=== PATIENT | female | born 1970 | race Two or more races ===

== ENCOUNTER 2018-09-13 13:41 | Inpatient (IN) | payer MEDICARE, OTHER ==
[2018-09-13] VITALS (12 sets, daily range): BP systolic 88–109; BP diastolic 44–58
[~2018-09-13] VITALS: Ht 152.4 cm; Wt 86.6 kg
[2018-09-13] MEDS ORDERED: ACETAMINOPHEN 650 MG/SUPP.RECT RC ONE ×2 (14:30→14:48)
[2018-09-13] MEDS ORDERED: IV NS 0.9% 1,000 ML BAG IV ONE (14:30)
[2018-09-13 14:45] LABS: BASOPHILS % (AUTO) 0.3 % (0.0-2.0); EOSINOPHILS % (AUTO) 0.1 % (0.0-6.0); HEMATOCRIT 29 % (33-45); HEMOGLOBIN 9.7 g/dL (11.5-14.8); LYMPHOCYTES # (AUTO) 0.8 /CMM (0.8-4.8); LYMPHOCYTES % (AUTO) 5.6 % (20.0-44.0); MEAN CORPUSCULAR HGB CONC 33 g/dl (31.0-36.0); MEAN CORPUSCULAR VOLUME 95 fL (82-100); MONOCYTES # (AUTO) 1.7 /CMM (0.1-1.30); MONOCYTES % (AUTO) 12.2 % (2.0-12.0); NEUTROPHILS # (AUTO) 11.2 /CMM (1.8-8.9); NEUTROPHILS % (AUTO) 81.8 % (43.0-81.0); PLATELET COUNT (AUTO) 138 /CMM (150-450); RED BLOOD CELL COUNT(AUTO) 3.07 MIL/uL (4.0-5.2); WHITE BLOOD COUNT (AUTO) 13.6 K/uL (4.3-11.0)
[2018-09-13 14:50] LABS: CALCIUM, SERUM 9.6 mg/dL (8.5-10.1); CARBON DIOXIDE 29 mmol/L (21-32); CHLORIDE 102 mmol/L (98-107); CREATININE 4.7 mg/dL (0.6-1.3); GLUCOSE 167 mg/dL (74-106); POTASSIUM 4.6 mmol/L (3.5-5.1); SODIUM SERUM 141 mmol/L (136-145); UREA NITROGEN, BLOOD 67 mg/dL (7-18)
[2018-09-13 14:57] LABS: ALANINE AMINOTRANSFERASE 107 U/L (12-78); ALKALINE PHOSPHATASE 265 U/L (46-116); ASPARTATE AMINOTRANSFERASE 92 U/L (15-37); BILIRUBIN,DIRECT 0.2 mg/dL (0.0-0.2); BILIRUBIN,TOTAL 0.7 mg/dL (0.2-1.0); TOTAL PROTEIN, SERUM 8.2 g/dL (6.4-8.2)
[2018-09-13] MEDS ORDERED: CEFTRIAXONE 1GM BAG (ER ONLY) 1 GM/50 ML PIGGYBACK IV ONE (16:00)
[2018-09-13 16:09] LABS: BAND % (MANUAL) 2 % (0.0-5.0); LYMPHOCYTES % (MANUAL) 6 % (16-48); MONOCYTES % (MANUAL) 7 % (0-11.0); NEUTROPHILS % (MANUAL) 85 (42-76)
[2018-09-13] MEDS ORDERED: CEFTRIAXONE 1GM BAG (ER ONLY) 50 ML IV ONE (16:11)
[2018-09-13] MEDS ORDERED: DEXT15DR6 EACHEYE (16:30)
[2018-09-13] MEDS ORDERED: CARV3.122 GT (16:30)
[2018-09-13] MEDS ORDERED: CALC667C6 GT (16:30)
[2018-09-13] MEDS ORDERED: BRIM5DRO3 EACHEYE (16:30)
[2018-09-13] MEDS ORDERED: LACT10SO GT (16:30)
[2018-09-13] MEDS ORDERED: MAGN400O6 GT (16:30)
[2018-09-13] MEDS ORDERED: LINA5TAB GT (16:30)
[2018-09-13] MEDS ORDERED: CHLO473M5 MM (16:30)
[2018-09-13] MEDS ORDERED: SUCR1ORA GT (16:30)
[2018-09-13] MEDS ORDERED: MONT10TA22 GT (16:30)
[2018-09-13] MEDS ORDERED: PROT946L GT (16:30)
[2018-09-13] MEDS ORDERED: ASCO250T5 GT (16:30)
[2018-09-13] MEDS ORDERED: LANS30TA4 GT (16:30)
[2018-09-13] MEDS ORDERED: FAMO20TA8 GT (16:30)
[2018-09-13] MEDS ORDERED: VIT1TABL46 GT (16:30)
[2018-09-13] MEDS ORDERED: NYST15PO4 TP (16:30)
[2018-09-13] MEDS ORDERED: ALBU2.5V38 IH ×2 (16:30)
[2018-09-13] MEDS ORDERED: EPOE1VIA6 SQ (16:30)
[2018-09-13] MEDS ORDERED: METO5SOL20 GT (16:30)
[2018-09-13] MEDS ORDERED: POLY17PO4 GT (16:30)
[2018-09-13] MEDS ORDERED: [UNRECOGNIZED DRUG - CODE] GT (16:30)
[2018-09-13] MEDS ORDERED: DOCU50LI GT (16:30)
[2018-09-13] MEDS ORDERED: INSU100V28 IJ (16:30)
[2018-09-13] MEDS ORDERED: LEVE100S2 GT (16:30)
[2018-09-13] MEDS ORDERED: ACET160S GT (16:30)
[2018-09-13] MEDS ORDERED: APIX5TAB GT (16:30)
[2018-09-13] MEDS ORDERED: INSU100V28 SQ (16:39)
[2018-09-13] MEDS ORDERED: NPH,100V SQ (16:39)
[2018-09-13] MEDS ORDERED: NUT.237L67 GT (16:42)
[2018-09-13] MEDS ORDERED: ACETAMINOPHEN 325 MG TABLET PO PRN (19:00)
[2018-09-13] MEDS ORDERED: ONDANSETRON HCL/PF 4 MG/2 ML VIAL IVP PRN (19:00)
[2018-09-13] MEDS ORDERED: VANCOMYCIN POST DIALYSIS 500MG IV PRN ×2 (19:30)
[2018-09-13] MEDS ORDERED: VANCOMYCIN 1.25 GM in IV D5W 500 ML IV ONE (19:30)
[2018-09-13] MEDS ORDERED: VANCOMYCIN 1 GM in IV D5W 250ml IV ONE (19:30)
[2018-09-13] MEDS ORDERED: FEE PK DOSING 1 MIN EA MC ONE (19:33)
[2018-09-13] MEDS: FAMOTIDINE/PF INJ 20 MG/2 ML VIAL IV SCH (21:17)
[2018-09-13] MEDS: PIPERACILLIN /TAZOBACTAM 2.25 G in IV D5W 50 ML IV SCH (21:17)
[2018-09-14] VITALS (34 sets, daily range): BP systolic 90–148; BP diastolic 41–99
[2018-09-14] MEDS ORDERED: PIPERACILLIN /TAZOBACTAM 3.375 G in IV D5W 50 ML IV SCH ×2
[2018-09-14 04:42] LABS: BASOPHILS % (AUTO) 0.2 % (0.0-2.0); EOSINOPHILS % (AUTO) 0.1 % (0.0-6.0); HEMATOCRIT 28 % (33-45); HEMOGLOBIN 9.1 g/dL (11.5-14.8); LYMPHOCYTES # (AUTO) 0.3 /CMM (0.8-4.8); LYMPHOCYTES % (AUTO) 3.5 % (20.0-44.0); MEAN CORPUSCULAR HGB CONC 33 g/dl (31.0-36.0); MEAN CORPUSCULAR VOLUME 95 fL (82-100); MONOCYTES # (AUTO) 0.7 /CMM (0.1-1.30); MONOCYTES % (AUTO) 7.4 % (2.0-12.0); NEUTROPHILS # (AUTO) 8.7 /CMM (1.8-8.9); NEUTROPHILS % (AUTO) 88.8 % (43.0-81.0); PLATELET COUNT (AUTO) 104 /CMM (150-450); RED BLOOD CELL COUNT(AUTO) 2.89 MIL/uL (4.0-5.2); WHITE BLOOD COUNT (AUTO) 9.9 K/uL (4.3-11.0)
[2018-09-14 05:02] LABS: ALBUMIN 2.7 g/dL (3.4-5.0); BILIRUBIN,TOTAL 0.6 mg/dL (0.2-1.0); CALCIUM, SERUM 8.9 mg/dL (8.5-10.1); CREATININE 5.2 mg/dL (0.6-1.3); MAGNESIUM 2.6 mg/dL (1.8-2.4); PHOSPHORUS 2.6 mg/dL (2.5-4.9); POTASSIUM 4.5 mmol/L (3.5-5.1); TOTAL PROTEIN, SERUM 7.8 g/dL (6.4-8.2)
[2018-09-14 05:14] LABS: THYROID STIMULATING HORMONE 3.525 uIU/mL (0.358-3.74)
[2018-09-14] MEDS: PIPERACILLIN /TAZOBACTAM 2.25 G in IV D5W 50 ML IV SCH ×3 (06:02→22:33)
[2018-09-14] MEDS: FAMOTIDINE/PF INJ 20 MG/2 ML VIAL IV SCH ×2 (08:28→16:49)
[2018-09-14] MEDS ORDERED: PANTOPRAZOLE 40 MG VIAL IV SCH (09:00)
[2018-09-14] MEDS: ALBUMIN 25% 25 GM in PREMIX 1 EA IV PRN (10:07)
[2018-09-14] MEDS ORDERED: ACETAMINOPHEN 160 MG/5 ML GT PRN (11:00)
[2018-09-14] MEDS ORDERED: EPOETIN ALFA (10,000 UNIT) 10,000 UNIT/ML VIAL SQ PRN (11:00)
[2018-09-14] MEDS ORDERED: MAGNESIUM HYDROXIDE 30 ML UDC GT PRN (11:00)
[2018-09-14] MEDS ORDERED: NYSTATIN TOP POWDER 15 GM BOTTLE TP PRN (11:00)
[2018-09-14] MEDS ORDERED: DOCUSATE SODIUM LIQ 100 MG/10 ML UDC GT PRN (11:00)
[2018-09-14] MEDS ORDERED: NEPRO 1,000 ML BOTTLE GT SCH (11:00)
[2018-09-14] MEDS ORDERED: GUAIFENESIN/D-METHORPHAN HB 5 ML UDC GT PRN (11:00)
[2018-09-14] MEDS: CHLORHEXIDINE GLUCONATE 15 ML UDC MM SCH ×2 (12:34→22:38)
[2018-09-14] MEDS: SUCRALFATE 1 G/10 ML UDC GT SCH ×2 (12:34→22:29)
[2018-09-14] MEDS ORDERED: ACETAMINOPHEN 650 MG/20.3 ML UDC GT PRN (13:00)
[2018-09-14] MEDS: CALCIUM ACETATE 667 MG TABLET GT SCH (13:11)
[2018-09-14] MEDS ORDERED: ALBUTEROL FS 2.5 MG/0.5 ML VIAL.NEB NEB PRN (13:30)
[2018-09-14] MEDS ORDERED: DEXTROSE 50%-WATER 50 ML DISP.SYRIN IV PRN (14:00)
[2018-09-14] MEDS: ALBUTEROL FS 2.5 MG/0.5 ML VIAL.NEB IH SCH ×2 (14:14→19:27)
[2018-09-14] MEDS: NEPRO 1,000 ML BOTTLE GT PRN (14:48)
[2018-09-14] MEDS: HYDROGEL DRESSING 90 GM TUBE TP SCH ×2 (14:48→22:38)
[2018-09-14 15:56] LABS: CALCIUM, SERUM 8.9 mg/dL (8.5-10.1); CREATININE 3.5 mg/dL (0.6-1.3); POTASSIUM 4.3 mmol/L (3.5-5.1)
[2018-09-14] MEDS: POLYETHYLENE GLYCOL 3350 17 GM POWD.PACK GT SCH (16:49)
[2018-09-14] MEDS: LACTOBACILLUS RHAMNOSUS GG 1 EACH CAP.SPRINK PO SCH (16:49)
[2018-09-14] MEDS: LACTULOSE 10 G/15 ML UDC (PYXIS) GT SCH (16:49)
[2018-09-14] MEDS: PROSOURCE / PROSTAT (PYXIS) 30 ML UDC GT SCH (16:56)
[2018-09-14] MEDS: METOCLOPRAMIDE HCL 10 MG TABLET GT SCH (17:21)
[2018-09-14] MEDS: POLYVINYL ALCOHOL 15 ML BOTTLE EACHEYE SCH ×2 (17:22→22:38)
[2018-09-14] MEDS: INSULIN REGULAR, HUMAN 100 UNIT/ML 3 ML VIAL SQ PRN ×2 (17:23→23:25)
[2018-09-14] MEDS: BLOOD SUGAR DIAGNOSTIC 1 EACH STRIP IN SCH ×2 (17:23→23:26)
[2018-09-14] MEDS: APIXABAN 5 MG TABLET GT SCH (21:00)
[2018-09-14] MEDS: LEVETIRACETAM SOL (5 ML) 100 MG/ML UDC GT SCH (22:29)
[2018-09-14] MEDS: CARVEDILOL 3.125 MG TABLET GT SCH (22:31)
[2018-09-14] MEDS: MONTELUKAST SODIUM (10MG) 10 MG TABLET GT SCH (22:33)
[2018-09-14] MEDS: INSULIN NPH, HUMAN ISOPHANE 100 UNIT/ML VIAL SQ SCH (23:12)
[2018-09-14] MEDS ORDERED: APIXABAN 5 MG TABLET ONE (23:37)
[2018-09-15] VITALS: BP 122/59
[2018-09-15] MEDS: METOCLOPRAMIDE HCL 10 MG TABLET GT SCH ×5 (00:09→23:29)
[2018-09-15] MEDS: ALBUTEROL FS 2.5 MG/0.5 ML VIAL.NEB IH SCH ×4 (01:31→19:42)
[2018-09-15 04:00] VITALS: BP 139/60
[2018-09-15] MEDS: PIPERACILLIN /TAZOBACTAM 2.25 G in IV D5W 50 ML IV SCH ×2 (04:55→12:29)
[2018-09-15] MEDS: CHLORHEXIDINE GLUCONATE 15 ML UDC MM SCH ×3 (05:01→21:11)
[2018-09-15] MEDS: SUCRALFATE 1 G/10 ML UDC GT SCH ×3 (05:01→21:10)
[2018-09-15] MEDS: POLYVINYL ALCOHOL 15 ML BOTTLE EACHEYE SCH ×4 (05:05→23:30)
[2018-09-15] MEDS: INSULIN NPH, HUMAN ISOPHANE 100 UNIT/ML VIAL SQ SCH ×3 (05:07→21:58)
[2018-09-15] MEDS: INSULIN REGULAR, HUMAN 100 UNIT/ML 3 ML VIAL SQ PRN ×3 (05:11→23:41)
[2018-09-15] MEDS: BLOOD SUGAR DIAGNOSTIC 1 EACH STRIP IN SCH ×4 (05:41→23:42)
[2018-09-15] MEDS ORDERED: PANTOPRAZOLE 40 MG TABLET.DR PO SCH (07:30)
[2018-09-15 08:00] VITALS: BP 131/65
[2018-09-15] MEDS ORDERED: FAMOTIDINE (20 MG) 20 MG TABLET GT SCH (09:00)
[2018-09-15] MEDS: CARVEDILOL 3.125 MG TABLET GT SCH ×2 (09:35→21:10)
[2018-09-15] MEDS: LACTOBACILLUS RHAMNOSUS GG 1 EACH CAP.SPRINK PO SCH ×2 (09:35→17:08)
[2018-09-15] MEDS: LACTULOSE 10 G/15 ML UDC (PYXIS) GT SCH ×2 (09:35→17:07)
[2018-09-15] MEDS: POLYETHYLENE GLYCOL 3350 17 GM POWD.PACK GT SCH ×2 (09:35→17:00)
[2018-09-15] MEDS: ASCORBIC ACID 500 MG TABLET GT SCH (09:35)
[2018-09-15] MEDS: FAMOTIDINE/PF INJ 20 MG/2 ML VIAL IV SCH ×2 (09:35→17:08)
[2018-09-15] MEDS: CALCIUM ACETATE 667 MG TABLET GT SCH (09:35)
[2018-09-15] MEDS: VIT B CMPLX 3/FA/VIT C/BIOTIN 1 TAB TABLET GT SCH (09:35)
[2018-09-15] MEDS: LEVETIRACETAM SOL (5 ML) 100 MG/ML UDC GT SCH ×2 (09:35→21:11)
[2018-09-15] MEDS: BRIMONIDINE TARTRATE OPHT SOLN 5 ML BOTTLE EACHEYE SCH (09:36)
[2018-09-15] MEDS: HYDROGEL DRESSING 90 GM TUBE TP SCH ×2 (09:36→21:12)
[2018-09-15] MEDS: PROSOURCE / PROSTAT (PYXIS) 30 ML UDC GT SCH ×2 (09:50→17:08)
[2018-09-15] MEDS: APIXABAN 5 MG TABLET GT SCH ×2 (10:30→21:10)
[2018-09-15 12:00] VITALS: BP 130/52
[2018-09-15 14:48] LABS: BASOPHILS % (AUTO) 0.2 % (0.0-2.0); EOSINOPHILS % (AUTO) 0.7 % (0.0-6.0); HEMATOCRIT 23 % (33-45); HEMOGLOBIN 7.6 g/dL (11.5-14.8); LYMPHOCYTES # (AUTO) 0.5 /CMM (0.8-4.8); LYMPHOCYTES % (AUTO) 7.6 % (20.0-44.0); MEAN CORPUSCULAR HGB CONC 34 g/dl (31.0-36.0); MEAN CORPUSCULAR VOLUME 93 fL (82-100); MONOCYTES # (AUTO) 0.9 /CMM (0.1-1.30); MONOCYTES % (AUTO) 12.8 % (2.0-12.0); NEUTROPHILS # (AUTO) 5.4 /CMM (1.8-8.9); NEUTROPHILS % (AUTO) 78.7 % (43.0-81.0); PLATELET COUNT (AUTO) 101 /CMM (150-450); RED BLOOD CELL COUNT(AUTO) 2.41 MIL/uL (4.0-5.2); WHITE BLOOD COUNT (AUTO) 6.8 K/uL (4.3-11.0)
[2018-09-15 15:12] LABS: ALBUMIN 2.6 g/dL (3.4-5.0); BILIRUBIN,TOTAL 0.5 mg/dL (0.2-1.0); CREATININE 4.8 mg/dL (0.6-1.3); MAGNESIUM 2.6 mg/dL (1.8-2.4); POTASSIUM 3.6 mmol/L (3.5-5.1)
[2018-09-15 16:00] VITALS: BP 136/52
[2018-09-15 18:01] LABS: BAND % (MANUAL) 1 % (0.0-5.0); LYMPHOCYTES % (MANUAL) 9 % (16-48); MONOCYTES % (MANUAL) 6 % (0-11.0); NEUTROPHILS % (MANUAL) 84 (42-76)
[2018-09-15] MEDS ORDERED: DOSING PER PHARMACY-AMIKACI IV XX PRN (19:00)
[2018-09-15] MEDS ORDERED: FEE PK DOSING 1 MIN EA MC ONE (19:12)
[2018-09-15 20:00] VITALS: BP 151/57
[2018-09-15] MEDS ORDERED: D5W IV ONE (20:00)
[2018-09-15] MEDS ORDERED: AMIKACIN IV ONE (20:00)
[2018-09-15] MEDS: MONTELUKAST SODIUM (10MG) 10 MG TABLET GT SCH (21:11)
[2018-09-16] VITALS: BP 169/56
[2018-09-16] MEDS: ALBUTEROL FS 2.5 MG/0.5 ML VIAL.NEB IH SCH ×4 (01:18→20:08)
[2018-09-16 04:00] VITALS: BP 163/56
[2018-09-16] MEDS: SUCRALFATE 1 G/10 ML UDC GT SCH ×3 (05:44→22:06)
[2018-09-16] MEDS: METOCLOPRAMIDE HCL 10 MG TABLET GT SCH ×3 (05:44→17:12)
[2018-09-16] MEDS: POLYVINYL ALCOHOL 15 ML BOTTLE EACHEYE SCH ×3 (05:45→18:03)
[2018-09-16] MEDS: CHLORHEXIDINE GLUCONATE 15 ML UDC MM SCH ×3 (05:46→22:06)
[2018-09-16] MEDS: INSULIN REGULAR, HUMAN 100 UNIT/ML 3 ML VIAL SQ PRN ×3 (05:50→22:13)
[2018-09-16] MEDS: INSULIN NPH, HUMAN ISOPHANE 100 UNIT/ML VIAL SQ SCH ×3 (05:50→22:11)
[2018-09-16] MEDS: BLOOD SUGAR DIAGNOSTIC 1 EACH STRIP IN SCH ×4 (05:51→22:12)
[2018-09-16 07:13] LABS: BASOPHILS % (AUTO) 0.3 % (0.0-2.0); EOSINOPHILS % (AUTO) 0.9 % (0.0-6.0); HEMATOCRIT 25 % (33-45); HEMOGLOBIN 8.4 g/dL (11.5-14.8); LYMPHOCYTES # (AUTO) 0.7 /CMM (0.8-4.8); LYMPHOCYTES % (AUTO) 10.3 % (20.0-44.0); MEAN CORPUSCULAR HGB CONC 34 g/dl (31.0-36.0); MEAN CORPUSCULAR VOLUME 94 fL (82-100); MONOCYTES # (AUTO) 0.7 /CMM (0.1-1.30); MONOCYTES % (AUTO) 11.2 % (2.0-12.0); NEUTROPHILS # (AUTO) 5.2 /CMM (1.8-8.9); NEUTROPHILS % (AUTO) 77.3 % (43.0-81.0); PLATELET COUNT (AUTO) 112 /CMM (150-450); RED BLOOD CELL COUNT(AUTO) 2.65 MIL/uL (4.0-5.2); WHITE BLOOD COUNT (AUTO) 6.7 K/uL (4.3-11.0)
[2018-09-16 07:25] LABS: ALBUMIN 2.5 g/dL (3.4-5.0); BILIRUBIN,TOTAL 0.6 mg/dL (0.2-1.0); CALCIUM, SERUM 9.3 mg/dL (8.5-10.1); CREATININE 5.4 mg/dL (0.6-1.3); MAGNESIUM 2.7 mg/dL (1.8-2.4); PHOSPHORUS 2.4 mg/dL (2.5-4.9); TOTAL PROTEIN, SERUM 7.2 g/dL (6.4-8.2)
[2018-09-16] MEDS: NEPRO 1,000 ML BOTTLE GT PRN (07:41)
[2018-09-16 08:00] VITALS: BP 132/52
[2018-09-16] MEDS: BRIMONIDINE TARTRATE OPHT SOLN 5 ML BOTTLE EACHEYE SCH (08:34)
[2018-09-16] MEDS: LACTULOSE 10 G/15 ML UDC (PYXIS) GT SCH ×2 (08:34→17:12)
[2018-09-16] MEDS: LEVETIRACETAM SOL (5 ML) 100 MG/ML UDC GT SCH ×2 (08:35→22:05)
[2018-09-16] MEDS: VIT B CMPLX 3/FA/VIT C/BIOTIN 1 TAB TABLET GT SCH (08:35)
[2018-09-16] MEDS: POLYETHYLENE GLYCOL 3350 17 GM POWD.PACK GT SCH ×2 (08:35→17:12)
[2018-09-16] MEDS: CALCIUM ACETATE 667 MG TABLET GT SCH (08:35)
[2018-09-16] MEDS: FAMOTIDINE/PF INJ 20 MG/2 ML VIAL IV SCH ×2 (08:36→17:12)
[2018-09-16] MEDS: ASCORBIC ACID 500 MG TABLET GT SCH (08:36)
[2018-09-16] MEDS: LACTOBACILLUS RHAMNOSUS GG 1 EACH CAP.SPRINK PO SCH ×2 (08:36→17:12)
[2018-09-16] MEDS: CARVEDILOL 3.125 MG TABLET GT SCH ×2 (09:00→22:05)
[2018-09-16] MEDS: PROSOURCE / PROSTAT (PYXIS) 30 ML UDC GT SCH ×2 (09:22→17:12)
[2018-09-16] MEDS: HYDROGEL DRESSING 90 GM TUBE TP SCH ×2 (09:23→21:00)
[2018-09-16] MEDS: APIXABAN 5 MG TABLET GT SCH ×2 (09:38→21:33)
[2018-09-16] MEDS ORDERED: NEUTRA PHOS 1 POWD.PACKET NG ONE (11:30)
[2018-09-16] MEDS ORDERED: AMIKACIN IV ONE (12:00)
[2018-09-16] MEDS ORDERED: D5W IV ONE (12:00)
[2018-09-16] MEDS: ALBUMIN 25% 25 GM in PREMIX 1 EA IV PRN (12:27)
[2018-09-16] MEDS ORDERED: EPOETIN ALFA (10,000 UNIT) 10,000 UNIT/ML VIAL IV ONE (15:00)
[2018-09-16 16:00] VITALS: BP 146/61
[2018-09-16] MEDS ORDERED: AMIKACIN 500 MG in IV NS 0.9% 100 ML IV PRN (18:00)
[2018-09-16] MEDS ORDERED: NEPRO 1,000 ML BOTTLE GT PRN (18:30)
[2018-09-16 20:00] VITALS: BP 124/76
[2018-09-16] MEDS: MONTELUKAST SODIUM (10MG) 10 MG TABLET GT SCH (21:33)
[2018-09-17] MEDS: METOCLOPRAMIDE HCL 10 MG TABLET GT SCH ×4 (00:19→17:21)
[2018-09-17] MEDS: POLYVINYL ALCOHOL 15 ML BOTTLE EACHEYE SCH ×4 (00:20→17:22)
[2018-09-17] MEDS: ALBUTEROL FS 2.5 MG/0.5 ML VIAL.NEB IH SCH ×4 (01:24→20:04)
[2018-09-17 04:00] VITALS: BP 136/72
[2018-09-17] MEDS: CHLORHEXIDINE GLUCONATE 15 ML UDC MM SCH ×3 (05:50→21:26)
[2018-09-17] MEDS: INSULIN NPH, HUMAN ISOPHANE 100 UNIT/ML VIAL SQ SCH ×3 (06:02→21:40)
[2018-09-17] MEDS: INSULIN REGULAR, HUMAN 100 UNIT/ML 3 ML VIAL SQ PRN ×3 (06:03→17:25)
[2018-09-17] MEDS: BLOOD SUGAR DIAGNOSTIC 1 EACH STRIP IN SCH ×3 (06:04→17:21)
[2018-09-17] MEDS: SUCRALFATE 1 G/10 ML UDC GT SCH ×3 (06:05→21:25)
[2018-09-17 07:43] LABS: BASOPHILS % (AUTO) 0.4 % (0.0-2.0); HEMATOCRIT 25 % (33-45); HEMOGLOBIN 8.5 g/dL (11.5-14.8); LYMPHOCYTES # (AUTO) 0.6 /CMM (0.8-4.8); LYMPHOCYTES % (AUTO) 11.4 % (20.0-44.0); MEAN CORPUSCULAR HGB CONC 34 g/dl (31.0-36.0); MEAN CORPUSCULAR VOLUME 93 fL (82-100); MONOCYTES # (AUTO) 0.6 /CMM (0.1-1.30); NEUTROPHILS # (AUTO) 4.3 /CMM (1.8-8.9); NEUTROPHILS % (AUTO) 76.2 % (43.0-81.0); PLATELET COUNT (AUTO) 138 /CMM (150-450); WHITE BLOOD COUNT (AUTO) 5.6 K/uL (4.3-11.0)
[2018-09-17 07:50] LABS: CALCIUM, SERUM 9.3 mg/dL (8.5-10.1); MAGNESIUM 2.5 mg/dL (1.8-2.4); PHOSPHORUS 2.1 mg/dL (2.5-4.9); POTASSIUM 3.6 mmol/L (3.5-5.1)
[2018-09-17 08:00] VITALS: BP 165/64
[2018-09-17] MEDS: POLYETHYLENE GLYCOL 3350 17 GM POWD.PACK GT SCH ×2 (09:28→17:20)
[2018-09-17] MEDS: LACTULOSE 10 G/15 ML UDC (PYXIS) GT SCH ×2 (09:28→17:21)
[2018-09-17] MEDS: VIT B CMPLX 3/FA/VIT C/BIOTIN 1 TAB TABLET GT SCH (09:28)
[2018-09-17] MEDS: LEVETIRACETAM SOL (5 ML) 100 MG/ML UDC GT SCH ×2 (09:28→21:26)
[2018-09-17] MEDS: LACTOBACILLUS RHAMNOSUS GG 1 EACH CAP.SPRINK PO SCH ×2 (09:28→17:21)
[2018-09-17] MEDS: FAMOTIDINE/PF INJ 20 MG/2 ML VIAL IV SCH ×2 (09:29→17:21)
[2018-09-17] MEDS: CALCIUM ACETATE 667 MG TABLET GT SCH (09:29)
[2018-09-17] MEDS: ASCORBIC ACID 500 MG TABLET GT SCH (09:29)
[2018-09-17] MEDS: APIXABAN 5 MG TABLET GT SCH ×2 (09:30→21:27)
[2018-09-17] MEDS: HYDROGEL DRESSING 90 GM TUBE TP SCH ×2 (09:30→21:40)
[2018-09-17] MEDS: CARVEDILOL 3.125 MG TABLET GT SCH ×2 (09:30→21:26)
[2018-09-17] MEDS: BRIMONIDINE TARTRATE OPHT SOLN 5 ML BOTTLE EACHEYE SCH (09:30)
[2018-09-17] MEDS: PROSOURCE / PROSTAT (PYXIS) 30 ML UDC GT SCH ×2 (09:32→17:00)
[2018-09-17 16:00] VITALS: BP 146/50
[2018-09-17 20:00] VITALS: BP_SYST 126; BP_DIAS 54; BP_DIAS 64
[2018-09-17] MEDS: MONTELUKAST SODIUM (10MG) 10 MG TABLET GT SCH (21:29)
[2018-09-18] MEDS: BLOOD SUGAR DIAGNOSTIC 1 EACH STRIP IN SCH ×5 (00:13→23:57)
[2018-09-18] MEDS: INSULIN REGULAR, HUMAN 100 UNIT/ML 3 ML VIAL SQ PRN ×4 (00:16→23:59)
[2018-09-18] MEDS: METOCLOPRAMIDE HCL 10 MG TABLET GT SCH ×5 (00:16→23:56)
[2018-09-18] MEDS: POLYVINYL ALCOHOL 15 ML BOTTLE EACHEYE SCH ×5 (00:20→23:56)
[2018-09-18] MEDS: ALBUTEROL FS 2.5 MG/0.5 ML VIAL.NEB IH SCH ×4 (01:39→19:40)
[2018-09-18 04:00] VITALS: BP 156/53
[2018-09-18] MEDS: CHLORHEXIDINE GLUCONATE 15 ML UDC MM SCH ×3 (05:40→21:19)
[2018-09-18] MEDS: SUCRALFATE 1 G/10 ML UDC GT SCH ×3 (05:40→21:18)
[2018-09-18] MEDS: INSULIN NPH, HUMAN ISOPHANE 100 UNIT/ML VIAL SQ SCH ×3 (05:47→21:20)
[2018-09-18 06:24] LABS: BASOPHILS % (AUTO) 0.3 % (0.0-2.0); EOSINOPHILS % (AUTO) 1.5 % (0.0-6.0); HEMATOCRIT 23 % (33-45); HEMOGLOBIN 7.7 g/dL (11.5-14.8); LYMPHOCYTES # (AUTO) 0.7 /CMM (0.8-4.8); LYMPHOCYTES % (AUTO) 12.1 % (20.0-44.0); MEAN CORPUSCULAR HGB CONC 33 g/dl (31.0-36.0); MEAN CORPUSCULAR VOLUME 94 fL (82-100); MONOCYTES # (AUTO) 0.6 /CMM (0.1-1.30); MONOCYTES % (AUTO) 10.1 % (2.0-12.0); NEUTROPHILS # (AUTO) 4.3 /CMM (1.8-8.9); PLATELET COUNT (AUTO) 149 /CMM (150-450); RED BLOOD CELL COUNT(AUTO) 2.49 MIL/uL (4.0-5.2); WHITE BLOOD COUNT (AUTO) 5.7 K/uL (4.3-11.0)
[2018-09-18 06:41] LABS: CALCIUM, SERUM 9.3 mg/dL (8.5-10.1); CREATININE 5.1 mg/dL (0.6-1.3); PHOSPHORUS 2.1 mg/dL (2.5-4.9); POTASSIUM 3.5 mmol/L (3.5-5.1)
[2018-09-18 07:00] LABS: MAGNESIUM 2.7 mg/dL (1.8-2.4)
[2018-09-18 08:00] VITALS: BP 151/80
[2018-09-18] MEDS: LACTULOSE 10 G/15 ML UDC (PYXIS) GT SCH ×2 (09:00→17:00)
[2018-09-18] MEDS: POLYETHYLENE GLYCOL 3350 17 GM POWD.PACK GT SCH ×2 (09:00→17:00)
[2018-09-18] MEDS: LEVETIRACETAM SOL (5 ML) 100 MG/ML UDC GT SCH ×2 (09:18→21:18)
[2018-09-18] MEDS: VIT B CMPLX 3/FA/VIT C/BIOTIN 1 TAB TABLET GT SCH (09:19)
[2018-09-18] MEDS: ASCORBIC ACID 500 MG TABLET GT SCH (09:19)
[2018-09-18] MEDS: LACTOBACILLUS RHAMNOSUS GG 1 EACH CAP.SPRINK PO SCH ×2 (09:20→17:00)
[2018-09-18] MEDS: CARVEDILOL 3.125 MG TABLET GT SCH ×2 (09:20→21:19)
[2018-09-18] MEDS: FAMOTIDINE/PF INJ 20 MG/2 ML VIAL IV SCH ×2 (09:21→17:00)
[2018-09-18] MEDS: PROSOURCE / PROSTAT (PYXIS) 30 ML UDC GT SCH ×2 (09:23→17:00)
[2018-09-18] MEDS: APIXABAN 5 MG TABLET GT SCH ×2 (09:24→21:18)
[2018-09-18] MEDS: BRIMONIDINE TARTRATE OPHT SOLN 5 ML BOTTLE EACHEYE SCH (09:46)
[2018-09-18] MEDS: HYDROGEL DRESSING 90 GM TUBE TP SCH ×2 (09:47→21:19)
[2018-09-18 12:00] VITALS: BP 128/75
[2018-09-18] MEDS ORDERED: NEUTRA PHOS 1 POWD.PACKET GT ONE (12:30)
[2018-09-18] MEDS ORDERED: LACT1CAP72 PO (14:40)
[2018-09-18 16:00] VITALS: BP 152/74
[2018-09-18 20:00] VITALS: BP 125/54
[2018-09-18 21:04] VITALS: BP 125/54
[2018-09-18] MEDS: MONTELUKAST SODIUM (10MG) 10 MG TABLET GT SCH (21:18)
[2018-09-19] MEDS: ALBUTEROL FS 2.5 MG/0.5 ML VIAL.NEB IH SCH ×3 (01:07→13:21)
[2018-09-19 04:00] VITALS: BP 126/57
[2018-09-19] MEDS: CHLORHEXIDINE GLUCONATE 15 ML UDC MM SCH ×2 (04:58→12:49)
[2018-09-19] MEDS: SUCRALFATE 1 G/10 ML UDC GT SCH ×2 (04:58→12:49)
[2018-09-19] MEDS: POLYVINYL ALCOHOL 15 ML BOTTLE EACHEYE SCH ×3 (05:00→18:09)
[2018-09-19] MEDS: INSULIN NPH, HUMAN ISOPHANE 100 UNIT/ML VIAL SQ SCH ×2 (05:09→13:02)
[2018-09-19] MEDS: INSULIN REGULAR, HUMAN 100 UNIT/ML 3 ML VIAL SQ PRN (05:11)
[2018-09-19] MEDS: METOCLOPRAMIDE HCL 10 MG TABLET GT SCH ×3 (05:13→18:07)
[2018-09-19] MEDS: BLOOD SUGAR DIAGNOSTIC 1 EACH STRIP IN SCH ×3 (05:13→18:07)
[2018-09-19 06:25] LABS: BASOPHILS % (AUTO) 0.5 % (0.0-2.0); EOSINOPHILS % (AUTO) 1.5 % (0.0-6.0); HEMATOCRIT 25 % (33-45); HEMOGLOBIN 8.5 g/dL (11.5-14.8); LYMPHOCYTES % (AUTO) 13.2 % (20.0-44.0); MEAN CORPUSCULAR HGB CONC 34 g/dl (31.0-36.0); MEAN CORPUSCULAR VOLUME 94 fL (82-100); MONOCYTES # (AUTO) 0.8 /CMM (0.1-1.30); NEUTROPHILS # (AUTO) 5.8 /CMM (1.8-8.9); NEUTROPHILS % (AUTO) 74.8 % (43.0-81.0); PLATELET COUNT (AUTO) 206 /CMM (150-450); RED BLOOD CELL COUNT(AUTO) 2.69 MIL/uL (4.0-5.2); WHITE BLOOD COUNT (AUTO) 7.8 K/uL (4.3-11.0)
[2018-09-19 06:39] LABS: CALCIUM, SERUM 9.4 mg/dL (8.5-10.1); CREATININE 4.1 mg/dL (0.6-1.3); MAGNESIUM 2.5 mg/dL (1.8-2.4); POTASSIUM 3.8 mmol/L (3.5-5.1)
[2018-09-19 08:00] VITALS: BP 160/81
[2018-09-19] MEDS: LEVETIRACETAM SOL (5 ML) 100 MG/ML UDC GT SCH (09:11)
[2018-09-19] MEDS: VIT B CMPLX 3/FA/VIT C/BIOTIN 1 TAB TABLET GT SCH (09:11)
[2018-09-19] MEDS: CARVEDILOL 3.125 MG TABLET GT SCH (09:11)
[2018-09-19] MEDS: PROSOURCE / PROSTAT (PYXIS) 30 ML UDC GT SCH ×2 (09:11→18:08)
[2018-09-19] MEDS: LACTULOSE 10 G/15 ML UDC (PYXIS) GT SCH ×2 (09:11→17:00)
[2018-09-19] MEDS: ASCORBIC ACID 500 MG TABLET GT SCH (09:11)
[2018-09-19] MEDS: LACTOBACILLUS RHAMNOSUS GG 1 EACH CAP.SPRINK PO SCH ×2 (09:11→18:07)
[2018-09-19] MEDS: POLYETHYLENE GLYCOL 3350 17 GM POWD.PACK GT SCH ×2 (09:11→17:00)
[2018-09-19] MEDS: APIXABAN 5 MG TABLET GT SCH (09:12)
[2018-09-19] MEDS: FAMOTIDINE/PF INJ 20 MG/2 ML VIAL IV SCH ×2 (09:15→18:08)
[2018-09-19] MEDS: BRIMONIDINE TARTRATE OPHT SOLN 5 ML BOTTLE EACHEYE SCH (09:21)
[2018-09-19] MEDS: HYDROGEL DRESSING 90 GM TUBE TP SCH (09:21)
[2018-09-19 16:00] VITALS: BP 137/84
== END 2018-09-19 18:20 | DRG 853 ==
LOC: ER 13:41 → ICU 15:46 → TELE1 09-14 16:27 → ICU 09-14 16:45 → TELE1 09-14 17:31 → MEDSG1 09-16 11:16
PROVIDERS: ADMIT Registered Nurse; ATTEND Hospitalist
PROC: 05H633Z Insertion of Infusion Device into Left Subclavian Vein, Percutaneous Approach (ICD-10-PCS; 2018-09-13)
PROC: 5A1D70Z Performance of Urinary Filtration, Intermittent, Less than 6 Hours Per Day (ICD-10-PCS; 2018-09-14)
PROC: 0JBM0ZZ Excision of Left Upper Leg Subcutaneous Tissue and Fascia, Open Approach (ICD-10-PCS; principal; 2018-09-15)
DX: A41.9 Sepsis, unspecified organism (principal); L89.153 Pressure ulcer of sacral region, stage 3; I21.A1 Myocardial infarction type 2; R65.21 Severe sepsis with septic shock; N18.6 End stage renal disease; R53.2 Functional quadriplegia; J15.1 Pneumonia due to Pseudomonas; L89.323 Pressure ulcer of left buttock, stage 3; L89.313 Pressure ulcer of right buttock, stage 3; E44.1 Mild protein-calorie malnutrition; G93.1 Anoxic brain damage, not elsewhere classified; I12.0 Hypertensive chronic kidney disease with stage 5 chronic kidney disease or end stage renal disease; Z99.11 Dependence on respirator [ventilator] status; J96.10 Chronic respiratory failure, unspecified whether with hypoxia or hypercapnia; E11.22 Type 2 diabetes mellitus with diabetic chronic kidney disease; Z99.2 Dependence on renal dialysis; E83.39 Other disorders of phosphorus metabolism; E83.41 Hypermagnesemia; D63.1 Anemia in chronic kidney disease; Z79.4 Long term (current) use of insulin; E11.51 Type 2 diabetes mellitus with diabetic peripheral angiopathy without gangrene; E11.621 Type 2 diabetes mellitus with foot ulcer; G40.909 Epilepsy, unspecified, not intractable, without status epilepticus; I48.91 Unspecified atrial fibrillation; K21.9 Gastro-esophageal reflux disease without esophagitis; K76.0 Fatty (change of) liver, not elsewhere classified; Z86.74 Personal history of sudden cardiac arrest; Z86.718 Personal history of other venous thrombosis and embolism; Z93.0 Tracheostomy status; Z74.01 Bed confinement status; Z79.01 Long term (current) use of anticoagulants; Z68.37 Body mass index [BMI] 37.0-37.9, adult; E87.70 Fluid overload, unspecified; E66.01 Morbid (severe) obesity due to excess calories; R74.0 Nonspecific elevation of levels of transaminase and lactic acid dehydrogenase [LDH]; S71.112A Laceration without foreign body, left thigh, initial encounter; X58.XXXA Exposure to other specified factors, initial encounter; Y93.9 Activity, unspecified; S31.119A Laceration without foreign body of abdominal wall, unspecified quadrant without penetration into peritoneal cavity, initial encounter; L97.529 Non-pressure chronic ulcer of other part of left foot with unspecified severity; D63.8 Anemia in other chronic diseases classified elsewhere; F09 Unspecified mental disorder due to known physiological condition; R13.10 Dysphagia, unspecified; Y92.129 Unspecified place in nursing home as the place of occurrence of the external cause; B96.20 Unspecified Escherichia coli [E. coli] as the cause of diseases classified elsewhere; Z16.12 Extended spectrum beta lactamase (ESBL) resistance
CPT/HCPCS: 31720; 36415; 71045-TC; 76705-TC; 80048-TC; 80053-TC; 80061-TC; 80076-TC; 80150; 80202-TC; 82140-TC; 82962-TC; 83605-TC; 83735-TC; 84100-TC; 84443-TC; 84484-TC; 84702-TC; 85025-TC; 85730-TC; 86706; 87040-TC; 87070-TC; 87081-TC; 87186-TC; 87340; 90935-TC; 93307-TC; 93970-TC; 94640-TC; 94760-TC; 94762-TC; 94799-TC; 99082-TC; A4216; A4623; A6248; A6253; A6402; A6403; A7526; G0378; J0278; J0696; J0885; J1815; J1953; J2543; J3370; J3490; J7030; J7050; J7060; J8597; P9047

== ENCOUNTER 2018-10-05 14:24 | Inpatient (IN) | payer MEDICARE, OTHER ==
[~2018-10-05] VITALS: Ht 162.6 cm; Wt 93.5 kg
[~2018-10-05 14:24] MED LIST: ACET160S GT; ALBU2.5V38 IH; APIX5TAB GT; ASCO250T5 GT; BRIM5DRO3 EACHEYE; CALC667C6 GT; CARV3.122 GT; CHLO473M5 MM; DEXT15DR6 EACHEYE; DOCU50LI GT; EPOE1VIA6 SQ; FAMO20TA8 GT; INSU100V28 SQ; LACT10SO GT; LACT1CAP72 PO; LANS30TA4 GT; LEVE100S2 GT; LINA5TAB GT; MAGN400O6 GT; METO5SOL20 GT; MONT10TA22 GT; NPH,100V SQ; NUT.237L67 GT; NYST15PO4 TP; POLY17PO4 GT; PROT946L GT; SUCR1ORA GT; VIT1TABL46 GT; [UNRECOGNIZED DRUG - CODE] GT
--- NOTE | 2018-10-05 14:45 | NUR ---
[facility] FOR SEND BY [facility] FOR LOW H/H 6.9/21.3, TO ER BED 8, HOOKED TO MONITOR, RT AT BEDSIDE, PROVIDED W WARM BLANKET. AWAITING MD BOSS.
[2018-10-05] MEDS ORDERED: BISA10SU61 RC (15:17)
[2018-10-05] MEDS ORDERED: ACET325T53 PO (15:17)
[2018-10-05] MEDS ORDERED: NA P133E RC (15:17)
--- NOTE | 2018-10-05 15:57 | NUR ---
KARON THEODORE MD AT BEDSIDE
[2018-10-05 16:30] LABS: BASOPHILS # (AUTO) 0.1 /CMM (0.0-0.2); BASOPHILS % (AUTO) 0.5 % (0.0-2.0); EOSINOPHILS % (AUTO) 1.5 % (0.0-6.0); HEMATOCRIT 21 % (33-45); LYMPHOCYTES # (AUTO) 0.6 /CMM (0.8-4.8); LYMPHOCYTES % (AUTO) 5.3 % (20.0-44.0); MEAN CORPUSCULAR HGB CONC 33 g/dl (31.0-36.0); MEAN CORPUSCULAR VOLUME 95 fL (82-100); MONOCYTES # (AUTO) 1.2 /CMM (0.1-1.30); MONOCYTES % (AUTO) 10.1 % (2.0-12.0); NEUTROPHILS # (AUTO) 9.5 /CMM (1.8-8.9); NEUTROPHILS % (AUTO) 82.6 % (43.0-81.0); PLATELET COUNT (AUTO) 291 /CMM (150-450); RED BLOOD CELL COUNT(AUTO) 2.25 MIL/uL (4.0-5.2); WHITE BLOOD COUNT (AUTO) 11.5 K/uL (4.3-11.0)
[2018-10-05 16:33] LABS: HEMOGLOBIN 6.9 g/dL (11.5-14.8)
[2018-10-05 16:40] LABS: CALCIUM, SERUM 9.3 mg/dL (8.5-10.1); CARBON DIOXIDE 29 mmol/L (21-32); CHLORIDE 96 mmol/L (98-107); CREATININE 4.8 mg/dL (0.6-1.3); GLUCOSE 170 mg/dL (74-106); SODIUM SERUM 132 mmol/L (136-145); UREA NITROGEN, BLOOD 61 mg/dL (7-18)
[2018-10-05 16:52] LABS: ALANINE AMINOTRANSFERASE 22 U/L (12-78); ALBUMIN 2.4 g/dL (3.4-5.0); ALKALINE PHOSPHATASE 186 U/L (46-116); ASPARTATE AMINOTRANSFERASE 25 U/L (15-37); B-TYPE NATRIURETIC PEPTIDE 17069 PG/ML (0-125); BILIRUBIN,DIRECT 0.2 mg/dL (0.0-0.2); BILIRUBIN,TOTAL 0.5 mg/dL (0.2-1.0); TOTAL PROTEIN, SERUM 8.4 g/dL (6.4-8.2)
[2018-10-05 17:23] LABS: BAND % (MANUAL) 21 % (0.0-5.0); EOSINOPHILS % (MANUAL) 2 % (0-4); LYMPHOCYTES % (MANUAL) 7 % (16-48); MONOCYTES % (MANUAL) 13 % (0-11.0); NEUTROPHILS % (MANUAL) 57 (42-76)
--- NOTE | 2018-10-05 17:31 | NUR ---
PANEL ON-CALL PAGED
--- NOTE | 2018-10-05 17:40 | NUR ---
[id number] BORJAS
--- NOTE | 2018-10-05 17:45 | NUR ---
REPORT GIVEN TO PAT ALAMO OF TELE UNIT
[2018-10-05] MEDS ORDERED: ONDANSETRON HCL/PF 4 MG/2 ML VIAL IVP PRN (19:00)
[2018-10-05] MEDS ORDERED: GUAIFENESIN/D-METHORPHAN HB 5 ML UDC GT PRN (19:00)
[2018-10-05] MEDS ORDERED: MAGNESIUM HYDROXIDE 30 ML UDC GT PRN (19:00)
[2018-10-05] MEDS ORDERED: ACETAMINOPHEN 160 MG/5 ML GT PRN ×2 (19:00)
[2018-10-05] MEDS ORDERED: NA PHOS,M-B/NA PHOS,DI-BA 1 EA ENEMA RC PRN (19:00)
[2018-10-05] MEDS ORDERED: BISACODYL SUPP (10 MG) 10 MG/SUPP.RECT SUPP.RECT RC PRN (19:00)
[2018-10-05] MEDS ORDERED: ACETAMINOPHEN 325 MG TABLET PO PRN (19:00)
[2018-10-05] MEDS ORDERED: EPOETIN ALFA (10,000 UNIT) 10,000 UNIT/ML VIAL SQ SCH (19:00)
[2018-10-05] MEDS ORDERED: Z GUARD REMEDY 2 OZ OINT TP PRN (19:00)
--- NOTE | 2018-10-05 19:05 | NUR ---
RN NOTES RECEIVED PATIENT FROM ER. PATIENT IN STABLE CONDITION. VS WNL. PATIENT OBTUNDED, NOTED WITH T-PIECE TRACH ON 5LPM. NOTED WITH WOUND ON LEFT FOREHEAD. KEPT PATIENT SAFE AND COMFORTABLE. BED IN LOW/LOCKED POSITION, SIDERAILS UPX2, CALL LIGHT IN REACH. ENDORSED TO JASMEET TOURE FOR ADMISSION.
[2018-10-05] MEDS ORDERED: METOCLOPRAMIDE HCL 10 MG/10 ML UDC GT PRN (19:30)
[2018-10-05] MEDS ORDERED: POLYVINYL ALCOHOL 15 ML BOTTLE EACHEYE PRN (19:30)
[2018-10-05] MEDS ORDERED: POLYVINYL ALCOHOL/POVIDONE 0.4 ML DROPERETTE EACHEYE PRN (19:30)
[2018-10-05] MEDS ORDERED: ALBUTEROL FS 2.5 MG/0.5 ML VIAL.NEB NEB PRN (19:30)
[2018-10-05 20:00] VITALS: BP 137/66
[2018-10-05] MEDS: ALBUTEROL FS 2.5 MG/0.5 ML VIAL.NEB NEB SCH (20:26)
[2018-10-05] MEDS: CARVEDILOL 3.125 MG TABLET GT SCH (21:00)
[2018-10-05] MEDS: NEPRO 1,000 ML BOTTLE GT SCH (21:31)
[2018-10-05] MEDS: MONTELUKAST SODIUM (10MG) 10 MG TABLET GT SCH (22:00)
[2018-10-06] VITALS (7 sets, daily range): BP systolic 105–131; BP diastolic 49–83
[2018-10-06] MEDS: CHLORHEXIDINE GLUCONATE 15 ML UDC MM SCH ×4 (00:23→22:09)
[2018-10-06] MEDS: SUCRALFATE 1 G/10 ML UDC GT SCH ×4 (00:23→22:10)
[2018-10-06] MEDS: LEVETIRACETAM SOL (5 ML) 100 MG/ML UDC GT SCH ×3 (00:23→22:10)
[2018-10-06] MEDS: DOCUSATE SODIUM LIQ 100 MG/10 ML UDC GT SCH ×3 (00:24→22:10)
--- NOTE | 2018-10-06 00:25 | NUR ---
MS/RN BLOOD TRANSFUSION NOT STARTED YET, TEMP 100.6. TYLENOL 650 MG GT WAS GIVEN ORDERED, WILL RECHECK IN ONE HOUR, IF TEMP WNL, WILL START THE BLOOD TRANSFUSION.
[2018-10-06] MEDS: ALBUTEROL FS 2.5 MG/0.5 ML VIAL.NEB NEB SCH ×4 (00:30→19:13)
--- NOTE | 2018-10-06 02:37 | NUR ---
/JASMEET TEMP 101.7, YOSELIN MEZA, NOTIFIED, PER DERRICK, PROCEED WITHE THE BLOOD TRANSFUSION. BLOOD TRANSFUSION STARTED, WILL MONITOR PER PROTOCOL. Addendum: 10/06/18 at 0313 by TEJAL TORREZ RN COOLING MEASURES WAS STARTED.
--- NOTE | 2018-10-06 03:13 | NUR ---
MS/RN TEMP 101.1, WILL CONTINUE COOLING MEASURES, AND MONITOR.
[2018-10-06] MEDS ORDERED: D5W IV ONE (04:30)
[2018-10-06] MEDS ORDERED: CEFEPIME 1 GM in IV D5W 50 ML IV ONE (04:30)
[2018-10-06] MEDS ORDERED: CEFEPIME HCL IV ONE (04:30)
[2018-10-06] MEDS ORDERED: VANCOMYCIN 1 GM VIAL ONE (04:36)
[2018-10-06] MEDS ORDERED: CEFEPIME 1 GM VIAL ONE (04:58)
[2018-10-06] MEDS ORDERED: VANCOMYCIN 1 GM in IV D5W 250ml IV ONE (05:00)
[2018-10-06 05:24] LABS: ALBUMIN 2.3 g/dL (3.4-5.0); BILIRUBIN,TOTAL 0.5 mg/dL (0.2-1.0); CALCIUM, SERUM 9.1 mg/dL (8.5-10.1); CREATININE 5.6 mg/dL (0.6-1.3); MAGNESIUM 3.2 mg/dL (1.8-2.4); POTASSIUM 3.9 mmol/L (3.5-5.1); TOTAL PROTEIN, SERUM 7.8 g/dL (6.4-8.2)
--- NOTE | 2018-10-06 06:21 | NUR ---
MS/RN BLOOD TRANSFUSION WAS FINISHED AT 0540, VITAL SIGNS STABLE, TEMP 98.9, NO BLOOD TRANSFUSION REACTIONS NOTED, ALL NEEDS ATTENDED AT THIS TIME, WILL CONTINUE TO MONITOR.
--- NOTE | 2018-10-06 08:00 | NUR ---
LICENSING REPRESENTATIVE OPENING NOTES Received Patient resting in bed. A/O x 0, obtunded. VS stable with no acute distress. Breathing even and unlabored and undergoing respiratory treatment at this time. No signs and symptoms of pain at this time. Telemonitor in place and operational reading sinus rhythm with HR-90. GTube in place and operational with Nephro running at 55ml/hr. 22g PIV on LEFT SHOULDER clean, dry, intact and flushing well. 20g PIV on LFA clean, dry, intact and flushing well. Safety precautions in place. Bed locked and set to lowest position with side rails x 2 up. Sister at bedside. All needs rendered at this time. Will continue to monitor.
[2018-10-06] MEDS: INSULIN NPH, HUMAN ISOPHANE 100 UNIT/ML CARTRIDGE SQ SCH ×3 (08:51→18:19)
[2018-10-06] MEDS: CARVEDILOL 3.125 MG TABLET GT SCH ×2 (09:00→22:11)
[2018-10-06] MEDS: PROSOURCE / PROSTAT (PYXIS) 30 ML UDC GT SCH ×2 (09:00→16:36)
[2018-10-06] MEDS: LACTULOSE 10 G/15 ML UDC (PYXIS) GT SCH ×2 (09:00→16:36)
[2018-10-06] MEDS: POLYETHYLENE GLYCOL 3350 17 GM POWD.PACK GT SCH ×2 (09:00→16:36)
[2018-10-06] MEDS: LACTOBACILLUS RHAMNOSUS GG 1 EACH CAP.SPRINK PO SCH ×2 (09:00→16:36)
--- NOTE | 2018-10-06 09:01 | NUR ---
CHARGING MACHINE OPERATOR NOTES Patient undergoing dialysis at this time. AM medications held. Patient in stable condition. Will continue to monitor.
[2018-10-06 09:21] LABS: BASOPHILS # (AUTO) 0.1 /CMM (0.0-0.2); BASOPHILS % (AUTO) 0.9 % (0.0-2.0); EOSINOPHILS % (AUTO) 1.2 % (0.0-6.0); HEMATOCRIT 22 % (33-45); HEMOGLOBIN 7.4 g/dL (11.5-14.8); LYMPHOCYTES # (AUTO) 0.7 /CMM (0.8-4.8); LYMPHOCYTES % (AUTO) 5.8 % (20.0-44.0); MEAN CORPUSCULAR HGB CONC 33 g/dl (31.0-36.0); MEAN CORPUSCULAR VOLUME 91 fL (82-100); MONOCYTES # (AUTO) 1.3 /CMM (0.1-1.30); MONOCYTES % (AUTO) 10.9 % (2.0-12.0); NEUTROPHILS # (AUTO) 9.9 /CMM (1.8-8.9); NEUTROPHILS % (AUTO) 81.2 % (43.0-81.0); PLATELET COUNT (AUTO) 248 /CMM (150-450); RED BLOOD CELL COUNT(AUTO) 2.44 MIL/uL (4.0-5.2); WHITE BLOOD COUNT (AUTO) 12.1 K/uL (4.3-11.0)
[2018-10-06] MEDS ORDERED: EPOETIN ALFA (10,000 UNIT) 10,000 UNIT/ML VIAL IV ONE (12:30)
[2018-10-06] MEDS ORDERED: LIDOCAINE 1%-EPI 1:100,000 20 ML VIAL TP ONE (13:00)
[2018-10-06] MEDS ORDERED: SILVER NITRATE APPLICATOR 1 EA BOX TP ONE (13:00)
[2018-10-06] MEDS: BRIMONIDINE TARTRATE OPHT SOLN 5 ML BOTTLE EACHEYE SCH (13:17)
[2018-10-06] MEDS: FAMOTIDINE (20 MG) 20 MG TABLET GT SCH (13:18)
[2018-10-06] MEDS: VIT B CMPLX 3/FA/VIT C/BIOTIN 1 TAB TABLET GT SCH (13:18)
[2018-10-06] MEDS: CALCIUM ACETATE 667 MG TABLET GT SCH (13:18)
[2018-10-06] MEDS: PANTOPRAZOLE 40 MG/PACK PACK GT SCH (13:18)
[2018-10-06] MEDS: ASCORBIC ACID 500 MG TABLET GT SCH (13:19)
[2018-10-06] MEDS ORDERED: FEE PK DOSING 1 MIN EA MC ONE ×2 (13:57→19:50)
[2018-10-06] MEDS: DAKINS QUARTER STRENGTH (0.125%) 480 ML BOTTLE TOP SCH (14:22)
[2018-10-06] MEDS: VANCOMYCIN 500 MG in IV D5W 100 ML IV PRN (14:23)
[2018-10-06] MEDS: ACETAMINOPHEN 650 MG/20.3 ML UDC GT PRN (16:36)
--- NOTE | 2018-10-06 16:36 | NUR ---
MS RN NOTES Temp 101.4F. Administered Tylenol 650mg via GT. Cooling measures performed. Will continue to monitor.
--- NOTE | 2018-10-06 18:35 | NUR ---
MS RN NOTES Temp 100.9F. Notified Nicola [employer] TURBINE ASSEMBLER. Will continue to monitor.
--- NOTE | 2018-10-06 19:15 | NUR ---
MS RN PM OPENING NOTES bedside report recieved from siri parry. Sister yesika is at the bedside. poc reviewed questions concerns addressed. Patient resting in bed. patient is awake with grimace to painful stimuli. baseline is obtunded. per report patient had minor temperature and cooling measurees in place ice packs are under both arms. . Breathing even and unlabored with T-Piece connected to humidified O2 at 5LPM. No signs and symptoms of pain at this time. GTube in place and operational with Nephro running at 55ml/hr. 22g PIV to LEFT SHOULDER clean, dry, intact and flushing well heplocked. 20g PIV on LFA clean, dry, intact and flushing wel heplockedl. Safety precautions in place. Bed locked and set to lowest position with side rails x 2 up. will cont to monitor.
--- NOTE | 2018-10-06 19:24 | NUR ---
MS RN CLOSING NOTES Patient resting in bed. A/O x 0, obtunded. VS stable with no acute distress. Breathing even and unlabored with T-Piece connected to humidified O2 at 5LPM. No signs and symptoms of pain at this time. GTube in place and operational with Nephro running at 55ml/hr. Noted 0 residual. 22g PIV on LEFT SHOULDER clean, dry, intact and flushing well. 20g PIV on LFA clean, dry, intact and flushing well. Safety precautions in place. Bed locked and set to lowest position with side rails x 2 up. Sister at bedside. All needs rendered at this time. Will endorse plan of care to oncoming shift.
[2018-10-06] MEDS ORDERED: DOSING PER PHARMACY-AMIKACI IV XX PRN (20:00)
[2018-10-06] MEDS ORDERED: AMIKACIN 400 MG in IV D5W 100 ML IV PRN (20:00)
[2018-10-06] MEDS ORDERED: AMIKACIN 400 MG in IV D5W 100 ML IV ONE (21:00)
[2018-10-06] MEDS: MONTELUKAST SODIUM (10MG) 10 MG TABLET GT SCH (22:12)
[2018-10-07] MEDS: ALBUTEROL FS 2.5 MG/0.5 ML VIAL.NEB NEB SCH ×4 (02:06→20:43)
[2018-10-07] MEDS: CHLORHEXIDINE GLUCONATE 15 ML UDC MM SCH ×3 (05:57→20:48)
[2018-10-07] MEDS: NEPRO 1,000 ML BOTTLE GT SCH (05:59)
[2018-10-07] MEDS: SUCRALFATE 1 G/10 ML UDC GT SCH ×3 (06:08→20:48)
--- NOTE | 2018-10-07 06:15 | NUR ---
MS RN CLOSING NOTES Patient in bed. A/O x 0, obtunded. diaper changed and repositioned. tube feeding restarted at 55ml /hr. trach care recently performed by rt, trach cannula replaced. VS stable with no acute distress. Breathing even and unlabored with T-Piece connected to humidified O2 at 5LPM. No signs and symptoms of pain at this time. no s/s of respiratory distress. 22g PIV on LEFT SHOULDER clean, dry, intact and flushing well. 20g PIV on LFA clean, dry, intact and flushing well. Safety precautions in place. Bed locked and set to lowest position with side rails x 2 up. Sister at bedside. All needs rendered at this time. Will endorse plan of care to oncoming shift.
[2018-10-07 06:53] LABS: ALBUMIN 2.4 g/dL (3.4-5.0); BILIRUBIN,TOTAL 0.6 mg/dL (0.2-1.0); CALCIUM, SERUM 9.3 mg/dL (8.5-10.1); CREATININE 3.8 mg/dL (0.6-1.3); MAGNESIUM 2.7 mg/dL (1.8-2.4); PHOSPHORUS 1.3 mg/dL (2.5-4.9); TOTAL PROTEIN, SERUM 8.2 g/dL (6.4-8.2)
[2018-10-07 07:32] LABS: OCCULT BLOOD STOOL NEGATIVE (NEGATIVE)
--- NOTE | 2018-10-07 07:33 | NUR ---
RN OPENING NOTE PT WAS RECIEVED IN BED AT LOWEST AND LOCKED POSITION WITH SIDE RAILS UP X2, A/X 0 OBTUNDED, BREATHING EVEN AND UNLABORED ON T-PIECE WITH HUMIDIFIER ON O2 AT 5LPM, NO S/S OF ANY DISTRESS OR PAIN NOTED AT THIS TIME, NOTED TO HAVE GTUBE IN PLACE WITH FEEDING RUNNING AT 55ML/HR WITH 20 ML RESIDUAL NOTED AT THIS TIME, IV IS PATENT AND INTACT, NOTED TO HAVE RIGHT ARM AV SHUNT, SAFETY PRECAUTIONS IN PLACE, CALL LIGHT WITHIN REACH, WILL MONITOR PT ACCORDINGLY
[2018-10-07 08:00] VITALS: BP 128/51
[2018-10-07] MEDS: DOCUSATE SODIUM LIQ 100 MG/10 ML UDC GT SCH ×2 (08:19→20:48)
[2018-10-07] MEDS: PANTOPRAZOLE 40 MG/PACK PACK GT SCH (08:19)
[2018-10-07] MEDS: CALCIUM ACETATE 667 MG TABLET GT SCH (08:19)
[2018-10-07] MEDS: ASCORBIC ACID 500 MG TABLET GT SCH (08:19)
[2018-10-07] MEDS: FAMOTIDINE (20 MG) 20 MG TABLET GT SCH (08:19)
[2018-10-07] MEDS: LACTULOSE 10 G/15 ML UDC (PYXIS) GT SCH ×2 (08:19→17:20)
[2018-10-07] MEDS: LACTOBACILLUS RHAMNOSUS GG 1 EACH CAP.SPRINK PO SCH ×2 (08:19→17:20)
[2018-10-07] MEDS: LEVETIRACETAM SOL (5 ML) 100 MG/ML UDC GT SCH ×2 (08:19→20:49)
[2018-10-07] MEDS: VIT B CMPLX 3/FA/VIT C/BIOTIN 1 TAB TABLET GT SCH (08:19)
[2018-10-07] MEDS: POLYETHYLENE GLYCOL 3350 17 GM POWD.PACK GT SCH ×2 (08:20→17:20)
[2018-10-07] MEDS: ACETAMINOPHEN 650 MG/20.3 ML UDC GT PRN (08:20)
[2018-10-07] MEDS: CARVEDILOL 3.125 MG TABLET GT SCH ×2 (08:20→20:49)
[2018-10-07] MEDS: BRIMONIDINE TARTRATE OPHT SOLN 5 ML BOTTLE EACHEYE SCH (08:21)
[2018-10-07] MEDS: PROSOURCE / PROSTAT (PYXIS) 30 ML UDC GT SCH ×2 (08:23→17:20)
[2018-10-07] MEDS: INSULIN NPH, HUMAN ISOPHANE 100 UNIT/ML CARTRIDGE SQ SCH ×3 (08:23→17:21)
[2018-10-07] MEDS: DAKINS QUARTER STRENGTH (0.125%) 480 ML BOTTLE TOP SCH (08:29)
--- NOTE | 2018-10-07 10:00 | NUR ---
RN NOTE PT WAS REPOSITIONED AT THIS TIME
[2018-10-07 10:29] LABS: BASOPHILS % (AUTO) 0.3 % (0.0-2.0); EOSINOPHILS % (AUTO) 1.3 % (0.0-6.0); HEMATOCRIT 23 % (33-45); HEMOGLOBIN 7.5 g/dL (11.5-14.8); LYMPHOCYTES # (AUTO) 0.8 /CMM (0.8-4.8); LYMPHOCYTES % (AUTO) 7.1 % (20.0-44.0); MEAN CORPUSCULAR HGB CONC 32 g/dl (31.0-36.0); MEAN CORPUSCULAR VOLUME 93 fL (82-100); MONOCYTES # (AUTO) 1.1 /CMM (0.1-1.30); MONOCYTES % (AUTO) 9.5 % (2.0-12.0); NEUTROPHILS # (AUTO) 9.4 /CMM (1.8-8.9); NEUTROPHILS % (AUTO) 81.8 % (43.0-81.0); PLATELET COUNT (AUTO) 242 /CMM (150-450); RED BLOOD CELL COUNT(AUTO) 2.48 MIL/uL (4.0-5.2); WHITE BLOOD COUNT (AUTO) 11.5 K/uL (4.3-11.0)
--- NOTE | 2018-10-07 12:00 | NUR ---
RN NOTE PT REPOSITIONED AT THIS TIME
[2018-10-07] MEDS: BLOOD SUGAR DIAGNOSTIC 1 EACH STRIP IN SCH ×3 (12:15→23:11)
--- NOTE | 2018-10-07 14:00 | NUR ---
RN NOTE PT WAS REPOSITIONED AT THIS TIME
[2018-10-07] MEDS ORDERED: CEFEPIME 1 GM in IV D5W 50 ML IV SCH (15:00)
[2018-10-07] MEDS ORDERED: POTASSIUM PHOSPHATE MM 7.5 MMOL in IV D5W 100 ML IV SCH (15:30)
[2018-10-07 16:00] VITALS: BP 129/51
--- NOTE | 2018-10-07 16:00 | NUR ---
RN NOTE PT REPOSITIONED AT THIS TIME
--- NOTE | 2018-10-07 16:33 | NUR ---
RN NOTE DIALYSIS NURSE JARAD CALLED AND INFORMED CHARGED NURSE DEDE THAT HEMODIALYSIS WILL BE DONE TOMORROW
--- NOTE | 2018-10-07 18:03 | NUR ---
RN NOTE PT REPOSITIONED AT THIS TIME AND WOUND CARE DONE WELL
--- NOTE | 2018-10-07 18:45 | NUR ---
RN CLOSING NOTE PT IN BED AT LOWEST AND LOCKED POSITION WITH SIDE RAILS UP X2, A/X 0 OBTUNDED, BREATHING EVEN AND UNLABORED ON T-PIECE WITH HUMIDIFIER ON O2 AT 5LP WITH NO S/S OF ANY DISTRESS OR PAIN NOTED AT THIS TIME, GTUBE IN PLACE WITH FEEDING RUNNING AT 55ML/HR WITH 25 ML RESIDUAL NOTED AT THIS TIME, IV IS PATENT AND INTACT, , SAFETY PRECAUTIONS IN PLACE, CALL LIGHT WITHIN REACH, WILL MONITOR PT ACCORDINGLY Addendum: 10/07/18 at 1849 by CHIKI LEVIN RN WILL ENDORSE TO NIGHT RN FOR BILL
[2018-10-07 20:00] VITALS: BP 118/51
[2018-10-07] MEDS: MONTELUKAST SODIUM (10MG) 10 MG TABLET GT SCH (21:26)
--- NOTE | 2018-10-07 23:16 | NUR ---
blood sugar 206mg/dl
[2018-10-08] MEDS: ALBUTEROL FS 2.5 MG/0.5 ML VIAL.NEB NEB SCH ×4 (01:39→19:13)
--- NOTE | 2018-10-08 01:51 | NUR ---
patient noted to have yellow thick secretions,suctionoing of secretions done as needed. robitussin dose given for cough ah=nad thick yellowish sputum
[2018-10-08] MEDS: CHLORHEXIDINE GLUCONATE 15 ML UDC MM SCH ×3 (05:25→20:42)
[2018-10-08] MEDS: SUCRALFATE 1 G/10 ML UDC GT SCH ×3 (05:25→20:42)
[2018-10-08] MEDS: BLOOD SUGAR DIAGNOSTIC 1 EACH STRIP IN SCH ×3 (05:50→17:37)
--- NOTE | 2018-10-08 05:52 | NUR ---
blood sugar 116mg/dl. gtube feediing restarted at the same rate. dressing to the coccyx wound done as ssoiled,
[2018-10-08 07:18] LABS: BASOPHILS % (AUTO) 0.3 % (0.0-2.0); EOSINOPHILS % (AUTO) 2.2 % (0.0-6.0); HEMATOCRIT 23 % (33-45); HEMOGLOBIN 7.5 g/dL (11.5-14.8); LYMPHOCYTES # (AUTO) 0.8 /CMM (0.8-4.8); LYMPHOCYTES % (AUTO) 7.4 % (20.0-44.0); MEAN CORPUSCULAR HGB CONC 33 g/dl (31.0-36.0); MEAN CORPUSCULAR VOLUME 92 fL (82-100); MONOCYTES # (AUTO) 1.2 /CMM (0.1-1.30); MONOCYTES % (AUTO) 10.1 % (2.0-12.0); NEUTROPHILS # (AUTO) 9.2 /CMM (1.8-8.9); PLATELET COUNT (AUTO) 216 /CMM (150-450); RED BLOOD CELL COUNT(AUTO) 2.45 MIL/uL (4.0-5.2); WHITE BLOOD COUNT (AUTO) 11.5 K/uL (4.3-11.0)
[2018-10-08 07:44] LABS: CALCIUM, SERUM 8.9 mg/dL (8.5-10.1); CREATININE 5.2 mg/dL (0.6-1.3); MAGNESIUM 2.8 mg/dL (1.8-2.4); PHOSPHORUS 2.2 mg/dL (2.5-4.9); POTASSIUM 3.9 mmol/L (3.5-5.1)
[2018-10-08 08:00] VITALS: BP 130/60
[2018-10-08 08:04] VITALS: BP 130/60
[2018-10-08] MEDS: LACTOBACILLUS RHAMNOSUS GG 1 EACH CAP.SPRINK PO SCH ×2 (08:17→17:37)
[2018-10-08] MEDS: CARVEDILOL 3.125 MG TABLET GT SCH ×3 (08:18→22:26)
[2018-10-08] MEDS: CALCIUM ACETATE 667 MG TABLET GT SCH (08:18)
[2018-10-08] MEDS: LACTULOSE 10 G/15 ML UDC (PYXIS) GT SCH ×2 (08:18→17:37)
[2018-10-08] MEDS: ASCORBIC ACID 500 MG TABLET GT SCH (08:18)
[2018-10-08] MEDS: FAMOTIDINE (20 MG) 20 MG TABLET GT SCH (08:18)
[2018-10-08] MEDS: POLYETHYLENE GLYCOL 3350 17 GM POWD.PACK GT SCH ×2 (08:19→17:37)
[2018-10-08] MEDS: VIT B CMPLX 3/FA/VIT C/BIOTIN 1 TAB TABLET GT SCH (08:19)
[2018-10-08] MEDS: BRIMONIDINE TARTRATE OPHT SOLN 5 ML BOTTLE EACHEYE SCH (08:19)
[2018-10-08] MEDS: LEVETIRACETAM SOL (5 ML) 100 MG/ML UDC GT SCH ×2 (08:19→20:42)
[2018-10-08] MEDS: DOCUSATE SODIUM LIQ 100 MG/10 ML UDC GT SCH ×2 (08:19→20:47)
[2018-10-08] MEDS: PANTOPRAZOLE 40 MG/PACK PACK GT SCH (08:19)
[2018-10-08] MEDS: INSULIN NPH, HUMAN ISOPHANE 100 UNIT/ML CARTRIDGE SQ SCH ×3 (08:22→17:39)
[2018-10-08] MEDS: PROSOURCE / PROSTAT (PYXIS) 30 ML UDC GT SCH ×2 (08:46→17:37)
[2018-10-08] MEDS: NEPRO 1,000 ML BOTTLE GT SCH (08:46)
[2018-10-08] MEDS: DAKINS QUARTER STRENGTH (0.125%) 480 ML BOTTLE TOP SCH (08:46)
[2018-10-08] MEDS ORDERED: NEUTRA PHOS 1 POWD.PACKET NG ONE (09:30)
--- NOTE | 2018-10-08 11:00 | NUR ---
Wound dressings changed.
--- NOTE | 2018-10-08 11:30 | NUR ---
HD at bedside started . patient in stable condition at baseline
[2018-10-08 15:47] VITALS: BP 133/66
[2018-10-08] MEDS: ACETAMINOPHEN 650 MG/20.3 ML UDC GT PRN (18:38)
--- NOTE | 2018-10-08 18:42 | NUR ---
Patient noted with fever 100.4 . PRN Tylenol given
--- NOTE | 2018-10-08 18:43 | NUR ---
Patient obtunded, non-verbal. G-tube feeding ongoing at rate 55 ml/hr, tolerated well with residual 10ml. Patient turned and repositioned Q2H, kept clean and dry, dressing changed x2. HD today done with output 2500ml. All needs attended. Family at bedside at this moment. Will endorse to next shift for BILL.
[2018-10-08 20:00] VITALS: BP 126/49
[2018-10-08] MEDS ORDERED: DOSING PER PHARMACY-TOBRA INHALATION 1 EA XX SCH (21:30)
[2018-10-08] MEDS ORDERED: TOBRAMYCIN 80 MG/2 ML VIAL INH SCH (22:00)
[2018-10-08] MEDS: MONTELUKAST SODIUM (10MG) 10 MG TABLET GT SCH (22:06)
[2018-10-09] MEDS: BLOOD SUGAR DIAGNOSTIC 1 EACH STRIP IN SCH ×4 (00:24→18:26)
[2018-10-09] MEDS: ALBUTEROL FS 2.5 MG/0.5 ML VIAL.NEB NEB SCH ×4 (00:38→19:39)
[2018-10-09] MEDS ORDERED: TOBRAMYCIN 80 MG/2 ML VIAL ONE (01:10)
--- NOTE | 2018-10-09 06:45 | NUR ---
PATIENT DULY CARED FOR AND MADE COMFORTABLE IN BED. TUBE FEEDING RESTARTED AND BLOOD SUGAR THIS AM WAS 121. WILL MONITOR.
[2018-10-09] MEDS: CHLORHEXIDINE GLUCONATE 15 ML UDC MM SCH ×3 (07:03→21:04)
[2018-10-09] MEDS: SUCRALFATE 1 G/10 ML UDC GT SCH ×3 (07:03→21:04)
--- NOTE | 2018-10-09 07:30 | NUR ---
MS ALAMO OPENING NOTES RECEIVED PATIENT IN BED. PATIENT IS OBTUNDED. PATIENT HAS A TRACH. NO APPARENT DISTRESS AT THIS TIME. IV ACCESS RUNNING NEPRO @ 55ML/HR. G-TUBE PRESENT. FAMILY AT BED SIDE. BED IS LOW AND LOCKED. CALL LIGHT WITHIN REACH. WILL CONTINUE TO MONITOR. Addendum: 10/09/18 at 0850 by PASTORA HESS RN G-TUBE PRESENT AND RUNNING NEPRO @55ML/HR.
[2018-10-09 08:00] VITALS: BP 101/69
[2018-10-09] MEDS: PANTOPRAZOLE 40 MG/PACK PACK GT SCH (08:56)
[2018-10-09] MEDS: LACTOBACILLUS RHAMNOSUS GG 1 EACH CAP.SPRINK PO SCH ×2 (08:56→17:11)
[2018-10-09] MEDS: LEVETIRACETAM SOL (5 ML) 100 MG/ML UDC GT SCH ×2 (08:56→21:05)
[2018-10-09] MEDS: VIT B CMPLX 3/FA/VIT C/BIOTIN 1 TAB TABLET GT SCH (08:57)
[2018-10-09] MEDS: ASCORBIC ACID 500 MG TABLET GT SCH (08:57)
[2018-10-09] MEDS: CALCIUM ACETATE 667 MG TABLET GT SCH (08:57)
[2018-10-09] MEDS: FAMOTIDINE (20 MG) 20 MG TABLET GT SCH (08:57)
[2018-10-09] MEDS: POLYETHYLENE GLYCOL 3350 17 GM POWD.PACK GT SCH ×2 (09:00→17:00)
[2018-10-09] MEDS: DOCUSATE SODIUM LIQ 100 MG/10 ML UDC GT SCH ×2 (09:00→21:05)
[2018-10-09] MEDS ORDERED: TOBRAMYCIN 80 MG/2 ML VIAL INH SCH ×2 (09:00→09:20)
[2018-10-09] MEDS: CARVEDILOL 3.125 MG TABLET GT SCH ×2 (09:00→21:06)
[2018-10-09] MEDS: ACETAMINOPHEN 650 MG/20.3 ML UDC GT PRN ×2 (09:01→21:05)
--- NOTE | 2018-10-09 09:05 | NUR ---
MS RN NOTE 0900 TEMPERATURE 100.9. TYLENOL GIVEN 650 MG.
[2018-10-09] MEDS: BRIMONIDINE TARTRATE OPHT SOLN 5 ML BOTTLE EACHEYE SCH (09:11)
[2018-10-09] MEDS: LACTULOSE 10 G/15 ML UDC (PYXIS) GT SCH ×2 (09:11→17:11)
[2018-10-09] MEDS: PROSOURCE / PROSTAT (PYXIS) 30 ML UDC GT SCH ×2 (09:11→17:11)
[2018-10-09] MEDS: DAKINS QUARTER STRENGTH (0.125%) 480 ML BOTTLE TOP SCH (09:13)
[2018-10-09] MEDS: INSULIN NPH, HUMAN ISOPHANE 100 UNIT/ML CARTRIDGE SQ SCH ×3 (09:19→18:09)
[2018-10-09] MEDS ORDERED: LIDOCAINE 1%-EPI 1:100,000 50 ML VIAL IJ ONE (10:00)
[2018-10-09] MEDS ORDERED: SILVER NITRATE APPLICATOR 1 EA BOX TP SCH (10:00)
[2018-10-09 11:06] LABS: ABG OXYGEN SATURATION 94.3 % (92.0-98.5); ABG PCO2 35.1 mmHg (35.0-45.0); ABG PH 7.522 (7.350-7.450); AaDO2 90.2 mmHg; COHb 1.9 % (0.5-1.5); MetHb 0.5 % (0.0-1.5); SITE, ABG Left Brachial; VENT MODE, BG 5L 28%
--- NOTE | 2018-10-09 11:39 | NUR ---
MS RN NOTE LIDOCAINE 1%-EPI 1:100,000 SCANNED. ADMINISTERED IN SACRAL WOUND BY SRINIVAS HENSON.
[2018-10-09 11:50] LABS: BASOPHILS # (AUTO) 0.5 /CMM (0.0-0.2); BASOPHILS % (AUTO) 2.5 % (0.0-2.0); EOSINOPHILS % (AUTO) 1.1 % (0.0-6.0); HEMATOCRIT 23 % (33-45); HEMOGLOBIN 7.6 g/dL (11.5-14.8); LYMPHOCYTES # (AUTO) 1.1 /CMM (0.8-4.8); LYMPHOCYTES % (AUTO) 5.6 % (20.0-44.0); MEAN CORPUSCULAR HGB CONC 32 g/dl (31.0-36.0); MEAN CORPUSCULAR VOLUME 92 fL (82-100); MONOCYTES # (AUTO) 2.4 /CMM (0.1-1.30); MONOCYTES % (AUTO) 12.2 % (2.0-12.0); NEUTROPHILS # (AUTO) 15.5 /CMM (1.8-8.9); NEUTROPHILS % (AUTO) 78.6 % (43.0-81.0); PLATELET COUNT (AUTO) 247 /CMM (150-450); RED BLOOD CELL COUNT(AUTO) 2.53 MIL/uL (4.0-5.2); WHITE BLOOD COUNT (AUTO) 19.8 K/uL (4.3-11.0)
[2018-10-09] MEDS: HYDROGEL DRESSING 90 GM TUBE TP SCH (12:22)
[2018-10-09 12:24] LABS: CALCIUM, SERUM 9.2 mg/dL (8.5-10.1); CREATININE 4.5 mg/dL (0.6-1.3); MAGNESIUM 2.4 mg/dL (1.8-2.4); PHOSPHORUS 1.5 mg/dL (2.5-4.9); POTASSIUM 3.7 mmol/L (3.5-5.1)
[2018-10-09] MEDS ORDERED: NEUTRA PHOS 1 POWD.PACKET PO ONE (13:00)
[2018-10-09 16:00] VITALS: BP 121/52
[2018-10-09] MEDS: NEPRO 1,000 ML BOTTLE GT SCH (17:31)
--- NOTE | 2018-10-09 18:26 | NUR ---
MS RN CLOSING NOTE PATIENT IS RESTING IN BED. A/O X 1. RESPIRATIONS ARE EVEN AND UNLABORED. TRACH PRESENT WITH O2 OF 3L/MIN. NO SIGNS OF MANIFESTATIONS OF PAIN AT THIS TIME. NO APPARENT DISTRESS AT THIS TIME. IV ACCESS ON LEFT SHOULDER, PATENT AND SALINE LOCKED. G-TUBE PRESENT AND RUNNING NEPRO @55ML/HR. ALL NURSING NEEDS MET. BED IS LOW AND LOCKED. CALL LIGHT WITHIN REACH. WILL ENDORSE TO MEDICAL RECRUITER FOR BILL.
[2018-10-09 20:00] VITALS: BP 101/57
--- NOTE | 2018-10-09 20:05 | NUR ---
MS/RN ON INITIAL ROUND AT 1900 PATIENT WAS IN BED AWAKE, FLAT AFFECT. NON VERBAL, APPEAR COMFORTABLE, NO SIGNS OF DISTRESS NOTE, T PIECE CONNECTED TO WALL O2, GT FEEDING INFUSING, HOB ELEVATED ABOUT 35 DEGREES, WILL MONITOR.
[2018-10-09] MEDS: MONTELUKAST SODIUM (10MG) 10 MG TABLET GT SCH (21:20)
--- NOTE | 2018-10-09 21:37 | NUR ---
MS/RN HD DONE, PATIENT STABLE, WILL CONTINUE TO MONITOR.
[2018-10-09] MEDS: METRONIDAZOLE 500 MG TABLET PO SCH (22:52)
[2018-10-10] MEDS: BLOOD SUGAR DIAGNOSTIC 1 EACH STRIP IN SCH ×4 (00:59→18:37)
[2018-10-10] MEDS: ALBUTEROL FS 2.5 MG/0.5 ML VIAL.NEB NEB SCH ×4 (01:20→20:02)
--- NOTE | 2018-10-10 03:52 | NUR ---
MS/RN LATE ENTRY. TYLENOL 650 MG GT WAS GIVEN FOR TEMP 100.6, COOLING MEASURES WAS STARTED. RECHECKED TEMP AT 2300, 98.8, INTERVENTION EFFECTIVE.
[2018-10-10] MEDS: CHLORHEXIDINE GLUCONATE 15 ML UDC MM SCH ×3 (05:31→21:20)
[2018-10-10] MEDS: SUCRALFATE 1 G/10 ML UDC GT SCH ×3 (05:32→21:20)
[2018-10-10] MEDS: METRONIDAZOLE 500 MG TABLET PO SCH ×3 (05:32→21:20)
--- NOTE | 2018-10-10 06:08 | NUR ---
MS/RN MORNING CARE WAS DONE, TOTAL LINEN CHANGED RENDERED, WOUND CARE DONE PER ORDER, REPOSITIONED TO COMFORT, ALL NEEDS ATTENDED AT THIS TIME, WILL CONTINUE TO MONITOR.
[2018-10-10 07:31] LABS: CALCIUM, SERUM 9.3 mg/dL (8.5-10.1); CREATININE 5.3 mg/dL (0.6-1.3); MAGNESIUM 2.8 mg/dL (1.8-2.4); PHOSPHORUS 2.4 mg/dL (2.5-4.9)
--- NOTE | 2018-10-10 07:35 | NUR ---
MS RN RECEIVED ON BED, NONVERBAL PATIENT, TRACH ON AEROSOL, PATIENT IS OBTUNDED,DIALYSIS PATIENT,NOT IN ANY FORM OF DISTRESS,RESPIRATIONS EVEN UNLABORED,NO SOB NOTED.
[2018-10-10 08:00] VITALS: BP 129/64
[2018-10-10 08:19] LABS: BASOPHILS % (AUTO) 0.3 % (0.0-2.0); EOSINOPHILS % (AUTO) 1.8 % (0.0-6.0); HEMATOCRIT 24 % (33-45); HEMOGLOBIN 7.6 g/dL (11.5-14.8); LYMPHOCYTES # (AUTO) 0.9 /CMM (0.8-4.8); LYMPHOCYTES % (AUTO) 6.4 % (20.0-44.0); MEAN CORPUSCULAR HGB CONC 32 g/dl (31.0-36.0); MEAN CORPUSCULAR VOLUME 92 fL (82-100); MONOCYTES # (AUTO) 1.5 /CMM (0.1-1.30); MONOCYTES % (AUTO) 10.4 % (2.0-12.0); NEUTROPHILS # (AUTO) 11.5 /CMM (1.8-8.9); NEUTROPHILS % (AUTO) 81.1 % (43.0-81.0); PLATELET COUNT (AUTO) 198 /CMM (150-450); RED BLOOD CELL COUNT(AUTO) 2.54 MIL/uL (4.0-5.2); WHITE BLOOD COUNT (AUTO) 14.2 K/uL (4.3-11.0)
[2018-10-10] MEDS: POLYETHYLENE GLYCOL 3350 17 GM POWD.PACK GT SCH ×2 (09:00→18:37)
[2018-10-10] MEDS: DOCUSATE SODIUM LIQ 100 MG/10 ML UDC GT SCH ×2 (09:00→21:21)
[2018-10-10] MEDS: CARVEDILOL 3.125 MG TABLET GT SCH ×2 (09:00→21:20)
--- NOTE | 2018-10-10 09:00 | NUR ---
MS RN HELD SOME MEDS DUE PATIENT WILL HAVE HD TODAY.
--- NOTE | 2018-10-10 09:00 | NUR ---
MS JASMEET LYONS
[2018-10-10] MEDS: LACTOBACILLUS RHAMNOSUS GG 1 EACH CAP.SPRINK PO SCH ×2 (09:57→18:37)
[2018-10-10] MEDS: FAMOTIDINE (20 MG) 20 MG TABLET GT SCH (09:57)
[2018-10-10] MEDS: VIT B CMPLX 3/FA/VIT C/BIOTIN 1 TAB TABLET GT SCH (09:57)
[2018-10-10] MEDS: CALCIUM ACETATE 667 MG TABLET GT SCH (09:57)
[2018-10-10] MEDS: PANTOPRAZOLE 40 MG/PACK PACK GT SCH (09:57)
[2018-10-10] MEDS: PROSOURCE / PROSTAT (PYXIS) 30 ML UDC GT SCH ×2 (09:57→18:36)
[2018-10-10] MEDS: ASCORBIC ACID 500 MG TABLET GT SCH (09:57)
[2018-10-10] MEDS: LEVETIRACETAM SOL (5 ML) 100 MG/ML UDC GT SCH ×2 (09:58→21:20)
[2018-10-10] MEDS: LACTULOSE 10 G/15 ML UDC (PYXIS) GT SCH ×2 (09:58→18:37)
[2018-10-10] MEDS: HYDROGEL DRESSING 90 GM TUBE TP SCH (10:00)
[2018-10-10] MEDS: DAKINS QUARTER STRENGTH (0.125%) 480 ML BOTTLE TOP SCH (10:02)
[2018-10-10] MEDS: INSULIN NPH, HUMAN ISOPHANE 100 UNIT/ML CARTRIDGE SQ SCH ×3 (10:19→18:44)
--- NOTE | 2018-10-10 11:30 | NUR ---
ms rn was seen by brina medrano , was are of on and off temp.
--- NOTE | 2018-10-10 12:30 | NUR ---
ms sohan hd done w/ 2000ml output.
[2018-10-10] MEDS: BRIMONIDINE TARTRATE OPHT SOLN 5 ML BOTTLE EACHEYE SCH (13:55)
[2018-10-10] MEDS: VANCOMYCIN 500 MG in IV D5W 100 ML IV PRN (13:58)
[2018-10-10 16:00] VITALS: BP 121/63
--- NOTE | 2018-10-10 18:00 | NUR ---
ms rn on bed, no distress noted.
[2018-10-10] MEDS: NEPRO 1,000 ML BOTTLE GT SCH (18:37)
[2018-10-10] MEDS: ACETAMINOPHEN 650 MG/20.3 ML UDC GT PRN (20:01)
--- NOTE | 2018-10-10 20:02 | NUR ---
MS/RN RECEIVE PATIENT AWAKE, NON VERBAL, APPEAR COMFORTABLE, NO SIGNS OF DISTRSS NOTED, TPIECE TO WAL O2, HOB ELEVATED, TEMP 101, TYLENOL 650 MG GT WAS GIVEN ORDERED, COOLING MEASURES STARTED, WILL MONITOR.
[2018-10-10 20:29] VITALS: BP 136/84
[2018-10-10] MEDS: MONTELUKAST SODIUM (10MG) 10 MG TABLET GT SCH (21:20)
[2018-10-10] MEDS ORDERED: LIDOCAINE 1%-EPI 1:100,000 50 ML VIAL IJ ONE (21:30)
[2018-10-11] MEDS: BLOOD SUGAR DIAGNOSTIC 1 EACH STRIP IN SCH ×5 (00:09→23:50)
--- NOTE | 2018-10-11 00:10 | NUR ---
MS/RN PATIENT APPEAR SLEEPING, APPEAR COMFORTABLE, NO DISTRESS NOTED, NO CHANGE IN CONDITION. WILL CONTINUE TO MONITOR.
[2018-10-11] MEDS: ALBUTEROL FS 2.5 MG/0.5 ML VIAL.NEB NEB SCH ×4 (01:33→19:43)
--- NOTE | 2018-10-11 02:07 | NUR ---
MS/RN NURSING CARE DONE, TOTAL LINEN CHANGE RENDERED, GOOD SKIN CARE DONE, BOWEL MOVEMENT NOTED, SOFT YELLOW STOOL, SACRAL WOUND DRESSING CHANGED, REPOSITIONED TO COMFORT. WILL CONTINUE TO MONITOR.
[2018-10-11] MEDS: SUCRALFATE 1 G/10 ML UDC GT SCH ×3 (05:36→20:44)
[2018-10-11] MEDS: METRONIDAZOLE 500 MG TABLET PO SCH ×3 (05:36→20:44)
[2018-10-11] MEDS: CHLORHEXIDINE GLUCONATE 15 ML UDC MM SCH ×3 (05:36→20:44)
--- NOTE | 2018-10-11 06:16 | NUR ---
MS/RN CALLED KAREN HORTA MADE AWARE ABOUT THE NM WBC LOCALIZATION SPECT.
--- NOTE | 2018-10-11 06:20 | NUR ---
MS/RN PATIENT IS AWAKE, APPEAR COMFORTABLE, NO DISTRESS NOTED, HOB ELEVATED, ALL NEEDS ATTENDED AT THIS TIME, WILL CONTINUE TO MONITOR.
[2018-10-11 06:23] LABS: BASOPHILS # (AUTO) 0.1 /CMM (0.0-0.2); BASOPHILS % (AUTO) 0.4 % (0.0-2.0); EOSINOPHILS % (AUTO) 1.7 % (0.0-6.0); HEMATOCRIT 22 % (33-45); HEMOGLOBIN 7.2 g/dL (11.5-14.8); MEAN CORPUSCULAR HGB CONC 33 g/dl (31.0-36.0); MEAN CORPUSCULAR VOLUME 92 fL (82-100); MONOCYTES # (AUTO) 1.3 /CMM (0.1-1.30); MONOCYTES % (AUTO) 10.3 % (2.0-12.0); NEUTROPHILS # (AUTO) 9.9 /CMM (1.8-8.9); NEUTROPHILS % (AUTO) 79.6 % (43.0-81.0); PLATELET COUNT (AUTO) 197 /CMM (150-450); RED BLOOD CELL COUNT(AUTO) 2.37 MIL/uL (4.0-5.2); WHITE BLOOD COUNT (AUTO) 12.5 K/uL (4.3-11.0)
[2018-10-11 06:49] LABS: CALCIUM, SERUM 9.2 mg/dL (8.5-10.1); CREATININE 4.2 mg/dL (0.6-1.3); MAGNESIUM 2.5 mg/dL (1.8-2.4); PHOSPHORUS 2.1 mg/dL (2.5-4.9)
--- NOTE | 2018-10-11 06:59 | NUR ---
MS/RN CALLED LILIANA, PATIENT'S SISTER, TO OBTAIN CONSENT FOR NM WBC LOCALIZATION SPECT, LEFT MESSAGE. WILL ENDORSE.
--- NOTE | 2018-10-11 07:26 | NUR ---
MS/RN SISTER LILIANA CALLED BACK, PER LILIANA SHE IS COMING AND WILL SIGN THE CONSENT PERSONALLY. ENDORSED TO NEXT JASMEET GOODE.
[2018-10-11 08:00] VITALS: BP 133/69
[2018-10-11] MEDS: VIT B CMPLX 3/FA/VIT C/BIOTIN 1 TAB TABLET GT SCH (08:47)
[2018-10-11] MEDS: PANTOPRAZOLE 40 MG/PACK PACK GT SCH (08:47)
[2018-10-11] MEDS: CALCIUM ACETATE 667 MG TABLET GT SCH (08:47)
[2018-10-11] MEDS: LACTOBACILLUS RHAMNOSUS GG 1 EACH CAP.SPRINK PO SCH ×2 (08:47→16:39)
[2018-10-11] MEDS: FAMOTIDINE (20 MG) 20 MG TABLET GT SCH (08:47)
[2018-10-11] MEDS: CARVEDILOL 3.125 MG TABLET GT SCH ×2 (08:47→21:00)
[2018-10-11] MEDS: ASCORBIC ACID 500 MG TABLET GT SCH (08:47)
[2018-10-11] MEDS: LACTULOSE 10 G/15 ML UDC (PYXIS) GT SCH ×2 (08:48→16:39)
[2018-10-11] MEDS: LEVETIRACETAM SOL (5 ML) 100 MG/ML UDC GT SCH ×2 (08:48→20:44)
[2018-10-11] MEDS: POLYETHYLENE GLYCOL 3350 17 GM POWD.PACK GT SCH ×2 (08:48→16:39)
[2018-10-11] MEDS: DOCUSATE SODIUM LIQ 100 MG/10 ML UDC GT SCH ×2 (08:48→20:44)
[2018-10-11] MEDS: DAKINS QUARTER STRENGTH (0.125%) 480 ML BOTTLE TOP SCH (08:49)
[2018-10-11] MEDS: PROSOURCE / PROSTAT (PYXIS) 30 ML UDC GT SCH ×2 (08:49→16:47)
[2018-10-11] MEDS: HYDROGEL DRESSING 90 GM TUBE TP SCH (08:50)
[2018-10-11] MEDS: INSULIN NPH, HUMAN ISOPHANE 100 UNIT/ML CARTRIDGE SQ SCH ×3 (08:52→17:48)
[2018-10-11] MEDS: BRIMONIDINE TARTRATE OPHT SOLN 5 ML BOTTLE EACHEYE SCH (09:30)
--- NOTE | 2018-10-11 15:40 | NUR ---
obtained a consent for PICC line from patient's sister Rabia
[2018-10-11 16:00] VITALS: BP 110/52
[2018-10-11] MEDS: ACETAMINOPHEN 650 MG/20.3 ML UDC GT PRN (16:30)
--- NOTE | 2018-10-11 16:30 | NUR ---
patient noted with fever 102.2. PRN Tylenol administrated. Nicola N.P. notified
--- NOTE | 2018-10-11 17:36 | NUR ---
PICC line attempted unsuccessfully, vessels are to small. Nicola N.P. informed
--- NOTE | 2018-10-11 18:00 | NUR ---
RECENT TEMPERATURE 99.3
--- NOTE | 2018-10-11 18:19 | NUR ---
PATIENT IS RESTING IN BED, NON-VERBAL, OBTUNDED. RESPIRATIONS. NO SIGNS OF PAIN AT THIS TIME. NO APPARENT DISTRESS AT THIS TIME. G-TUBE FEEDING STOPPED AT 1300. tO BE CONTINUED AT 2100. ALL NEEDS ATTENDED AND MET. SAFETY MEASURES OBSERVED. WILL ENDORSE TO AUDIO VIDEO TECH FOR BILL. Addendum: 10/11/18 at 1826 by RUSSEL MUNOZ RN RESPIRATIONS UNLABORED AND EVEN
--- NOTE | 2018-10-11 19:25 | NUR ---
MS/RN OPENING NOTES PT JUST FINISHED BED BATH. OBTUNDED AND NONVERBAL. PT IS ON 5L COOL AEROSOL VIA T-PIECE. BREATHING EVEN AND UNLABORED. NO SIGNS OF SOB OR RESPIRATORY DISTRESS NOTED. NO FACIAL GRIMACING OR SIGNS OF PAIN NOTED. VARUN AV SHUNT NOTED. GT PATENT AND IN PLACE, FEEDING TO RESUME AT 2100. IV TO LEONARDA PATENT AND INTACT. BED IN LOW/LOCKED POSITION WITH CALL LIGHT IN REACH. HEELS OFFLOADED. HOB ELEVATED. BILAT. UPPER SIDE RAILS IN PLACE. WILL CONTINUE TO MONITOR
--- NOTE | 2018-10-11 19:30 | NUR ---
MS/RN NOTES MD WILKINSON AT BEDSIDE. WITH VERBAL ORDERS FOR URINE CULTURE VIA STRAIGHT CATH AND SEND WOUND CULTURE OF SACRUM. ORDERS READ BACK FOR CONFIRMATION, WILL CARRY OUT.
[2018-10-11] MEDS: FLUCONAZOLE (100 MG) 100 MG TABLET PO SCH (20:44)
[2018-10-11 20:45] VITALS: BP 101/70
[2018-10-11] MEDS: NEPRO 1,000 ML BOTTLE GT SCH (21:17)
[2018-10-11] MEDS: MONTELUKAST SODIUM (10MG) 10 MG TABLET GT SCH (21:17)
[2018-10-12] MEDS: ALBUTEROL FS 2.5 MG/0.5 ML VIAL.NEB NEB SCH ×4 (01:13→20:43)
--- NOTE | 2018-10-12 03:00 | NUR ---
MS/RN NOTES SACRAL WOUND CX COLLECTED AND PLACED IN THE FRIDGE FOR LAB PICKUP. STRAIGHT CATH INSERTED WITH NO OUTPUT. BLADDER SCANNER SHOWING 42ML AT MOST. UNABLE TO COLLECT URINE FOR CULTURE.
[2018-10-12] MEDS: BLOOD SUGAR DIAGNOSTIC 1 EACH STRIP IN SCH ×3 (05:23→18:01)
[2018-10-12] MEDS: CHLORHEXIDINE GLUCONATE 15 ML UDC MM SCH ×3 (05:23→20:56)
[2018-10-12] MEDS: SUCRALFATE 1 G/10 ML UDC GT SCH ×3 (05:23→20:56)
[2018-10-12] MEDS: METRONIDAZOLE 500 MG TABLET PO SCH ×3 (05:23→20:55)
--- NOTE | 2018-10-12 05:30 | NUR ---
MS/RN NOTES PT NOTED WITH TEMP 100.6F. ADMINISTERED PRN TYLENOL ORDERED
[2018-10-12] MEDS: ACETAMINOPHEN 650 MG/20.3 ML UDC GT PRN (05:43)
--- NOTE | 2018-10-12 06:30 | NUR ---
MS/RN CLOSING NOTES PT RESTING COMFORTABLY IN BED. REMAINS ON 5LPM COOL AEROSOL AT 28% FIO2 VIA TPIECE. BREATHING EVEN AND UNLABORED. CONNECTED TO CONTINUOUS PULSE OX, SPO2 98%. GT FEEDING RUNNING AT 55ML/HR. NO RESIDUALS NOTED. VARUN AV SHUNT WITH +BRUITT/THRILL. IV TO LEONARDA PATENT AND INTACT. WOUND CX SENT TO LAB. UNABLE TO COLLECT URINE. NO SIGNIFICANT CHANGES OVERNIGHT. TURNED/REPOSITIONED Q2H. HEELS OFFLOADED. WOUND CARE DONE. HOB ELEVATED. BILAT. UPPER SIDE RAILS IN PLACE. WILL ENDORSE TO DAY SHIFT RN BILL.
[2018-10-12 08:00] VITALS: BP 135/95
[2018-10-12] MEDS: FAMOTIDINE (20 MG) 20 MG TABLET GT SCH (08:29)
[2018-10-12] MEDS: LACTULOSE 10 G/15 ML UDC (PYXIS) GT SCH ×2 (08:29→17:00)
[2018-10-12] MEDS: ASCORBIC ACID 500 MG TABLET GT SCH (08:29)
[2018-10-12] MEDS: LEVETIRACETAM SOL (5 ML) 100 MG/ML UDC GT SCH ×2 (08:29→20:55)
[2018-10-12] MEDS: LACTOBACILLUS RHAMNOSUS GG 1 EACH CAP.SPRINK PO SCH ×2 (08:29→17:00)
[2018-10-12] MEDS: CALCIUM ACETATE 667 MG TABLET GT SCH (08:29)
[2018-10-12] MEDS: FLUCONAZOLE (100 MG) 100 MG TABLET PO SCH (08:29)
[2018-10-12] MEDS: POLYETHYLENE GLYCOL 3350 17 GM POWD.PACK GT SCH ×2 (08:29→17:00)
[2018-10-12] MEDS: DOCUSATE SODIUM LIQ 100 MG/10 ML UDC GT SCH ×2 (08:29→20:56)
[2018-10-12] MEDS: VIT B CMPLX 3/FA/VIT C/BIOTIN 1 TAB TABLET GT SCH (08:29)
[2018-10-12] MEDS: PANTOPRAZOLE 40 MG/PACK PACK GT SCH (08:29)
[2018-10-12] MEDS: CARVEDILOL 3.125 MG TABLET GT SCH ×2 (08:30→20:55)
[2018-10-12] MEDS: BRIMONIDINE TARTRATE OPHT SOLN 5 ML BOTTLE EACHEYE SCH (08:30)
[2018-10-12] MEDS: INSULIN NPH, HUMAN ISOPHANE 100 UNIT/ML CARTRIDGE SQ SCH ×3 (08:36→18:01)
[2018-10-12] MEDS: PROSOURCE / PROSTAT (PYXIS) 30 ML UDC GT SCH ×2 (09:41→17:00)
[2018-10-12] MEDS: HYDROGEL DRESSING 90 GM TUBE TP SCH (09:41)
[2018-10-12] MEDS: DAKINS QUARTER STRENGTH (0.125%) 480 ML BOTTLE TOP SCH (09:41)
--- NOTE | 2018-10-12 10:00 | NUR ---
wound care and dressing changed as directed
[2018-10-12 10:59] LABS: CALCIUM, SERUM 9.3 mg/dL (8.5-10.1); CREATININE 5.5 mg/dL (0.6-1.3); MAGNESIUM 2.8 mg/dL (1.8-2.4); PHOSPHORUS 2.4 mg/dL (2.5-4.9); POTASSIUM 4.3 mmol/L (3.5-5.1)
[2018-10-12 11:04] LABS: BASOPHILS # (AUTO) 0.1 /CMM (0.0-0.2); BASOPHILS % (AUTO) 0.6 % (0.0-2.0); EOSINOPHILS % (AUTO) 1.1 % (0.0-6.0); HEMATOCRIT 22 % (33-45); HEMOGLOBIN 7.1 g/dL (11.5-14.8); LYMPHOCYTES # (AUTO) 1.1 /CMM (0.8-4.8); LYMPHOCYTES % (AUTO) 7.2 % (20.0-44.0); MEAN CORPUSCULAR HGB CONC 32 g/dl (31.0-36.0); MEAN CORPUSCULAR VOLUME 94 fL (82-100); MONOCYTES # (AUTO) 1.1 /CMM (0.1-1.30); MONOCYTES % (AUTO) 7.4 % (2.0-12.0); NEUTROPHILS # (AUTO) 12.7 /CMM (1.8-8.9); NEUTROPHILS % (AUTO) 83.7 % (43.0-81.0); PLATELET COUNT (AUTO) 245 /CMM (150-450); RED BLOOD CELL COUNT(AUTO) 2.36 MIL/uL (4.0-5.2); WHITE BLOOD COUNT (AUTO) 15.2 K/uL (4.3-11.0)
--- NOTE | 2018-10-12 15:10 | NUR ---
patient cleaned, wound dressing changed
[2018-10-12 16:00] VITALS: BP 126/60
--- NOTE | 2018-10-12 16:55 | NUR ---
bedside dialysis started. Patient stable
--- NOTE | 2018-10-12 17:00 | NUR ---
1700 meds held due to ongoing dialysis
--- NOTE | 2018-10-12 18:29 | NUR ---
ONGOING HD CONTINUED. PATIENT STABLE, AFEBRILE AT THIS TIME. NO S/S DISTRESS NOTED. ALL NEEDS ATTENDED. PATIENT KEPT CLEAN AND DRY, REPOSITIONED Q2HR. DRESSING CHANGED X2. F/U ON WOUND CULTURE TOMORROW. IV ASSESS REMAINS INTACT, FLUSHING WELL. WILL ENDORSE TO NEXT SHIFT FOR BILL.
--- NOTE | 2018-10-12 19:05 | NUR ---
RN PM OPENING NOTES BEDSIDE REPORT RECIEVED FROM RUSSEL ALAMO. NO FAMILY AT THE BEDSIDE PATIENT OBTUNDED. HD BEING PERFORMED AT BEDSIDE. PATIENT STABLE IN NO APPARENT DISTRESS. PATIENT TO BE REPOSITIONED Q2HR ON AIR MATTRESS WITH DRESSING CHANGES TO SACRAL AREA PRN INCONTINENCE. IV ASSESSED AND IS FLUSING WELL 22 GAUGE TO LEFT ARM FLUSHING WELL. PER REPORT VANCO AND AMIKACIN ANTIBIOTICS ON HOLD FOR HIGH TROUGH VALUES PER PHARMACY DOSING.
[2018-10-12 20:00] VITALS: BP 120/51
--- NOTE | 2018-10-12 20:05 | NUR ---
HD CONCLUDED. REPORT RECIEVED FROM DIALYSIS NURSE PROMISE. STATES 1500 ML TAKEN OUT, REPORTS PATIENT VSS.
[2018-10-12] MEDS: MONTELUKAST SODIUM (10MG) 10 MG TABLET GT SCH (20:55)
[2018-10-12] MEDS: NEPRO 1,000 ML BOTTLE GT SCH (21:20)
--- NOTE | 2018-10-12 22:30 | NUR ---
[facility] GIVE VANCO MYCIN HOLD AMIKACIN. NO NOTES SEEN TO WHEN DAY NURSE CLARIFIED ANTIBIOTICS. CURRENT ORDERS TO ADMINISTER AFTER HD. CALLED [facility] AND REVIEWED ORDERS AND REVIEWED TROUGH OF VANCO 22 AND AMIKACIN 15.7. TROUGHS WERE PERFORMED IN AM BUT NOT PERFORMED PRIOR TO HD. STATES TO ADMINISTER VANCOMYCIN ORDERED AND TO HOLD AMIKACIN. RANDOM AMIKACIN ORDERED FOR AM.
[2018-10-12] MEDS ORDERED: VANCOMYCIN 1 GM VIAL ONE (22:53)
[2018-10-12] MEDS ORDERED: VANCOMYCIN 500 MG in IV D5W 100 ML IV ONE (23:00)
[2018-10-13] MEDS: ALBUTEROL FS 2.5 MG/0.5 ML VIAL.NEB NEB SCH ×3 (00:54→14:25)
[2018-10-13] MEDS: BLOOD SUGAR DIAGNOSTIC 1 EACH STRIP IN SCH ×4 (01:05→17:35)
[2018-10-13] MEDS: METRONIDAZOLE 500 MG TABLET PO SCH ×2 (05:52→12:11)
[2018-10-13] MEDS: SUCRALFATE 1 G/10 ML UDC GT SCH ×2 (05:52→12:11)
[2018-10-13] MEDS: CHLORHEXIDINE GLUCONATE 15 ML UDC MM SCH ×2 (05:52→12:29)
--- NOTE | 2018-10-13 06:00 | NUR ---
RN PM closing NOTES PATIENT OBTUNDED. PATIENT STABLE IN NO APPARENT DISTRESS. patient changed had loose stooll large. PATIENT REPOSITIONED Q2HR ON DRESSING CHANGE TO SACRAL AREA d/t INCONTINENCE. IV ASSESSED AND IS FLUSING WELL 22 GAUGE TO LEFT ARM patient left in up right position in bed and tube feeding is being continued nepro at 55 ml / hr.
[2018-10-13 06:21] LABS: BASOPHILS # (AUTO) 0.1 /CMM (0.0-0.2); BASOPHILS % (AUTO) 0.5 % (0.0-2.0); EOSINOPHILS % (AUTO) 1.1 % (0.0-6.0); HEMATOCRIT 22 % (33-45); HEMOGLOBIN 7.2 g/dL (11.5-14.8); LYMPHOCYTES # (AUTO) 0.7 /CMM (0.8-4.8); LYMPHOCYTES % (AUTO) 6.1 % (20.0-44.0); MEAN CORPUSCULAR HGB CONC 32 g/dl (31.0-36.0); MEAN CORPUSCULAR VOLUME 93 fL (82-100); MONOCYTES # (AUTO) 0.8 /CMM (0.1-1.30); MONOCYTES % (AUTO) 6.8 % (2.0-12.0); NEUTROPHILS # (AUTO) 9.9 /CMM (1.8-8.9); NEUTROPHILS % (AUTO) 85.5 % (43.0-81.0); PLATELET COUNT (AUTO) 234 /CMM (150-450); RED BLOOD CELL COUNT(AUTO) 2.39 MIL/uL (4.0-5.2); WHITE BLOOD COUNT (AUTO) 11.6 K/uL (4.3-11.0)
[2018-10-13 06:45] LABS: CALCIUM, SERUM 9.1 mg/dL (8.5-10.1); CREATININE 3.6 mg/dL (0.6-1.3); MAGNESIUM 2.5 mg/dL (1.8-2.4); PHOSPHORUS 1.8 mg/dL (2.5-4.9); POTASSIUM 3.8 mmol/L (3.5-5.1)
[2018-10-13] MEDS ORDERED: DEXTROSE 50%-WATER 50 ML DISP.SYRIN IV PRN (07:30)
[2018-10-13 08:00] VITALS: BP 124/64
--- NOTE | 2018-10-13 08:00 | NUR ---
m/s shank paperer: initial assessment received pt in bed with eyes open, non-verbal; legally blind. sister at bedside. tracheostomy intact and secured at midline with fio2 in use at 28%. on g-tube feeding, aleisha. well. placement check and patent with no residual obtained. hob elevated. call light within reach. no apparent distress noted. will continue to monitor.
[2018-10-13] MEDS: BRIMONIDINE TARTRATE OPHT SOLN 5 ML BOTTLE EACHEYE SCH (08:02)
[2018-10-13] MEDS: INSULIN NPH, HUMAN ISOPHANE 100 UNIT/ML CARTRIDGE SQ SCH ×3 (08:03→17:38)
[2018-10-13] MEDS: PANTOPRAZOLE 40 MG/PACK PACK GT SCH (08:21)
[2018-10-13] MEDS: FLUCONAZOLE (100 MG) 100 MG TABLET PO SCH (08:21)
[2018-10-13] MEDS: LEVETIRACETAM SOL (5 ML) 100 MG/ML UDC GT SCH (08:22)
[2018-10-13] MEDS: DOCUSATE SODIUM LIQ 100 MG/10 ML UDC GT SCH (08:22)
[2018-10-13] MEDS: POLYETHYLENE GLYCOL 3350 17 GM POWD.PACK GT SCH ×2 (08:22→17:00)
[2018-10-13] MEDS: ASCORBIC ACID 500 MG TABLET GT SCH (08:22)
[2018-10-13] MEDS: LACTOBACILLUS RHAMNOSUS GG 1 EACH CAP.SPRINK PO SCH ×2 (08:22→17:39)
[2018-10-13] MEDS: FAMOTIDINE (20 MG) 20 MG TABLET GT SCH (08:22)
[2018-10-13] MEDS: VIT B CMPLX 3/FA/VIT C/BIOTIN 1 TAB TABLET GT SCH (08:22)
[2018-10-13] MEDS: CALCIUM ACETATE 667 MG TABLET GT SCH (08:22)
[2018-10-13] MEDS: LACTULOSE 10 G/15 ML UDC (PYXIS) GT SCH ×2 (08:22→17:00)
[2018-10-13] MEDS: CARVEDILOL 3.125 MG TABLET GT SCH (08:23)
[2018-10-13] MEDS: PROSOURCE / PROSTAT (PYXIS) 30 ML UDC GT SCH ×3 (08:27→17:35)
[2018-10-13] MEDS: DAKINS QUARTER STRENGTH (0.125%) 480 ML BOTTLE TOP SCH (08:33)
[2018-10-13] MEDS: HYDROGEL DRESSING 90 GM TUBE TP SCH (08:34)
--- NOTE | 2018-10-13 09:25 | NUR ---
m/s freight checker: nephro f/u seen by dr. buchanan with order for hd tomorrow. order acknowledged.
[2018-10-13] MEDS ORDERED: NEUTRA PHOS 1 POWD.PACKET GT ONE (10:30)
[2018-10-13] MEDS ORDERED: LIDOCAINE 1%-EPI 1:100,000 50 ML VIAL IJ ONE (11:00)
--- NOTE | 2018-10-13 11:15 | NUR ---
M/S FINAL INSPECTOR SHUTTLE: PLASTIC SURGEON F/U SACRAL WOUND DEBRIDEMENT DONE BY TANNER Espinoza) AT BEDSIDE, AMY. WELL. PHOTO TAKEN AFTER DEBRIDEMENT AND PLACE IN CHART.
[2018-10-13] MEDS ORDERED: BLOOD SUGAR DIAGNOSTIC 1 EACH STRIP IN SCH (12:00)
--- NOTE | 2018-10-13 12:00 | NUR ---
m/s retail warehouse supervisor: notes camila (picc line nurse) called and informed me that pt for central venous catheter insertion this afternoon and need a consent. pt not candidate for picc due to small vein per camila. octavia (sister) notified and made aware re: the need for central venous catheter insertion and given consent over the phone with another nurse.
[2018-10-13] MEDS: INSULIN REGULAR, HUMAN 100 UNIT/ML 3 ML VIAL SQ PRN ×2 (12:09→17:37)
--- NOTE | 2018-10-13 14:30 | NUR ---
m/s application engineer: notes camila (picc line nurse) attempted to insert central line to left neck, but unsuccessful. will attempt to insert femoral line.
--- NOTE | 2018-10-13 15:30 | NUR ---
m/s water main inspector: notes camila (picc line) nurse at bedside for femoral line placement. will continue to monitor.
[2018-10-13 16:00] VITALS: BP 152/70
--- NOTE | 2018-10-13 16:19 | NUR ---
CENTRAL VENOUS CATHETER INSERTION Vineyard Worker[facility] Patient assessed for CVC insertion, order in the chart and consent signed. Right groin ultrasound performed to identify adequate femoral vein, vein is patent and compressible. Right groin prepped in normal sterile fashion with CHG and allowed to dry. Ultrasound used to visualize the previously identified right femoral vein. Lidocaine 1% used to anesthetize the insertion site. Using ultrasound, introducer needle inserted into vein using Seldinger's technique. Good dark non pulsatile venous blood flow noted. Guidewire placed without difficulty. Small 2mm laceration made at insertion site. Dilator was inserted over the wire without difficulty then removed. 7F triple lumen cvc inserted fully without difficulty over the guidewire. Guidewire removed. Each port aspirated easily and flushed with 10ml sterile saline without difficulty using a push pause technique. CVC line secured with two sutures, biopatch placed and Tegaderm secured to patient. Blood loss approximately 3ml. Patient tolerated procedure well with complications. Reported to RN.
--- NOTE | 2018-10-13 16:30 | NUR ---
m/s director card: notes brina medrano ([facility]) here and informed us that he will d'c pt to [facility]acute [facility] today. case management making arrangement.
--- NOTE | 2018-10-13 16:39 | NUR ---
ROSALIE called [facility] [[address] [facility] [facility] [address]; TEL:[phone]] to communicate that the pt. will be residing at [facility] Sub-acute indefinitely stating tonight and will continue receiving dialysis at [facility]. Maylin at [facility] was agreeable to plan. ROSALIE contacted [facility] [[address] [place] [address]; [phone]]to communicate above and confirm they can continue providing transportation services to pt. from [facility] to [facility]. Ronnie at [facility] was agreeable to plan. However, per Ronnie, ROSALIE to call pt.'s insurance [facility] TEL:[phone] to confirm het they will verify payment for [facility] transportation for dialysis. ROSALIE called [facility] TEL:[phone] and spoke to Yvonne to communicate above information and verify they will continue to provide payment for [facility] transportation to dialysis. Yvonne was agreeable to plan and stated she would call [facility] to verify transportation time and details.
--- NOTE | 2018-10-13 17:00 | NUR ---
m/s medical device sales representative: notes received order from brina ([facility]) to discharge pt to sub-acute [facility]. order acknowledged. octavia (sister) on the phone and informed me that there is a miss call from the hospital. informed sister that it is probably case management letting her known that pt is to go to our subacute [facility], stated, "i will come and visit later today."
[2018-10-13] MEDS ORDERED: RXVAN XX (17:04)
[2018-10-13] MEDS ORDERED: RXAMI XX (17:04)
[2018-10-13] MEDS ORDERED: METR500T PO (17:04)
[2018-10-13] MEDS ORDERED: FLUC100T8 PO (17:04)
--- NOTE | 2018-10-13 18:00 | NUR ---
m/s wrapping machine helper: notes pt unable to sign all d'c papers due to cognitive impairment. 2 licensed staff signed all d'c papers. h/l removed to left arm with tip intact. all d'c photos taken and placed in chart.
--- NOTE | 2018-10-13 18:30 | NUR ---
m/s telephone recorder: reji alaniz (rn) from subacute notified and report given via phone for continuity of care.
--- NOTE | 2018-10-13 19:10 | NUR ---
m/s pile driver operator: discharged discharged to [facility] subacute via bed accompanied by jannie and 2 licensed staff with all belongings with monitor and oxygen in stable condition. transferred pt safely to another bed with 4 staff assisting. sister outside waiting.
[2018-10-14] MEDS ORDERED: DEXT50DI8 IV (17:07)
[2018-10-14] MEDS ORDERED: BLOO-668 IN (17:07)
[2018-10-14] MEDS ORDERED: ACET-868 GT (17:07)
[2018-10-14] MEDS ORDERED: AMIN30LI2 GT (17:07)
[2018-10-14] MEDS ORDERED: GEL100GE TP (17:07)
[2018-10-14] MEDS ORDERED: POLY15DR40 EACHEYE (17:07)
[2018-10-14] MEDS ORDERED: ONDA4VIA52 IV (17:07)
[2018-10-14] MEDS ORDERED: SODI473S8 TOP (17:07)
== END 2018-10-13 19:05 | DRG 853 ==
LOC: ER 14:27 → TELE 17:47 → MED 10-06 08:37
PROVIDERS: ADMIT Hospitalist; ATTEND Hospitalist
PROC: 0KBP0ZZ Excision of Left Hip Muscle, Open Approach (ICD-10-PCS; principal; 2018-10-09)
PROC: 0KBN0ZZ Excision of Right Hip Muscle, Open Approach (ICD-10-PCS; 2018-10-09)
PROC: 0JBM0ZZ Excision of Left Upper Leg Subcutaneous Tissue and Fascia, Open Approach (ICD-10-PCS; 2018-10-09)
PROC: 0JBL0ZZ Excision of Right Upper Leg Subcutaneous Tissue and Fascia, Open Approach (ICD-10-PCS; 2018-10-09)
PROC: 5A1D70Z Performance of Urinary Filtration, Intermittent, Less than 6 Hours Per Day (ICD-10-PCS; 2018-10-12)
DX: A41.9 Sepsis, unspecified organism (principal); L89.154 Pressure ulcer of sacral region, stage 4; R53.2 Functional quadriplegia; N18.6 End stage renal disease; E44.0 Moderate protein-calorie malnutrition; I12.0 Hypertensive chronic kidney disease with stage 5 chronic kidney disease or end stage renal disease; J96.10 Chronic respiratory failure, unspecified whether with hypoxia or hypercapnia; E87.1 Hypo-osmolality and hyponatremia; G93.1 Anoxic brain damage, not elsewhere classified; G96.0 Cerebrospinal fluid leak; E11.22 Type 2 diabetes mellitus with diabetic chronic kidney disease; F09 Unspecified mental disorder due to known physiological condition; G40.909 Epilepsy, unspecified, not intractable, without status epilepticus; E11.51 Type 2 diabetes mellitus with diabetic peripheral angiopathy without gangrene; D63.8 Anemia in other chronic diseases classified elsewhere; E11.621 Type 2 diabetes mellitus with foot ulcer; E66.01 Morbid (severe) obesity due to excess calories; E83.39 Other disorders of phosphorus metabolism; L89.329 Pressure ulcer of left buttock, unspecified stage; I48.91 Unspecified atrial fibrillation; K21.9 Gastro-esophageal reflux disease without esophagitis; L97.529 Non-pressure chronic ulcer of other part of left foot with unspecified severity; N28.1 Cyst of kidney, acquired; R13.10 Dysphagia, unspecified; Z68.33 Body mass index [BMI] 33.0-33.9, adult; Z86.718 Personal history of other venous thrombosis and embolism; Z74.01 Bed confinement status; Z99.2 Dependence on renal dialysis; Z93.0 Tracheostomy status; Z93.1 Gastrostomy status; Z90.49 Acquired absence of other specified parts of digestive tract; Z86.74 Personal history of sudden cardiac arrest
CPT/HCPCS: 31720; 36415; 36569; 36600; 70450-TC; 71045-TC; 80048-TC; 80053-TC; 80061-TC; 80076-TC; 80150; 80202-TC; 82272-TC; 82803-TC; 82962-TC; 83735-TC; 83880; 84100-TC; 84484-TC; 84702-TC; 85025-TC; 85652-TC; 85730-TC; 86140-TC; 86706; 86850-TC; 86921-TC; 87040-TC; 87070-TC; 87081-TC; 87186-TC; 87340; 90935-TC; 94640-TC; 94760-TC; 94799-TC; A4216; A4623; A6248; A6253; A6403; A7526; C1751; G0378; J0278; J0692; J0885; J1815; J1953; J3260; J3370; J3490; J7030; J7060; P9016-BL

== ENCOUNTER 2018-10-13 15:37 | Inpatient (IN) | payer MEDICARE, OTHER ==
[~2018-10-13] VITALS: Ht 162.6 cm; Wt 77.6 kg
[~2018-10-13 15:37] MED LIST changes: +ACET325T53 PO; +BISA10SU61 RC; +NA P133E RC; -NYST15PO4 TP
[2018-10-13] MEDS ORDERED: RXAMI XX (17:04)
[2018-10-13] MEDS ORDERED: RXVAN XX (17:04)
[2018-10-13] MEDS ORDERED: FLUC100T8 PO (17:04)
[2018-10-13] MEDS ORDERED: METR500T PO (17:04)
--- NOTE | 2018-10-13 19:00 | NUR ---
Received patient from [facility] via hospital bed. with tracheostomy tube sanitation manager aerosol. patient calm and stable. no s/s of distress. Gtube intact no leakage noted. AV fistula noted on R upper arm no s/s of infection noted, no drainage on site. R femural PICC noted intact and clean dressing and flushing well. all previous order continued. dr. keller made aware. will continue to monitor
[2018-10-13 20:00] VITALS: BP 141/65
[2018-10-13] MEDS ORDERED: METOCLOPRAMIDE HCL 10 MG/10 ML UDC GT PRN (20:41)
[2018-10-13] MEDS ORDERED: METRONIDAZOLE 500 MG TABLET PO SCH (20:41)
[2018-10-13] MEDS ORDERED: ALBUTEROL FS 2.5 MG/0.5 ML VIAL.NEB NEB PRN (20:41)
[2018-10-13] MEDS ORDERED: MAGNESIUM HYDROXIDE 30 ML UDC GT PRN (20:41)
[2018-10-13] MEDS ORDERED: PANTOPRAZOLE 40 MG/PACK PACK GT SCH (20:41)
[2018-10-13] MEDS ORDERED: DEXTROSE 50%-WATER 50 ML DISP.SYRIN IV PRN (20:41)
[2018-10-13] MEDS ORDERED: ASCORBIC ACID 500 MG TABLET GT SCH (20:41)
[2018-10-13] MEDS ORDERED: POLYETHYLENE GLYCOL 3350 17 GM POWD.PACK GT SCH (20:41)
[2018-10-13] MEDS ORDERED: INSULIN NPH, HUMAN ISOPHANE 100 UNIT/ML CARTRIDGE SQ SCH (20:41)
[2018-10-13] MEDS ORDERED: NEPRO 1,000 ML BOTTLE GT SCH (20:41)
[2018-10-13] MEDS ORDERED: ACETAMINOPHEN 650 MG/20.3 ML UDC GT PRN (20:41)
[2018-10-13] MEDS ORDERED: CALCIUM ACETATE 667 MG TABLET GT SCH (20:41)
[2018-10-13] MEDS ORDERED: BRIMONIDINE TARTRATE OPHT SOLN 5 ML BOTTLE EACHEYE SCH (20:41)
[2018-10-13] MEDS ORDERED: VIT B CMPLX 3/FA/VIT C/BIOTIN 1 TAB TABLET GT SCH (20:41)
[2018-10-13] MEDS ORDERED: GUAIFENESIN/D-METHORPHAN HB 5 ML UDC GT PRN (20:41)
[2018-10-13] MEDS ORDERED: VANCOMYCIN 500 MG in IV D5W 100 ML IV PRN (20:41)
[2018-10-13] MEDS ORDERED: POLYVINYL ALCOHOL/POVIDONE 0.4 ML DROPERETTE EACHEYE PRN (20:41)
[2018-10-13] MEDS ORDERED: ONDANSETRON HCL/PF 4 MG/2 ML VIAL IVP PRN (20:41)
[2018-10-13] MEDS ORDERED: FLUCONAZOLE (100 MG) 100 MG TABLET PO SCH (20:41)
[2018-10-13] MEDS ORDERED: BISACODYL SUPP (10 MG) 10 MG/SUPP.RECT SUPP.RECT RC PRN (20:41)
[2018-10-13] MEDS ORDERED: NA PHOS,M-B/NA PHOS,DI-BA 1 EA ENEMA RC PRN (20:41)
[2018-10-13] MEDS ORDERED: DOSING PER PHARMACY-AMIKACI IV XX PRN (20:41)
[2018-10-13] MEDS ORDERED: FAMOTIDINE (20 MG) 20 MG TABLET GT SCH (20:41)
[2018-10-13] MEDS ORDERED: MONTELUKAST SODIUM (10MG) 10 MG TABLET GT SCH (20:41)
[2018-10-13] MEDS ORDERED: AMIKACIN 400 MG in IV D5W 100 ML IV PRN (20:41)
[2018-10-13] MEDS ORDERED: ACETAMINOPHEN SUP SA PATIENTS 650 MG SUPP RC PRN (21:00)
[2018-10-13] MEDS ORDERED: FLUCONAZOLE (100 MG) 100 MG TABLET GT SCH (21:02)
[2018-10-13] MEDS ORDERED: NEPRO 1,000 ML BOTTLE GT PRN (21:30)
[2018-10-13] MEDS: CHLORHEXIDINE GLUCONATE 15 ML UDC MM SCH (21:31)
[2018-10-13] MEDS: CARVEDILOL 3.125 MG TABLET GT SCH (21:31)
[2018-10-13] MEDS: SUCRALFATE 1 G/10 ML UDC GT SCH (21:31)
[2018-10-13] MEDS: LEVETIRACETAM SOL (5 ML) 100 MG/ML UDC GT SCH (21:31)
[2018-10-13] MEDS: DOCUSATE SODIUM LIQ 100 MG/10 ML UDC GT SCH (21:31)
[2018-10-13] MEDS ORDERED: POLYVINYL ALCOHOL 15 ML BOTTLE EACHEYE PRN (22:00)
[2018-10-14] VITALS: BP 120/81
[2018-10-14] MEDS: BLOOD SUGAR DIAGNOSTIC 1 EACH STRIP IN SCH ×4 (00:16→17:18)
[2018-10-14] MEDS: INSULIN REGULAR, HUMAN 100 UNIT/ML 3 ML VIAL SQ PRN ×3 (00:19→11:39)
[2018-10-14] MEDS: ALBUTEROL FS 2.5 MG/0.5 ML VIAL.NEB NEB SCH ×4 (01:30→19:30)
[2018-10-14 04:00] VITALS: BP 144/80
[2018-10-14] MEDS: METRONIDAZOLE 500 MG TABLET GT SCH ×2 (04:59→12:37)
[2018-10-14] MEDS: SUCRALFATE 1 G/10 ML UDC GT SCH ×2 (04:59→12:39)
[2018-10-14] MEDS: CHLORHEXIDINE GLUCONATE 15 ML UDC MM SCH ×2 (04:59→12:39)
[2018-10-14 07:29] VITALS: BP 160/68
[2018-10-14] MEDS ORDERED: TUBERCULIN,PURIF.PROT.DERIV. 5 TU/0.1 ML DISP.SYRIN ID SCH (09:00)
[2018-10-14] MEDS ORDERED: HYDROGEL DRESSING 90 GM TUBE TP SCH ×2 (09:00)
[2018-10-14] MEDS ORDERED: DAKINS QUARTER STRENGTH (0.125%) 480 ML BOTTLE TOP SCH (09:00)
--- NOTE | 2018-10-14 09:10 | NUR ---
Notified Dr. Kern of new admission, will see patient and review her medications.
[2018-10-14] MEDS: CARVEDILOL 3.125 MG TABLET GT SCH (09:27)
[2018-10-14] MEDS: DOCUSATE SODIUM LIQ 100 MG/10 ML UDC GT SCH (09:27)
[2018-10-14] MEDS: LEVETIRACETAM SOL (5 ML) 100 MG/ML UDC GT SCH (09:27)
[2018-10-14] MEDS: LACTULOSE 10 G/15 ML UDC (PYXIS) GT SCH ×2 (09:27→17:00)
[2018-10-14] MEDS: PROSOURCE / PROSTAT (PYXIS) 30 ML UDC GT SCH ×3 (09:27→17:00)
[2018-10-14] MEDS: LACTOBACILLUS RHAMNOSUS GG 1 EACH CAP.SPRINK PO SCH ×2 (09:28→17:00)
--- NOTE | 2018-10-14 10:43 | NUR ---
Seen and examined by Dr. Kern. resident eyes closed, occasionally bending her head forward in which family said it is normal for her to make these movements. Dr. Kern reviewed medications and discontinue some orders that have similar in action especially the use of laxative and stool softener. Resident is schedule for dialysis today. Per Dr. Kern, patient's ATB is for osteomyelitis however he will discuss ATB use with YOSELIN Aguirre. Orders noted and faxed it to [facility] and [facility].
[2018-10-14] MEDS ORDERED: INSULIN NPH, HUMAN ISOPHANE 100 UNIT/ML CARTRIDGE SQ SCH (11:52)
[2018-10-14 12:00] VITALS: BP 150/56
[2018-10-14] MEDS ORDERED: POLYETHYLENE GLYCOL 3350 17 GM POWD.PACK GT PRN (12:00)
[2018-10-14] MEDS ORDERED: ACETAMINOPHEN 650 MG/20 ML UDC- SA PATIENTS-PAIN ONLY GT PRN (12:00)
[2018-10-14] MEDS ORDERED: ACETAMINOPHEN 650 MG/20.3 ML UDC GT PRN (12:00)
[2018-10-14] MEDS ORDERED: FEE PK DOSING 1 MIN EA MC ONE (12:38)
--- NOTE | 2018-10-14 14:15 | NUR ---
Resident's daughter sister at bedside and brought personal supplies for patient's use such as soap and cushion for repositioning. Informed patient's sister that Dr. Kern came to assess patient and discontinue most of her PRN medication especially pertaining to bowel management. She is very thankful as this is her request to change routine Colace and Miralax to PRN due to loose stool. Awaiting for ambulance transportation to pick her up for dialysis.
--- NOTE | 2018-10-14 15:10 | NUR ---
RESIDENT LEFT FOR DIALYSIS IN STABLE CONDITION, BP 160/68, HR 81, T 98.8, R 16. BRUIT PULSE POSITIVE. PATIENT IN NO RESPIRATORY DISTRESS, NO S/S OF PAIN AT THIS TIME.
--- NOTE | 2018-10-14 15:40 | NUR ---
Received a call from dialysis center informing us that patient's B/P is low, 73/24- 83/24 and will send patient to ER. Nursing supervisor broadloom informed, Left a message to Dr. Kern of the transfer and family at bedside with patient and aware of patient's condition.
[2018-10-14] MEDS ORDERED: AMIN30LI2 GT (17:07)
[2018-10-14] MEDS ORDERED: ONDA4VIA52 IV (17:07)
[2018-10-14] MEDS ORDERED: BLOO-668 IN (17:07)
[2018-10-14] MEDS ORDERED: POLY15DR40 EACHEYE (17:07)
[2018-10-14] MEDS ORDERED: SODI473S8 TOP (17:07)
[2018-10-14] MEDS ORDERED: DEXT50DI8 IV (17:07)
[2018-10-14] MEDS ORDERED: GEL100GE TP (17:07)
[2018-10-14] MEDS ORDERED: ACET-868 GT (17:07)
[2018-10-14] MEDS ORDERED: LACTOBACILLUS RHAMNOSUS GG 1 EACH CAP.SPRINK GT SCH (19:04)
[2018-10-14] MEDS ORDERED: CARVEDILOL 3.125 MG TABLET GT SCH (21:00)
--- NOTE | 2018-10-16 14:37 | NUR ---
Intake Paperwork: Patient Admitted to [facility] on Tuesday10/13/18 at 6 pm. SW not available until Tuesday10/16/18. Engineering Program Analyst met with the resident's sister, Rabia Brantley [phone] today to complete initial admission paperwork (Patient Right's Acknowledgement, Documentation of Preferred Intensity of Care, Conditions of Admission, [facility] Agreement, Important Message from Medicare about your Rights, and Voluntary Prior Express Consent form). SW provided patient with a copy of the Bill of Rights and patient information guide. Esther wishes the resident be Full Code (CPR with maximum treatment). SW also completed the initial psychosocial assessment with Esther as patient is not alert to complete. Admission paperwork was placed into the resident's chart. Engineering Program Analyst educated Rabia on advanced health care directive and conservatorship. Resident's sister, Esther GrossmanGiorgio noted that she had been the primary decision maker for medical but has no legal paperwork. Per Esther, the patient�s boyfriend, Yogi Mccann [phone] currently handles the [employer] customer [employer] finances. Per Rabia the patient and Yogi have a son. Esther expressed is interested in filing for conservatorship. ROSALIE provided Rabia with information for [facility] [employer] [facility] [[facility]. [address] [facility], [address] TEL: [phone]; OR [phone]] to assist her with filing for conservatorship. Resident is not alert to complete advanced directive.
--- NOTE | 2018-10-17 11:31 | NUR ---
Conservatorship Application: Patient�s responsible green party, Esther Brantley [phone] expressed interest in becoming resident�s conservator during Intake. ROSALIE educated Esther about Conservatorship and the �Self-help Conservatorship Clinics� being held by [facility] [employer] [facility] [[phone]] on October 31, 2017, 9:15 am - 12:15 pm at [employer] [[address] [place] [id number]]. Esther stated, �I�m going to attend�. ROSALIE provided Esther with application for her to fill out and take to event. Esther expressed understanding and was agreeable to plan. SW will be available as needed.
--- NOTE | 2018-10-17 14:45 | NUR ---
ROSALIE contacted [facility] [[address] [place] [address]; [phone]] and spoke to Estella to cancel transportation indefinitely until further notice as patient is currently not in SA unit. Estella expressed understanding and was agreeable to plan. ROSALIE to call [facility] and enable transportation services when pt. return to SA unit.
--- NOTE | 2018-10-20 11:32 | NUR ---
Per Subacute Director, Nkechi, patient may possibly be transferred back to [facility]. ROSALIE called [facility] [[address] [facility] [address]; TEL:[phone]] to communicate the above and that pt. is to continue receiving regularly dialysis (,,Sat. 3pm-6:30pm) at [facility] starting 10/21/18. Keesha at [facility] was agreeable to plan. ROSALIE contacted [facility] [[address] [place] [address]; [phone]]to communicate above and confirm [facility] can continue providing regularly scheduled transportation services on (,Th,Sat. 3pm-6:30pm)for pt. from [facility] to [facility]. Estella at [facility] was agreeable to plan and put in transportation request for 10/21/18.
--- NOTE | 2018-10-20 14:31 | NUR ---
Per [facility]ella from [facility] [[address]. [facility] [address];[phone]] SW to contact "[facility]" [facility] # [phone] to have insurance reactivate authorization for transportation. ROSALIE contacted "[facility]" [facility] # [phone] and spoke to Seda who was agreeable to plan. Per Seda, she will e-mail authorization to [facility]. No further action required.
== END 2018-10-14 18:38 | disposition still patient (30) | DRG 189 ==
LOC: SA 19:17
PROVIDERS: ADMIT Internal Medicine; ATTEND Internal Medicine
DX: J96.10 Chronic respiratory failure, unspecified whether with hypoxia or hypercapnia (principal); N17.9 Acute kidney failure, unspecified; J44.9 Chronic obstructive pulmonary disease, unspecified; E11.22 Type 2 diabetes mellitus with diabetic chronic kidney disease; I12.9 Hypertensive chronic kidney disease with stage 1 through stage 4 chronic kidney disease, or unspecified chronic kidney disease; N18.9 Chronic kidney disease, unspecified; R56.9 Unspecified convulsions; Z99.2 Dependence on renal dialysis; D64.9 Anemia, unspecified; Z86.73 Personal history of transient ischemic attack (TIA), and cerebral infarction without residual deficits; Z93.0 Tracheostomy status; R13.10 Dysphagia, unspecified; Z93.1 Gastrostomy status
CPT/HCPCS: 31720; 36415; 80150; 80202-TC; 82962-TC; 87081-TC; 94640-TC; 94760-TC; A4623; A6248; A6253; A7526; J0278; J1815; J1953; J3370; J7060

== ENCOUNTER 2018-10-14 15:42 | Inpatient (IN) | payer MEDICARE, OTHER ==
[~2018-10-14] VITALS: Ht 162.6 cm; Wt 83.9 kg
[~2018-10-14 15:42] MED LIST changes: +FLUC100T8 PO; +METR500T PO; +RXAMI XX; +RXVAN XX
--- NOTE | 2018-10-14 15:52 | NUR ---
PT BIBPA, FROM [facility], CAME IN DUE TO HYPOTENSION , PT IS AAOX0, ON TREACH TUBE VIA AEROSOL, HOOKED TO MONITOR, V/S STABLE, KEPT RESTED AND COMFORTABLE, WILL CONTINUE TO MONITOR.
--- NOTE | 2018-10-14 16:09 | NUR ---
AT BEDSIDE FOR EVAL.
--- NOTE | 2018-10-14 16:29 | NUR ---
CALLED FOR TELE BED... MOVESHEET GIVEN TO FRONT
--- NOTE | 2018-10-14 16:34 | NUR ---
PATIENT WILL GO TO 114-1, PRIMARY RN IS LATRICIA.
--- NOTE | 2018-10-14 16:40 | NUR ---
BLOOD DRAWNED AND SENT TO LAB.
[2018-10-14 16:41] LABS: BASOPHILS # (AUTO) 0.1 /CMM (0.0-0.2); BASOPHILS % (AUTO) 0.7 % (0.0-2.0); HEMATOCRIT 23 % (33-45); HEMOGLOBIN 7.3 g/dL (11.5-14.8); LYMPHOCYTES # (AUTO) 0.9 /CMM (0.8-4.8); MEAN CORPUSCULAR HGB CONC 32 g/dl (31.0-36.0); MEAN CORPUSCULAR VOLUME 93 fL (82-100); MONOCYTES # (AUTO) 1.1 /CMM (0.1-1.30); MONOCYTES % (AUTO) 6.3 % (2.0-12.0); NEUTROPHILS # (AUTO) 14.7 /CMM (1.8-8.9); PLATELET COUNT (AUTO) 300 /CMM (150-450); RED BLOOD CELL COUNT(AUTO) 2.49 MIL/uL (4.0-5.2); WHITE BLOOD COUNT (AUTO) 17.1 K/uL (4.3-11.0)
--- NOTE | 2018-10-14 16:45 | NUR ---
SITE TECHNICIAN AT BEDSIDE FOR XRAY.
[2018-10-14 16:56] LABS: ALBUMIN 2.2 g/dL (3.4-5.0); BILIRUBIN,DIRECT 0.2 mg/dL (0.0-0.2); BILIRUBIN,TOTAL 0.4 mg/dL (0.2-1.0); CALCIUM, SERUM 9.5 mg/dL (8.5-10.1); CREATININE 5.2 mg/dL (0.6-1.3); TOTAL PROTEIN, SERUM 8.2 g/dL (6.4-8.2)
[2018-10-14] MEDS ORDERED: POLY15DR40 EACHEYE (17:07)
[2018-10-14] MEDS ORDERED: GEL100GE TP (17:07)
[2018-10-14] MEDS ORDERED: DEXT50DI8 IV (17:07)
[2018-10-14] MEDS ORDERED: ACET-868 GT (17:07)
[2018-10-14] MEDS ORDERED: AMIN30LI2 GT (17:07)
[2018-10-14] MEDS ORDERED: ONDA4VIA52 IV (17:07)
[2018-10-14] MEDS ORDERED: SODI473S8 TOP (17:07)
[2018-10-14] MEDS ORDERED: BLOO-668 IN (17:07)
--- NOTE | 2018-10-14 17:30 | NUR ---
MBA INTERN NOTE RECEIVED REPORT FROM JAYLIN RN FROM ER.
[2018-10-14] MEDS ORDERED: MAGNESIUM HYDROXIDE 30 ML UDC GT PRN (18:00)
[2018-10-14] MEDS ORDERED: ACETAMINOPHEN 325 MG TABLET PO PRN (18:00)
[2018-10-14] MEDS ORDERED: DOSING PER PHARMACY-AMIKACI IV XX PRN (18:00)
[2018-10-14] MEDS ORDERED: ACETAMINOPHEN 160 MG/5 ML GT PRN (18:00)
[2018-10-14] MEDS ORDERED: ONDANSETRON HCL/PF 4 MG/2 ML VIAL IV PRN (18:00)
[2018-10-14] MEDS ORDERED: POLYETHYLENE GLYCOL 3350 17 GM POWD.PACK GT PRN (18:00)
[2018-10-14] MEDS ORDERED: BLOOD SUGAR DIAGNOSTIC 1 EACH STRIP IN SCH (18:00)
[2018-10-14] MEDS ORDERED: HYDROCODONE/APAP 5/325MG 1 EACH TABLET GT PRN (18:00)
[2018-10-14] MEDS ORDERED: Medication Not On Formulary EA (Albuterol Sulfate 2.5 MG) IH PRN (18:00)
[2018-10-14] MEDS ORDERED: ONDANSETRON HCL/PF 4 MG/2 ML VIAL IVP PRN (18:00)
[2018-10-14] MEDS ORDERED: MAG HYDROX/AL HYDROX/SIMETH 30 ML UDC GT PRN (18:00)
[2018-10-14] MEDS ORDERED: NEPRO VAN 237 ML CAN GT SCH (18:00)
[2018-10-14] MEDS ORDERED: DEXTROSE 50%-WATER 50 ML DISP.SYRIN IV PRN ×2 (18:00→18:30)
[2018-10-14] MEDS ORDERED: Z GUARD REMEDY 2 OZ OINT TP PRN (18:00)
[2018-10-14] MEDS ORDERED: INSULIN REGULAR, HUMAN 100 UNIT/ML 3 ML VIAL SQ PRN (18:30)
[2018-10-14] MEDS ORDERED: ALBUTEROL FS 2.5 MG/0.5 ML VIAL.NEB NEB PRN (18:47)
[2018-10-14] MEDS ORDERED: POLYVINYL ALCOHOL 15 ML BOTTLE EACHEYE PRN (18:47)
[2018-10-14 18:50] VITALS: BP 93/58
--- NOTE | 2018-10-14 18:53 | NUR ---
REPORT GIVEN TO JASMEET ROME FOR BILL.
[2018-10-14] MEDS ORDERED: ACETAMINOPHEN 650 MG/20.3 ML UDC GT PRN ×3 (19:00→19:30)
--- NOTE | 2018-10-14 19:10 | NUR ---
EQUIPMENT ASSOCIATE NOTE RECEIVED PATIENT FROM ER 1850.ENDORSED TO PM NURSE FOR ADMISSION AND BILL.VITAL SIGNS STABLE.
[2018-10-14] MEDS ORDERED: Medication Not On Formulary EA (Albuterol Sulfate 2.5 MG) IH SCH (19:30)
[2018-10-14] MEDS ORDERED: POLYVINYL ALCOHOL/POVIDONE 0.4 ML DROPERETTE EACHEYE PRN (19:30)
--- NOTE | 2018-10-14 19:30 | NUR ---
PARLIAMENTARY COUNSEL ADMITTING NOTE RECEIVED PATIENT IN BED, WITH TRACH, FIO2 28%, WELL AMY', AWAKE NON-VERBAL, NO FACIAL GRIMACING NOTED, R FEM', TRIPLE LUMEN CENTRAL LINE NOTED, CLEAN DRESSING IN PLACE, GT PATENT AND WELL SECURED, SKIN ISSUES NOTED PHOTOS TAKEN ON FILE, WOUND CONSULT ENTERED, SPACIAL MATRES ORDERED, ALL ADMITTING ORDERS ENTERED DR REED PER PROTOCOL, DIALYSIS NURSE AT BED SIDE TO DIALYS PATIENT, 1 UNIT OF PRBC TO BR TRANSFUSED BY DIALYSIS NURSE. ALL SAFETY MEASURES IN PLACE. WILL CONTINUE MONITORING PATIENT FOR EARLY ADVERSE REACTION.
[2018-10-14] MEDS: ALBUTEROL FS 2.5 MG/0.5 ML VIAL.NEB NEB SCH (19:56)
[2018-10-14 20:00] VITALS: BP 112/78
[2018-10-14] MEDS ORDERED: ALBUMIN 25% 25 GM in PREMIX 1 EA IV PRN (21:00)
[2018-10-14] MEDS ORDERED: DAKINS QUARTER STRENGTH (0.125%) 480 ML BOTTLE TOP SCH (21:00)
[2018-10-14] MEDS ORDERED: METRONIDAZOLE 500 MG TABLET PO SCH (21:00)
[2018-10-14] MEDS ORDERED: ACETAMINOPHEN 325 MG TABLET MC SCH (21:00)
[2018-10-14] MEDS ORDERED: NPH HUMAN INSULIN ISOPHANE SQ SCH (21:00)
[2018-10-14] MEDS: CARVEDILOL 3.125 MG TABLET GT SCH (21:00)
[2018-10-14] MEDS ORDERED: ALBUMIN 25% 100 ML IV ONE (21:12)
[2018-10-14] MEDS ORDERED: ALBUMIN 25% 25 GM in PREMIX 1 EA IV ONE (21:30)
[2018-10-14] MEDS: SUCRALFATE 1 G/10 ML UDC GT SCH (21:34)
[2018-10-14] MEDS: LEVETIRACETAM SOL (5 ML) 100 MG/ML UDC GT SCH (21:34)
[2018-10-14] MEDS: METRONIDAZOLE 500 MG TABLET GT SCH (21:34)
[2018-10-14] MEDS: MONTELUKAST SODIUM (10MG) 10 MG TABLET GT SCH (21:34)
[2018-10-14] MEDS: CHLORHEXIDINE GLUCONATE 15 ML UDC MM SCH (21:34)
[2018-10-14] MEDS: DAKINS QUARTER STRENGTH (0.125%) 480 ML BOTTLE TOP SCH (21:35)
[2018-10-14] MEDS ORDERED: BLOOD SUGAR DIAGNOSTIC 1 EACH STRIP VI SCH (22:00)
[2018-10-14 23:20] VITALS: BP 85/40
[2018-10-14 23:37] VITALS: BP 115/49
[2018-10-15] VITALS (7 sets, daily range): BP systolic 92–125; BP diastolic 47–79
[2018-10-15] MEDS: ALBUTEROL FS 2.5 MG/0.5 ML VIAL.NEB NEB SCH ×4 (00:57→19:24)
[2018-10-15] MEDS: BLOOD SUGAR DIAGNOSTIC 1 EACH STRIP IN SCH ×4 (01:18→18:31)
[2018-10-15] MEDS: INSULIN NPH, HUMAN ISOPHANE 100 UNIT/ML CARTRIDGE SQ SCH ×4 (01:25→21:31)
[2018-10-15] MEDS: NEPRO 1,000 ML BOTTLE GT PRN (01:50)
[2018-10-15] MEDS: METRONIDAZOLE 500 MG TABLET GT SCH ×3 (05:32→21:13)
[2018-10-15] MEDS: CHLORHEXIDINE GLUCONATE 15 ML UDC MM SCH ×3 (05:32→21:13)
[2018-10-15] MEDS: SUCRALFATE 1 G/10 ML UDC GT SCH ×3 (05:32→21:13)
[2018-10-15] MEDS: INSULIN REGULAR, HUMAN 100 UNIT/ML 3 ML VIAL SQ PRN ×2 (05:42→18:37)
[2018-10-15 06:21] LABS: CREATININE 2.4 mg/dL (0.6-1.3); MAGNESIUM 2.2 mg/dL (1.8-2.4); PHOSPHORUS 2.1 mg/dL (2.5-4.9); POTASSIUM 3.3 mmol/L (3.5-5.1)
[2018-10-15 06:30] LABS: BASOPHILS % (AUTO) 0.3 % (0.0-2.0); EOSINOPHILS % (AUTO) 1.7 % (0.0-6.0); HEMATOCRIT 22 % (33-45); HEMOGLOBIN 7.2 g/dL (11.5-14.8); LYMPHOCYTES # (AUTO) 0.9 /CMM (0.8-4.8); LYMPHOCYTES % (AUTO) 7.1 % (20.0-44.0); MEAN CORPUSCULAR HGB CONC 33 g/dl (31.0-36.0); MEAN CORPUSCULAR VOLUME 91 fL (82-100); MONOCYTES % (AUTO) 8.3 % (2.0-12.0); NEUTROPHILS # (AUTO) 10.3 /CMM (1.8-8.9); NEUTROPHILS % (AUTO) 82.6 % (43.0-81.0); PLATELET COUNT (AUTO) 219 /CMM (150-450); WHITE BLOOD COUNT (AUTO) 12.5 K/uL (4.3-11.0)
--- NOTE | 2018-10-15 07:40 | NUR ---
SPECIAL DELIVERY MAIL CARRIER CLOSING NOTE, PATIENT IN BED, WITH TRACH, FIO2 28%, WELL AMY', AWAKE NON-VERBAL, NO FACIAL GRIMACING NOTED, R FEM', TRIPLE LUMEN CENTRAL LINE NOTED, CLEAN DRESSING IN PLACE, GT PATENT AND WELL SECURED, SKIN ISSUES NOTED PHOTOS TAKEN ON FILE, WOUND CONSULT ENTERED, SPACIAL MATRES ORDERED, ALL ADMITTING ORDERS ENTERED DR REED PER PROTOCOL. 1 UNIT OF PRBC TRANSFUSED UT DIALYSIS NURSE. ALL SAFETY MEASURES IN PLACE. WILL ENDORSE TO AM NURSE FOR CONTINUES CARE.
--- NOTE | 2018-10-15 07:55 | NUR ---
RN OPENING NOTES RECEIVED REPORT FROM PRASHANT ALAMO. RECEIVED PATIENT SLEEPING IN BED, SHE IS NON-VERBAL. SHE HAS A T-PIECE WITH 28% FIO2, TOLERATING WELL. SHE IS RECEIVING TUBE FEEDING AT 55ML/HR, NO RESIDUAL TOLERATING WELL. SHE HAS A RFA CENTRAL LINE, SHE HAS SACRAL WOUNDS, LOW EXTREMITY WOUNDS, AND FACIAL WOUNDS. TELE MONITOR SHOWING SR. SAFETY MEASURES HAVE BEEN IMPLEMENTED, CALL LIGHT WITHIN REACH, SIDE RAILS UP X2, BED IN LOWEST AND LOCKED POSITION, WILL CONTINUE TO MONITOR FOR ANY CHANGES.
--- NOTE | 2018-10-15 08:17 | NUR ---
TELE1/ETHICS INSTRUCTOR OF CARE PT ENDORSED TO NURSE PHELAN TO CONTINUE CARE.
[2018-10-15] MEDS: CARVEDILOL 3.125 MG TABLET GT SCH ×2 (09:00→21:15)
[2018-10-15] MEDS ORDERED: LACTOBACILLUS RHAMNOSUS GG 1 EACH CAP.SPRINK PO SCH (09:00)
[2018-10-15] MEDS ORDERED: Medication Not On Formulary EA (Amino Acids/Protein Hydrolys (Pro-Stat Liquid) 30 ML) GT SCH (09:00)
[2018-10-15] MEDS: DAKINS QUARTER STRENGTH (0.125%) 480 ML BOTTLE TOP SCH ×2 (09:00→21:16)
[2018-10-15] MEDS ORDERED: FLUCONAZOLE (100 MG) 100 MG TABLET PO SCH (09:00)
[2018-10-15] MEDS: PROSOURCE / PROSTAT (PYXIS) 30 ML UDC GT SCH ×3 (09:17→17:18)
[2018-10-15] MEDS: BRIMONIDINE TARTRATE OPHT SOLN 5 ML BOTTLE EACHEYE SCH (09:23)
[2018-10-15] MEDS: LEVETIRACETAM SOL (5 ML) 100 MG/ML UDC GT SCH ×2 (09:24→21:13)
[2018-10-15] MEDS: LACTOBACILLUS RHAMNOSUS GG 1 EACH CAP.SPRINK GT SCH ×2 (09:25→17:18)
[2018-10-15] MEDS: CALCIUM ACETATE 667 MG TABLET GT SCH (09:25)
[2018-10-15] MEDS: FLUCONAZOLE (100 MG) 100 MG TABLET GT SCH (09:25)
[2018-10-15] MEDS: FAMOTIDINE (20 MG) 20 MG TABLET GT SCH (09:25)
[2018-10-15] MEDS: VIT B CMPLX 3/FA/VIT C/BIOTIN 1 TAB TABLET GT SCH (09:25)
[2018-10-15] MEDS: LACTULOSE 10 G/15 ML UDC (PYXIS) GT SCH ×2 (09:29→17:18)
[2018-10-15] MEDS: *INSULIN REGULAR(HUMULIN R)HUM 100 UNIT/ML VIAL SQ PRN (12:14)
[2018-10-15] MEDS: ALBUMIN 25% 25 GM in PREMIX 1 EA IV PRN (13:47)
--- NOTE | 2018-10-15 14:00 | NUR ---
PATIENT JUST FINISHED HD, REMOVED 2L. VITALS: BP 114/39 HR: 73. PATIENT DOES NOT SHOW SIGNS OF DISTRESS. 1300 MEDICATIONS DELAYED DUE TO HD. AMIKACIN IS INFUSING, VANCOMYCIN TO FOLLOW
[2018-10-15] MEDS: AMIKACIN 400 MG in IV D5W 100 ML IV PRN (14:07)
[2018-10-15] MEDS: VANCOMYCIN 500 MG in IV D5W 100 ML IV PRN (15:09)
--- NOTE | 2018-10-15 19:48 | NUR ---
RN CLOSING NOTES PATIENT IS RESTING IN BED COMFORTABLY. SAFETY MEASURES HAVE BEEN IMPLEMENTED, CALL LIGHT WITHIN REACH, BED IN LOWEST AND LOCKED POSITION, BED RAILS UP X2. DOES NOT SHOW ANY SIGNS OF DISCOMFORT OR PAIN. PATIENT IS NONVERBAL BUT OPENS HER EYES. SHE HAS A TRACH AND IS RECEIVING 5L OF O2, AND FIO2 OF 28% VIA T-PIECE. NEPRO VIA GTUBE AT 55 ML/HR, TOLERATING WELL, NO RESIDUAL. PATIENT HAS BEEN ENDORSED TO NIGHTSHIFT NURSE
[2018-10-15] MEDS: MONTELUKAST SODIUM (10MG) 10 MG TABLET GT SCH (21:14)
[2018-10-16] MEDS: INSULIN REGULAR, HUMAN 100 UNIT/ML 3 ML VIAL SQ PRN ×4 (00:33→18:20)
[2018-10-16] MEDS: ALBUTEROL FS 2.5 MG/0.5 ML VIAL.NEB NEB SCH ×4 (01:34→20:07)
[2018-10-16 04:00] VITALS: BP 139/67
[2018-10-16] MEDS: SUCRALFATE 1 G/10 ML UDC GT SCH ×3 (05:21→21:07)
[2018-10-16] MEDS: METRONIDAZOLE 500 MG TABLET GT SCH ×3 (05:22→21:07)
[2018-10-16] MEDS: CHLORHEXIDINE GLUCONATE 15 ML UDC MM SCH ×3 (05:22→21:07)
[2018-10-16] MEDS: INSULIN NPH, HUMAN ISOPHANE 100 UNIT/ML CARTRIDGE SQ SCH ×3 (05:36→21:16)
[2018-10-16] MEDS: BLOOD SUGAR DIAGNOSTIC 1 EACH STRIP IN SCH ×4 (05:36→18:12)
[2018-10-16 06:40] LABS: CALCIUM, SERUM 9.1 mg/dL (8.5-10.1); POTASSIUM 3.5 mmol/L (3.5-5.1)
[2018-10-16 07:56] LABS: BASOPHILS # (AUTO) 0.1 /CMM (0.0-0.2); BASOPHILS % (AUTO) 0.4 % (0.0-2.0); HEMATOCRIT 26 % (33-45); HEMOGLOBIN 8.4 g/dL (11.5-14.8); MEAN CORPUSCULAR HGB CONC 32 g/dl (31.0-36.0); MEAN CORPUSCULAR VOLUME 92 fL (82-100); MONOCYTES # (AUTO) 1.3 /CMM (0.1-1.30); MONOCYTES % (AUTO) 9.4 % (2.0-12.0); NEUTROPHILS # (AUTO) 11.7 /CMM (1.8-8.9); NEUTROPHILS % (AUTO) 82.2 % (43.0-81.0); PLATELET COUNT (AUTO) 301 /CMM (150-450); RED BLOOD CELL COUNT(AUTO) 2.82 MIL/uL (4.0-5.2); WHITE BLOOD COUNT (AUTO) 14.2 K/uL (4.3-11.0)
[2018-10-16 08:00] VITALS: BP 129/47
[2018-10-16] MEDS: LACTULOSE 10 G/15 ML UDC (PYXIS) GT SCH ×2 (09:56→17:00)
[2018-10-16] MEDS: LEVETIRACETAM SOL (5 ML) 100 MG/ML UDC GT SCH ×2 (09:56→21:07)
[2018-10-16] MEDS: FLUCONAZOLE (100 MG) 100 MG TABLET GT SCH (09:57)
[2018-10-16] MEDS: VIT B CMPLX 3/FA/VIT C/BIOTIN 1 TAB TABLET GT SCH (09:57)
[2018-10-16] MEDS: LACTOBACILLUS RHAMNOSUS GG 1 EACH CAP.SPRINK GT SCH ×2 (09:58→18:12)
[2018-10-16] MEDS: CARVEDILOL 3.125 MG TABLET GT SCH ×2 (09:59→21:08)
[2018-10-16] MEDS: FAMOTIDINE (20 MG) 20 MG TABLET GT SCH (10:00)
[2018-10-16] MEDS: CALCIUM ACETATE 667 MG TABLET GT SCH (10:00)
[2018-10-16] MEDS: PROSOURCE / PROSTAT (PYXIS) 30 ML UDC GT SCH ×3 (10:02→18:14)
[2018-10-16] MEDS: BRIMONIDINE TARTRATE OPHT SOLN 5 ML BOTTLE EACHEYE SCH (10:02)
[2018-10-16] MEDS: DAKINS QUARTER STRENGTH (0.125%) 480 ML BOTTLE TOP SCH ×3 (10:07→21:17)
[2018-10-16] MEDS ORDERED: LIDOCAINE 1%-EPI 1:100,000 20 ML VIAL TP ONE (10:30)
[2018-10-16] MEDS ORDERED: SILVER NITRATE APPLICATOR 1 EA BOX TP PRN (10:30)
[2018-10-16] MEDS ORDERED: FEE PK DOSING 1 MIN EA MC ONE (11:07)
--- NOTE | 2018-10-16 12:33 | NUR ---
Pt admitted to [facility] on 10/13/18, Pt had dialysis at dialysis center. Then, pt was admitted to [facility] on 10/14/18 due to low blood pressure post dialysis. Visited pt today. Pt's sister (Rabia) at bedside. Sister confirmed pt's height is 5'2" (62 inches) and pt's weight has been fluctuating due to dialysis. Per sister, pt has been on dialysis over 10 years and got PEG/Trach in June 2018. Sister is not sure pt's dry weight. Per sister, pt has no known food allergies. TF Nepro at 55ml/hr running during the visit. Sister reports pt had some intolerance with TF at the beginning of TF initiation but pt had been tolerating it after that. Per nursing at Sub-acute, plans to transfer pt back to Sub-acute today.
[2018-10-16 16:00] VITALS: BP 138/57
[2018-10-16 20:00] VITALS: BP 161/72
--- NOTE | 2018-10-16 20:00 | NUR ---
MS RN NOTE PT IN BED OBTUNDED.T PIECE O2 5L 28%. NO DISTRESS OR DISCOMFORT NOTED. NO S/S OF PAIN NOTED. KEPT HOB ELEVATED TO 35 DEGREES. GT INTACT AND PATENT. RF TRIPLE LUMEN CATH INTACT AND PATENT. KEPT HER DRY AND CLEAN. REPOSITIONED HER Q2H, ALL NEEDS ATTENDED. CONTINUE TO MONITOR HER.
[2018-10-16] MEDS: MONTELUKAST SODIUM (10MG) 10 MG TABLET GT SCH (21:07)
[2018-10-16] MEDS: NEPRO 1,000 ML BOTTLE GT PRN (23:57)
[2018-10-17] MEDS: INSULIN REGULAR, HUMAN 100 UNIT/ML 3 ML VIAL SQ PRN ×3 (00:19→17:37)
[2018-10-17] MEDS: ALBUTEROL FS 2.5 MG/0.5 ML VIAL.NEB NEB SCH ×4 (02:13→20:28)
[2018-10-17 04:00] VITALS: BP 144/73
[2018-10-17] MEDS: CHLORHEXIDINE GLUCONATE 15 ML UDC MM SCH ×3 (05:20→21:24)
[2018-10-17] MEDS: SUCRALFATE 1 G/10 ML UDC GT SCH ×3 (05:21→21:24)
[2018-10-17] MEDS: METRONIDAZOLE 500 MG TABLET GT SCH ×3 (05:21→21:24)
[2018-10-17] MEDS: INSULIN NPH, HUMAN ISOPHANE 100 UNIT/ML CARTRIDGE SQ SCH ×3 (05:24→21:29)
[2018-10-17] MEDS: BLOOD SUGAR DIAGNOSTIC 1 EACH STRIP IN SCH ×4 (05:25→17:34)
--- NOTE | 2018-10-17 06:47 | NUR ---
MS RN NOTE PT IN BED OBTUNDED. NO DISTRESS OR DISCOMFORT NOTED. NO S/S OF PAIN. GT FEEDING INFUSING WELL AT 55 ML/HR, 0 ML RESIDUAL NOTED. REPOSITION HER Q2H, KEPT HER DRY AND CLEAN.WOUND DRESSINGS I/C/D. SIDE RAILS UP X 2 AND CALL LIGHT WITHIN REACH. . WILL ENDORSE TO DAY SHIFT NURSE FOR CONTINUE TO CARE.
[2018-10-17 07:20] LABS: BASOPHILS # (AUTO) 0.1 /CMM (0.0-0.2); BASOPHILS % (AUTO) 0.7 % (0.0-2.0); EOSINOPHILS % (AUTO) 2.1 % (0.0-6.0); HEMATOCRIT 25 % (33-45); HEMOGLOBIN 8.2 g/dL (11.5-14.8); LYMPHOCYTES # (AUTO) 1.6 /CMM (0.8-4.8); LYMPHOCYTES % (AUTO) 8.9 % (20.0-44.0); MEAN CORPUSCULAR HGB CONC 33 g/dl (31.0-36.0); MEAN CORPUSCULAR VOLUME 94 fL (82-100); MONOCYTES # (AUTO) 1.5 /CMM (0.1-1.30); MONOCYTES % (AUTO) 8.1 % (2.0-12.0); NEUTROPHILS # (AUTO) 14.8 /CMM (1.8-8.9); NEUTROPHILS % (AUTO) 80.2 % (43.0-81.0); PLATELET COUNT (AUTO) 345 /CMM (150-450); RED BLOOD CELL COUNT(AUTO) 2.63 MIL/uL (4.0-5.2); WHITE BLOOD COUNT (AUTO) 18.4 K/uL (4.3-11.0)
[2018-10-17 07:49] LABS: CALCIUM, SERUM 9.4 mg/dL (8.5-10.1); CREATININE 4.2 mg/dL (0.6-1.3); MAGNESIUM 2.6 mg/dL (1.8-2.4); PHOSPHORUS 3.4 mg/dL (2.5-4.9); POTASSIUM 4.2 mmol/L (3.5-5.1)
[2018-10-17 08:00] VITALS: BP 128/58
--- NOTE | 2018-10-17 08:34 | NUR ---
WOUND CARE CONSULT WOUND CARE RECEIVED CONSULT FOR WOUND EVAL. WOUND CARE WILL DEFER CONSULT AND TREATMENT PLANS TO PLASTIC SURGICAL TEAM INCLUDING DPM DR RAMIREZ WHO ARE ALL FOLLOWING THIS PATIENT. PATIENT WITH OZZIE AT 9, ALL PRESSURE ULCER PREVENTION MEASURES ARE NOTED TO BE IN PLACE AT THIS TIME. WILL SEE PRN.
[2018-10-17] MEDS: LACTULOSE 10 G/15 ML UDC (PYXIS) GT SCH ×2 (08:39→17:00)
[2018-10-17] MEDS: LACTOBACILLUS RHAMNOSUS GG 1 EACH CAP.SPRINK GT SCH ×2 (08:46→17:34)
[2018-10-17] MEDS: LEVETIRACETAM SOL (5 ML) 100 MG/ML UDC GT SCH ×2 (08:46→21:24)
[2018-10-17] MEDS: VIT B CMPLX 3/FA/VIT C/BIOTIN 1 TAB TABLET GT SCH (08:46)
[2018-10-17] MEDS: PROSOURCE / PROSTAT (PYXIS) 30 ML UDC GT SCH ×3 (08:46→17:34)
[2018-10-17] MEDS: CALCIUM ACETATE 667 MG TABLET GT SCH (08:46)
[2018-10-17] MEDS: FLUCONAZOLE (100 MG) 100 MG TABLET GT SCH (08:46)
[2018-10-17] MEDS: FAMOTIDINE (20 MG) 20 MG TABLET GT SCH (08:46)
[2018-10-17] MEDS: DAKINS QUARTER STRENGTH (0.125%) 480 ML BOTTLE TOP SCH ×3 (08:47→21:25)
[2018-10-17] MEDS: BRIMONIDINE TARTRATE OPHT SOLN 5 ML BOTTLE EACHEYE SCH (08:47)
[2018-10-17] MEDS: HYDROGEL DRESSING 90 GM TUBE TP SCH (08:48)
[2018-10-17] MEDS: CARVEDILOL 3.125 MG TABLET GT SCH ×2 (09:00→21:25)
[2018-10-17 09:38] LABS: BAND % (MANUAL) 1 % (0.0-5.0); EOSINOPHILS % (MANUAL) 2 % (0-4); LYMPHOCYTES % (MANUAL) 8 % (16-48); MONOCYTES % (MANUAL) 4 % (0-11.0); MYELOCYTES % 1 % (0-0); NEUTROPHILS % (MANUAL) 84 (42-76)
[2018-10-17] MEDS: ALBUMIN 25% 25 GM in PREMIX 1 EA IV PRN (10:39)
[2018-10-17 16:00] VITALS: BP 117/64
--- NOTE | 2018-10-17 16:00 | NUR ---
rn note vancomycin level 18 reported to pharm, will administer vanco. amikacin level 14.4, per pharmacy will hold dose for today.
[2018-10-17] MEDS: VANCOMYCIN 500 MG in IV D5W 100 ML IV PRN (17:38)
[2018-10-17 20:00] VITALS: BP 152/70
--- NOTE | 2018-10-17 20:45 | NUR ---
RN NOTES, ENDORSED BY DAY SHIFT JASMEET LAURENT TO CONTACT INFECTION DR TO INFORMED ABOUT RESULTS FOR SACRAL CULTURE, CALLED OFFICE AT THIS TIME, AND SPOKE WITH NINFA SMART NP AND INFORMED HER ABOUT RESULTS, SHE REPLIED WITH NO NEW ORDERS SINCE PATIENT IS ALREADY IN VANCOMYCIN AND AMIKACIN, WILL CONTINUE TO MONITOR PATIENT CLOSELY.
[2018-10-17] MEDS: MONTELUKAST SODIUM (10MG) 10 MG TABLET GT SCH (21:24)
[2018-10-17] MEDS: NEPRO 1,000 ML BOTTLE GT PRN (23:57)
[2018-10-18] MEDS: BLOOD SUGAR DIAGNOSTIC 1 EACH STRIP IN SCH ×4 (00:27→18:26)
[2018-10-18] MEDS: *INSULIN REGULAR(HUMULIN R)HUM 100 UNIT/ML VIAL SQ PRN ×2 (00:31→05:06)
[2018-10-18] MEDS: ALBUTEROL FS 2.5 MG/0.5 ML VIAL.NEB NEB SCH ×4 (01:38→19:52)
[2018-10-18 04:00] VITALS: BP 126/85
[2018-10-18] MEDS: CHLORHEXIDINE GLUCONATE 15 ML UDC MM SCH ×3 (04:55→21:01)
[2018-10-18] MEDS: METRONIDAZOLE 500 MG TABLET GT SCH ×2 (04:55→13:15)
[2018-10-18] MEDS: SUCRALFATE 1 G/10 ML UDC GT SCH ×3 (04:55→21:02)
[2018-10-18] MEDS: INSULIN NPH, HUMAN ISOPHANE 100 UNIT/ML CARTRIDGE SQ SCH ×3 (05:02→23:59)
--- NOTE | 2018-10-18 06:54 | NUR ---
RN NOTES, PATIENT ASLEEP AT THIS TIME , BUT EASILY AROUSES TO VERBAL STIMULI, ON T-PIECE , SATURATED WELL, NO SOB/ACUTE DISTRESS NOTED, NO SIGNIFICANT CHANGE IN CONDITION DURING THE NIGHT, BED LOCKED AND IN LOW POSITION, WILL ENDORSE CONTINUITY OF CARE TO ONCOMING NURSE.
[2018-10-18 07:07] LABS: CALCIUM, SERUM 9.1 mg/dL (8.5-10.1); CREATININE 3.3 mg/dL (0.6-1.3); POTASSIUM 4.2 mmol/L (3.5-5.1)
--- NOTE | 2018-10-18 07:30 | NUR ---
RN AM SHIFT NOTE PATIENT IN BED OBTUNDED, IV PATENT AND INTACT, BED IN LOW POSITION CALL LIGHT WITHIN REACH ALL NEEDS MET AT THIS TIME. WOUND PA CAME BY TO ASSESS SACRAL WOUND DRESSING CHANGED. GTUBE FLUSING NO RESIDUAL NOTED. SISTER AT BEDISE. MEDICATION GIVEN PER MD ORDER. ISOLATION PRECAUTIONS ENFORCED.
[2018-10-18 08:00] VITALS: BP 142/86
[2018-10-18] MEDS: FAMOTIDINE (20 MG) 20 MG TABLET GT SCH (08:38)
[2018-10-18] MEDS: FLUCONAZOLE (100 MG) 100 MG TABLET GT SCH (08:38)
[2018-10-18] MEDS: LEVETIRACETAM SOL (5 ML) 100 MG/ML UDC GT SCH ×2 (08:39→21:02)
[2018-10-18] MEDS: VIT B CMPLX 3/FA/VIT C/BIOTIN 1 TAB TABLET GT SCH (08:39)
[2018-10-18] MEDS: LACTOBACILLUS RHAMNOSUS GG 1 EACH CAP.SPRINK GT SCH ×2 (08:39→17:37)
[2018-10-18] MEDS: CALCIUM ACETATE 667 MG TABLET GT SCH (08:39)
[2018-10-18] MEDS: CARVEDILOL 3.125 MG TABLET GT SCH ×2 (08:39→21:01)
[2018-10-18] MEDS: LACTULOSE 10 G/15 ML UDC (PYXIS) GT SCH ×2 (08:40→17:37)
[2018-10-18] MEDS: DAKINS QUARTER STRENGTH (0.125%) 480 ML BOTTLE TOP SCH ×5 (08:41→21:11)
[2018-10-18] MEDS: BRIMONIDINE TARTRATE OPHT SOLN 5 ML BOTTLE EACHEYE SCH (08:41)
[2018-10-18] MEDS: PROSOURCE / PROSTAT (PYXIS) 30 ML UDC GT SCH ×3 (08:52→17:37)
[2018-10-18] MEDS: HYDROGEL DRESSING 90 GM TUBE TP SCH (08:52)
[2018-10-18 10:48] LABS: BASOPHILS # (AUTO) 0.1 /CMM (0.0-0.2); BASOPHILS % (AUTO) 0.4 % (0.0-2.0); EOSINOPHILS % (AUTO) 1.4 % (0.0-6.0); HEMATOCRIT 25 % (33-45); HEMOGLOBIN 8.2 g/dL (11.5-14.8); LYMPHOCYTES # (AUTO) 1.3 /CMM (0.8-4.8); LYMPHOCYTES % (AUTO) 7.1 % (20.0-44.0); MEAN CORPUSCULAR HGB CONC 32 g/dl (31.0-36.0); MEAN CORPUSCULAR VOLUME 93 fL (82-100); MONOCYTES # (AUTO) 1.1 /CMM (0.1-1.30); MONOCYTES % (AUTO) 6.4 % (2.0-12.0); NEUTROPHILS # (AUTO) 15.1 /CMM (1.8-8.9); NEUTROPHILS % (AUTO) 84.7 % (43.0-81.0); PLATELET COUNT (AUTO) 389 /CMM (150-450); RED BLOOD CELL COUNT(AUTO) 2.74 MIL/uL (4.0-5.2); WHITE BLOOD COUNT (AUTO) 17.8 K/uL (4.3-11.0)
[2018-10-18] MEDS ORDERED: LIDOCAINE 1%-EPI 1:100,000 20 ML VIAL TP ONE (11:30)
[2018-10-18 12:00] VITALS: BP 142/86
[2018-10-18 16:00] VITALS: BP 133/54
[2018-10-18] MEDS: INSULIN REGULAR, HUMAN 100 UNIT/ML 3 ML VIAL SQ PRN (18:29)
--- NOTE | 2018-10-18 18:30 | NUR ---
RN CLOSING NOTE PATIENT IN BED NON VERBAL, NO RESIDUAL IN TUBE FEEDING. FEEDING OFF SINCE 1400, TURN BACK ON AT 0000. SISTER AT BEDSIDE TODAY. WOUND PA CAME AND DID TX ON SACRUM ASSESSED LFT FOOT NO NEW ORDERS AT THIS TIME. BLOOD SUGAR MANAGED WITH CURRENT MEDICATION . CONTINUE TO MONITOR.
--- NOTE | 2018-10-18 19:30 | NUR ---
RECIEVED EYES CLOSED RESP EVEN AND UNLABORED NOTEDLEFT SIDE OF HER FOREHEAD A BLACK AREA NO DRAINAGE TRACH DRESSING CLEAN AND DRY iSOLATION CONTACT MAINTAINED
[2018-10-18 20:00] VITALS: BP 100/70
[2018-10-18 20:21] VITALS: BP 100/70
[2018-10-18] MEDS: MONTELUKAST SODIUM (10MG) 10 MG TABLET GT SCH (21:07)
[2018-10-19] MEDS: INSULIN REGULAR, HUMAN 100 UNIT/ML 3 ML VIAL SQ PRN ×3 (00:03→23:58)
[2018-10-19] MEDS: ALBUTEROL FS 2.5 MG/0.5 ML VIAL.NEB NEB SCH ×4 (01:47→20:10)
[2018-10-19 04:00] VITALS: BP 123/64
--- NOTE | 2018-10-19 04:33 | NUR ---
ENDING NOTES: EYES ARE ALWAYS CLOSED. RESP EVEN AND UNLABORED O2 SATS ARE 100%. ASPIRATION PRECAUTIONS MAINTAINED. PEG RESIDUALS 0 CHECKED TIMES 2, TOLERATING HER PEG TUBE FEEDING. NOTED SHE WILL CROO HER ANKLES AND MOVE HER LEFT FOOT IN A RHYTHMATIC WAY. SKIN WARM AND DRY. FEEDING STARTED AT 24OO ORDERED. iSOLATION CONTACT MAINTAINED D/T ESBL IN THE WOUNDS. LUNGS VIA AUSCULTATION CLEAR BUT DIMINISHED SHE APPEARS COMFORTABLE
[2018-10-19] MEDS: CHLORHEXIDINE GLUCONATE 15 ML UDC MM SCH ×3 (04:44→21:47)
[2018-10-19] MEDS: SUCRALFATE 1 G/10 ML UDC GT SCH ×3 (04:44→21:41)
[2018-10-19] MEDS: BLOOD SUGAR DIAGNOSTIC 1 EACH STRIP IN SCH ×4 (05:48→17:08)
[2018-10-19] MEDS: INSULIN NPH, HUMAN ISOPHANE 100 UNIT/ML CARTRIDGE SQ SCH ×3 (05:52→21:48)
[2018-10-19 06:41] LABS: BASOPHILS # (AUTO) 0.1 /CMM (0.0-0.2); BASOPHILS % (AUTO) 0.4 % (0.0-2.0); EOSINOPHILS % (AUTO) 0.9 % (0.0-6.0); HEMATOCRIT 22 % (33-45); HEMOGLOBIN 7.2 g/dL (11.5-14.8); LYMPHOCYTES # (AUTO) 1.1 /CMM (0.8-4.8); LYMPHOCYTES % (AUTO) 7.4 % (20.0-44.0); MEAN CORPUSCULAR HGB CONC 33 g/dl (31.0-36.0); MEAN CORPUSCULAR VOLUME 92 fL (82-100); MONOCYTES # (AUTO) 1.3 /CMM (0.1-1.30); MONOCYTES % (AUTO) 8.1 % (2.0-12.0); NEUTROPHILS # (AUTO) 12.9 /CMM (1.8-8.9); NEUTROPHILS % (AUTO) 83.2 % (43.0-81.0); PLATELET COUNT (AUTO) 330 /CMM (150-450); RED BLOOD CELL COUNT(AUTO) 2.36 MIL/uL (4.0-5.2); WHITE BLOOD COUNT (AUTO) 15.5 K/uL (4.3-11.0)
--- NOTE | 2018-10-19 07:10 | NUR ---
RN OPENING NOTES RECEIVED REPORT FROM CONSTRUCTION CODE ADMINISTRATOR RN. PT IS IN BED OBTUNDED WITH EYES CLOSED. EQUAL CHEST RISE AND FALL AND O2 SATURATION AT 100%. SHOWS NO SIGN OF PAIN. PT HAS A TRIPLE LUMEN FEMORAL CATHETER. PT HAS A G-TUBE FEEDING RUNNING AT 55 ML/HR. BED IS LOCKED AND IN LOWEST POSITION. WILL CONTINUE TO MONITOR.
[2018-10-19 07:17] LABS: CALCIUM, SERUM 9.2 mg/dL (8.5-10.1); CREATININE 4.5 mg/dL (0.6-1.3); POTASSIUM 3.8 mmol/L (3.5-5.1)
[2018-10-19 08:00] VITALS: BP 113/48
[2018-10-19] MEDS: CARVEDILOL 3.125 MG TABLET GT SCH ×2 (09:00→21:47)
[2018-10-19] MEDS: PROSOURCE / PROSTAT (PYXIS) 30 ML UDC GT SCH ×3 (09:33→17:08)
[2018-10-19] MEDS: LACTOBACILLUS RHAMNOSUS GG 1 EACH CAP.SPRINK GT SCH ×2 (09:34→17:08)
[2018-10-19] MEDS: BRIMONIDINE TARTRATE OPHT SOLN 5 ML BOTTLE EACHEYE SCH (09:34)
[2018-10-19] MEDS: VIT B CMPLX 3/FA/VIT C/BIOTIN 1 TAB TABLET GT SCH (09:34)
[2018-10-19] MEDS: LACTULOSE 10 G/15 ML UDC (PYXIS) GT SCH ×2 (09:34→17:08)
[2018-10-19] MEDS: LEVETIRACETAM SOL (5 ML) 100 MG/ML UDC GT SCH ×2 (09:34→21:47)
[2018-10-19] MEDS: CALCIUM ACETATE 667 MG TABLET GT SCH (09:34)
[2018-10-19] MEDS: FAMOTIDINE (20 MG) 20 MG TABLET GT SCH (09:34)
[2018-10-19] MEDS: DAKINS QUARTER STRENGTH (0.125%) 480 ML BOTTLE TOP SCH ×2 (09:35→21:49)
[2018-10-19] MEDS: HYDROGEL DRESSING 90 GM TUBE TP SCH (09:35)
[2018-10-19] MEDS: *INSULIN REGULAR(HUMULIN R)HUM 100 UNIT/ML VIAL SQ PRN ×2 (12:11→17:29)
[2018-10-19 16:00] VITALS: BP 141/38
[2018-10-19] MEDS: AMIKACIN 400 MG in IV D5W 100 ML IV PRN (16:32)
--- NOTE | 2018-10-19 18:43 | NUR ---
RN CLOSING NOTES REPORT GIVEN TO INSIDE SALES RECRUITER RN. PT IS IN BED a&O Addendum: 10/19/18 at 1848 by KILLIAN MATAMOROS RN PT IS A&OX1. SHE IS OBTUNDED IN BED. O2 SATURATION AT 100% COOL AEROSOL. PT HAS A RIGHT FEMORAL TRIPLE LUMEN CENTRAL LINE SL. PT HAD DIALYSIS TODAY AND 1.6 LITERS OUTPUT. BED IS LOCKED AND IN LOWEST POSITION WILL ENDORSE CONTINUITY OF CARE TO INSIDE SALES RECRUITER RN.
--- NOTE | 2018-10-19 19:20 | NUR ---
MS RN NOTE PATIENT REPORT GIVEN BEDSIDE, SISTER AT BEDSIDE. PATIENT IS A/O X 1 OBTUNDED ON COOL AEROSOL. PATIENT HAS NO S/S OF RESP DISTRESS. BREATHING IS EVEN AND UNLABORED. PATIENT APPEARS TO BE FREE FROM DISCOMFORT. PATIENT REPOSITIONED AND ORAL CARE GIVEN. PATIENT TUBE FEEDING OFF AT THIS TIME TO BE TURNED ON AT 0000. PATIENT TRIPLE LUMEN CATHETER ON R FEM PATENT AND INTACT NO S/S OF INFECTION. BED IN LOWEST LOCKED POSITION, SIDE RAILS UP X2. CALL LIGHT WITHIN REACH OF VISITOR. RN WILL CONTINUE TO MONITOR FOR CHANGES IN CONDITION.
--- NOTE | 2018-10-19 20:49 | NUR ---
MS RN NOTE PATIENT HAD LARGE BOWEL MOVEMENT, BED BATH AND WOUND CARE GIVEN.
[2018-10-19] MEDS: MONTELUKAST SODIUM (10MG) 10 MG TABLET GT SCH (21:49)
[2018-10-20] VITALS: BP 127/59
[2018-10-20] MEDS: BLOOD SUGAR DIAGNOSTIC 1 EACH STRIP IN SCH ×5 (00:04→23:03)
[2018-10-20] MEDS: ALBUTEROL FS 2.5 MG/0.5 ML VIAL.NEB NEB SCH ×4 (01:23→19:12)
[2018-10-20] MEDS: SUCRALFATE 1 G/10 ML UDC GT SCH ×3 (05:25→22:07)
[2018-10-20] MEDS: CHLORHEXIDINE GLUCONATE 15 ML UDC MM SCH ×3 (05:25→22:07)
[2018-10-20] MEDS: INSULIN NPH, HUMAN ISOPHANE 100 UNIT/ML CARTRIDGE SQ SCH ×3 (05:27→23:12)
[2018-10-20] MEDS: INSULIN REGULAR, HUMAN 100 UNIT/ML 3 ML VIAL SQ PRN ×2 (05:28→18:15)
[2018-10-20] MEDS: NEPRO 1,000 ML BOTTLE GT PRN (05:35)
--- NOTE | 2018-10-20 06:49 | NUR ---
MS RN NOTE PATIENT IN BED A/O X 1. PATIENT BATHED AND CHANGED AGAIN. PATIENT TOLERATED THE NIGHT WELL NO S/S OF RESP DISTRESS. PATIENT BREATHING REMAINS EVEN AND UNLABORED. PATIENT TOLERATED FEEDING WHEN STARTED. MINIMAL RESIDUAL NOTED. SAFETY PRECAUTIONS IN PLACE, CARE RENDERED ORDERED. RN WILL ENDORSE TO AM PLAN OF CARE FOR CONTINUITY OF CARE.
--- NOTE | 2018-10-20 07:00 | NUR ---
MS RN OPENING NOTES RECEIVED PT LYING ON BED,OBTUNDED.ON TRACH WITH COOL AEROSOL,TOLERATING WELL.NO SOB AND ACUTE DISTRESS NOTED.IV LINE IS ON RIGHT FEMORAL TRIPLE LUMEN PICC LINE,SITE IS CLEAN,DRY AND INTACT.NO INFILTRATION NOTED.AV SHUNT IS ON RIGHT FA.BRUIT AND THRILL PRESENT.G TUBE WITH NEPRO @55CC/HR IS RUNNING.NO GASTRIC RESIDUAL NOTED.BED IS IN LOW POSITION AND LOCKED,CALL LIGHT IS WITHIN REACH.WILL CONTINUE TO MONITOR THE PT CLOSELY.
[2018-10-20 07:21] LABS: CALCIUM, SERUM 9.1 mg/dL (8.5-10.1); CREATININE 3.5 mg/dL (0.6-1.3); POTASSIUM 3.8 mmol/L (3.5-5.1)
[2018-10-20 07:35] LABS: BASOPHILS # (AUTO) 0.1 /CMM (0.0-0.2); BASOPHILS % (AUTO) 0.4 % (0.0-2.0); EOSINOPHILS % (AUTO) 1.3 % (0.0-6.0); LYMPHOCYTES # (AUTO) 0.8 /CMM (0.8-4.8); MEAN CORPUSCULAR HGB CONC 33 g/dl (31.0-36.0); MEAN CORPUSCULAR VOLUME 93 fL (82-100); MONOCYTES # (AUTO) 1.1 /CMM (0.1-1.30); NEUTROPHILS # (AUTO) 9.6 /CMM (1.8-8.9); NEUTROPHILS % (AUTO) 82.3 % (43.0-81.0); PLATELET COUNT (AUTO) 296 /CMM (150-450); WHITE BLOOD COUNT (AUTO) 11.7 K/uL (4.3-11.0)
[2018-10-20 07:45] LABS: HEMOGLOBIN 6.4 g/dL (11.5-14.8)
[2018-10-20 07:46] LABS: HEMATOCRIT 20 % (33-45)
[2018-10-20 08:00] VITALS: BP 142/52
[2018-10-20 08:31] LABS: EOSINOPHILS % (MANUAL) 1 % (0-4); LYMPHOCYTES % (MANUAL) 6 % (16-48); MONOCYTES % (MANUAL) 8 % (0-11.0); NEUTROPHILS % (MANUAL) 85 (42-76)
[2018-10-20] MEDS: CARVEDILOL 3.125 MG TABLET GT SCH ×2 (08:32→22:08)
[2018-10-20] MEDS: VIT B CMPLX 3/FA/VIT C/BIOTIN 1 TAB TABLET GT SCH (08:32)
[2018-10-20] MEDS: CALCIUM ACETATE 667 MG TABLET GT SCH (08:32)
[2018-10-20] MEDS: LACTOBACILLUS RHAMNOSUS GG 1 EACH CAP.SPRINK GT SCH ×2 (08:32→16:41)
[2018-10-20] MEDS: LEVETIRACETAM SOL (5 ML) 100 MG/ML UDC GT SCH ×2 (08:32→22:06)
[2018-10-20] MEDS: FAMOTIDINE (20 MG) 20 MG TABLET GT SCH (08:32)
[2018-10-20] MEDS: LACTULOSE 10 G/15 ML UDC (PYXIS) GT SCH ×2 (08:32→16:41)
[2018-10-20] MEDS: PROSOURCE / PROSTAT (PYXIS) 30 ML UDC GT SCH ×3 (08:37→16:41)
[2018-10-20] MEDS: BRIMONIDINE TARTRATE OPHT SOLN 5 ML BOTTLE EACHEYE SCH (08:39)
[2018-10-20] MEDS ORDERED: LIDOCAINE 1%-EPI 1:100,000 20 ML VIAL TP ONE (10:00)
[2018-10-20] MEDS: HYDROGEL DRESSING 90 GM TUBE TP SCH (10:46)
[2018-10-20] MEDS: DAKINS QUARTER STRENGTH (0.125%) 480 ML BOTTLE TOP SCH ×4 (10:47→22:10)
--- NOTE | 2018-10-20 11:58 | NUR ---
MS RN NOTES PT DISCHARGE INSTRUCTIONS AND BILL,TREATMENTS ENDORSED TO JASMEET VASQUEZ IN SUBACUTE UNIT,[facility].
[2018-10-20 12:00] VITALS: BP 117/54
--- NOTE | 2018-10-20 15:21 | NUR ---
MS RN NOTES BLOOD BANK REPORTED THEY FOUND POSITIVE ANTIBODIES IN THE BLOOD,SEND BLOOD TO [facility].CHARGE NURSE AND MD MADE AWARE.
[2018-10-20 16:00] VITALS: BP 129/81
[2018-10-20 16:01] VITALS: BP 129/81
--- NOTE | 2018-10-20 19:00 | NUR ---
MS RN CLOSING NOTES PT IS LYING ON BED.RESPIRATION IS EVEN AND NONLABORED.ENDORSED TO NEONATAL INTENSIVE CARE NURSE RN FOR BILL.
--- NOTE | 2018-10-20 20:00 | NUR ---
MS RN INITIAL NOTES RECEIVED PT LYING ON BED,OBTUNDED.ON TRACH WITH COOL AEROSOL,TOLERATING WELL.NO SOB AND ACUTE DISTRESS NOTED, H&H 6.4 MD AWARE 1 UNIT OF PRBC READY BUT NOT COMPATIBLE, SENT BACK TO [facility], AWAITING FOR DISCREPANCY TO BE RESOLVED.IV LINE IS ON RIGHT FEMORAL TRIPLE LUMEN PICC LINE,SITE IS CLEAN,DRY AND INTACT.NO INFILTRATION NOTED.AV SHUNT IS ON RIGHT FA.BRUIT AND THRILL PRESENT.G TUBE WITH NEPRO @55CC/HR IS RUNNING.NO GASTRIC RESIDUAL NOTED.BED IS IN LOW POSITION AND LOCKED,CALL LIGHT IS WITHIN REACH.WILL CONTINUE TO MONITOR THE PT CLOSELY
[2018-10-20] MEDS: MONTELUKAST SODIUM (10MG) 10 MG TABLET GT SCH (22:07)
[2018-10-20] MEDS: *INSULIN REGULAR(HUMULIN R)HUM 100 UNIT/ML VIAL SQ PRN (23:17)
[2018-10-21 00:24] VITALS: BP 129/45
[2018-10-21] MEDS: ALBUTEROL FS 2.5 MG/0.5 ML VIAL.NEB NEB SCH ×3 (00:57→13:12)
[2018-10-21] MEDS: SUCRALFATE 1 G/10 ML UDC GT SCH ×2 (05:17→14:58)
[2018-10-21] MEDS: CHLORHEXIDINE GLUCONATE 15 ML UDC MM SCH ×2 (05:18→14:59)
[2018-10-21] MEDS: BLOOD SUGAR DIAGNOSTIC 1 EACH STRIP IN SCH ×2 (05:37→12:15)
[2018-10-21] MEDS: INSULIN NPH, HUMAN ISOPHANE 100 UNIT/ML CARTRIDGE SQ SCH ×2 (05:37→15:01)
[2018-10-21] MEDS: INSULIN REGULAR, HUMAN 100 UNIT/ML 3 ML VIAL SQ PRN (05:40)
[2018-10-21] MEDS: ALBUMIN 25% 25 GM in PREMIX 1 EA IV PRN (06:24)
--- NOTE | 2018-10-21 06:27 | NUR ---
MS RN CLOSING NOTES ENDORSED PT LYING ON BED,OBTUNDED.ON TRACH WITH COOL AEROSOL,TOLERATING WELL.NO SOB AND ACUTE DISTRESS NOTED, H&H 6.4 MD AWARE LAB CALLED BLOOD READY FOR CERTIFIED PERSONAL FINANCE COUNSELOR, HD NURSE AT BEDSIDE.IV LINE IS ON RIGHT FEMORAL TRIPLE LUMEN PICC LINE,SITE IS CLEAN,DRY AND INTACT.NO INFILTRATION NOTED.AV SHUNT IS ON RIGHT FA.BRUIT AND THRILL PRESENT.G TUBE WITH NEPRO @55CC/HR IS RUNNING.NO GASTRIC RESIDUAL NOTED.BED IS IN LOW POSITION AND LOCKED,CALL LIGHT IS WITHIN REACH.WILL CONTINUE TO MONITOR THE PT CLOSELY
[2018-10-21 06:59] VITALS: BP 107/45
[2018-10-21 07:06] LABS: CALCIUM, SERUM 8.9 mg/dL (8.5-10.1); CREATININE 4.7 mg/dL (0.6-1.3); POTASSIUM 3.9 mmol/L (3.5-5.1)
--- NOTE | 2018-10-21 07:10 | NUR ---
MS RN OPENING NOTES RECEIVED REPORT AT BEDSIDE. PT LYING ON BED,OBTUNDED.ON TRACH WITH COOL AEROSOL,TOLERATING WELL. NO SOB AND ACUTE DISTRESS NOTED. IV RIGHT FEMORAL TRIPLE LUMEN PICC LINE INTACT, PATENT AND FLUSHED WELL. AV SHUNT IS ON RIGHT FA. G TUBE WITH NEPRO @55CC/HR IS RUNNING. NO GASTRIC RESIDUAL NOTED. HD NURSE AT BEDSIDE. HEMODIALYSIS IN PROCEDURE. HD NURSE IS RUNNING 1 UNIT RBC. BED IS IN LOW POSITION AND LOCKED,CALL LIGHT IS WITHIN REACH. WILL CONTINUE TO MONITOR THE PT CLOSELY
[2018-10-21 07:31] VITALS: BP 120/79
[2018-10-21 08:00] VITALS: BP 120/79
[2018-10-21] MEDS: FAMOTIDINE (20 MG) 20 MG TABLET GT SCH (10:30)
[2018-10-21] MEDS: CALCIUM ACETATE 667 MG TABLET GT SCH (10:30)
[2018-10-21] MEDS: LACTOBACILLUS RHAMNOSUS GG 1 EACH CAP.SPRINK GT SCH (10:30)
[2018-10-21] MEDS: VIT B CMPLX 3/FA/VIT C/BIOTIN 1 TAB TABLET GT SCH (10:30)
--- NOTE | 2018-10-21 10:30 | NUR ---
MS RN NOTE VITAL SIGNS TAKEN AFTER HEMODIALYSES. BP 130/66, HR 81. NO SIGN OF RESPIRATORY DISTRESS NOTED. 1600 ML FLUID REMOVED.
[2018-10-21 10:31] VITALS: BP 130/66
[2018-10-21] MEDS: CARVEDILOL 3.125 MG TABLET GT SCH (10:31)
[2018-10-21] MEDS: LEVETIRACETAM SOL (5 ML) 100 MG/ML UDC GT SCH (10:31)
[2018-10-21] MEDS: LACTULOSE 10 G/15 ML UDC (PYXIS) GT SCH (10:31)
[2018-10-21] MEDS: PROSOURCE / PROSTAT (PYXIS) 30 ML UDC GT SCH ×2 (10:32→14:59)
[2018-10-21 10:35] LABS: HEMOGLOBIN 7.9 g/dL (11.5-14.8)
[2018-10-21] MEDS: HYDROGEL DRESSING 90 GM TUBE TP SCH (10:59)
[2018-10-21] MEDS: DAKINS QUARTER STRENGTH (0.125%) 480 ML BOTTLE TOP SCH ×2 (11:00→11:02)
--- NOTE | 2018-10-21 11:00 | NUR ---
STAT H&H IS PLACED DUE TO LOW HGB. LAST AMIKACIN TROUGH LEVEL IS ON 10/19/18 AND IT IS HIGH. TALKED TO PHARMACY AND THEY WILL PLACE THE ORDER FOR AMIKACIN THROUGH. WILL FOLLOW UP.
[2018-10-21] MEDS: *INSULIN REGULAR(HUMULIN R)HUM 100 UNIT/ML VIAL SQ PRN (12:23)
[2018-10-21] MEDS: BRIMONIDINE TARTRATE OPHT SOLN 5 ML BOTTLE EACHEYE SCH (12:24)
--- NOTE | 2018-10-21 13:00 | NUR ---
MS RN NOTE FULL THICKNESS SACRAL WOUND NOTED. THE AREA IS BLEEDING LIGHTLY. WOUND TREATMENT DONE ORDERED. LEFT FEMORAL SKIN LACERATION NOTED. PHOTO TAKEN. NAOMI IS AWARE.
== END 2018-10-21 15:17 | DRG 853 ==
LOC: ER 15:42 → TELE1 18:32 → MEDSG1 10-15 10:12
PROVIDERS: ADMIT Internal Medicine; ATTEND Nurse Practitioner Acute Care
PROC: 30233N1 Transfusion of Nonautologous Red Blood Cells into Peripheral Vein, Percutaneous Approach (ICD-10-PCS; principal; 2018-10-14)
PROC: 5A1D70Z Performance of Urinary Filtration, Intermittent, Less than 6 Hours Per Day (ICD-10-PCS; 2018-10-14)
PROC: 5A1D70Z Performance of Urinary Filtration, Intermittent, Less than 6 Hours Per Day (ICD-10-PCS; 2018-10-15)
PROC: 0JBM0ZZ Excision of Left Upper Leg Subcutaneous Tissue and Fascia, Open Approach (ICD-10-PCS; 2018-10-16)
PROC: 0QB10ZZ Excision of Sacrum, Open Approach (ICD-10-PCS; 2018-10-16)
PROC: 5A1D70Z Performance of Urinary Filtration, Intermittent, Less than 6 Hours Per Day (ICD-10-PCS; 2018-10-17)
PROC: 5A1D70Z Performance of Urinary Filtration, Intermittent, Less than 6 Hours Per Day (ICD-10-PCS; 2018-10-19)
PROC: 5A1D70Z Performance of Urinary Filtration, Intermittent, Less than 6 Hours Per Day (ICD-10-PCS; 2018-10-21)
DX: A41.9 Sepsis, unspecified organism (principal); L89.154 Pressure ulcer of sacral region, stage 4; L89.324 Pressure ulcer of left buttock, stage 4; L89.314 Pressure ulcer of right buttock, stage 4; N18.6 End stage renal disease; G92 Toxic encephalopathy; E43 Unspecified severe protein-calorie malnutrition; J96.20 Acute and chronic respiratory failure, unspecified whether with hypoxia or hypercapnia; R53.2 Functional quadriplegia; J18.9 Pneumonia, unspecified organism; I12.0 Hypertensive chronic kidney disease with stage 5 chronic kidney disease or end stage renal disease; D68.59 Other primary thrombophilia; G93.1 Anoxic brain damage, not elsewhere classified; M46.28 Osteomyelitis of vertebra, sacral and sacrococcygeal region; Q61.3 Polycystic kidney, unspecified; L97.429 Non-pressure chronic ulcer of left heel and midfoot with unspecified severity; E11.22 Type 2 diabetes mellitus with diabetic chronic kidney disease; D63.1 Anemia in chronic kidney disease; Z99.2 Dependence on renal dialysis; D72.829 Elevated white blood cell count, unspecified; I95.3 Hypotension of hemodialysis; R13.10 Dysphagia, unspecified; Z93.1 Gastrostomy status; Z93.0 Tracheostomy status; G40.909 Epilepsy, unspecified, not intractable, without status epilepticus; E66.9 Obesity, unspecified; F09 Unspecified mental disorder due to known physiological condition; Z86.74 Personal history of sudden cardiac arrest; Z86.718 Personal history of other venous thrombosis and embolism; E11.69 Type 2 diabetes mellitus with other specified complication; K21.9 Gastro-esophageal reflux disease without esophagitis; E11.51 Type 2 diabetes mellitus with diabetic peripheral angiopathy without gangrene; Z74.01 Bed confinement status; L97.529 Non-pressure chronic ulcer of other part of left foot with unspecified severity; I70.245 Atherosclerosis of native arteries of left leg with ulceration of other part of foot; L89.810 Pressure ulcer of head, unstageable; S71.112A Laceration without foreign body, left thigh, initial encounter; X58.XXXA Exposure to other specified factors, initial encounter; Y92.89 Other specified places as the place of occurrence of the external cause; Z79.01 Long term (current) use of anticoagulants; Z68.30 Body mass index [BMI] 30.0-30.9, adult; E11.621 Type 2 diabetes mellitus with foot ulcer; I48.91 Unspecified atrial fibrillation; D63.8 Anemia in other chronic diseases classified elsewhere
CPT/HCPCS: 31720; 36415; 71045-TC; 80048-TC; 80076-TC; 80150; 80202-TC; 82962-TC; 83690-TC; 83735-TC; 84100-TC; 85025-TC; 85027-TC; 86850-TC; 86921-TC; 87081-TC; 90935-TC; 93970-TC; 94640-TC; 94760-TC; 94799-TC; 99082-TC; A4216; A4623; A6248; A6253; A6403; G0378; J0278; J1815; J1953; J3370; J3490; J7060; P9016-BL; P9047

== ENCOUNTER 2018-10-21 15:28 | Inpatient (IN) | payer MEDICARE, OTHER ==
[~2018-10-21] VITALS: Ht 154.9 cm; Wt 88.3 kg
[~2018-10-21 15:28] MED LIST changes: +ACET-868 GT; -ACET325T53 PO; +AMIN30LI2 GT; -APIX5TAB GT; -BISA10SU61 RC; +BLOO-668 IN; -DEXT15DR6 EACHEYE; +DEXT50DI8 IV; -DOCU50LI GT; -EPOE1VIA6 SQ; +GEL100GE TP; -LANS30TA4 GT; -LINA5TAB GT; -MAGN400O6 GT; -METO5SOL20 GT; -NA P133E RC; +ONDA4VIA52 IV; +POLY15DR40 EACHEYE; -PROT946L GT; +SODI473S8 TOP; -[UNRECOGNIZED DRUG - CODE] GT
--- NOTE | 2018-10-21 16:06 | NUR ---
Resident readmitted to subacute with the following diagnosis: chronic respiratory failure, tracheostomy, GT, ESRD on HD, DM, Chronic anoxic encephalopathy (hx. cardiac arrest), seizure disorder, HTN, Atrial fibrillation, Anemia of chronic disease, GERD, PVD, Osteomyelitis under the services of Will Sutherland. Body checked done with sacral decubitus 13.5 x 15 x 2.8 x UTD and undermining, forehead with necrosis with surrounding are with erythema measuring 2.5x2.5x UTD admission photos taken. Resident's eyes open but not tracking, non verbal and does not follow direction. Patient on cool aerosol at 28% Fi02, saturating, 100%, trach size Shiley XLT #7 well tolerated. GT feeding started with Nepro at 55cc/hr., no gastric residual. Spoke with Dylan at [facility] and Rohan at [employer], confirming dialysis schedule for next week starting Tuesday. Patient's dialysis access site in the R upper arm, + for bruit and trill, with R central line triple lumen in the R femoral area for IV medication administration. V/S 99.3, 24, 127/73,92 100%. Paged loss control representative for Dr. Solis to verify admission orders awaiting for call back. Resident's sister aware of readmission orders.
[2018-10-21 16:30] VITALS: BP 127/73
--- NOTE | 2018-10-21 17:00 | NUR ---
Dr. Corrigan (membership correspondent for Dr. Solis) returned the call and verified admission orders. He discontinue Albumin, PRN Maalox, MOM and Miralax for constipation instead gave an order for Lactulose 15 ml via GT Q6 hours PRN constipation. Dr. Corrigan also made aware that patient was dialyzed today at the acute hospital and given 1 unit PRBC due to low Hgb. He ordered to repeat CBC on Tuesday. Orders carried out.
[2018-10-21] MEDS ORDERED: ACETAMINOPHEN 160 MG/5 ML GT PRN (18:30)
[2018-10-21] MEDS ORDERED: DEXTROSE 50%-WATER 50 ML DISP.SYRIN IV PRN (18:30)
[2018-10-21] MEDS ORDERED: HYDROCODONE/APAP 5/325MG 1 EACH TABLET GT PRN (18:30)
[2018-10-21] MEDS ORDERED: ACETAMINOPHEN 650 MG/20.3 ML UDC GT PRN (18:30)
[2018-10-21] MEDS ORDERED: POLYETHYLENE GLYCOL 3350 17 GM POWD.PACK GT PRN (18:30)
[2018-10-21] MEDS ORDERED: MAGNESIUM HYDROXIDE 30 ML UDC GT PRN (18:30)
[2018-10-21] MEDS ORDERED: ONDANSETRON HCL/PF 4 MG/2 ML VIAL IVP PRN (18:30)
[2018-10-21] MEDS ORDERED: POLYVINYL ALCOHOL/POVIDONE 0.4 ML DROPERETTE EACHEYE PRN (19:00)
[2018-10-21] MEDS ORDERED: ACETAMINOPHEN 650 MG/20 ML UDC- SA PATIENTS-FEVER ONLY GT PRN (19:00)
[2018-10-21] MEDS ORDERED: MAG HYDROX/AL HYDROX/SIMETH 30 ML UDC GT PRN (19:00)
[2018-10-21] MEDS ORDERED: ACETAMINOPHEN 650 MG/20 ML UDC- SA PATIENTS-PAIN ONLY GT PRN (19:00)
[2018-10-21] MEDS ORDERED: ALBUTEROL FS 2.5 MG/0.5 ML VIAL.NEB NEB PRN (19:00)
[2018-10-21] MEDS: ALBUTEROL FS 2.5 MG/0.5 ML VIAL.NEB NEB SCH (19:52)
[2018-10-21 20:00] VITALS: BP 114/55
[2018-10-21] MEDS: SUCRALFATE 1 G/10 ML UDC GT SCH (20:37)
[2018-10-21] MEDS: LACTULOSE 10 G/15 ML UDC (PYXIS) GT SCH (20:37)
[2018-10-21] MEDS: LEVETIRACETAM SOL (5 ML) 100 MG/ML UDC GT SCH (20:37)
[2018-10-21] MEDS: CHLORHEXIDINE GLUCONATE 15 ML UDC MM SCH (20:37)
[2018-10-21] MEDS: LACTOBACILLUS RHAMNOSUS GG 1 EACH CAP.SPRINK PO SCH (20:37)
[2018-10-21] MEDS: INSULIN NPH, HUMAN ISOPHANE 100 UNIT/ML CARTRIDGE SQ SCH (20:54)
[2018-10-21 21:04] VITALS: BP 114/55
[2018-10-21] MEDS: CARVEDILOL 3.125 MG TABLET GT SCH (21:35)
[2018-10-21] MEDS: MONTELUKAST SODIUM (10MG) 10 MG TABLET GT SCH (21:36)
[2018-10-21] MEDS: BLOOD SUGAR DIAGNOSTIC 1 EACH STRIP IN SCH (23:31)
[2018-10-21] MEDS: *INSULIN REGULAR(HUMULIN R)HUM 100 UNIT/ML VIAL SQ PRN (23:55)
[2018-10-22] VITALS: BP 140/64
[2018-10-22] MEDS: ALBUTEROL FS 2.5 MG/0.5 ML VIAL.NEB NEB SCH ×4 (02:05→19:56)
[2018-10-22 04:00] VITALS: BP 122/52
[2018-10-22] MEDS: BLOOD SUGAR DIAGNOSTIC 1 EACH STRIP IN SCH ×4 (05:10→23:27)
[2018-10-22] MEDS: CHLORHEXIDINE GLUCONATE 15 ML UDC MM SCH ×3 (05:10→21:55)
[2018-10-22] MEDS: FAMOTIDINE (20 MG) 20 MG TABLET GT SCH (05:10)
[2018-10-22] MEDS: SUCRALFATE 1 G/10 ML UDC GT SCH ×3 (05:10→21:55)
[2018-10-22] MEDS: INSULIN NPH, HUMAN ISOPHANE 100 UNIT/ML CARTRIDGE SQ SCH ×3 (05:39→22:07)
[2018-10-22] MEDS: *INSULIN REGULAR(HUMULIN R)HUM 100 UNIT/ML VIAL SQ PRN ×4 (06:16→23:28)
[2018-10-22] MEDS: LACTOBACILLUS RHAMNOSUS GG 1 EACH CAP.SPRINK PO SCH ×2 (09:00→21:55)
[2018-10-22] MEDS: BRIMONIDINE TARTRATE OPHT SOLN 5 ML BOTTLE EACHEYE SCH (09:01)
[2018-10-22] MEDS: LEVETIRACETAM SOL (5 ML) 100 MG/ML UDC GT SCH ×2 (09:07→21:55)
[2018-10-22] MEDS: CALCIUM ACETATE 667 MG TABLET GT SCH (09:07)
[2018-10-22] MEDS: LACTULOSE 10 G/15 ML UDC (PYXIS) GT SCH ×2 (09:07→21:55)
[2018-10-22] MEDS: VIT B CMPLX 3/FA/VIT C/BIOTIN 1 TAB TABLET GT SCH (09:08)
[2018-10-22] MEDS: PROSOURCE / PROSTAT (PYXIS) 30 ML UDC GT SCH ×3 (09:08→16:05)
[2018-10-22] MEDS: CARVEDILOL 3.125 MG TABLET GT SCH ×2 (10:29→21:55)
[2018-10-22 16:26] VITALS: BP 148/62
[2018-10-22] MEDS ORDERED: AMIKACIN 400 MG in IV D5W 100 ML IV PRN (17:00)
[2018-10-22 18:52] VITALS: BP 134/60
[2018-10-22 20:51] VITALS: BP 120/60
[2018-10-22] MEDS: MONTELUKAST SODIUM (10MG) 10 MG TABLET GT SCH (22:04)
[2018-10-23] MEDS: ALBUTEROL FS 2.5 MG/0.5 ML VIAL.NEB NEB SCH ×4 (02:01→19:49)
[2018-10-23] MEDS: FAMOTIDINE (20 MG) 20 MG TABLET GT SCH (05:07)
[2018-10-23] MEDS: CHLORHEXIDINE GLUCONATE 15 ML UDC MM SCH ×3 (05:07→21:16)
[2018-10-23] MEDS: SUCRALFATE 1 G/10 ML UDC GT SCH ×3 (05:07→21:15)
[2018-10-23] MEDS: BLOOD SUGAR DIAGNOSTIC 1 EACH STRIP IN SCH ×4 (05:41→23:56)
[2018-10-23] MEDS: INSULIN NPH, HUMAN ISOPHANE 100 UNIT/ML CARTRIDGE SQ SCH ×3 (05:41→21:17)
[2018-10-23] MEDS: *INSULIN REGULAR(HUMULIN R)HUM 100 UNIT/ML VIAL SQ PRN ×4 (05:42→23:57)
[2018-10-23 07:28] LABS: BASOPHILS % (AUTO) 0.4 % (0.0-2.0); EOSINOPHILS % (AUTO) 1.2 % (0.0-6.0); HEMATOCRIT 23 % (33-45); HEMOGLOBIN 7.7 g/dL (11.5-14.8); LYMPHOCYTES # (AUTO) 0.9 /CMM (0.8-4.8); LYMPHOCYTES % (AUTO) 7.1 % (20.0-44.0); MEAN CORPUSCULAR HGB CONC 33 g/dl (31.0-36.0); MEAN CORPUSCULAR VOLUME 92 fL (82-100); NEUTROPHILS # (AUTO) 10.7 /CMM (1.8-8.9); NEUTROPHILS % (AUTO) 83.3 % (43.0-81.0); PLATELET COUNT (AUTO) 309 /CMM (150-450); RED BLOOD CELL COUNT(AUTO) 2.54 MIL/uL (4.0-5.2); WHITE BLOOD COUNT (AUTO) 12.9 K/uL (4.3-11.0)
[2018-10-23] MEDS ORDERED: LACTULOSE 10 G/15 ML UDC (PYXIS) GT PRN (08:30)
[2018-10-23] MEDS ORDERED: HYDROGEN PEROXIDE 480 ML BOTTLE TP PRN (09:00)
[2018-10-23] MEDS: LACTULOSE 10 G/15 ML UDC (PYXIS) GT SCH ×2 (09:06→21:15)
[2018-10-23] MEDS: CARVEDILOL 3.125 MG TABLET GT SCH ×2 (09:10→21:15)
[2018-10-23] MEDS: HYDROGEL DRESSING 90 GM TUBE TP SCH ×2 (09:11→21:17)
[2018-10-23] MEDS: PROSOURCE / PROSTAT (PYXIS) 30 ML UDC GT SCH ×3 (09:11→21:15)
[2018-10-23] MEDS: DAKINS HALF STRENGTH (0.25%) 480 ML BOTTLE TOP SCH ×2 (09:11→21:17)
[2018-10-23] MEDS: ACETAMINOPHEN 650 MG/20 ML UDC- SA PATIENTS-PAIN ONLY GT SCH ×2 (09:11→21:16)
[2018-10-23] MEDS: CALCIUM ACETATE 667 MG TABLET GT SCH (09:11)
[2018-10-23] MEDS: HYDROGEN PEROXIDE 480 ML BOTTLE TP SCH ×2 (09:12→21:17)
[2018-10-23] MEDS: LEVETIRACETAM SOL (5 ML) 100 MG/ML UDC GT SCH ×2 (09:12→21:15)
[2018-10-23] MEDS: LACTOBACILLUS RHAMNOSUS GG 1 EACH CAP.SPRINK PO SCH ×2 (09:14→21:16)
[2018-10-23] MEDS: VIT B CMPLX 3/FA/VIT C/BIOTIN 1 TAB TABLET GT SCH (09:14)
[2018-10-23] MEDS: BRIMONIDINE TARTRATE OPHT SOLN 5 ML BOTTLE EACHEYE SCH (09:22)
[2018-10-23 10:35] VITALS: BP 128/66
[2018-10-23] MEDS ORDERED: FEE PK DOSING 1 MIN EA MC ONE (11:20)
--- NOTE | 2018-10-23 15:54 | NUR ---
CENTRAL LINE DRESSING CHANGE DONE TO RIGHT GROIN USING STERILE TECHNIQUE. WILL CONTINUE TO MONITOR. WILL CHANGE ORDERED/PRN.
[2018-10-23 16:40] LABS: OCCULT BLOOD STOOL NEGATIVE (NEGATIVE)
[2018-10-23 21:14] VITALS: BP 124/69
[2018-10-23] MEDS: MONTELUKAST SODIUM (10MG) 10 MG TABLET GT SCH (21:17)
[2018-10-24] MEDS: ALBUTEROL FS 2.5 MG/0.5 ML VIAL.NEB NEB SCH ×4 (01:50→19:52)
[2018-10-24] MEDS: INSULIN NPH, HUMAN ISOPHANE 100 UNIT/ML CARTRIDGE SQ SCH ×3 (05:39→21:13)
[2018-10-24] MEDS: SUCRALFATE 1 G/10 ML UDC GT SCH ×3 (05:39→21:11)
[2018-10-24] MEDS: CHLORHEXIDINE GLUCONATE 15 ML UDC MM SCH ×3 (05:39→21:12)
[2018-10-24] MEDS: PROSOURCE / PROSTAT (PYXIS) 30 ML UDC GT SCH ×3 (05:39→21:12)
[2018-10-24] MEDS: *INSULIN REGULAR(HUMULIN R)HUM 100 UNIT/ML VIAL SQ PRN ×4 (05:40→23:45)
[2018-10-24] MEDS: FAMOTIDINE (20 MG) 20 MG TABLET GT SCH (05:40)
[2018-10-24] MEDS: BLOOD SUGAR DIAGNOSTIC 1 EACH STRIP IN SCH ×4 (05:40→23:43)
[2018-10-24 07:40] VITALS: BP 142/60
[2018-10-24 07:53] LABS: BASOPHILS % (AUTO) 0.2 % (0.0-2.0); EOSINOPHILS % (AUTO) 1.6 % (0.0-6.0); HEMATOCRIT 23 % (33-45); HEMOGLOBIN 7.7 g/dL (11.5-14.8); LYMPHOCYTES # (AUTO) 0.9 /CMM (0.8-4.8); LYMPHOCYTES % (AUTO) 6.4 % (20.0-44.0); MEAN CORPUSCULAR HGB CONC 34 g/dl (31.0-36.0); MEAN CORPUSCULAR VOLUME 91 fL (82-100); MONOCYTES # (AUTO) 0.9 /CMM (0.1-1.30); MONOCYTES % (AUTO) 6.6 % (2.0-12.0); NEUTROPHILS # (AUTO) 11.9 /CMM (1.8-8.9); NEUTROPHILS % (AUTO) 85.2 % (43.0-81.0); PLATELET COUNT (AUTO) 323 /CMM (150-450); RED BLOOD CELL COUNT(AUTO) 2.52 MIL/uL (4.0-5.2)
[2018-10-24 08:02] LABS: IRON, SERUM 42 ug/dl (50-175); TOTAL IRON BINDING CAPACITY 81 ug/dl (250-450)
[2018-10-24 08:19] LABS: FERRITIN 2397 ng/mL (8-388)
[2018-10-24] MEDS: HYDROGEN PEROXIDE 480 ML BOTTLE TP SCH ×2 (09:00→21:13)
--- NOTE | 2018-10-24 09:00 | NUR ---
Pt was seen by OT today. Received order for RNA to do PROMEX BUE daily 5x/week for contracture management.
[2018-10-24] MEDS: CALCIUM ACETATE 667 MG TABLET GT SCH (09:05)
[2018-10-24] MEDS: CARVEDILOL 3.125 MG TABLET GT SCH ×2 (09:05→21:12)
[2018-10-24] MEDS: VIT B CMPLX 3/FA/VIT C/BIOTIN 1 TAB TABLET GT SCH (09:05)
[2018-10-24] MEDS: LEVETIRACETAM SOL (5 ML) 100 MG/ML UDC GT SCH ×2 (09:05→21:12)
[2018-10-24] MEDS: BRIMONIDINE TARTRATE OPHT SOLN 5 ML BOTTLE EACHEYE SCH (09:05)
[2018-10-24] MEDS: LACTULOSE 10 G/15 ML UDC (PYXIS) GT SCH ×2 (09:05→21:11)
[2018-10-24] MEDS: ACETAMINOPHEN 650 MG/20 ML UDC- SA PATIENTS-PAIN ONLY GT SCH ×2 (09:06→21:12)
[2018-10-24] MEDS: LACTOBACILLUS RHAMNOSUS GG 1 EACH CAP.SPRINK PO SCH ×2 (09:06→21:12)
[2018-10-24] MEDS: DAKINS HALF STRENGTH (0.25%) 480 ML BOTTLE TOP SCH ×2 (09:45→21:13)
--- NOTE | 2018-10-24 10:00 | NUR ---
Seen by Dr Dennis. Relayed lab results to him. No new order.
--- NOTE | 2018-10-24 12:20 | NUR ---
Pt's left posterior thigh wound already healed. Received order to DC Hydrogel treatment. Pt on contact isolation not for ESBL urine but for ESBL sacral wound.
--- NOTE | 2018-10-24 14:10 | NUR ---
Resident picked up by Ambulance via gurney for hemodialysis treatment, accompanied by 2 EMT's and 1 RT. RFA AV shunt intact, no bleeding noted. Positive for thrill and bruit. Resident left the building in stable condition.
--- NOTE | 2018-10-24 16:57 | NUR ---
Amikacin level 18. Received order to hold Amikacin dose today.
[2018-10-24 20:57] VITALS: BP 135/63
[2018-10-24] MEDS: MONTELUKAST SODIUM (10MG) 10 MG TABLET GT SCH (21:13)
[2018-10-25] MEDS: ALBUTEROL FS 2.5 MG/0.5 ML VIAL.NEB NEB SCH ×4 (02:01→19:54)
[2018-10-25] MEDS: SUCRALFATE 1 G/10 ML UDC GT SCH ×3 (05:48→21:19)
[2018-10-25] MEDS: PROSOURCE / PROSTAT (PYXIS) 30 ML UDC GT SCH ×3 (05:48→21:20)
[2018-10-25] MEDS: CHLORHEXIDINE GLUCONATE 15 ML UDC MM SCH ×3 (05:48→21:20)
[2018-10-25] MEDS: BLOOD SUGAR DIAGNOSTIC 1 EACH STRIP IN SCH ×3 (05:49→18:08)
[2018-10-25] MEDS: INSULIN NPH, HUMAN ISOPHANE 100 UNIT/ML CARTRIDGE SQ SCH ×3 (05:49→22:15)
[2018-10-25] MEDS: FAMOTIDINE (20 MG) 20 MG TABLET GT SCH (05:49)
[2018-10-25] MEDS: *INSULIN REGULAR(HUMULIN R)HUM 100 UNIT/ML VIAL SQ PRN ×3 (05:50→18:14)
[2018-10-25] MEDS: HYDROGEN PEROXIDE 480 ML BOTTLE TP SCH ×2 (08:37→21:01)
[2018-10-25] MEDS: LACTOBACILLUS RHAMNOSUS GG 1 EACH CAP.SPRINK PO SCH ×2 (09:00→21:21)
[2018-10-25] MEDS: BRIMONIDINE TARTRATE OPHT SOLN 5 ML BOTTLE EACHEYE SCH (09:00)
[2018-10-25] MEDS ORDERED: POVIDONE-IODINE OINT 28.4 GM TUBE TP ONE (09:11)
[2018-10-25] MEDS: LACTULOSE 10 G/15 ML UDC (PYXIS) GT SCH ×2 (09:57→21:19)
[2018-10-25] MEDS: VIT B CMPLX 3/FA/VIT C/BIOTIN 1 TAB TABLET GT SCH (09:58)
[2018-10-25] MEDS: CARVEDILOL 3.125 MG TABLET GT SCH ×2 (09:58→21:20)
[2018-10-25] MEDS: LEVETIRACETAM SOL (5 ML) 100 MG/ML UDC GT SCH ×2 (09:58→21:20)
[2018-10-25] MEDS: CALCIUM ACETATE 667 MG TABLET GT SCH (09:59)
[2018-10-25] MEDS: ACETAMINOPHEN 650 MG/20 ML UDC- SA PATIENTS-PAIN ONLY GT SCH ×2 (10:00→21:00)
--- NOTE | 2018-10-25 10:22 | NUR ---
Intake Paperwork: Patient Admitted to [facility] on Tuesday10/21/18 at 4 pm. SW not available until Monday 10/23 however, patient�s responsible constitution party was not available until 10/25/18 to fill out admission paperwork. Pulp Roller met with the resident's sister, Rabia Brantley [phone] today to complete initial admission paperwork (Patient Right's Acknowledgement, Documentation of Preferred Intensity of Care, Conditions of Admission, [facility] Agreement, Important Message from Medicare about your Rights, and Voluntary Prior Express Consent form). SW provided patient with a copy of the Bill of Rights and patient information guide. Esther wishes the resident be Full Code (CPR with maximum treatment). SW also completed the initial psychosocial assessment with Esther as patient is not alert to complete. Admission paperwork was placed into the resident's chart. Pulp Roller educated Rabia on advanced health care directive and conservatorship. Resident's sister, Esther GrossmanGiorgio noted that she had been the primary decision maker for medical but has no legal paperwork. Per Esther, the patient�s boyfriend, Yogi Mccann [phone] currently handles the [employer] finances. Per Rabia the patient and Yogi have a son, Eliseo Mccann. Esther expressed she has begun applying for conservatorship and getting assistance from [facility] [employer] [[facility] [facility]. [address] [facility], [address] TEL: [phone]; [place] [phone]] as previously referred by ROSALIE. Resident is not alert to complete advanced directive.
[2018-10-25] MEDS: BETADINE 5% TP SCH ×2 (11:00→22:00)
[2018-10-25] MEDS: DAKINS HALF STRENGTH (0.25%) 480 ML BOTTLE TOP SCH ×2 (11:00→22:00)
[2018-10-25] MEDS: BETADINE 5% CREAM TP SCH ×4 (11:00→22:00)
[2018-10-25 12:42] VITALS: BP 141/62
[2018-10-25] MEDS: MONTELUKAST SODIUM (10MG) 10 MG TABLET GT SCH (21:22)
[2018-10-25 22:46] VITALS: BP 134/65
[2018-10-26] MEDS: *INSULIN REGULAR(HUMULIN R)HUM 100 UNIT/ML VIAL SQ PRN ×3 (00:02→13:40)
[2018-10-26] MEDS: ALBUTEROL FS 2.5 MG/0.5 ML VIAL.NEB NEB SCH ×4 (01:30→19:51)
[2018-10-26] MEDS: CHLORHEXIDINE GLUCONATE 15 ML UDC MM SCH ×3 (05:04→21:19)
[2018-10-26] MEDS: PROSOURCE / PROSTAT (PYXIS) 30 ML UDC GT SCH ×3 (05:04→21:19)
[2018-10-26] MEDS: FAMOTIDINE (20 MG) 20 MG TABLET GT SCH (05:04)
[2018-10-26] MEDS: SUCRALFATE 1 G/10 ML UDC GT SCH ×3 (05:04→21:18)
[2018-10-26] MEDS: BLOOD SUGAR DIAGNOSTIC 1 EACH STRIP IN SCH ×4 (06:02→19:20)
[2018-10-26] MEDS: INSULIN NPH, HUMAN ISOPHANE 100 UNIT/ML CARTRIDGE SQ SCH ×3 (06:02→21:20)
[2018-10-26] MEDS: NEPRO 1,000 ML BOTTLE GT PRN (06:03)
[2018-10-26 07:45] VITALS: BP 115/51
[2018-10-26] MEDS: BRIMONIDINE TARTRATE OPHT SOLN 5 ML BOTTLE EACHEYE SCH (09:00)
[2018-10-26] MEDS: LEVETIRACETAM SOL (5 ML) 100 MG/ML UDC GT SCH ×2 (09:00→21:19)
[2018-10-26] MEDS: CALCIUM ACETATE 667 MG TABLET GT SCH (09:00)
[2018-10-26] MEDS: LACTOBACILLUS RHAMNOSUS GG 1 EACH CAP.SPRINK PO SCH ×2 (09:00→21:19)
[2018-10-26] MEDS: VIT B CMPLX 3/FA/VIT C/BIOTIN 1 TAB TABLET GT SCH (09:00)
[2018-10-26] MEDS: CARVEDILOL 3.125 MG TABLET GT SCH ×2 (09:00→21:19)
[2018-10-26] MEDS: LACTULOSE 10 G/15 ML UDC (PYXIS) GT SCH ×2 (09:00→21:18)
[2018-10-26] MEDS ORDERED: TUBERCULIN,PURIF.PROT.DERIV. 5 TU/0.1 ML VIAL ID SCH (09:30)
[2018-10-26] MEDS: HYDROGEN PEROXIDE 480 ML BOTTLE TP SCH ×2 (09:55→20:15)
[2018-10-26] MEDS: ACETAMINOPHEN 650 MG/20 ML UDC- SA PATIENTS-PAIN ONLY GT SCH ×2 (10:00→21:19)
[2018-10-26] MEDS: DAKINS HALF STRENGTH (0.25%) 480 ML BOTTLE TOP SCH ×2 (10:30→21:20)
[2018-10-26] MEDS: BETADINE 5% CREAM TP SCH ×4 (10:30→21:20)
[2018-10-26] MEDS: BETADINE 5% TP SCH ×2 (10:30→21:20)
--- NOTE | 2018-10-26 11:50 | NUR ---
YOSELIN Aguirre ordered to give Amikacin for a total of 6 weeks for osteomyelitis.
--- NOTE | 2018-10-26 11:55 | NUR ---
Dr Corrigan ordered to change Refresh eye drops from PRN to q 6 routinely for dry eyes. He also ordered SCD to bilateral lower extremities for DVT prophylaxis.
[2018-10-26] MEDS ORDERED: AMIKACIN 400 MG in IV D5W 100 ML IV SCH (12:43)
--- NOTE | 2018-10-26 14:05 | NUR ---
ROSALIE was informed by resident�s sister, Rabia that the pt. is allergic to Dilantin. Per Rabia, she would like this to be updated in the patient�s care plan under allergies. ROSALIE noted and communicated to Director, Nkechi. Per Nkechi, care plan will be updated.
--- NOTE | 2018-10-26 15:36 | NUR ---
ROSALIE completed hospital social worker portion of 5-day MDS. 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 The patient is on trach and Non-vent as well as Full Code. The resident�s sister, Rabia Brantley is the responsible libertarian and is currently in the process of applying for Conservatorship. Rabia is involved and supportive as she visits the patient almost daily. The patient is scheduled to have a dentist appointment November 01 [address] Giron.
--- NOTE | 2018-10-26 16:15 | NUR ---
Patient's responsible green party/sister, Rabia Brantley brought a letter to charge nurse explaining that she would like the pt. to be under the care of Dr. Adalid Kern instead of Dr. Bello Solis. [facility] Director, Nkechi e-mailed letter to CNO, Johnny Hope to inform him of families desire to change the doctor. ROSALIE called Rabia Fercho [phone] to inform [address] that [address] José Corrigan MD [[address], [address] [place] [address]; Office ] would be calling Rabia to discuss reasons and details for change in primary doctor. Per Rabia, she had already received a call from Dr. Corrigan, and Rabia informed him an stated to ROSALIE that, "It was nothing personal against Dr. Bello Solis, I just want my sister to be seen by the doctors who have been providing care from the time she was first admitted at [facility], and that is Dr. Kern, Dr. Dennis." ROSALIE validated Rabia's reasoning and acknowledged her for making a letter specifying her wishes for the patient's care.
--- NOTE | 2018-10-26 16:30 | NUR ---
Informed pharmacist Mayo that lab called and relayed Amikacin level 8.5. He said to give Amikacin dose today.
[2018-10-26] MEDS ORDERED: SILVER NITRATE APPLICATOR 1 EA BOX TP ONE (17:00)
[2018-10-26] MEDS ORDERED: LIDOCAINE 1%-EPI 1:100,000 20 ML VIAL TP ONE (17:00)
--- NOTE | 2018-10-26 17:00 | NUR ---
Dr Corrigan ordered to transfer medical care of pt to Dr Kern. Dr Kern said Dr Corrigan already called and handed off pt to him.
--- NOTE | 2018-10-26 17:05 | NUR ---
Informed Dr Kern that pt's sister said pt had a "bad reaction" to Dilantin. Dr Kern aware that pt is currently on Keppra. Received order to add Dilantin to allergy list.
--- NOTE | 2018-10-26 17:51 | NUR ---
NATIVIDAD Mora ordered to apply Hydrogel to pt's sacral periwound q shift for 30 days. She said she will debride pt's sacral wound tomorrow.
[2018-10-26] MEDS: POLYVINYL ALCOHOL/POVIDONE 0.4 ML DROPERETTE EACHEYE SCH (19:20)
[2018-10-26 19:52] VITALS: BP 123/74
[2018-10-26] MEDS: AMIKACIN 400 MG in IV D5W 100 ML IV PRN (20:30)
[2018-10-26] MEDS ORDERED: METOPROLOL TARTRATE 25 MG TABLET PO SCH (21:00)
[2018-10-26] MEDS: MONTELUKAST SODIUM (10MG) 10 MG TABLET GT SCH (21:21)
[2018-10-27] MEDS: POLYVINYL ALCOHOL/POVIDONE 0.4 ML DROPERETTE EACHEYE SCH ×5 (00:09→23:47)
[2018-10-27] MEDS: BLOOD SUGAR DIAGNOSTIC 1 EACH STRIP IN SCH ×5 (00:09→23:47)
[2018-10-27] MEDS: *INSULIN REGULAR(HUMULIN R)HUM 100 UNIT/ML VIAL SQ PRN ×4 (00:11→23:49)
[2018-10-27] MEDS: ALBUTEROL FS 2.5 MG/0.5 ML VIAL.NEB NEB SCH ×4 (01:12→20:12)
[2018-10-27] MEDS: SUCRALFATE 1 G/10 ML UDC GT SCH ×3 (05:00→20:50)
[2018-10-27] MEDS: INSULIN NPH, HUMAN ISOPHANE 100 UNIT/ML CARTRIDGE SQ SCH ×3 (05:00→21:11)
[2018-10-27] MEDS: PROSOURCE / PROSTAT (PYXIS) 30 ML UDC GT SCH ×3 (05:00→20:51)
[2018-10-27] MEDS: CHLORHEXIDINE GLUCONATE 15 ML UDC MM SCH ×3 (05:00→20:53)
[2018-10-27] MEDS: FAMOTIDINE (20 MG) 20 MG TABLET GT SCH (06:18)
[2018-10-27] MEDS: NEPRO 1,000 ML BOTTLE GT PRN (06:34)
[2018-10-27 07:53] VITALS: BP 129/57
[2018-10-27] MEDS: LACTOBACILLUS RHAMNOSUS GG 1 EACH CAP.SPRINK PO SCH ×2 (09:00→20:53)
[2018-10-27] MEDS: VIT B CMPLX 3/FA/VIT C/BIOTIN 1 TAB TABLET GT SCH (09:00)
[2018-10-27] MEDS: CALCIUM ACETATE 667 MG TABLET GT SCH (09:00)
[2018-10-27] MEDS: BRIMONIDINE TARTRATE OPHT SOLN 5 ML BOTTLE EACHEYE SCH (09:00)
[2018-10-27] MEDS: CARVEDILOL 3.125 MG TABLET GT SCH ×2 (09:00→20:51)
[2018-10-27] MEDS: LACTULOSE 10 G/15 ML UDC (PYXIS) GT SCH ×2 (09:00→20:50)
[2018-10-27] MEDS: LEVETIRACETAM SOL (5 ML) 100 MG/ML UDC GT SCH ×2 (09:00→20:51)
[2018-10-27] MEDS: HYDROGEN PEROXIDE 480 ML BOTTLE TP SCH ×2 (09:55→20:12)
[2018-10-27] MEDS: ACETAMINOPHEN 650 MG/20 ML UDC- SA PATIENTS-PAIN ONLY GT SCH ×2 (10:15→20:53)
[2018-10-27] MEDS: BETADINE 5% CREAM TP SCH ×4 (10:45→21:36)
[2018-10-27] MEDS: DAKINS HALF STRENGTH (0.25%) 480 ML BOTTLE TOP SCH ×2 (10:45→21:36)
[2018-10-27] MEDS: BETADINE 5% TP SCH ×2 (10:45→21:37)
--- NOTE | 2018-10-27 16:07 | NUR ---
Patient was seen by Dr. Swanson today for annual optometry appointment. Adhesive Sprayer noted and aware that the patient is legally blind. Patient�s sister [phone] was notified and expressed understanding and contentment. Per Esther, the patient was previously being treated by Road Driver, Dr. Vinay Martino [[id number]; [phone]]. Per Rabia, when the resident was more alert, oriented and ambulatory, pt. was to receive �a treatment to take fluid out of her eyes�. Per Rabia, if [facility] would like more information to contact Dr. Wolf office.
[2018-10-27 20:03] VITALS: BP 129/79
[2018-10-27] MEDS: MONTELUKAST SODIUM (10MG) 10 MG TABLET GT SCH (21:11)
--- NOTE | 2018-10-28 00:04 | NUR ---
Seen and examined by BEAM CARRIER HAULER PUSHER Judy Obregon ,notified regarding temp 101.6 Tylenol given and cooling measures provided.Re check temp 99.8.she continue to monitor.Patient still on IV Amikacin Q dialysis day.Pt no distress noted and will continue to monitor.
[2018-10-28] MEDS: ALBUTEROL FS 2.5 MG/0.5 ML VIAL.NEB NEB SCH ×4 (01:12→20:28)
[2018-10-28] MEDS: SUCRALFATE 1 G/10 ML UDC GT SCH ×3 (05:29→21:27)
[2018-10-28] MEDS: CHLORHEXIDINE GLUCONATE 15 ML UDC MM SCH ×3 (05:29→21:29)
[2018-10-28] MEDS: PROSOURCE / PROSTAT (PYXIS) 30 ML UDC GT SCH ×3 (05:29→21:29)
[2018-10-28] MEDS: INSULIN NPH, HUMAN ISOPHANE 100 UNIT/ML CARTRIDGE SQ SCH ×3 (05:30→21:30)
[2018-10-28] MEDS: POLYVINYL ALCOHOL/POVIDONE 0.4 ML DROPERETTE EACHEYE SCH ×3 (05:30→18:00)
[2018-10-28] MEDS: FAMOTIDINE (20 MG) 20 MG TABLET GT SCH (05:30)
[2018-10-28] MEDS: BLOOD SUGAR DIAGNOSTIC 1 EACH STRIP IN SCH ×3 (05:31→19:15)
[2018-10-28] MEDS: *INSULIN REGULAR(HUMULIN R)HUM 100 UNIT/ML VIAL SQ PRN ×2 (05:33→13:00)
[2018-10-28] MEDS: NEPRO 1,000 ML BOTTLE GT PRN (06:30)
[2018-10-28 07:58] VITALS: BP 131/67
[2018-10-28] MEDS: LACTOBACILLUS RHAMNOSUS GG 1 EACH CAP.SPRINK PO SCH ×2 (09:00→21:29)
[2018-10-28] MEDS: VIT B CMPLX 3/FA/VIT C/BIOTIN 1 TAB TABLET GT SCH (09:00)
[2018-10-28] MEDS: LACTULOSE 10 G/15 ML UDC (PYXIS) GT SCH ×2 (09:00→21:27)
[2018-10-28] MEDS: LEVETIRACETAM SOL (5 ML) 100 MG/ML UDC GT SCH ×2 (09:00→21:28)
[2018-10-28] MEDS: CARVEDILOL 3.125 MG TABLET GT SCH ×2 (09:00→21:00)
[2018-10-28] MEDS: HYDROGEN PEROXIDE 480 ML BOTTLE TP SCH ×2 (09:00→21:00)
[2018-10-28] MEDS: CALCIUM ACETATE 667 MG TABLET GT SCH (09:00)
[2018-10-28] MEDS: BRIMONIDINE TARTRATE OPHT SOLN 5 ML BOTTLE EACHEYE SCH (09:00)
[2018-10-28] MEDS: BETADINE 5% TP SCH ×2 (10:00→21:47)
[2018-10-28] MEDS: BETADINE 5% CREAM TP SCH ×4 (10:00→21:47)
[2018-10-28] MEDS: ACETAMINOPHEN 650 MG/20 ML UDC- SA PATIENTS-PAIN ONLY GT SCH ×2 (10:00→21:29)
[2018-10-28] MEDS: DAKINS HALF STRENGTH (0.25%) 480 ML BOTTLE TOP SCH ×2 (10:00→21:47)
--- NOTE | 2018-10-28 15:10 | NUR ---
Notified Dr. Kern resident's BP tend to be on the low side 98/48-100/52. New order given to start patient on Midodrine 5mg. daily and to hold SBP > 120. Resident left for dialysis in stable condition, dialysis access site in the R upper arm + for bruit, no bleeding. Resident's sister Esther notified of new order. Appreciated the call.
[2018-10-28 19:44] VITALS: BP 106/52
[2018-10-28] MEDS ORDERED: AMIKACIN 250 MG/ML VIAL ONE (20:19)
[2018-10-28] MEDS: MONTELUKAST SODIUM (10MG) 10 MG TABLET GT SCH (21:31)
[2018-10-29] MEDS: BLOOD SUGAR DIAGNOSTIC 1 EACH STRIP IN SCH ×4 (00:06→17:29)
[2018-10-29] MEDS: POLYVINYL ALCOHOL/POVIDONE 0.4 ML DROPERETTE EACHEYE SCH ×4 (00:06→17:29)
[2018-10-29] MEDS: *INSULIN REGULAR(HUMULIN R)HUM 100 UNIT/ML VIAL SQ PRN ×4 (00:07→17:34)
[2018-10-29] MEDS: ALBUTEROL FS 2.5 MG/0.5 ML VIAL.NEB NEB SCH ×4 (01:41→19:49)
[2018-10-29] MEDS: SUCRALFATE 1 G/10 ML UDC GT SCH ×3 (05:16→21:12)
[2018-10-29] MEDS: PROSOURCE / PROSTAT (PYXIS) 30 ML UDC GT SCH ×3 (05:16→21:13)
[2018-10-29] MEDS: CHLORHEXIDINE GLUCONATE 15 ML UDC MM SCH ×3 (05:16→21:13)
[2018-10-29] MEDS: FAMOTIDINE (20 MG) 20 MG TABLET GT SCH (05:16)
[2018-10-29] MEDS: INSULIN NPH, HUMAN ISOPHANE 100 UNIT/ML CARTRIDGE SQ SCH ×3 (05:38→21:13)
[2018-10-29] MEDS: NEPRO 1,000 ML BOTTLE GT PRN (05:56)
[2018-10-29 07:36] VITALS: BP 115/48
[2018-10-29] MEDS: CARVEDILOL 3.125 MG TABLET GT SCH ×2 (09:00→21:12)
[2018-10-29] MEDS: LEVETIRACETAM SOL (5 ML) 100 MG/ML UDC GT SCH ×2 (09:00→21:12)
[2018-10-29] MEDS: DAKINS HALF STRENGTH (0.25%) 480 ML BOTTLE TOP SCH ×2 (09:00→21:13)
[2018-10-29] MEDS: CALCIUM ACETATE 667 MG TABLET GT SCH (09:00)
[2018-10-29] MEDS: LACTOBACILLUS RHAMNOSUS GG 1 EACH CAP.SPRINK PO SCH ×2 (09:00→21:13)
[2018-10-29] MEDS: MIDODRINE HCL (5MG) 5 MG TABLET GT SCH (09:00)
[2018-10-29] MEDS: BRIMONIDINE TARTRATE OPHT SOLN 5 ML BOTTLE EACHEYE SCH (09:00)
[2018-10-29] MEDS: HYDROGEN PEROXIDE 480 ML BOTTLE TP SCH ×2 (09:00→21:14)
[2018-10-29] MEDS: BETADINE 5% TP SCH ×2 (09:00→21:13)
[2018-10-29] MEDS: VIT B CMPLX 3/FA/VIT C/BIOTIN 1 TAB TABLET GT SCH (09:00)
[2018-10-29] MEDS: ACETAMINOPHEN 650 MG/20 ML UDC- SA PATIENTS-PAIN ONLY GT SCH ×2 (09:00→21:13)
[2018-10-29] MEDS: LACTULOSE 10 G/15 ML UDC (PYXIS) GT SCH ×2 (09:00→21:12)
[2018-10-29] MEDS: BETADINE 5% CREAM TP SCH ×4 (09:00→21:13)
[2018-10-29 19:48] VITALS: BP 129/60
[2018-10-29] MEDS: MONTELUKAST SODIUM (10MG) 10 MG TABLET GT SCH (21:14)
[2018-10-30] MEDS: POLYVINYL ALCOHOL/POVIDONE 0.4 ML DROPERETTE EACHEYE SCH ×4 (00:10→17:01)
[2018-10-30] MEDS: BLOOD SUGAR DIAGNOSTIC 1 EACH STRIP IN SCH ×4 (00:10→18:56)
[2018-10-30] MEDS: *INSULIN REGULAR(HUMULIN R)HUM 100 UNIT/ML VIAL SQ PRN ×3 (00:17→17:50)
[2018-10-30] MEDS: ALBUTEROL FS 2.5 MG/0.5 ML VIAL.NEB NEB SCH ×4 (01:14→20:07)
[2018-10-30] MEDS: INSULIN NPH, HUMAN ISOPHANE 100 UNIT/ML CARTRIDGE SQ SCH ×3 (05:00→21:00)
[2018-10-30] MEDS: SUCRALFATE 1 G/10 ML UDC GT SCH ×3 (05:00→22:22)
[2018-10-30] MEDS: CHLORHEXIDINE GLUCONATE 15 ML UDC MM SCH ×3 (05:00→21:00)
[2018-10-30] MEDS: PROSOURCE / PROSTAT (PYXIS) 30 ML UDC GT SCH ×3 (05:00→21:00)
[2018-10-30] MEDS: FAMOTIDINE (20 MG) 20 MG TABLET GT SCH (06:04)
[2018-10-30] MEDS: HYDROGEN PEROXIDE 480 ML BOTTLE TP SCH ×2 (07:58→21:00)
[2018-10-30 08:06] VITALS: BP 126/54
[2018-10-30] MEDS: LACTOBACILLUS RHAMNOSUS GG 1 EACH CAP.SPRINK PO SCH ×2 (09:00→21:00)
[2018-10-30] MEDS: BETADINE 5% TP SCH ×2 (09:00→21:00)
[2018-10-30] MEDS: ACETAMINOPHEN 650 MG/20 ML UDC- SA PATIENTS-PAIN ONLY GT SCH ×3 (09:00→22:19)
[2018-10-30] MEDS: DAKINS HALF STRENGTH (0.25%) 480 ML BOTTLE TOP SCH ×2 (09:00→21:00)
[2018-10-30] MEDS: CARVEDILOL 3.125 MG TABLET GT SCH ×2 (09:00→21:00)
[2018-10-30] MEDS: LEVETIRACETAM SOL (5 ML) 100 MG/ML UDC GT SCH ×2 (09:00→21:00)
[2018-10-30] MEDS: CALCIUM ACETATE 667 MG TABLET GT SCH (09:00)
[2018-10-30] MEDS: LACTULOSE 10 G/15 ML UDC (PYXIS) GT SCH ×2 (09:00→21:00)
[2018-10-30] MEDS: BETADINE 5% CREAM TP SCH ×4 (09:00→21:00)
[2018-10-30] MEDS: BRIMONIDINE TARTRATE OPHT SOLN 5 ML BOTTLE EACHEYE SCH (09:00)
[2018-10-30] MEDS: MIDODRINE HCL (5MG) 5 MG TABLET GT SCH (11:06)
[2018-10-30] MEDS: VIT B CMPLX 3/FA/VIT C/BIOTIN 1 TAB TABLET GT SCH (11:06)
--- NOTE | 2018-10-30 14:05 | NUR ---
RT NOTE: RECEIVED PT ON 28% C/A. NO RESPIRATORY DISTRESS NOTED. TRACH CHECKED SECURE AND PATENT. SXD AND LAVAGED PT Q ROUND AND NEEDED. TXS GIVEN ORDERED WITH NO ADVERSE REACTIONS NOTED. TRACH CARE DONE. SPARE TRACH AND AMBU BAG @ BEDSIDE. WILL CONTINUE TO MONITOR.
[2018-10-30 19:45] VITALS: BP 149/58
[2018-10-30] MEDS: MONTELUKAST SODIUM (10MG) 10 MG TABLET GT SCH (22:10)
[2018-10-31] MEDS: POLYVINYL ALCOHOL/POVIDONE 0.4 ML DROPERETTE EACHEYE SCH ×4 (00:43→18:00)
[2018-10-31] MEDS: BLOOD SUGAR DIAGNOSTIC 1 EACH STRIP IN SCH ×4 (00:43→18:00)
[2018-10-31] MEDS: *INSULIN REGULAR(HUMULIN R)HUM 100 UNIT/ML VIAL SQ PRN ×3 (00:53→12:30)
[2018-10-31] MEDS: ALBUTEROL FS 2.5 MG/0.5 ML VIAL.NEB NEB SCH ×4 (01:30→20:04)
[2018-10-31] MEDS: PROSOURCE / PROSTAT (PYXIS) 30 ML UDC GT SCH ×3 (05:02→21:11)
[2018-10-31] MEDS: SUCRALFATE 1 G/10 ML UDC GT SCH ×3 (05:02→21:10)
[2018-10-31] MEDS: CHLORHEXIDINE GLUCONATE 15 ML UDC MM SCH ×3 (05:02→21:11)
[2018-10-31] MEDS: INSULIN NPH, HUMAN ISOPHANE 100 UNIT/ML CARTRIDGE SQ SCH ×3 (05:06→21:12)
[2018-10-31] MEDS: NEPRO 1,000 ML BOTTLE GT PRN (05:51)
[2018-10-31] MEDS: FAMOTIDINE (20 MG) 20 MG TABLET GT SCH (06:19)
[2018-10-31 08:03] VITALS: BP 146/64
[2018-10-31] MEDS: LEVETIRACETAM SOL (5 ML) 100 MG/ML UDC GT SCH ×2 (09:00→21:11)
[2018-10-31] MEDS: DAKINS HALF STRENGTH (0.25%) 480 ML BOTTLE TOP SCH ×2 (09:00→21:12)
[2018-10-31] MEDS: CALCIUM ACETATE 667 MG TABLET GT SCH (09:00)
[2018-10-31] MEDS: LACTOBACILLUS RHAMNOSUS GG 1 EACH CAP.SPRINK PO SCH ×2 (09:00→21:11)
[2018-10-31] MEDS: MIDODRINE HCL (5MG) 5 MG TABLET GT SCH ×2 (09:00→11:00)
[2018-10-31] MEDS: BETADINE 5% TP SCH ×2 (09:00→21:12)
[2018-10-31] MEDS: VIT B CMPLX 3/FA/VIT C/BIOTIN 1 TAB TABLET GT SCH (09:00)
[2018-10-31] MEDS: LACTULOSE 10 G/15 ML UDC (PYXIS) GT SCH ×2 (09:00→21:10)
[2018-10-31] MEDS: HYDROGEN PEROXIDE 480 ML BOTTLE TP SCH ×2 (09:00→21:12)
[2018-10-31] MEDS: BETADINE 5% CREAM TP SCH ×4 (09:00→21:12)
[2018-10-31] MEDS: ACETAMINOPHEN 650 MG/20 ML UDC- SA PATIENTS-PAIN ONLY GT SCH (09:00)
[2018-10-31] MEDS: CARVEDILOL 3.125 MG TABLET GT SCH ×2 (09:00→21:00)
[2018-10-31] MEDS: BRIMONIDINE TARTRATE OPHT SOLN 5 ML BOTTLE EACHEYE SCH (09:00)
--- NOTE | 2018-10-31 14:35 | NUR ---
Amikacin level 14.6 relayed to pharmacist Muna. She said to hold Amikacin dose today.
[2018-10-31 20:28] VITALS: BP 108/65
[2018-10-31] MEDS: MONTELUKAST SODIUM (10MG) 10 MG TABLET GT SCH (21:12)
[2018-11-01] MEDS: BLOOD SUGAR DIAGNOSTIC 1 EACH STRIP IN SCH ×4 (00:19→18:34)
[2018-11-01] MEDS: POLYVINYL ALCOHOL/POVIDONE 0.4 ML DROPERETTE EACHEYE SCH ×4 (00:19→18:34)
[2018-11-01] MEDS: *INSULIN REGULAR(HUMULIN R)HUM 100 UNIT/ML VIAL SQ PRN ×4 (00:20→18:37)
[2018-11-01] MEDS: ALBUTEROL FS 2.5 MG/0.5 ML VIAL.NEB NEB SCH ×4 (01:03→20:15)
[2018-11-01] MEDS: SUCRALFATE 1 G/10 ML UDC GT SCH ×3 (05:00→21:02)
[2018-11-01] MEDS: CHLORHEXIDINE GLUCONATE 15 ML UDC MM SCH ×3 (05:00→21:37)
[2018-11-01] MEDS: PROSOURCE / PROSTAT (PYXIS) 30 ML UDC GT SCH ×3 (05:00→21:02)
[2018-11-01] MEDS: INSULIN NPH, HUMAN ISOPHANE 100 UNIT/ML CARTRIDGE SQ SCH ×3 (05:00→21:38)
[2018-11-01] MEDS: FAMOTIDINE (20 MG) 20 MG TABLET GT SCH (06:16)
[2018-11-01 07:52] VITALS: BP 142/58
--- NOTE | 2018-11-01 08:22 | NUR ---
ROSALIE received call from Prince at Dr. Muñoz dental office stating that Dr. Giron needed to reschedule his original apt. from 11/01/18 to 11/03/18 at 12:15pm. ROSALIE notified patient�s responsible democrat/Sister Rabia Brantley [phone] of the dental cleaning date and time change to Tuesday11/03/18 12:15 pm. Family was agreeable to plan. ROSALIE also notified charge nurse.
[2018-11-01] MEDS: BRIMONIDINE TARTRATE OPHT SOLN 5 ML BOTTLE EACHEYE SCH (09:00)
[2018-11-01] MEDS: CALCIUM ACETATE 667 MG TABLET GT SCH (09:00)
[2018-11-01] MEDS: VIT B CMPLX 3/FA/VIT C/BIOTIN 1 TAB TABLET GT SCH (09:00)
[2018-11-01] MEDS: LACTULOSE 10 G/15 ML UDC (PYXIS) GT SCH ×2 (09:00→21:02)
[2018-11-01] MEDS: HYDROGEN PEROXIDE 480 ML BOTTLE TP SCH ×2 (09:00→20:15)
[2018-11-01] MEDS: ACETAMINOPHEN 650 MG/20 ML UDC- SA PATIENTS-PAIN ONLY GT SCH ×2 (09:00→21:03)
[2018-11-01] MEDS: LEVETIRACETAM SOL (5 ML) 100 MG/ML UDC GT SCH ×2 (09:00→21:02)
[2018-11-01] MEDS: LACTOBACILLUS RHAMNOSUS GG 1 EACH CAP.SPRINK PO SCH ×2 (09:00→21:03)
[2018-11-01] MEDS: CARVEDILOL 3.125 MG TABLET GT SCH ×2 (09:00→21:02)
--- NOTE | 2018-11-01 09:20 | NUR ---
Seen and examined by Dr. Kern, reviewed used of Coreg and Midodrine. New order to DC Midordrine at this time since B/P has been running on the high side. Resident's sister informed.
[2018-11-01] MEDS: BETADINE 5% CREAM TP SCH ×4 (10:00→21:39)
[2018-11-01] MEDS: BETADINE 5% TP SCH ×2 (10:00→21:39)
[2018-11-01] MEDS: DAKINS HALF STRENGTH (0.25%) 480 ML BOTTLE TOP SCH ×2 (10:00→21:38)
[2018-11-01] MEDS: NEPRO 1,000 ML BOTTLE GT PRN (15:30)
--- NOTE | 2018-11-01 16:22 | NUR ---
ROSALIE was informed by charge nurse, Graciela that the patient�s sister, Rabia would like to change the pt.�s code status from Full code to DNR. ROSALIE informed Rabia that because she does not have DPOA or Conservatorship to make health care decisions on the resident�s behalf, the patient�s father would have to give verbal consent to [facility] that he would like Full Code changed to DNR. However, per Rabia their biological father has not been involved in her and her sibling�s lives. Per Rabia, she communicated that it is in the patient�s best interest that her and her siblings make medical decisions on the resident�s behalf as they have always been involved and supportive of the patient. ROSALIE expressed understanding and informed Rabia that we can have a phone conference with all the patient�s siblings so they can come to an accord regarding to change code status to DNR or not. Esther was agreeable to plan.Per Esther, she will inform ROSALIE when her siblings are all available for phone conference.
[2018-11-01 19:52] VITALS: BP 148/69
[2018-11-01] MEDS: MONTELUKAST SODIUM (10MG) 10 MG TABLET GT SCH (21:03)
[2018-11-02] MEDS: BLOOD SUGAR DIAGNOSTIC 1 EACH STRIP IN SCH ×5 (00:51→23:28)
[2018-11-02] MEDS: POLYVINYL ALCOHOL/POVIDONE 0.4 ML DROPERETTE EACHEYE SCH ×5 (00:51→23:28)
[2018-11-02] MEDS: *INSULIN REGULAR(HUMULIN R)HUM 100 UNIT/ML VIAL SQ PRN ×4 (00:53→23:29)
[2018-11-02] MEDS: ALBUTEROL FS 2.5 MG/0.5 ML VIAL.NEB NEB SCH ×4 (01:16→19:51)
[2018-11-02] MEDS: INSULIN NPH, HUMAN ISOPHANE 100 UNIT/ML CARTRIDGE SQ SCH ×3 (05:45→20:43)
[2018-11-02] MEDS: PROSOURCE / PROSTAT (PYXIS) 30 ML UDC GT SCH ×3 (05:45→20:42)
[2018-11-02] MEDS: SUCRALFATE 1 G/10 ML UDC GT SCH ×3 (05:45→20:42)
[2018-11-02] MEDS: CHLORHEXIDINE GLUCONATE 15 ML UDC MM SCH ×3 (05:45→20:43)
[2018-11-02] MEDS: FAMOTIDINE (20 MG) 20 MG TABLET GT SCH (06:12)
[2018-11-02 08:00] VITALS: BP 119/54
[2018-11-02] MEDS: HYDROGEN PEROXIDE 480 ML BOTTLE TP SCH ×2 (09:00→20:44)
[2018-11-02] MEDS: ACETAMINOPHEN 650 MG/20 ML UDC- SA PATIENTS-PAIN ONLY GT SCH ×2 (09:08→20:43)
[2018-11-02] MEDS: LACTULOSE 10 G/15 ML UDC (PYXIS) GT SCH ×2 (09:08→20:42)
[2018-11-02] MEDS: LACTOBACILLUS RHAMNOSUS GG 1 EACH CAP.SPRINK PO SCH ×2 (09:08→20:43)
[2018-11-02] MEDS: BRIMONIDINE TARTRATE OPHT SOLN 5 ML BOTTLE EACHEYE SCH (09:08)
[2018-11-02] MEDS: CALCIUM ACETATE 667 MG TABLET GT SCH (09:08)
[2018-11-02] MEDS: LEVETIRACETAM SOL (5 ML) 100 MG/ML UDC GT SCH ×2 (09:08→20:42)
[2018-11-02] MEDS: VIT B CMPLX 3/FA/VIT C/BIOTIN 1 TAB TABLET GT SCH (09:08)
[2018-11-02] MEDS: CARVEDILOL 3.125 MG TABLET GT SCH ×2 (09:10→20:42)
[2018-11-02] MEDS: BETADINE 5% CREAM TP SCH ×4 (09:45→20:44)
[2018-11-02] MEDS: BETADINE 5% TP SCH ×2 (09:45→20:44)
[2018-11-02] MEDS: DAKINS HALF STRENGTH (0.25%) 480 ML BOTTLE TOP SCH ×2 (09:45→20:43)
--- NOTE | 2018-11-02 14:30 | NUR ---
Resident picked up by transport for hemodialysis treatment, via gurney, accompanied by 2 EMT's and 1 RT. RT upper arm AV fistula intact, no bleeding noted. Positive for thirll and bruit. No respiratory distress noted. Resident left the building in stable condition.
--- NOTE | 2018-11-02 18:18 | NUR ---
PATIENT STILL IN DIALYSIS. PHARMACY MADE AWARE PATIENT'S RANDOM AMIKACIN LEVEL OF 7.3. WAITING FOR PHARMACY TO DELIVER AMIKACIN 400MG IV PRN ORDER TO BE GIVEN WHEN PATIENT ARRIVES TO THE UNIT.
[2018-11-02] MEDS: AMIKACIN 400 MG in IV D5W 100 ML IV PRN (19:53)
[2018-11-02] MEDS ORDERED: MAG HYDROX/AL HYDROX/SIMETH 30 ML UDC GT PRN (20:00)
[2018-11-02 20:22] VITALS: BP 117/61
[2018-11-02] MEDS: HYDROGEL DRESSING 90 GM TUBE TP SCH (20:44)
[2018-11-02] MEDS: MONTELUKAST SODIUM (10MG) 10 MG TABLET GT SCH (21:21)
[2018-11-03] MEDS: ALBUTEROL FS 2.5 MG/0.5 ML VIAL.NEB NEB SCH ×4 (02:05→20:04)
[2018-11-03] MEDS: INSULIN NPH, HUMAN ISOPHANE 100 UNIT/ML CARTRIDGE SQ SCH ×3 (05:28→20:37)
[2018-11-03] MEDS: SUCRALFATE 1 G/10 ML UDC GT SCH ×3 (05:28→20:35)
[2018-11-03] MEDS: PROSOURCE / PROSTAT (PYXIS) 30 ML UDC GT SCH ×3 (05:28→20:36)
[2018-11-03] MEDS: CHLORHEXIDINE GLUCONATE 15 ML UDC MM SCH ×3 (05:28→20:36)
[2018-11-03] MEDS: FAMOTIDINE (20 MG) 20 MG TABLET GT SCH (05:29)
[2018-11-03] MEDS: BLOOD SUGAR DIAGNOSTIC 1 EACH STRIP IN SCH ×3 (05:29→17:53)
[2018-11-03] MEDS: POLYVINYL ALCOHOL/POVIDONE 0.4 ML DROPERETTE EACHEYE SCH ×3 (05:29→17:53)
[2018-11-03] MEDS: *INSULIN REGULAR(HUMULIN R)HUM 100 UNIT/ML VIAL SQ PRN ×3 (05:30→17:54)
[2018-11-03] MEDS: HYDROGEN PEROXIDE 480 ML BOTTLE TP SCH ×2 (07:53→20:04)
[2018-11-03 08:29] VITALS: BP 115/55
--- NOTE | 2018-11-03 08:40 | NUR ---
ROSALIE completed social services designee portion of 14-day MDS. 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 The patient is on a trach and Non-vent. The resident�s sister, Rabia Brantley [phone] is the responsible alliance party and is currently in the process of applying for Conservatorship. Rabia is involved and supportive as she visits the patient almost daily. The patient had her annual optometry appointment on 10/27/18 and is having her annual dental visit today 11/03/[address] Giron.
[2018-11-03] MEDS: BRIMONIDINE TARTRATE OPHT SOLN 5 ML BOTTLE EACHEYE SCH (09:00)
[2018-11-03] MEDS: CARVEDILOL 3.125 MG TABLET GT SCH ×2 (09:00→20:36)
--- NOTE | 2018-11-03 09:50 | NUR ---
ROSALIE received call from patient�s sister, Rabia [phone] who wanted to confirm the Plan of Care Conference appointment on Monday, October 08, 2018 at 1:30pm. ROSALIE communicated to Rabia that it was in fact, the correct information for the plan of care conference appointment. Per Rabia, she has spoken to her siblings about a phone conference to have the resident�s current Full Code status changed to DNR. Per Rabia, we can have the phone conference on the same date 11/08/18. ROSALIE informed Rabia, that it was a good plan and communicated to Director, Nkechi. ROSALIE to follow up on Saturday, December 08, 2018.
[2018-11-03] MEDS: VIT B CMPLX 3/FA/VIT C/BIOTIN 1 TAB TABLET GT SCH (10:00)
[2018-11-03] MEDS: LACTOBACILLUS RHAMNOSUS GG 1 EACH CAP.SPRINK PO SCH ×2 (10:00→20:36)
[2018-11-03] MEDS: ACETAMINOPHEN 650 MG/20 ML UDC- SA PATIENTS-PAIN ONLY GT SCH ×3 (10:00→20:36)
[2018-11-03] MEDS: LEVETIRACETAM SOL (5 ML) 100 MG/ML UDC GT SCH ×2 (10:00→20:36)
[2018-11-03] MEDS: LACTULOSE 10 G/15 ML UDC (PYXIS) GT SCH ×2 (10:00→20:35)
[2018-11-03] MEDS: CALCIUM ACETATE 667 MG TABLET GT SCH (10:00)
[2018-11-03] MEDS: DAKINS HALF STRENGTH (0.25%) 480 ML BOTTLE TOP SCH ×2 (10:30→20:37)
[2018-11-03] MEDS: HYDROGEL DRESSING 90 GM TUBE TP SCH ×2 (10:30→20:37)
[2018-11-03] MEDS: BETADINE 5% TP SCH ×2 (10:30→20:38)
[2018-11-03] MEDS: BETADINE 5% CREAM TP SCH ×4 (10:30→20:37)
[2018-11-03] MEDS: NEPRO 1,000 ML BOTTLE GT PRN (14:36)
--- NOTE | 2018-11-03 16:09 | NUR ---
The patient was seen today by Dr. Giron [phone] for her annual exam and dental cleaning. No new order per Dr. Giron. Per Dr. Muñoz Progress Note states : Calculous, generalized gingivitis, film over teeth, missing teeth (3,24,25), mobile teeth (23,26) p.apprehensive, no decay noted. Cleaning and scaling. ROSALIE communicated to family, Rabia Brantley [phone]. Rabia expressed understanding.
[2018-11-03 20:14] VITALS: BP 123/54
[2018-11-03] MEDS: MONTELUKAST SODIUM (10MG) 10 MG TABLET GT SCH (21:12)
[2018-11-04] MEDS: POLYVINYL ALCOHOL/POVIDONE 0.4 ML DROPERETTE EACHEYE SCH ×4 (00:43→18:00)
[2018-11-04] MEDS: BLOOD SUGAR DIAGNOSTIC 1 EACH STRIP IN SCH ×4 (00:43→18:00)
[2018-11-04] MEDS: *INSULIN REGULAR(HUMULIN R)HUM 100 UNIT/ML VIAL SQ PRN ×3 (00:44→12:44)
[2018-11-04] MEDS: ALBUTEROL FS 2.5 MG/0.5 ML VIAL.NEB NEB SCH ×3 (01:41→13:22)
--- NOTE | 2018-11-04 03:49 | NUR ---
RT NOTE: RECEIVED PT ON 28% C/A. NO RESPIRATORY DISTRESS NOTED. TRACH CHECKED SECURE AND PATENT. SXD AND LAVAGED PT Q ROUND AND NEEDED. TXS GIVEN ORDERED WITH NO ADVERSE REACTIONS NOTED. TRACH CARE DONE. SPARE TRACH AND AMBU BAG @ BEDSIDE.
[2018-11-04] MEDS: PROSOURCE / PROSTAT (PYXIS) 30 ML UDC GT SCH ×2 (05:08→12:40)
[2018-11-04] MEDS: SUCRALFATE 1 G/10 ML UDC GT SCH ×2 (05:08→12:40)
[2018-11-04] MEDS: CHLORHEXIDINE GLUCONATE 15 ML UDC MM SCH ×2 (05:08→12:40)
[2018-11-04] MEDS: FAMOTIDINE (20 MG) 20 MG TABLET GT SCH (05:08)
[2018-11-04] MEDS: INSULIN NPH, HUMAN ISOPHANE 100 UNIT/ML CARTRIDGE SQ SCH ×2 (05:22→12:42)
[2018-11-04 07:35] VITALS: BP 103/66
[2018-11-04] MEDS: BRIMONIDINE TARTRATE OPHT SOLN 5 ML BOTTLE EACHEYE SCH (08:33)
[2018-11-04] MEDS: LACTULOSE 10 G/15 ML UDC (PYXIS) GT SCH (08:34)
[2018-11-04] MEDS: CALCIUM ACETATE 667 MG TABLET GT SCH (08:34)
[2018-11-04] MEDS: CARVEDILOL 3.125 MG TABLET GT SCH (08:34)
[2018-11-04] MEDS: VIT B CMPLX 3/FA/VIT C/BIOTIN 1 TAB TABLET GT SCH (08:34)
[2018-11-04] MEDS: LEVETIRACETAM SOL (5 ML) 100 MG/ML UDC GT SCH (08:34)
[2018-11-04] MEDS: LACTOBACILLUS RHAMNOSUS GG 1 EACH CAP.SPRINK PO SCH (08:35)
[2018-11-04] MEDS: ACETAMINOPHEN 650 MG/20 ML UDC- SA PATIENTS-PAIN ONLY GT SCH (08:35)
[2018-11-04] MEDS: HYDROGEN PEROXIDE 480 ML BOTTLE TP SCH (09:00)
[2018-11-04] MEDS: DAKINS HALF STRENGTH (0.25%) 480 ML BOTTLE TOP SCH (09:05)
[2018-11-04] MEDS: BETADINE 5% TP SCH (09:05)
[2018-11-04] MEDS: HYDROGEL DRESSING 90 GM TUBE TP SCH (09:05)
[2018-11-04] MEDS: BETADINE 5% CREAM TP SCH ×2 (09:05)
--- NOTE | 2018-11-04 12:36 | NUR ---
Received a verbal report from Lab mallorie of Amikacin level 14.2. [facility] pharmacist Yvonne informed, she said no dose today.
[2018-11-04 14:00] VITALS: BP 108/57
--- NOTE | 2018-11-04 14:35 | NUR ---
CALL RECEIVED FROM SUB ACUTE TO ASSIST TRANSPORTERS FOR DIALYSIS. TRANSPORTERS WERE TOLD TO PLACED THE PATIENT ON 10 LPM WITH TRACH COLLAR MASK ON OXYGEN TANK INSTEAD WITH SUCTION REED ATTACHED TO DECREASE MORE SPACE. TRANSPORTERS WERE NOTIFIED THAT WHILE TRANSPORTING,KEEP THE PATIENT ON 10 LPM. AND FOLLOW OXYGEN SETTING AT DIALYSIS CENTER AFTERWARD. PATIENT'S O2 SATURATION WAS 99% BEFORE TRANSPORTING. NO RESPIRATORY DISTRESS NOTED. PATIENT'S SISTER WERE SPOKE AT 16:10PM IN ER THAT SOMETIMES LOW PERFUSION CAUSES FALSE READING AND PANICKING BUT CAN BE ADDRESSED BY SWITCHING DIFFERENT READING SITES.
--- NOTE | 2018-11-04 15:11 | NUR ---
Received a call from Chase from [facility] notifying this nurse that patient was transferred to ER due to increase RR and desaturation. According to dispatch patient was still by the lobby, not sure whether they were at the [facility] lobby or the dialysis when patient developed increased RR and crew decided to transfer the patient to ER. [facility] informed c/o Harshal.
--- NOTE | 2018-11-04 15:34 | NUR ---
Received a call from Judith at ER and said that per Dr. Kern the patient needs to be dialyzed today. However, after a back and forth communication between [facility] and transportation, the soonest time ambulance will be able to come metal pickling equipment operator patient is after 1830, dialysis center is closing by 1900. Relayed this information to ER nurse Judith.
--- NOTE | 2018-11-04 16:20 | NUR ---
Made a follow-up call to ER, they said that they are doing work up to see if patient will need to stay or not.
--- NOTE | 2018-11-04 16:30 | NUR ---
Spoke with [facility] CN and requested a time slot for Tuesday incase patient will be sent back to subacute, according to CN she will put patient on 1645 time slot on Tuesday10/06/18. Spoke with Chase from [facility] to request for transportation for Tuesday, sarai was told to call [employer] to obtain authorization. Tanner from [employer] , obtain the information regarding this trip and will arrange transportation with [facility]. Endorsed.
[2018-11-04] MEDS ORDERED: MAG30ORA GT (16:48)
[2018-11-04] MEDS ORDERED: LACT1CAP72 GT (16:48)
[2018-11-04] MEDS ORDERED: LACT10SO GT (16:48)
[2018-11-04] MEDS ORDERED: AMIK250V8 IV (16:48)
[2018-11-04] MEDS ORDERED: HYDR-4384 GT (16:48)
[2018-11-04] MEDS ORDERED: HYDR1SOL TOP (16:48)
[2018-11-04] MEDS ORDERED: SODI480S2 TOP (16:48)
[2018-11-04] MEDS ORDERED: POVI3780 TP (16:57)
--- NOTE | 2018-11-06 09:02 | NUR ---
Canceled pt's corn picker with [facility] today, spoke with Favio. Also canceled today's dialysis, spoke with Eliot of [facility].
--- NOTE | 2018-11-07 16:21 | NUR ---
November Family Support Group: ROSALIE reminded patient's responsible libertarian,Rabia [phone] of the November Family Support group taking place 11/08/18 from 11am-12pm in the old admin. conference room. Per Rabia, she won't be able to attend as she works during that time. ROSALIE validated her efforts.
[2018-11-09] MEDS ORDERED: SUCR1ORA4 PO (13:29)
[2018-11-09] MEDS ORDERED: FAMO20TA8 PO (13:29)
--- NOTE | 2018-11-09 14:04 | NUR ---
Lat Entry for 11/08/18 :ROSALIE met up with patient�s responsible constitution party, Rabia Brantley [phone] and Charge Nurse, Patricia to discuss the resident�s current Plan of Care. Charge Nurse and SW addressed all of Daron questions. ROSALIE invited Rabia to attend the next IDT meeting on November 24 and December 01 from 12:30pm to 1:30 pm in the activities room to further discuss patient�s plan of care. Rabia stated, �that a great plan, I will ask to get out of work early one of those days to attend the IDT meeting�. ROSALIE recognized Daron efforts and encouraged her to keep supporting the patient.
--- NOTE | 2018-11-09 18:40 | NUR ---
Readmitted resident from [facility] accompanied by RT and RN. Awake, appears comfortable. Resp. even and unlabored. Trach secured and midline fastened with trach cloth tie. On cool aerosol at 28% FIO2 via T-piece. GT intact and patent. AV shunt on right upper arm intact with compression dressing, dry and intact. Femoral line 3 lumen intact and patent. Transferred to bed and made comfortable. Dr. Kern informed of readmission. Vital signs stable. BP- 140/65, DE- 85, Temp- 98.5, O2 sat- 100%. Will continue to monitor. Endorsed.
[2018-11-09 20:00] VITALS: BP 159/75
[2018-11-09] MEDS ORDERED: MAGNESIUM HYDROXIDE 30 ML UDC GT PRN (20:00)
[2018-11-09] MEDS ORDERED: ONDANSETRON HCL/PF 4 MG/2 ML VIAL IVP PRN (20:00)
[2018-11-09] MEDS ORDERED: HYDROCODONE/APAP 5/325MG 1 EACH TABLET GT PRN (20:00)
[2018-11-09] MEDS ORDERED: ALBUTEROL FS 2.5 MG/0.5 ML VIAL.NEB NEB PRN (20:00)
[2018-11-09] MEDS ORDERED: LACTULOSE 10 G/15 ML UDC (PYXIS) GT PRN (20:00)
[2018-11-09] MEDS ORDERED: ACETAMINOPHEN 650 MG/20 ML UDC- SA PATIENTS-PAIN ONLY GT PRN (20:00)
[2018-11-09] MEDS ORDERED: MAG HYDROX/AL HYDROX/SIMETH 30 ML UDC GT PRN (20:00)
[2018-11-09] MEDS ORDERED: DEXTROSE 50%-WATER 50 ML DISP.SYRIN IV PRN (20:30)
[2018-11-09] MEDS: CARVEDILOL 3.125 MG TABLET GT SCH (20:33)
[2018-11-09] MEDS: LEVETIRACETAM SOL (5 ML) 100 MG/ML UDC GT SCH (20:33)
[2018-11-09] MEDS: LACTULOSE 10 G/15 ML UDC (PYXIS) GT SCH (20:33)
[2018-11-09] MEDS: SUCRALFATE 1 G/10 ML UDC GT SCH (20:33)
[2018-11-09] MEDS: LACTOBACILLUS RHAMNOSUS GG 1 EACH CAP.SPRINK PO SCH (20:34)
[2018-11-09] MEDS: BETADINE 5% CREAM TP SCH ×3 (20:34)
[2018-11-09] MEDS: PROSOURCE / PROSTAT (PYXIS) 30 ML UDC GT SCH (20:34)
[2018-11-09] MEDS: CHLORHEXIDINE GLUCONATE 15 ML UDC MM SCH (20:34)
[2018-11-09] MEDS: DAKINS HALF STRENGTH (0.25%) 480 ML BOTTLE TOP SCH (20:34)
[2018-11-09] MEDS: BETADINE 5% TP SCH (20:35)
[2018-11-09] MEDS: ACETAMINOPHEN 650 MG/20 ML UDC- SA PATIENTS-PAIN ONLY GT SCH (20:53)
[2018-11-09] MEDS: HYDROGEL DRESSING 90 GM TUBE TP SCH (20:54)
[2018-11-09] MEDS: INSULIN NPH, HUMAN ISOPHANE 100 UNIT/ML CARTRIDGE SQ SCH (20:54)
--- NOTE | 2018-11-09 21:00 | NUR ---
PATIENT STABLE,RE- ADMISSION ASSESSMENT COMPLETED.WOUND TREATMENT INITIATED ORDERED.MEDICATIONS SUPPLIED BY [facility].KEPT PATIENT CLEAN AND DRY. WILL FOLLOW IN AM REGARDING HEMODIALYSIS SCHEDULE AND TRANSPORTATION.
[2018-11-09] MEDS: NEPRO 1,000 ML BOTTLE GT PRN (21:14)
[2018-11-09] MEDS: MONTELUKAST SODIUM (10MG) 10 MG TABLET GT SCH (21:14)
[2018-11-09] MEDS: BLOOD SUGAR DIAGNOSTIC 1 EACH STRIP IN SCH (23:30)
[2018-11-09] MEDS: *INSULIN REGULAR(HUMULIN R)HUM 100 UNIT/ML VIAL SQ PRN (23:31)
[2018-11-10] MEDS: ALBUTEROL FS 2.5 MG/0.5 ML VIAL.NEB NEB SCH ×4 (00:45→19:44)
[2018-11-10] MEDS: SUCRALFATE 1 G/10 ML UDC GT SCH ×3 (05:22→21:20)
[2018-11-10] MEDS: CHLORHEXIDINE GLUCONATE 15 ML UDC MM SCH ×3 (05:22→21:21)
[2018-11-10] MEDS: PROSOURCE / PROSTAT (PYXIS) 30 ML UDC GT SCH ×3 (05:22→21:21)
[2018-11-10] MEDS: FAMOTIDINE (20 MG) 20 MG TABLET GT SCH (05:23)
[2018-11-10] MEDS: *INSULIN REGULAR(HUMULIN R)HUM 100 UNIT/ML VIAL SQ PRN ×4 (05:23→23:32)
[2018-11-10] MEDS: BLOOD SUGAR DIAGNOSTIC 1 EACH STRIP IN SCH ×4 (05:23→23:31)
[2018-11-10] MEDS: INSULIN NPH, HUMAN ISOPHANE 100 UNIT/ML CARTRIDGE SQ SCH ×3 (05:23→21:21)
[2018-11-10 07:40] VITALS: BP 141/74
[2018-11-10] MEDS: ACETAMINOPHEN 650 MG/20 ML UDC- SA PATIENTS-PAIN ONLY GT SCH ×2 (08:00→20:00)
[2018-11-10] MEDS: CARVEDILOL 3.125 MG TABLET GT SCH ×2 (09:00→21:21)
[2018-11-10] MEDS: LEVETIRACETAM SOL (5 ML) 100 MG/ML UDC GT SCH ×2 (09:00→21:21)
[2018-11-10] MEDS: ZINC OXIDE 30 GM TUBE TP SCH ×4 (09:00→21:24)
[2018-11-10] MEDS: NEOMY SULF/BACITRAC ZN/POLY 15 GM TUBE TP SCH ×2 (09:00→21:24)
[2018-11-10] MEDS: HYDROGEL DRESSING 90 GM TUBE TP SCH ×2 (09:00→21:24)
[2018-11-10] MEDS: DAKINS HALF STRENGTH (0.25%) 480 ML BOTTLE TOP SCH ×2 (09:00→21:21)
[2018-11-10] MEDS: LACTULOSE 10 G/15 ML UDC (PYXIS) GT SCH ×2 (09:00→21:20)
[2018-11-10] MEDS: LACTOBACILLUS RHAMNOSUS GG 1 EACH CAP.SPRINK PO SCH ×2 (09:00→21:21)
[2018-11-10] MEDS: BETADINE 5% TP SCH ×2 (09:00→21:24)
[2018-11-10] MEDS: BRIMONIDINE TARTRATE OPHT SOLN 5 ML BOTTLE EACHEYE SCH (09:00)
[2018-11-10] MEDS: BETADINE 5% CREAM TP SCH ×6 (09:00→21:24)
[2018-11-10] MEDS: VIT B CMPLX 3/FA/VIT C/BIOTIN 1 TAB TABLET GT SCH (09:00)
--- NOTE | 2018-11-10 11:04 | NUR ---
ROSALIE was informed don 11/08/18 by darwin's responsible constitution party/sister, Rabia [phone] that she would like to hold off on having conference call with siblings to determine change from Full Code status to DNR as one of her sister's is currently hospitalized and is not alert and oriented enough to make a sound decision. ROSALIE validated Rabia's reasoning and informed Rabia that we can wait until she's ready. Rabia expressed understanding and was agreeable to plan. ROSALIE informed Sub-acute director.
[2018-11-10] MEDS ORDERED: ONDANSETRON 4 MG TAB.RAPDIS GT PRN (14:00)
--- NOTE | 2018-11-10 14:30 | NUR ---
Resident seen and examined by Dr. Kern, patient stable at this time, no episode of SOB and saturating 100% on cool aerosol. Dr. Kern ordered to Vit C and Zinc Sulfate for wound management. Resident's sister at bedside, no new concern at this time.
--- NOTE | 2018-11-10 14:36 | NUR ---
Per Sub-acute director�s request, ROSALIE to set up restart of Renal and transportation services for patient. ROSALIE called Renal [[address], [place] [address]; [phone]] and spoke to Nicolle to have dialysis appointments reinstated at usual time , Sat 3 pm-6:30pm. Per Nicolle, expressed understanding and was agreeable to plan. Per Nicolle, services at Renal will be reinstated beginning 11/11/18. ROSALIE called [facility] [[address] [place] [address]; [phone]] and spoke with Chirag to have regularly scheduled roundtrip transportation from [facility] to Renal reinstated. expressed understanding and was agreeable to plan. Per Chirag, the insurance authorization is still active and [facility] will reinstate transportation services beginning 11/11/18. ROSALIE notified patient�s responsible democrat/sister, Rabia [phone]. Arbia expressed understanding and was agreeable to plan.
[2018-11-10] MEDS: NEPRO 1,000 ML BOTTLE GT PRN (17:46)
[2018-11-10 19:38] VITALS: BP 146/75
[2018-11-10] MEDS: MONTELUKAST SODIUM (10MG) 10 MG TABLET GT SCH (21:24)
[2018-11-10] MEDS: POLYVINYL ALCOHOL/POVIDONE 0.4 ML DROPERETTE EACHEYE PRN (23:33)
[2018-11-11] MEDS: ALBUTEROL FS 2.5 MG/0.5 ML VIAL.NEB NEB SCH ×4 (01:43→20:04)
[2018-11-11] MEDS: PROSOURCE / PROSTAT (PYXIS) 30 ML UDC GT SCH ×3 (05:43→20:42)
[2018-11-11] MEDS: FAMOTIDINE (20 MG) 20 MG TABLET GT SCH (05:43)
[2018-11-11] MEDS: CHLORHEXIDINE GLUCONATE 15 ML UDC MM SCH ×3 (05:43→20:42)
[2018-11-11] MEDS: SUCRALFATE 1 G/10 ML UDC GT SCH ×3 (05:43→20:42)
[2018-11-11] MEDS: INSULIN NPH, HUMAN ISOPHANE 100 UNIT/ML CARTRIDGE SQ SCH ×3 (05:50→20:43)
[2018-11-11] MEDS: BLOOD SUGAR DIAGNOSTIC 1 EACH STRIP IN SCH ×4 (05:50→23:13)
[2018-11-11] MEDS: *INSULIN REGULAR(HUMULIN R)HUM 100 UNIT/ML VIAL SQ PRN ×3 (05:51→23:14)
[2018-11-11] MEDS: ACETAMINOPHEN 650 MG/20 ML UDC- SA PATIENTS-PAIN ONLY GT SCH ×2 (08:00→20:00)
[2018-11-11 08:27] VITALS: BP 144/74
[2018-11-11] MEDS: BRIMONIDINE TARTRATE OPHT SOLN 5 ML BOTTLE EACHEYE SCH (09:00)
[2018-11-11] MEDS: BETADINE 5% TP SCH ×2 (09:00→20:43)
[2018-11-11] MEDS: ZINC OXIDE 30 GM TUBE TP SCH ×4 (09:00→20:43)
[2018-11-11] MEDS: BETADINE 5% CREAM TP SCH ×6 (09:00→20:43)
[2018-11-11] MEDS: HYDROGEL DRESSING 90 GM TUBE TP SCH ×2 (09:00→20:43)
[2018-11-11] MEDS: NEOMY SULF/BACITRAC ZN/POLY 15 GM TUBE TP SCH ×2 (09:00→20:43)
[2018-11-11] MEDS: DAKINS HALF STRENGTH (0.25%) 480 ML BOTTLE TOP SCH ×2 (09:00→20:43)
[2018-11-11] MEDS: LACTULOSE 10 G/15 ML UDC (PYXIS) GT SCH ×2 (09:34→20:42)
[2018-11-11] MEDS: VIT B CMPLX 3/FA/VIT C/BIOTIN 1 TAB TABLET GT SCH (09:35)
[2018-11-11] MEDS: CARVEDILOL 3.125 MG TABLET GT SCH ×2 (09:35→20:42)
[2018-11-11] MEDS: LEVETIRACETAM SOL (5 ML) 100 MG/ML UDC GT SCH ×2 (09:35→20:42)
[2018-11-11] MEDS: ASCORBIC ACID 500 MG TABLET GT SCH (09:35)
[2018-11-11] MEDS: LACTOBACILLUS RHAMNOSUS GG 1 EACH CAP.SPRINK PO SCH ×2 (09:35→20:42)
[2018-11-11] MEDS: ZINC SULFATE 220 MG CAPSULE GT SCH (09:35)
[2018-11-11] MEDS ORDERED: FEE PK DOSING 1 MIN EA MC ONE (13:12)
--- NOTE | 2018-11-11 14:15 | NUR ---
Patient with eyes closed. Moist oral mucosa. Trach with cool aerosol as ordered. GT in place patent no residual. Tolerated GT formula well. HOB elevated. Aspiration precautions maintained. Right upper arm with AV fistula positive for bruith and thrill. Total care provided. Kept clean and comfortable. Patient went for Hemodialysis as ordered with two EMT's report given by nurse And RT. No acute distress noted.
[2018-11-11 19:40] VITALS: BP 131/60
[2018-11-11] MEDS: AMIKACIN 400 MG in IV D5W 100 ML IV PRN (20:00)
[2018-11-11] MEDS: HYDROGEN PEROXIDE 480 ML BOTTLE TP SCH (21:20)
[2018-11-11] MEDS: MONTELUKAST SODIUM (10MG) 10 MG TABLET GT SCH (21:20)
[2018-11-12] MEDS: ALBUTEROL FS 2.5 MG/0.5 ML VIAL.NEB NEB SCH ×4 (02:11→20:06)
[2018-11-12] MEDS: CHLORHEXIDINE GLUCONATE 15 ML UDC MM SCH ×3 (04:51→21:09)
[2018-11-12] MEDS: SUCRALFATE 1 G/10 ML UDC GT SCH ×3 (04:51→21:00)
[2018-11-12] MEDS: PROSOURCE / PROSTAT (PYXIS) 30 ML UDC GT SCH ×3 (04:51→21:09)
[2018-11-12] MEDS: INSULIN NPH, HUMAN ISOPHANE 100 UNIT/ML CARTRIDGE SQ SCH ×3 (05:08→21:10)
[2018-11-12] MEDS: BLOOD SUGAR DIAGNOSTIC 1 EACH STRIP IN SCH ×3 (05:08→17:24)
[2018-11-12] MEDS: FAMOTIDINE (20 MG) 20 MG TABLET GT SCH (05:08)
[2018-11-12] MEDS: *INSULIN REGULAR(HUMULIN R)HUM 100 UNIT/ML VIAL SQ PRN ×3 (05:09→17:26)
[2018-11-12] MEDS: NEPRO 1,000 ML BOTTLE GT PRN (06:42)
[2018-11-12 07:57] VITALS: BP 149/73
[2018-11-12] MEDS: ACETAMINOPHEN 650 MG/20 ML UDC- SA PATIENTS-PAIN ONLY GT SCH ×2 (08:00→20:59)
[2018-11-12] MEDS: BETADINE 5% CREAM TP SCH ×6 (09:00→21:10)
[2018-11-12] MEDS: ZINC OXIDE 30 GM TUBE TP SCH ×4 (09:00→21:11)
[2018-11-12] MEDS: NEOMY SULF/BACITRAC ZN/POLY 15 GM TUBE TP SCH ×2 (09:00→21:10)
[2018-11-12] MEDS: HYDROGEN PEROXIDE 480 ML BOTTLE TP SCH ×2 (09:00→21:10)
[2018-11-12] MEDS: BETADINE 5% TP SCH ×2 (09:00→21:10)
[2018-11-12] MEDS: LEVETIRACETAM SOL (5 ML) 100 MG/ML UDC GT SCH ×2 (09:06→21:09)
[2018-11-12] MEDS: ZINC SULFATE 220 MG CAPSULE GT SCH (09:06)
[2018-11-12] MEDS: CARVEDILOL 3.125 MG TABLET GT SCH ×2 (09:06→21:00)
[2018-11-12] MEDS: ASCORBIC ACID 500 MG TABLET GT SCH (09:06)
[2018-11-12] MEDS: VIT B CMPLX 3/FA/VIT C/BIOTIN 1 TAB TABLET GT SCH (09:06)
[2018-11-12] MEDS: LACTOBACILLUS RHAMNOSUS GG 1 EACH CAP.SPRINK PO SCH ×2 (09:06→21:09)
[2018-11-12] MEDS: LACTULOSE 10 G/15 ML UDC (PYXIS) GT SCH ×2 (09:06→21:00)
[2018-11-12] MEDS: BRIMONIDINE TARTRATE OPHT SOLN 5 ML BOTTLE EACHEYE SCH (09:56)
[2018-11-12] MEDS: HYDROGEL DRESSING 90 GM TUBE TP SCH ×2 (09:59→21:10)
[2018-11-12] MEDS: DAKINS HALF STRENGTH (0.25%) 480 ML BOTTLE TOP SCH ×2 (09:59→21:10)
[2018-11-12 20:06] VITALS: BP 138/70
[2018-11-12] MEDS: MONTELUKAST SODIUM (10MG) 10 MG TABLET GT SCH (21:11)
[2018-11-13] MEDS: BLOOD SUGAR DIAGNOSTIC 1 EACH STRIP IN SCH ×5 (00:09→23:33)
[2018-11-13] MEDS: *INSULIN REGULAR(HUMULIN R)HUM 100 UNIT/ML VIAL SQ PRN ×5 (00:10→23:34)
[2018-11-13] MEDS: ALBUTEROL FS 2.5 MG/0.5 ML VIAL.NEB NEB SCH ×4 (01:51→19:29)
[2018-11-13] MEDS: PROSOURCE / PROSTAT (PYXIS) 30 ML UDC GT SCH ×3 (05:00→20:41)
[2018-11-13] MEDS: INSULIN NPH, HUMAN ISOPHANE 100 UNIT/ML CARTRIDGE SQ SCH ×3 (05:00→21:48)
[2018-11-13] MEDS: SUCRALFATE 1 G/10 ML UDC GT SCH ×3 (05:00→20:37)
[2018-11-13] MEDS: CHLORHEXIDINE GLUCONATE 15 ML UDC MM SCH ×3 (05:00→20:41)
[2018-11-13] MEDS: FAMOTIDINE (20 MG) 20 MG TABLET GT SCH (06:14)
[2018-11-13 07:44] VITALS: BP 159/74
[2018-11-13] MEDS: HYDROGEN PEROXIDE 480 ML BOTTLE TP SCH ×2 (08:02→21:00)
[2018-11-13] MEDS: VIT B CMPLX 3/FA/VIT C/BIOTIN 1 TAB TABLET GT SCH (08:46)
[2018-11-13] MEDS: CARVEDILOL 3.125 MG TABLET GT SCH ×2 (08:46→20:41)
[2018-11-13] MEDS: ASCORBIC ACID 500 MG TABLET GT SCH (08:46)
[2018-11-13] MEDS: BRIMONIDINE TARTRATE OPHT SOLN 5 ML BOTTLE EACHEYE SCH (08:46)
[2018-11-13] MEDS: ACETAMINOPHEN 650 MG/20 ML UDC- SA PATIENTS-PAIN ONLY GT SCH ×2 (08:46→20:37)
[2018-11-13] MEDS: LACTULOSE 10 G/15 ML UDC (PYXIS) GT SCH ×2 (08:46→20:38)
[2018-11-13] MEDS: ZINC SULFATE 220 MG CAPSULE GT SCH (08:46)
[2018-11-13] MEDS: LEVETIRACETAM SOL (5 ML) 100 MG/ML UDC GT SCH ×2 (08:46→20:41)
[2018-11-13] MEDS: LACTOBACILLUS RHAMNOSUS GG 1 EACH CAP.SPRINK PO SCH ×2 (08:47→20:41)
[2018-11-13] MEDS: ZINC OXIDE 30 GM TUBE TP SCH ×4 (09:00→21:41)
[2018-11-13] MEDS: NEOMY SULF/BACITRAC ZN/POLY 15 GM TUBE TP SCH ×2 (09:00→21:41)
[2018-11-13] MEDS: BETADINE 5% TP SCH ×2 (09:00→21:41)
[2018-11-13] MEDS: DAKINS HALF STRENGTH (0.25%) 480 ML BOTTLE TOP SCH ×2 (09:00→21:40)
[2018-11-13] MEDS: HYDROGEL DRESSING 90 GM TUBE TP SCH ×2 (09:00→21:41)
[2018-11-13] MEDS: BETADINE 5% CREAM TP SCH ×4 (09:00→21:41)
--- NOTE | 2018-11-13 17:28 | NUR ---
Notified YOSELIN Obregon that pt has had 4 episodes of loose stools. She said she will see pt later today.
[2018-11-13 19:49] VITALS: BP 150/77
[2018-11-13] MEDS: MONTELUKAST SODIUM (10MG) 10 MG TABLET GT SCH (21:41)
[2018-11-14] MEDS: ALBUTEROL FS 2.5 MG/0.5 ML VIAL.NEB NEB SCH ×4 (01:36→19:13)
[2018-11-14] MEDS: PROSOURCE / PROSTAT (PYXIS) 30 ML UDC GT SCH ×3 (05:30→20:39)
[2018-11-14] MEDS: SUCRALFATE 1 G/10 ML UDC GT SCH ×3 (05:30→20:38)
[2018-11-14] MEDS: FAMOTIDINE (20 MG) 20 MG TABLET GT SCH (05:30)
[2018-11-14] MEDS: CHLORHEXIDINE GLUCONATE 15 ML UDC MM SCH ×3 (05:30→20:39)
[2018-11-14] MEDS: BLOOD SUGAR DIAGNOSTIC 1 EACH STRIP IN SCH ×4 (05:53→23:21)
[2018-11-14] MEDS: INSULIN NPH, HUMAN ISOPHANE 100 UNIT/ML CARTRIDGE SQ SCH ×3 (05:53→21:21)
[2018-11-14] MEDS: *INSULIN REGULAR(HUMULIN R)HUM 100 UNIT/ML VIAL SQ PRN ×3 (05:54→23:22)
[2018-11-14 08:02] VITALS: BP 159/64
[2018-11-14] MEDS: HYDROGEN PEROXIDE 480 ML BOTTLE TP SCH ×2 (09:00→20:22)
[2018-11-14] MEDS: ACETAMINOPHEN 650 MG/20 ML UDC- SA PATIENTS-PAIN ONLY GT SCH ×2 (09:26→20:38)
[2018-11-14] MEDS: LACTULOSE 10 G/15 ML UDC (PYXIS) GT SCH ×2 (09:26→20:38)
[2018-11-14] MEDS: BRIMONIDINE TARTRATE OPHT SOLN 5 ML BOTTLE EACHEYE SCH (09:26)
[2018-11-14] MEDS: LEVETIRACETAM SOL (5 ML) 100 MG/ML UDC GT SCH ×2 (09:27→20:39)
[2018-11-14] MEDS: ZINC SULFATE 220 MG CAPSULE GT SCH (09:27)
[2018-11-14] MEDS: ASCORBIC ACID 500 MG TABLET GT SCH (09:27)
[2018-11-14] MEDS: LACTOBACILLUS RHAMNOSUS GG 1 EACH CAP.SPRINK PO SCH ×2 (09:27→20:39)
[2018-11-14] MEDS: VIT B CMPLX 3/FA/VIT C/BIOTIN 1 TAB TABLET GT SCH (09:27)
[2018-11-14] MEDS: CARVEDILOL 3.125 MG TABLET GT SCH ×2 (09:27→20:39)
[2018-11-14] MEDS: BETADINE 5% TP SCH ×2 (10:00→21:22)
[2018-11-14] MEDS: NEOMY SULF/BACITRAC ZN/POLY 15 GM TUBE TP SCH ×2 (10:00→21:22)
[2018-11-14] MEDS: ZINC OXIDE 30 GM TUBE TP SCH ×4 (10:00→21:22)
[2018-11-14] MEDS: DAKINS HALF STRENGTH (0.25%) 480 ML BOTTLE TOP SCH ×2 (10:00→21:22)
[2018-11-14] MEDS: BETADINE 5% CREAM TP SCH ×4 (10:00→21:22)
[2018-11-14] MEDS: HYDROGEL DRESSING 90 GM TUBE TP SCH ×2 (10:00→21:22)
--- NOTE | 2018-11-14 16:21 | NUR ---
ROSALIE completed social media intern portion of 5-day MDS. 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 The patient is on a trach and Non-vent. The resident�s sister, Rabia Brantley [phone] is the responsible alliance party and is currently in the process of applying for Conservatorship. Rabia is involved and supportive as she visits the patient almost daily. The patient had her annual optometry appointment on 10/27/18 and had annual dental visit 11/03/[address] Giron.
[2018-11-14] MEDS: MONTELUKAST SODIUM (10MG) 10 MG TABLET GT SCH (21:22)
[2018-11-15] MEDS: ALBUTEROL FS 2.5 MG/0.5 ML VIAL.NEB NEB SCH ×4 (01:11→20:23)
--- NOTE | 2018-11-15 03:51 | NUR ---
PT RCVD TRACH'D ON COOL AEROSOL WITH CHARTED SETTINGS. PT AMY TX WELL. SX DONE. PT TRACH IS PATENT AND SECURE. AMBU BAG AT BEDSIDE. Addendum: 11/15/18 at 0351 by ERICK PIKE RT Amended: Links added.
[2018-11-15] MEDS: SUCRALFATE 1 G/10 ML UDC GT SCH ×3 (05:41→21:47)
[2018-11-15] MEDS: CHLORHEXIDINE GLUCONATE 15 ML UDC MM SCH ×3 (05:41→21:47)
[2018-11-15] MEDS: PROSOURCE / PROSTAT (PYXIS) 30 ML UDC GT SCH ×3 (05:41→21:47)
[2018-11-15] MEDS: FAMOTIDINE (20 MG) 20 MG TABLET GT SCH (05:41)
[2018-11-15] MEDS: INSULIN NPH, HUMAN ISOPHANE 100 UNIT/ML CARTRIDGE SQ SCH ×3 (05:49→21:48)
[2018-11-15] MEDS: BLOOD SUGAR DIAGNOSTIC 1 EACH STRIP IN SCH ×4 (05:49→23:57)
[2018-11-15] MEDS: *INSULIN REGULAR(HUMULIN R)HUM 100 UNIT/ML VIAL SQ PRN ×4 (05:50→23:59)
[2018-11-15 07:38] VITALS: BP 132/73
[2018-11-15] MEDS: ACETAMINOPHEN 650 MG/20 ML UDC- SA PATIENTS-PAIN ONLY GT SCH ×2 (08:00→20:00)
[2018-11-15] MEDS: HYDROGEN PEROXIDE 480 ML BOTTLE TP SCH ×2 (08:27→21:35)
[2018-11-15] MEDS: BETADINE 5% TP SCH ×2 (09:00→21:49)
[2018-11-15] MEDS: HYDROGEL DRESSING 90 GM TUBE TP SCH ×2 (09:00→21:48)
[2018-11-15] MEDS: DAKINS HALF STRENGTH (0.25%) 480 ML BOTTLE TOP SCH ×2 (09:00→21:48)
[2018-11-15] MEDS: BETADINE 5% CREAM TP SCH ×4 (09:00→21:49)
[2018-11-15] MEDS: NEOMY SULF/BACITRAC ZN/POLY 15 GM TUBE TP SCH ×2 (09:00→21:49)
[2018-11-15] MEDS: ZINC OXIDE 30 GM TUBE TP SCH ×4 (09:00→21:50)
[2018-11-15] MEDS: LEVETIRACETAM SOL (5 ML) 100 MG/ML UDC GT SCH ×2 (09:24→21:47)
[2018-11-15] MEDS: CARVEDILOL 3.125 MG TABLET GT SCH ×2 (09:24→21:47)
[2018-11-15] MEDS: BRIMONIDINE TARTRATE OPHT SOLN 5 ML BOTTLE EACHEYE SCH (09:24)
[2018-11-15] MEDS: ASCORBIC ACID 500 MG TABLET GT SCH (09:24)
[2018-11-15] MEDS: VIT B CMPLX 3/FA/VIT C/BIOTIN 1 TAB TABLET GT SCH (09:24)
[2018-11-15] MEDS: LACTULOSE 10 G/15 ML UDC (PYXIS) GT SCH ×2 (09:24→21:47)
[2018-11-15] MEDS: ZINC SULFATE 220 MG CAPSULE GT SCH (09:25)
[2018-11-15] MEDS: LACTOBACILLUS RHAMNOSUS GG 1 EACH CAP.SPRINK PO SCH ×2 (09:25→21:47)
[2018-11-15] MEDS: NEPRO 1,000 ML BOTTLE GT PRN (12:45)
--- NOTE | 2018-11-15 13:00 | NUR ---
RT: RECEIVED PT ON CA. SPARE TRACH AND AMBU BAG AT HEAD OF BED. TX GIVEN ORDERED. NO ADVERSE EFFECTS OBSERVED. SUCTIONED SMALL AMOUNTS OF THICK, PALE YELLOW SECRETIONS. TRACH CARE DONE. AIRWAY SECURED AND PATENT. NO SOB NOTED AT THIS TIME. WILL CONTINUE TO MONITOR PT FOR ANY CHANGE OF CONDITION.
--- NOTE | 2018-11-15 20:35 | NUR ---
PT RCVD TRACH'D ON COOL AEROSOL 28%, 5L. BREATHING TX GIVEN PER MED'S ORDERED. NO ADVERSE REACTION NOTED. SX DONE. PT TRACH IS PATENT AND SECURE. AMBU BAG AT BEDSIDE.
[2018-11-15 20:48] VITALS: BP 114/67
[2018-11-15] MEDS: MONTELUKAST SODIUM (10MG) 10 MG TABLET GT SCH (21:50)
[2018-11-16] MEDS: ALBUTEROL FS 2.5 MG/0.5 ML VIAL.NEB NEB SCH ×4 (02:08→20:10)
[2018-11-16] MEDS: PROSOURCE / PROSTAT (PYXIS) 30 ML UDC GT SCH ×3 (05:50→21:07)
[2018-11-16] MEDS: SUCRALFATE 1 G/10 ML UDC GT SCH ×3 (05:50→21:07)
[2018-11-16] MEDS: CHLORHEXIDINE GLUCONATE 15 ML UDC MM SCH ×3 (05:50→21:07)
[2018-11-16] MEDS: BLOOD SUGAR DIAGNOSTIC 1 EACH STRIP IN SCH ×3 (05:51→18:00)
[2018-11-16] MEDS: FAMOTIDINE (20 MG) 20 MG TABLET GT SCH (05:51)
[2018-11-16] MEDS: INSULIN NPH, HUMAN ISOPHANE 100 UNIT/ML CARTRIDGE SQ SCH ×3 (05:51→21:08)
[2018-11-16] MEDS: *INSULIN REGULAR(HUMULIN R)HUM 100 UNIT/ML VIAL SQ PRN ×3 (05:52→19:25)
[2018-11-16 07:34] VITALS: BP 147/65
[2018-11-16] MEDS: ACETAMINOPHEN 650 MG/20 ML UDC- SA PATIENTS-PAIN ONLY GT SCH ×2 (08:00→20:00)
[2018-11-16] MEDS: HYDROGEN PEROXIDE 480 ML BOTTLE TP SCH ×2 (08:33→21:07)
[2018-11-16] MEDS: BETADINE 5% TP SCH ×2 (09:00→21:09)
[2018-11-16] MEDS: NEOMY SULF/BACITRAC ZN/POLY 15 GM TUBE TP SCH ×2 (09:00→21:09)
[2018-11-16] MEDS: BETADINE 5% CREAM TP SCH ×4 (09:00→21:09)
[2018-11-16] MEDS: ZINC OXIDE 30 GM TUBE TP SCH ×4 (09:00→21:09)
[2018-11-16] MEDS: HYDROGEL DRESSING 90 GM TUBE TP SCH ×2 (09:00→21:09)
[2018-11-16] MEDS: DAKINS HALF STRENGTH (0.25%) 480 ML BOTTLE TOP SCH ×2 (09:00→21:09)
[2018-11-16] MEDS: ASCORBIC ACID 500 MG TABLET GT SCH (09:34)
[2018-11-16] MEDS: BRIMONIDINE TARTRATE OPHT SOLN 5 ML BOTTLE EACHEYE SCH (09:34)
[2018-11-16] MEDS: LACTOBACILLUS RHAMNOSUS GG 1 EACH CAP.SPRINK PO SCH ×2 (09:34→21:07)
[2018-11-16] MEDS: ZINC SULFATE 220 MG CAPSULE GT SCH (09:34)
[2018-11-16] MEDS: LACTULOSE 10 G/15 ML UDC (PYXIS) GT SCH ×2 (09:34→21:07)
[2018-11-16] MEDS: VIT B CMPLX 3/FA/VIT C/BIOTIN 1 TAB TABLET GT SCH (09:34)
[2018-11-16] MEDS: LEVETIRACETAM SOL (5 ML) 100 MG/ML UDC GT SCH ×2 (09:34→21:07)
[2018-11-16] MEDS: CARVEDILOL 3.125 MG TABLET GT SCH ×2 (09:34→21:07)
--- NOTE | 2018-11-16 11:04 | NUR ---
RT: RECEIVED PT ON CA. SPARE TRACH AND AMBU BAG AT HEAD OF BED. TX GIVEN ORDERED. NO ADVERSE REACTIONS OBSERVED. SUCTIONED SMALL AMOUNTS OF THICK, PALE YELLOW SECRETIONS. TRACH CARE DONE. TRACH SECURED AND PATENT. NO SIGNS OF DISTRESS NOTED AT THIS TIME. WILL CONTINUE TO MONITOR PT FOR ANY CHANGE OF CONDITION.
--- NOTE | 2018-11-16 12:34 | NUR ---
Clarified fluid restriction with [facility] river Keesha. She said the 1000 mL fluid restriction is only for free water. Informed her that pt gets 880 mL of GT feeding per day. She said the 880 mL feeding is actually 640 mL free water so pt can still get 360 mL free water per day. Pt's liquid medications and Prostat not included in fluid restriction.
--- NOTE | 2018-11-16 13:32 | NUR ---
Per Charge Nurse, Graciela's request, ROSALIE to set up transportation services for additional Dialysis to be done Fridays chair time: 5:15pm-7:15pm. ROSALIE called [facility] [[address] [place] [address]; [phone]] and spoke with Barak to have additional roundtrip transportation from [facility] to Renal hop picker at 4:45pm for chair time: 5:15pm-7:15pm. Barak expressed understanding and was agreeable to plan. ROSALIE contacted call the car [phone] and spoke with Anjel and he was agreeable to plan. Anjel to contact [facility] to confirm transportation details. Reference #[id number]. ROSALIE notified patient�s responsible green party/sister, Rabia [phone]. Rabia expressed understanding and was agreeable to plan.
--- NOTE | 2018-11-16 15:47 | NUR ---
Family Invite to November IDT meeting: SW contacted patient�s responsible green party/sister, Rabia [phone] to invite them to the next IDT meeting where the patient�s plan of care is to be reviewed. Patient�s family was agreeable to plan and Rabia stated she will be in attendance.
[2018-11-16 20:12] VITALS: BP 143/89
[2018-11-16] MEDS: AMIKACIN 400 MG in IV D5W 100 ML IV PRN (20:19)
[2018-11-16] MEDS: MONTELUKAST SODIUM (10MG) 10 MG TABLET GT SCH (21:09)
--- NOTE | 2018-11-16 22:05 | NUR ---
RT NOTE PATIENT RECEIVED TRACHED ON COOL AEROSOL @ 28%. AMBU BAG/BACK UP TRACH @ BEDSIDE. TX GIVEN, NO ADVERSE REACTIONS NOTED. SX DONE, TRACH SECURED AND PATENT. WATER LEVEL GOOD. CONT. POX CONNECTED. WILL CONTINUE TO MONITOR T/O SHIFT. Addendum: 11/16/18 at 2205 by LUZMA TURNER RT Amended: Links added.
[2018-11-17] MEDS: *INSULIN REGULAR(HUMULIN R)HUM 100 UNIT/ML VIAL SQ PRN ×4 (01:06→23:48)
[2018-11-17] MEDS: NEPRO 1,000 ML BOTTLE GT PRN ×2 (01:11→06:57)
[2018-11-17] MEDS: ALBUTEROL FS 2.5 MG/0.5 ML VIAL.NEB NEB SCH ×4 (01:22→19:30)
[2018-11-17] MEDS: SUCRALFATE 1 G/10 ML UDC GT SCH ×3 (05:25→21:01)
[2018-11-17] MEDS: FAMOTIDINE (20 MG) 20 MG TABLET GT SCH (05:25)
[2018-11-17] MEDS: PROSOURCE / PROSTAT (PYXIS) 30 ML UDC GT SCH ×3 (05:25→21:04)
[2018-11-17] MEDS: CHLORHEXIDINE GLUCONATE 15 ML UDC MM SCH ×3 (05:25→21:04)
[2018-11-17] MEDS: INSULIN NPH, HUMAN ISOPHANE 100 UNIT/ML CARTRIDGE SQ SCH ×3 (05:47→21:05)
[2018-11-17] MEDS: BLOOD SUGAR DIAGNOSTIC 1 EACH STRIP IN SCH ×5 (05:47→23:46)
[2018-11-17 07:31] VITALS: BP 126/65
[2018-11-17] MEDS: ACETAMINOPHEN 650 MG/20 ML UDC- SA PATIENTS-PAIN ONLY GT SCH ×2 (08:00→21:00)
[2018-11-17] MEDS: HYDROGEN PEROXIDE 480 ML BOTTLE TP SCH ×2 (08:32→21:55)
[2018-11-17] MEDS: BETADINE 5% TP SCH ×2 (09:00→21:55)
[2018-11-17] MEDS: NEOMY SULF/BACITRAC ZN/POLY 15 GM TUBE TP SCH ×2 (09:00→21:55)
[2018-11-17] MEDS: HYDROGEL DRESSING 90 GM TUBE TP SCH ×2 (09:00→21:55)
[2018-11-17] MEDS: DAKINS HALF STRENGTH (0.25%) 480 ML BOTTLE TOP SCH ×2 (09:00→21:55)
[2018-11-17] MEDS: ZINC OXIDE 30 GM TUBE TP SCH ×4 (09:00→21:55)
[2018-11-17] MEDS: BETADINE 5% CREAM TP SCH ×4 (09:00→21:55)
[2018-11-17] MEDS: LEVETIRACETAM SOL (5 ML) 100 MG/ML UDC GT SCH ×2 (09:23→21:04)
[2018-11-17] MEDS: VIT B CMPLX 3/FA/VIT C/BIOTIN 1 TAB TABLET GT SCH (09:23)
[2018-11-17] MEDS: ASCORBIC ACID 500 MG TABLET GT SCH (09:23)
[2018-11-17] MEDS: LACTULOSE 10 G/15 ML UDC (PYXIS) GT SCH ×2 (09:23→21:01)
[2018-11-17] MEDS: ZINC SULFATE 220 MG CAPSULE GT SCH (09:23)
[2018-11-17] MEDS: CARVEDILOL 3.125 MG TABLET GT SCH ×2 (09:23→21:04)
[2018-11-17] MEDS: BRIMONIDINE TARTRATE OPHT SOLN 5 ML BOTTLE EACHEYE SCH (09:23)
[2018-11-17] MEDS: LACTOBACILLUS RHAMNOSUS GG 1 EACH CAP.SPRINK PO SCH ×2 (09:24→21:04)
--- NOTE | 2018-11-17 13:00 | NUR ---
Seen and examined by Dr. Wright, no new order given.
--- NOTE | 2018-11-17 17:00 | NUR ---
Resident was picked up by ambulance took to [facility] for 2 hours extra dialysis treatment every Tuesday. Awake, VS WNL. Trach secured and midline. GT intact and patent. Dialysis site on VARUN intact, no bleeding noted.
[2018-11-17] MEDS: NEUTRA PHOS 1 POWD.PACKET GT SCH (17:42)
[2018-11-17 20:33] VITALS: BP 134/75
[2018-11-17] MEDS: MONTELUKAST SODIUM (10MG) 10 MG TABLET GT SCH (21:05)
[2018-11-18] MEDS: ALBUTEROL FS 2.5 MG/0.5 ML VIAL.NEB NEB SCH ×4 (01:41→19:30)
--- NOTE | 2018-11-18 04:54 | NUR ---
RT PATIENT WAS RECEIVED ON 28% COOL AEROSOL. HHN INLINE TREATMENT WAS GIVEN,NO ADVERSE REACTION NOTED.PATIENT STABLE THROUGHOUT THE SHIFT. AIRWAY PATENT AND SECURED, WILL CONTINUE TO MONITOR. Addendum: 11/18/18 at 0455 by DALTON SINGLETARY RT Amended: Links added.
[2018-11-18] MEDS: SUCRALFATE 1 G/10 ML UDC GT SCH ×3 (05:22→21:24)
[2018-11-18] MEDS: PROSOURCE / PROSTAT (PYXIS) 30 ML UDC GT SCH ×3 (05:22→21:24)
[2018-11-18] MEDS: CHLORHEXIDINE GLUCONATE 15 ML UDC MM SCH ×3 (05:22→21:24)
[2018-11-18] MEDS: INSULIN NPH, HUMAN ISOPHANE 100 UNIT/ML CARTRIDGE SQ SCH ×3 (05:23→21:25)
[2018-11-18] MEDS: BLOOD SUGAR DIAGNOSTIC 1 EACH STRIP IN SCH ×4 (05:24→23:54)
[2018-11-18] MEDS: FAMOTIDINE (20 MG) 20 MG TABLET GT SCH (05:24)
[2018-11-18] MEDS: *INSULIN REGULAR(HUMULIN R)HUM 100 UNIT/ML VIAL SQ PRN ×4 (05:26→23:56)
[2018-11-18] MEDS: NEPRO 1,000 ML BOTTLE GT PRN (06:30)
[2018-11-18 07:39] VITALS: BP 135/58
[2018-11-18] MEDS: ACETAMINOPHEN 650 MG/20 ML UDC- SA PATIENTS-PAIN ONLY GT SCH ×2 (08:00→20:00)
[2018-11-18] MEDS: ZINC OXIDE 30 GM TUBE TP SCH ×4 (09:00→21:26)
[2018-11-18] MEDS: BETADINE 5% CREAM TP SCH ×4 (09:00→21:25)
[2018-11-18] MEDS: HYDROGEN PEROXIDE 480 ML BOTTLE TP SCH ×2 (09:00→21:25)
[2018-11-18] MEDS: BETADINE 5% TP SCH ×2 (09:00→21:25)
[2018-11-18] MEDS: NEOMY SULF/BACITRAC ZN/POLY 15 GM TUBE TP SCH ×2 (09:00→21:25)
[2018-11-18] MEDS: HYDROGEL DRESSING 90 GM TUBE TP SCH ×2 (09:00→21:25)
[2018-11-18] MEDS: DAKINS HALF STRENGTH (0.25%) 480 ML BOTTLE TOP SCH ×2 (09:00→21:25)
[2018-11-18] MEDS: BRIMONIDINE TARTRATE OPHT SOLN 5 ML BOTTLE EACHEYE SCH (09:32)
[2018-11-18] MEDS: LACTULOSE 10 G/15 ML UDC (PYXIS) GT SCH ×2 (09:32→21:24)
[2018-11-18] MEDS: NEUTRA PHOS 1 POWD.PACKET GT SCH ×2 (09:42→19:00)
[2018-11-18] MEDS: ZINC SULFATE 220 MG CAPSULE GT SCH (09:42)
[2018-11-18] MEDS: ASCORBIC ACID 500 MG TABLET GT SCH (09:42)
[2018-11-18] MEDS: LEVETIRACETAM SOL (5 ML) 100 MG/ML UDC GT SCH ×2 (09:42→21:24)
[2018-11-18] MEDS: LACTOBACILLUS RHAMNOSUS GG 1 EACH CAP.SPRINK PO SCH ×2 (09:42→21:24)
[2018-11-18] MEDS: VIT B CMPLX 3/FA/VIT C/BIOTIN 1 TAB TABLET GT SCH (09:42)
[2018-11-18] MEDS: CARVEDILOL 3.125 MG TABLET GT SCH ×2 (11:15→21:24)
[2018-11-18 20:20] VITALS: BP 112/52
--- NOTE | 2018-11-18 20:51 | NUR ---
RT note PT received trached on Cool Aerosol FIO2 28%. No signs of resp distress/SOB noted. PT suctioned. HHN TX given. No adverse reactions noted. Ambubag and back up trach at head of bed. Will cont to monitor. Addendum: 11/19/18 at 0613 by JUNIE FUENTES RT Amended: Links added.
[2018-11-18] MEDS: MONTELUKAST SODIUM (10MG) 10 MG TABLET GT SCH (21:26)
[2018-11-19] MEDS: ALBUTEROL FS 2.5 MG/0.5 ML VIAL.NEB NEB SCH ×4 (02:10→19:37)
[2018-11-19] MEDS: SUCRALFATE 1 G/10 ML UDC GT SCH ×3 (04:28→20:52)
[2018-11-19] MEDS: NEPRO 1,000 ML BOTTLE GT PRN (04:28)
[2018-11-19] MEDS: CHLORHEXIDINE GLUCONATE 15 ML UDC MM SCH ×3 (04:28→20:54)
[2018-11-19] MEDS: PROSOURCE / PROSTAT (PYXIS) 30 ML UDC GT SCH ×3 (04:28→20:54)
[2018-11-19] MEDS: POLYVINYL ALCOHOL/POVIDONE 0.4 ML DROPERETTE EACHEYE PRN (05:11)
[2018-11-19] MEDS: INSULIN NPH, HUMAN ISOPHANE 100 UNIT/ML CARTRIDGE SQ SCH ×3 (05:11→21:22)
[2018-11-19] MEDS: BLOOD SUGAR DIAGNOSTIC 1 EACH STRIP IN SCH ×3 (05:11→17:25)
[2018-11-19] MEDS: FAMOTIDINE (20 MG) 20 MG TABLET GT SCH (05:11)
[2018-11-19] MEDS: *INSULIN REGULAR(HUMULIN R)HUM 100 UNIT/ML VIAL SQ PRN ×3 (05:12→17:26)
[2018-11-19 07:39] VITALS: BP 104/55
[2018-11-19] MEDS: ACETAMINOPHEN 650 MG/20 ML UDC- SA PATIENTS-PAIN ONLY GT SCH ×2 (08:00→20:49)
[2018-11-19] MEDS: HYDROGEN PEROXIDE 480 ML BOTTLE TP SCH ×2 (08:31→21:00)
[2018-11-19] MEDS: HYDROGEL DRESSING 90 GM TUBE TP SCH ×2 (09:00→20:56)
[2018-11-19] MEDS: ZINC OXIDE 30 GM TUBE TP SCH ×4 (09:00→20:57)
[2018-11-19] MEDS: DAKINS HALF STRENGTH (0.25%) 480 ML BOTTLE TOP SCH ×2 (09:00→20:56)
[2018-11-19] MEDS: NEOMY SULF/BACITRAC ZN/POLY 15 GM TUBE TP SCH ×2 (09:00→20:57)
[2018-11-19] MEDS: BETADINE 5% CREAM TP SCH ×4 (09:00→20:56)
[2018-11-19] MEDS: BETADINE 5% TP SCH ×2 (09:00→20:56)
[2018-11-19] MEDS: CARVEDILOL 3.125 MG TABLET GT SCH ×2 (09:00→20:53)
[2018-11-19] MEDS: BRIMONIDINE TARTRATE OPHT SOLN 5 ML BOTTLE EACHEYE SCH (09:15)
[2018-11-19] MEDS: LACTULOSE 10 G/15 ML UDC (PYXIS) GT SCH ×2 (09:35→20:54)
[2018-11-19] MEDS: LEVETIRACETAM SOL (5 ML) 100 MG/ML UDC GT SCH ×2 (09:36→20:52)
[2018-11-19] MEDS: LACTOBACILLUS RHAMNOSUS GG 1 EACH CAP.SPRINK PO SCH ×2 (09:37→20:55)
[2018-11-19] MEDS: VIT B CMPLX 3/FA/VIT C/BIOTIN 1 TAB TABLET GT SCH (09:37)
[2018-11-19] MEDS: NEUTRA PHOS 1 POWD.PACKET GT SCH ×2 (09:37→16:54)
[2018-11-19] MEDS: ZINC SULFATE 220 MG CAPSULE GT SCH (09:37)
[2018-11-19] MEDS: ASCORBIC ACID 500 MG TABLET GT SCH (09:37)
--- NOTE | 2018-11-19 16:00 | NUR ---
Seen and examined by Dr. Kern, reviewed blood sugar results in the few days. MD made aware that patient is receiving extra dialysis on Fridays . Reported that patient stool is watery which compromises the sacral wound. New order given to send stool for C. diff, Dc Lactulose, check ammonia level and insert rectal tube. Resident's sister Rabia informed of all of the above orders. Order carried out.
[2018-11-19] MEDS: ACETAMINOPHEN 650 MG/20 ML UDC- SA PATIENTS-FEVER ONLY GT PRN (17:15)
[2018-11-19 20:38] VITALS: BP 136/76
[2018-11-19] MEDS: MONTELUKAST SODIUM (10MG) 10 MG TABLET GT SCH (21:07)
[2018-11-20] MEDS: *INSULIN REGULAR(HUMULIN R)HUM 100 UNIT/ML VIAL SQ PRN ×5 (01:02→23:47)
[2018-11-20] MEDS: ALBUTEROL FS 2.5 MG/0.5 ML VIAL.NEB NEB SCH ×4 (02:24→19:40)
[2018-11-20] MEDS: SUCRALFATE 1 G/10 ML UDC GT SCH ×3 (05:46→21:20)
[2018-11-20] MEDS: FAMOTIDINE (20 MG) 20 MG TABLET GT SCH (05:46)
[2018-11-20] MEDS: CHLORHEXIDINE GLUCONATE 15 ML UDC MM SCH ×3 (05:47→21:21)
[2018-11-20] MEDS: PROSOURCE / PROSTAT (PYXIS) 30 ML UDC GT SCH ×3 (05:47→21:21)
[2018-11-20] MEDS: BLOOD SUGAR DIAGNOSTIC 1 EACH STRIP IN SCH ×5 (05:49→23:46)
[2018-11-20] MEDS: INSULIN NPH, HUMAN ISOPHANE 100 UNIT/ML CARTRIDGE SQ SCH ×3 (05:49→21:21)
[2018-11-20] MEDS: ACETAMINOPHEN 650 MG/20 ML UDC- SA PATIENTS-FEVER ONLY GT PRN (06:35)
[2018-11-20] MEDS: CARVEDILOL 3.125 MG TABLET GT SCH ×2 (08:51→21:21)
[2018-11-20] MEDS: NEUTRA PHOS 1 POWD.PACKET GT SCH ×2 (08:51→17:00)
[2018-11-20] MEDS: LEVETIRACETAM SOL (5 ML) 100 MG/ML UDC GT SCH ×2 (08:51→21:21)
[2018-11-20] MEDS: ASCORBIC ACID 500 MG TABLET GT SCH (08:51)
[2018-11-20] MEDS: VIT B CMPLX 3/FA/VIT C/BIOTIN 1 TAB TABLET GT SCH (08:51)
[2018-11-20] MEDS: ZINC SULFATE 220 MG CAPSULE GT SCH (08:51)
[2018-11-20] MEDS: LACTOBACILLUS RHAMNOSUS GG 1 EACH CAP.SPRINK PO SCH ×2 (08:51→21:21)
[2018-11-20 08:56] VITALS: BP 100/53
[2018-11-20] MEDS: BRIMONIDINE TARTRATE OPHT SOLN 5 ML BOTTLE EACHEYE SCH (09:00)
[2018-11-20] MEDS: LACTULOSE 10 G/15 ML UDC (PYXIS) GT SCH (09:00)
[2018-11-20] MEDS: HYDROGEN PEROXIDE 480 ML BOTTLE TP SCH ×2 (09:00→21:09)
[2018-11-20] MEDS: ACETAMINOPHEN 650 MG/20 ML UDC- SA PATIENTS-PAIN ONLY GT SCH ×2 (10:00→20:00)
[2018-11-20] MEDS: DAKINS HALF STRENGTH (0.25%) 480 ML BOTTLE TOP SCH ×2 (11:00→21:22)
[2018-11-20] MEDS: BETADINE 5% CREAM TP SCH ×4 (11:00→21:22)
[2018-11-20] MEDS: NEOMY SULF/BACITRAC ZN/POLY 15 GM TUBE TP SCH ×3 (11:00→21:22)
[2018-11-20] MEDS: HYDROGEL DRESSING 90 GM TUBE TP SCH ×2 (11:00→21:22)
[2018-11-20] MEDS: BETADINE 5% TP SCH ×2 (11:00→21:22)
[2018-11-20] MEDS: ZINC OXIDE 30 GM TUBE TP SCH ×4 (11:00→21:22)
--- NOTE | 2018-11-20 12:00 | NUR ---
Dr. Kern informed that resident had elevated temp. 102F at 0630. Cooling measures done, PRN Tylenol given. No signs and sympton of resp distress, appears comfortable. BP- 119/57, HR-83., RR-16. Latest temp. 98F. No new order given. Will continue to monitor.
[2018-11-20] MEDS: NEPRO 1,000 ML BOTTLE GT PRN (12:30)
--- NOTE | 2018-11-20 13:09 | NUR ---
Per RD recommendation GT feeding rate increased to 65ml/hr x [address] Kern informed. Rabia Brantley (sister) informed.
[2018-11-20 20:34] VITALS: BP 135/62
[2018-11-20] MEDS: MONTELUKAST SODIUM (10MG) 10 MG TABLET GT SCH (21:22)
[2018-11-21] MEDS: ALBUTEROL FS 2.5 MG/0.5 ML VIAL.NEB NEB SCH ×4 (00:51→19:12)
[2018-11-21] MEDS: CHLORHEXIDINE GLUCONATE 15 ML UDC MM SCH ×3 (05:11→20:39)
[2018-11-21] MEDS: INSULIN NPH, HUMAN ISOPHANE 100 UNIT/ML CARTRIDGE SQ SCH ×3 (05:11→21:10)
[2018-11-21] MEDS: SUCRALFATE 1 G/10 ML UDC GT SCH ×3 (05:11→20:38)
[2018-11-21] MEDS: PROSOURCE / PROSTAT (PYXIS) 30 ML UDC GT SCH ×3 (05:11→20:39)
[2018-11-21] MEDS: *INSULIN REGULAR(HUMULIN R)HUM 100 UNIT/ML VIAL SQ PRN ×2 (05:12→12:30)
[2018-11-21] MEDS: FAMOTIDINE (20 MG) 20 MG TABLET GT SCH (05:12)
[2018-11-21] MEDS: BLOOD SUGAR DIAGNOSTIC 1 EACH STRIP IN SCH ×3 (05:12→18:00)
[2018-11-21 07:48] VITALS: BP 111/63
--- NOTE | 2018-11-21 08:17 | NUR ---
RT Pt received trached on cool aerosol, tolerating well. HHN tx given with no adverse reactions. No SOB or respiratory distress noted. Addendum: 11/21/18 at 0946 by VARGHESE LEE RT Amended: Links added.
[2018-11-21] MEDS: HYDROGEN PEROXIDE 480 ML BOTTLE TP SCH ×2 (09:00→21:00)
[2018-11-21] MEDS: LACTULOSE 10 G/15 ML UDC (PYXIS) GT SCH (09:00)
[2018-11-21] MEDS: CARVEDILOL 3.125 MG TABLET GT SCH ×2 (09:00→20:37)
[2018-11-21] MEDS: ACETAMINOPHEN 650 MG/20 ML UDC- SA PATIENTS-PAIN ONLY GT SCH ×2 (09:38→20:36)
[2018-11-21] MEDS: LACTOBACILLUS RHAMNOSUS GG 1 EACH CAP.SPRINK PO SCH ×2 (09:40→20:40)
[2018-11-21] MEDS: LEVETIRACETAM SOL (5 ML) 100 MG/ML UDC GT SCH ×2 (09:40→20:38)
[2018-11-21] MEDS: NEUTRA PHOS 1 POWD.PACKET GT SCH ×2 (09:40→17:00)
[2018-11-21] MEDS: VIT B CMPLX 3/FA/VIT C/BIOTIN 1 TAB TABLET GT SCH (09:40)
[2018-11-21] MEDS: ASCORBIC ACID 500 MG TABLET GT SCH (09:40)
[2018-11-21] MEDS: ZINC SULFATE 220 MG CAPSULE GT SCH (09:40)
[2018-11-21] MEDS: BRIMONIDINE TARTRATE OPHT SOLN 5 ML BOTTLE EACHEYE SCH (09:41)
[2018-11-21] MEDS: ZINC OXIDE 30 GM TUBE TP SCH ×4 (10:15→20:41)
[2018-11-21] MEDS: NEOMY SULF/BACITRAC ZN/POLY 15 GM TUBE TP SCH ×4 (10:15→20:41)
[2018-11-21] MEDS: DAKINS HALF STRENGTH (0.25%) 480 ML BOTTLE TOP SCH ×2 (10:15→20:40)
[2018-11-21] MEDS: BETADINE 5% TP SCH ×2 (10:15→20:41)
[2018-11-21] MEDS: BETADINE 5% CREAM TP SCH ×4 (10:15→20:41)
[2018-11-21] MEDS: HYDROGEL DRESSING 90 GM TUBE TP SCH ×2 (10:15→20:40)
--- NOTE | 2018-11-21 12:28 | NUR ---
RT Monthly trach change done with new BIScienceley 7 xlt cuffed trach. Trach change done with no complications. There was minimal bleeding and no redness. Equal bilateral breathe sounds and chest rise noted. Airway is clear and patent. Suction small thick secretions. No SOB or respiratory distress noted. Addendum: 11/21/18 at 1438 by VARGHESE LEE RT Amended: Links added.
--- NOTE | 2018-11-21 14:30 | NUR ---
Resident picked up by [facility] transportation via [place] for hemodialysis treatment, accompanied by 2 EMT's and 1 RT. VARUN AV fistula intact, no bleeding noted. Positive for thrill and bruitt. Resident left the building in stable condition. No respiratory distress noted.
--- NOTE | 2018-11-21 14:53 | NUR ---
ROSALIE completed geriatric social worker portion of 30-day MDS. The patient is non-communicative and legally blind. The patient is Full Code on trach and Non-vent. The resident�s sister, Rabia Brantley [phone] is the responsible republican and is involved and supportive as she visits the patient almost daily. The patient had her annual optometry appointment on 10/27/18 and had annual dental visit 11/03/[address] Giron.
[2018-11-21 19:56] VITALS: BP 103/53
[2018-11-21] MEDS: MONTELUKAST SODIUM (10MG) 10 MG TABLET GT SCH (21:58)
[2018-11-22] MEDS: BLOOD SUGAR DIAGNOSTIC 1 EACH STRIP IN SCH ×5 (00:58→23:43)
[2018-11-22] MEDS: *INSULIN REGULAR(HUMULIN R)HUM 100 UNIT/ML VIAL SQ PRN ×4 (00:59→23:49)
[2018-11-22] MEDS: ALBUTEROL FS 2.5 MG/0.5 ML VIAL.NEB NEB SCH ×4 (01:11→20:34)
[2018-11-22] MEDS: SUCRALFATE 1 G/10 ML UDC GT SCH ×3 (05:32→20:43)
[2018-11-22] MEDS: PROSOURCE / PROSTAT (PYXIS) 30 ML UDC GT SCH ×3 (05:32→20:48)
[2018-11-22] MEDS: CHLORHEXIDINE GLUCONATE 15 ML UDC MM SCH ×3 (05:32→20:48)
[2018-11-22] MEDS: FAMOTIDINE (20 MG) 20 MG TABLET GT SCH (05:32)
[2018-11-22] MEDS: INSULIN NPH, HUMAN ISOPHANE 100 UNIT/ML CARTRIDGE SQ SCH ×3 (05:34→21:19)
[2018-11-22 07:54] VITALS: BP 107/55
[2018-11-22] MEDS: HYDROGEN PEROXIDE 480 ML BOTTLE TP SCH ×2 (08:29→20:50)
[2018-11-22] MEDS: BRIMONIDINE TARTRATE OPHT SOLN 5 ML BOTTLE EACHEYE SCH (08:54)
[2018-11-22] MEDS: ACETAMINOPHEN 650 MG/20 ML UDC- SA PATIENTS-PAIN ONLY GT SCH ×2 (08:54→19:43)
[2018-11-22] MEDS: LEVETIRACETAM SOL (5 ML) 100 MG/ML UDC GT SCH ×2 (08:55→20:47)
[2018-11-22] MEDS: CARVEDILOL 3.125 MG TABLET GT SCH ×2 (08:55→20:45)
[2018-11-22] MEDS: VIT B CMPLX 3/FA/VIT C/BIOTIN 1 TAB TABLET GT SCH (08:55)
[2018-11-22] MEDS: NEUTRA PHOS 1 POWD.PACKET GT SCH ×2 (08:57→17:30)
[2018-11-22] MEDS: LACTOBACILLUS RHAMNOSUS GG 1 EACH CAP.SPRINK PO SCH ×2 (08:57→20:49)
[2018-11-22] MEDS: ASCORBIC ACID 500 MG TABLET GT SCH (08:57)
[2018-11-22] MEDS: ZINC SULFATE 220 MG CAPSULE GT SCH (08:57)
[2018-11-22] MEDS: BETADINE 5% TP SCH ×2 (09:54→20:50)
[2018-11-22] MEDS: HYDROGEL DRESSING 90 GM TUBE TP SCH ×2 (09:54→20:49)
[2018-11-22] MEDS: BETADINE 5% CREAM TP SCH ×4 (09:54→20:49)
[2018-11-22] MEDS: ZINC OXIDE 30 GM TUBE TP SCH ×4 (09:54→20:51)
[2018-11-22] MEDS: NEOMY SULF/BACITRAC ZN/POLY 15 GM TUBE TP SCH ×4 (09:54→20:51)
[2018-11-22] MEDS: DAKINS HALF STRENGTH (0.25%) 480 ML BOTTLE TOP SCH ×2 (09:54→20:49)
[2018-11-22] MEDS: NEPRO 1,000 ML BOTTLE GT PRN (13:15)
--- NOTE | 2018-11-22 15:50 | NUR ---
Nurse assigned to resident called this nurse that AV shunt is gushing with blood. Pressure applied to the site and reinforced with pressure dressing. V/S 112/49, 87, 98.4, [address] Kern notified and said to let nephrology team know. Placed a call to Dr. Solis's office, spoke with Barbara who said that Dr. Corrigan will call, awaiting for MD to call back.
--- NOTE | 2018-11-22 15:59 | NUR ---
Spoke with Dr. Corrigan, and made aware that AV shunt in the R upper arm was gushing blood and pressure dressing applied at this time. He said that he will call in house dialysis nurse to take a look at at it. Continue to observe the area.
--- NOTE | 2018-11-22 16:20 | NUR ---
Nkechi from [facility] nephrology came to assess AV shunt, no further bleeding at this time. She removed old dressing and reapplied a new pressure dressing. Will continue to observe the site.
--- NOTE | 2018-11-22 17:30 | NUR ---
Resident's sister Esther came to visit patient. Informed Esther that AV shunt bled today, pressure dressing applied and dialysis nurse from [facility] nephrology reassess the site per Dr. Corrigan's request. No further bleeding, dialysis nurse re dress the site.
[2018-11-22 19:48] VITALS: BP 141/77
--- NOTE | 2018-11-22 20:00 | NUR ---
SUBACUTE/RN NOTES RECEIVED RESIDENT IN BED, HOB ELEVATED, SIDE RAILS UP FOR SAFETY, ON GTUBE WITH ZERO RESIDUALS, WITH RECTAL TUBING PLACED. , BED BOUND REQUIRE EXTENSIVE ASSISTANCE IN TURNING, REPOSITION AND CARE, RIGHT UPPER ARM DIALYSIS SHUNT WITH DRESSING, NO BLEEDING , DRESSING DRY AND INTACT. MONITORED FOR ANY CHANGES.
[2018-11-22] MEDS: MONTELUKAST SODIUM (10MG) 10 MG TABLET GT SCH (21:05)
[2018-11-23] MEDS: ALBUTEROL FS 2.5 MG/0.5 ML VIAL.NEB NEB SCH ×4 (01:59→19:45)
[2018-11-23] MEDS: CHLORHEXIDINE GLUCONATE 15 ML UDC MM SCH ×3 (04:02→20:02)
[2018-11-23] MEDS: PROSOURCE / PROSTAT (PYXIS) 30 ML UDC GT SCH ×3 (04:08→20:03)
[2018-11-23] MEDS: SUCRALFATE 1 G/10 ML UDC GT SCH ×3 (04:08→20:02)
[2018-11-23] MEDS: FAMOTIDINE (20 MG) 20 MG TABLET GT SCH (05:21)
[2018-11-23] MEDS: BLOOD SUGAR DIAGNOSTIC 1 EACH STRIP IN SCH ×4 (05:22→23:34)
[2018-11-23] MEDS: INSULIN NPH, HUMAN ISOPHANE 100 UNIT/ML CARTRIDGE SQ SCH ×3 (05:34→20:17)
[2018-11-23 08:05] VITALS: BP 110/47
[2018-11-23] MEDS: BRIMONIDINE TARTRATE OPHT SOLN 5 ML BOTTLE EACHEYE SCH (08:20)
[2018-11-23] MEDS: ASCORBIC ACID 500 MG TABLET GT SCH (08:21)
[2018-11-23] MEDS: LEVETIRACETAM SOL (5 ML) 100 MG/ML UDC GT SCH ×2 (08:21→20:02)
[2018-11-23] MEDS: LACTOBACILLUS RHAMNOSUS GG 1 EACH CAP.SPRINK PO SCH ×2 (08:21→20:02)
[2018-11-23] MEDS: VIT B CMPLX 3/FA/VIT C/BIOTIN 1 TAB TABLET GT SCH (08:21)
[2018-11-23] MEDS: CARVEDILOL 3.125 MG TABLET GT SCH ×2 (08:21→20:02)
[2018-11-23] MEDS: NEUTRA PHOS 1 POWD.PACKET GT SCH ×2 (08:21→17:00)
[2018-11-23] MEDS: ZINC SULFATE 220 MG CAPSULE GT SCH (08:21)
[2018-11-23] MEDS: ACETAMINOPHEN 650 MG/20 ML UDC- SA PATIENTS-PAIN ONLY GT SCH ×2 (11:00→19:58)
[2018-11-23] MEDS: DAKINS HALF STRENGTH (0.25%) 480 ML BOTTLE TOP SCH ×2 (11:30→20:04)
[2018-11-23] MEDS: ZINC OXIDE 30 GM TUBE TP SCH ×4 (11:30→20:05)
[2018-11-23] MEDS: BETADINE 5% TP SCH ×2 (11:30→20:04)
[2018-11-23] MEDS: NEOMY SULF/BACITRAC ZN/POLY 15 GM TUBE TP SCH ×4 (11:30→20:04)
[2018-11-23] MEDS: HYDROGEL DRESSING 90 GM TUBE TP SCH ×2 (11:30→20:04)
[2018-11-23] MEDS: BETADINE 5% CREAM TP SCH ×4 (11:30→20:04)
[2018-11-23] MEDS: *INSULIN REGULAR(HUMULIN R)HUM 100 UNIT/ML VIAL SQ PRN ×2 (12:25→23:37)
--- NOTE | 2018-11-23 19:35 | NUR ---
Patient returned from dialysis at 191, v/s taken and stable no s/s of acute distress. Patient's fever slightly elevated 99.5 cooling measures implemented. Addendum: 11/23/18 at 1936 by SHANTA SOLO RN bruit and thrill present no s/s of bleeding.
[2018-11-23 19:54] VITALS: BP 123/62
[2018-11-23] MEDS: HYDROGEN PEROXIDE 480 ML BOTTLE TP SCH (21:00)
[2018-11-23] MEDS: MONTELUKAST SODIUM (10MG) 10 MG TABLET GT SCH (21:52)
[2018-11-24] MEDS: ALBUTEROL FS 2.5 MG/0.5 ML VIAL.NEB NEB SCH ×4 (01:57→19:53)
[2018-11-24] MEDS: PROSOURCE / PROSTAT (PYXIS) 30 ML UDC GT SCH ×3 (05:39→21:41)
[2018-11-24] MEDS: SUCRALFATE 1 G/10 ML UDC GT SCH ×3 (05:39→21:40)
[2018-11-24] MEDS: CHLORHEXIDINE GLUCONATE 15 ML UDC MM SCH ×3 (05:39→21:49)
[2018-11-24] MEDS: INSULIN NPH, HUMAN ISOPHANE 100 UNIT/ML CARTRIDGE SQ SCH ×3 (05:41→21:51)
[2018-11-24] MEDS: *INSULIN REGULAR(HUMULIN R)HUM 100 UNIT/ML VIAL SQ PRN ×3 (05:42→17:38)
[2018-11-24] MEDS: FAMOTIDINE (20 MG) 20 MG TABLET GT SCH (05:50)
[2018-11-24] MEDS: BLOOD SUGAR DIAGNOSTIC 1 EACH STRIP IN SCH ×3 (05:50→17:35)
[2018-11-24 07:54] VITALS: BP 139/67
[2018-11-24] MEDS: HYDROGEN PEROXIDE 480 ML BOTTLE TP SCH ×2 (09:00→21:00)
[2018-11-24] MEDS: ACETAMINOPHEN 650 MG/20 ML UDC- SA PATIENTS-PAIN ONLY GT SCH ×2 (09:37→20:00)
[2018-11-24] MEDS: LEVETIRACETAM SOL (5 ML) 100 MG/ML UDC GT SCH ×2 (09:43→21:41)
[2018-11-24] MEDS: LACTOBACILLUS RHAMNOSUS GG 1 EACH CAP.SPRINK PO SCH ×2 (09:44→21:49)
[2018-11-24] MEDS: ZINC SULFATE 220 MG CAPSULE GT SCH (09:44)
[2018-11-24] MEDS: NEUTRA PHOS 1 POWD.PACKET GT SCH ×2 (09:44→16:45)
[2018-11-24] MEDS: ASCORBIC ACID 500 MG TABLET GT SCH (09:44)
[2018-11-24] MEDS: VIT B CMPLX 3/FA/VIT C/BIOTIN 1 TAB TABLET GT SCH (09:44)
[2018-11-24] MEDS: BRIMONIDINE TARTRATE OPHT SOLN 5 ML BOTTLE EACHEYE SCH (09:45)
[2018-11-24] MEDS: CARVEDILOL 3.125 MG TABLET GT SCH ×2 (09:45→21:41)
[2018-11-24] MEDS: BETADINE 5% TP SCH ×2 (10:10→21:51)
[2018-11-24] MEDS: DAKINS HALF STRENGTH (0.25%) 480 ML BOTTLE TOP SCH ×2 (10:10→21:51)
[2018-11-24] MEDS: NEOMY SULF/BACITRAC ZN/POLY 15 GM TUBE TP SCH ×2 (10:10→21:52)
[2018-11-24] MEDS: BETADINE 5% CREAM TP SCH ×4 (10:10→21:51)
[2018-11-24] MEDS: HYDROGEL DRESSING 90 GM TUBE TP SCH ×2 (10:10→21:51)
--- NOTE | 2018-11-24 12:00 | NUR ---
Seen and examined by Dr. Kern, reviewed medications and blood sugar result in the past few days. Informed MD of Ammonia level result, negative stool for C.diff, and rectal tube in place for loose BM. Resident continue to get extra dialysis on Tuesday. No new order given.
--- NOTE | 2018-11-24 15:05 | NUR ---
It was suggested by Infectious disease MD, Dr. Ching during IDT meeting that in order to discontinue isolation, we need to reculture the site. Dr. Dennis said it OK and ID PEER SUPPORT SPECIALIST Denis gave an order to reculture sacral wound. Order carried out. Patient's sister aware.
--- NOTE | 2018-11-24 15:10 | NUR ---
ROSALIE called [facility] [[address] [place] [address]; [phone]] and spoke with Estella to confirm additional roundtrip transportation from [facility] to Renal metal pickling equipment operator at 4:45pm for chair time: 5:15pm-7:15pm that was recently added for Fridays indefinitely. Per Estella, it was made as a 1 time order not as a re-occurring transport. ROSALIE contacted call the car [phone] and spoke with Yvonne to make a standing order for Fridays indefinitely and she was agreeable to plan. it support analyst will be at 4:45pm for chair time: 5:15pm-7:15pm and metal pickling equipment operator for trip back to [facility] will be at 7:30 pm. Per Yvonne, she will contact [facility] [phone] and [facility] [phone] to confirm transportation details. ROSALIE informed [facility] charge nurseRios.
--- NOTE | 2018-11-24 16:31 | NUR ---
PLAN OF CARE CONFERENCE was held today. Dr. Dennis and interdisciplinary team discussed the current plan of care in detail. The patient�s sister, Rabia was present and IDT addressed all of family�s questions. Rabia gave verbal consent for Flu vaccine for pt. Charge Nurse discussed sacral wound, increased feeding, extra day of dialysis. Current orders as well as treatments and medications were reviewed. See other discipline's IDT notes for further details.
--- NOTE | 2018-11-24 17:47 | NUR ---
Called [facility], spoke with dispatch informing that transportation has not arrive to curing pickling packer the patient. According to dispatch nobody from the insurance confirmed transportation request for today nor give them authorization. They only has authorization for TThS but not for the Tuesday schedule. Informed [facility] dispatch that per [employer] it is confirmed. Advised by [facility] dispatch Estella to call "[facility]" to add the Tuesday schedule indefinitely since this an extra dialysis day for patient.
--- NOTE | 2018-11-24 17:59 | NUR ---
Informed [facility] that there is an issue with transportation and patient will not be in today. According to Vika from [facility], since patient will have a dialysis tomorrow she will endorse to follow-up with transition social worker on Tuesday to set up an extra dialysis next week if necessary. Called [facility], spoke with Britney ([phone]) to request to add the Tuesday schedule indefinitely. She said, she will call [facility]. Attending MD notified.
--- NOTE | 2018-11-24 18:39 | NUR ---
Spoke with Tanner from [facility], informing him that patient missed the extra dialysis today due to miscommunication between [facility] and [facility] center. After explaining to Tanner what transpired, he said that he will call [facility]. Spoke with [facility] dispatch Summer and explained what happen with transportation, according to her they will investigate on their part what happen so it will not happen again. Informed Summer to expect a call from Tanner - [facility]. Addendum: 11/24/18 at 1854 by CLAUDY ADAMS RN Resident's sister Rabia tenzin.
[2018-11-24 20:26] VITALS: BP 149/62
[2018-11-24] MEDS: MONTELUKAST SODIUM (10MG) 10 MG TABLET GT SCH (21:41)
[2018-11-25] VITALS: BP 120/58
[2018-11-25] MEDS: BLOOD SUGAR DIAGNOSTIC 1 EACH STRIP IN SCH ×5 (00:57→23:37)
[2018-11-25] MEDS: *INSULIN REGULAR(HUMULIN R)HUM 100 UNIT/ML VIAL SQ PRN ×5 (00:58→23:41)
[2018-11-25] MEDS: ALBUTEROL FS 2.5 MG/0.5 ML VIAL.NEB NEB SCH ×4 (01:16→19:46)
[2018-11-25] MEDS: SUCRALFATE 1 G/10 ML UDC GT SCH ×3 (05:41→21:00)
[2018-11-25] MEDS: PROSOURCE / PROSTAT (PYXIS) 30 ML UDC GT SCH ×3 (05:41→21:00)
[2018-11-25] MEDS: CHLORHEXIDINE GLUCONATE 15 ML UDC MM SCH ×3 (05:41→21:00)
[2018-11-25] MEDS: FAMOTIDINE (20 MG) 20 MG TABLET GT SCH (05:42)
[2018-11-25] MEDS: INSULIN NPH, HUMAN ISOPHANE 100 UNIT/ML CARTRIDGE SQ SCH ×3 (05:43→21:00)
--- NOTE | 2018-11-25 06:42 | NUR ---
Temp 101.1 ,cooling measures provided and Tylenol given via gt.Will continue to monitor and will endorse.
[2018-11-25 06:45] VITALS: BP 131/69
[2018-11-25] MEDS: ACETAMINOPHEN 650 MG/20 ML UDC- SA PATIENTS-FEVER ONLY GT PRN (06:45)
--- NOTE | 2018-11-25 07:21 | NUR ---
Dr. Kern made aware of the fever 101.1,HR 110,BP 114/59,O2 sats 99.0.New orders ,CBC,BMP,Blood culture x 2,and CXR.
[2018-11-25 08:05] VITALS: BP 114/59
[2018-11-25 08:19] LABS: BASOPHILS % (AUTO) 0.3 % (0.0-2.0); EOSINOPHILS % (AUTO) 1.2 % (0.0-6.0); HEMATOCRIT 27 % (33-45); HEMOGLOBIN 8.6 g/dL (11.5-14.8); LYMPHOCYTES # (AUTO) 0.7 /CMM (0.8-4.8); LYMPHOCYTES % (AUTO) 4.2 % (20.0-44.0); MEAN CORPUSCULAR HGB CONC 31 g/dl (31.0-36.0); MEAN CORPUSCULAR VOLUME 86 fL (82-100); MONOCYTES # (AUTO) 1.4 /CMM (0.1-1.30); MONOCYTES % (AUTO) 8.4 % (2.0-12.0); NEUTROPHILS % (AUTO) 85.9 % (43.0-81.0); PLATELET COUNT (AUTO) 351 /CMM (150-450); RED BLOOD CELL COUNT(AUTO) 3.18 MIL/uL (4.0-5.2); WHITE BLOOD COUNT (AUTO) 16.3 K/uL (4.3-11.0)
[2018-11-25 08:24] LABS: CALCIUM, SERUM 9.4 mg/dL (8.5-10.1); CREATININE 3.7 mg/dL (0.6-1.3); POTASSIUM 3.2 mmol/L (3.5-5.1)
[2018-11-25 08:30] LABS: ALBUMIN 2.3 g/dL (3.4-5.0); BILIRUBIN,TOTAL 0.4 mg/dL (0.2-1.0); TOTAL PROTEIN, SERUM 8.3 g/dL (6.4-8.2)
[2018-11-25] MEDS: HYDROGEN PEROXIDE 480 ML BOTTLE TP SCH ×2 (09:00→21:00)
--- NOTE | 2018-11-25 09:20 | NUR ---
Dr. Kern notified of CBC (WBC 16.3), BMP and Cxray result. He was also made aware that per RN at the dialysis center [facility], they will not accept the patient if she has fever. Dr. Kern ordered to start patient on Zosyn and Vancomycin per pharmacy to dose and for SUBPOENA SERVER DINORAH Aguirre to follow-up. Order carried out. Resident's sister Rabia notified of patient's change of condition.
[2018-11-25] MEDS: VIT B CMPLX 3/FA/VIT C/BIOTIN 1 TAB TABLET GT SCH (09:21)
[2018-11-25] MEDS: NEUTRA PHOS 1 POWD.PACKET GT SCH ×2 (09:21→19:00)
[2018-11-25] MEDS: LEVETIRACETAM SOL (5 ML) 100 MG/ML UDC GT SCH ×2 (09:21→21:00)
[2018-11-25] MEDS: LACTOBACILLUS RHAMNOSUS GG 1 EACH CAP.SPRINK PO SCH ×2 (09:22→21:00)
[2018-11-25] MEDS: ZINC SULFATE 220 MG CAPSULE GT SCH (09:22)
[2018-11-25] MEDS: ASCORBIC ACID 500 MG TABLET GT SCH (09:22)
[2018-11-25] MEDS: ACETAMINOPHEN 650 MG/20 ML UDC- SA PATIENTS-PAIN ONLY GT SCH ×2 (09:31→20:00)
[2018-11-25] MEDS: BRIMONIDINE TARTRATE OPHT SOLN 5 ML BOTTLE EACHEYE SCH (09:32)
[2018-11-25] MEDS: CARVEDILOL 3.125 MG TABLET GT SCH ×2 (09:33→21:00)
[2018-11-25] MEDS ORDERED: ZOSYN IVPB 2.25 G in IV D5W 50ml IV SCH (10:00)
[2018-11-25] MEDS: DAKINS HALF STRENGTH (0.25%) 480 ML BOTTLE TOP SCH ×2 (10:10→21:00)
[2018-11-25] MEDS: NEOMY SULF/BACITRAC ZN/POLY 15 GM TUBE TP SCH ×2 (10:10→21:00)
[2018-11-25] MEDS: BETADINE 5% TP SCH ×2 (10:10→21:00)
[2018-11-25] MEDS: BETADINE 5% CREAM TP SCH ×4 (10:10→21:00)
[2018-11-25] MEDS: HYDROGEL DRESSING 90 GM TUBE TP SCH ×2 (10:10→21:00)
[2018-11-25] MEDS ORDERED: FEE PK DOSING 1 MIN EA MC ONE (10:18)
--- NOTE | 2018-11-25 10:40 | NUR ---
REMOTE SENSING RESEARCH SCIENTIST Carla notified of patient's condition, labs, culture and ATB that have been ordered. New order to discontinue Zosyn and start with Merren 500mg Q12 and Vancomycin per pharmacy. According to [facility] pharmacist Asya, she will order a loading dose of Vancomycin 1.25 gm before dialysis. Order carried out.
[2018-11-25] MEDS ORDERED: VANCOMYCIN 1.25 GM in IV NS 0.9% 500 ML IV ONE (11:00)
--- NOTE | 2018-11-25 13:00 | NUR ---
Initial dose of Vancomycin completed, rechecked T 98.9. Resident's sister at beside. Patient still having watery stool, diaper change done frequently. Rectal tube is not helping, patient unable to keep it in place.
[2018-11-25] MEDS: MEROPENEM 500 MG in IV NS 0.9% 50 ML IV SCH ×2 (13:25→21:00)
--- NOTE | 2018-11-25 14:00 | NUR ---
Resident left for dialysis, stable in no s/s of respiratory distress. Vancomycin and Merren given. Resident's temperature 98.4, B/P 106/48, 100%, 86, RR16. Report given to ambulance crew and dialysis nurse Vika of patient's condition.
[2018-11-25] MEDS: NEPRO 1,000 ML BOTTLE GT PRN (19:11)
[2018-11-25] MEDS: MONTELUKAST SODIUM (10MG) 10 MG TABLET GT SCH (22:50)
[2018-11-26] MEDS: ALBUTEROL FS 2.5 MG/0.5 ML VIAL.NEB NEB SCH ×4 (02:01→19:58)
[2018-11-26] MEDS: PROSOURCE / PROSTAT (PYXIS) 30 ML UDC GT SCH ×3 (05:00→20:47)
[2018-11-26] MEDS: INSULIN NPH, HUMAN ISOPHANE 100 UNIT/ML CARTRIDGE SQ SCH ×3 (05:00→20:59)
[2018-11-26] MEDS: SUCRALFATE 1 G/10 ML UDC GT SCH ×3 (05:00→20:45)
[2018-11-26] MEDS: CHLORHEXIDINE GLUCONATE 15 ML UDC MM SCH ×3 (05:00→20:47)
[2018-11-26] MEDS ORDERED: VANCOMYCIN POST DIALYSIS 500MG IV PRN ×2 (06:00)
[2018-11-26] MEDS: FAMOTIDINE (20 MG) 20 MG TABLET GT SCH (06:13)
[2018-11-26] MEDS: BLOOD SUGAR DIAGNOSTIC 1 EACH STRIP IN SCH ×3 (06:14→17:11)
[2018-11-26] MEDS: *INSULIN REGULAR(HUMULIN R)HUM 100 UNIT/ML VIAL SQ PRN ×3 (06:15→17:12)
--- NOTE | 2018-11-26 06:54 | NUR ---
Charge nurse called Pharmacy to verify Vancomycin order. Spoke with Jose and she stated that the next dose will be on the next dialysis day.
[2018-11-26 08:09] VITALS: BP 109/54
[2018-11-26] MEDS: MEROPENEM 500 MG in IV NS 0.9% 50 ML IV SCH ×2 (09:00→21:00)
[2018-11-26] MEDS: HYDROGEN PEROXIDE 480 ML BOTTLE TP SCH ×2 (09:50→21:10)
--- NOTE | 2018-11-26 09:51 | NUR ---
Spoke to Dr. Kern regarding rectal tube, new order to d/c rectal tube, order carried out and responsible green party made aware. (octavia)
[2018-11-26] MEDS: ACETAMINOPHEN 650 MG/20 ML UDC- SA PATIENTS-PAIN ONLY GT SCH ×2 (09:53→20:43)
[2018-11-26] MEDS: LEVETIRACETAM SOL (5 ML) 100 MG/ML UDC GT SCH ×2 (09:54→20:46)
[2018-11-26] MEDS: VIT B CMPLX 3/FA/VIT C/BIOTIN 1 TAB TABLET GT SCH (09:54)
[2018-11-26] MEDS: NEUTRA PHOS 1 POWD.PACKET GT SCH ×2 (09:54→17:11)
[2018-11-26] MEDS: BRIMONIDINE TARTRATE OPHT SOLN 5 ML BOTTLE EACHEYE SCH (09:54)
[2018-11-26] MEDS: ZINC SULFATE 220 MG CAPSULE GT SCH (09:55)
[2018-11-26] MEDS: ASCORBIC ACID 500 MG TABLET GT SCH (09:55)
[2018-11-26] MEDS: CARVEDILOL 3.125 MG TABLET GT SCH ×2 (09:56→20:47)
[2018-11-26] MEDS: LACTOBACILLUS RHAMNOSUS GG 1 EACH CAP.SPRINK PO SCH ×2 (09:56→20:47)
[2018-11-26] MEDS: BETADINE 5% TP SCH ×2 (10:30→20:48)
[2018-11-26] MEDS: HYDROGEL DRESSING 90 GM TUBE TP SCH ×2 (10:30→20:48)
[2018-11-26] MEDS: NEOMY SULF/BACITRAC ZN/POLY 15 GM TUBE TP SCH ×2 (10:30→20:48)
[2018-11-26] MEDS: BETADINE 5% CREAM TP SCH ×4 (10:30→20:48)
[2018-11-26] MEDS: DAKINS HALF STRENGTH (0.25%) 480 ML BOTTLE TOP SCH ×2 (10:30→20:48)
[2018-11-26] MEDS ORDERED: VANCOMYCIN 1 GM in IV D5W 250 ML IV ONE (13:30)
--- NOTE | 2018-11-26 13:32 | NUR ---
Spoke to Henna from pharmacy regarding vancomycin, level is less than 14, will give additional dose today at 1400, vancomycin 500mg via iv only 1 dose, through will be done on Tuesday, order carried out, responsible democrat made aware.
[2018-11-26] MEDS ORDERED: VANCOMYCIN 500 MG in IV D5W 100 ML IV ONE (14:00)
[2018-11-26] MEDS: NEPRO 1,000 ML BOTTLE GT PRN (15:20)
[2018-11-26 19:53] VITALS: BP 128/74
[2018-11-26] MEDS: MONTELUKAST SODIUM (10MG) 10 MG TABLET GT SCH (21:56)
[2018-11-27] MEDS: BLOOD SUGAR DIAGNOSTIC 1 EACH STRIP IN SCH ×4 (00:37→17:15)
[2018-11-27] MEDS: *INSULIN REGULAR(HUMULIN R)HUM 100 UNIT/ML VIAL SQ PRN ×5 (00:38→17:16)
[2018-11-27] MEDS: ALBUTEROL FS 2.5 MG/0.5 ML VIAL.NEB NEB SCH ×4 (01:03→19:35)
[2018-11-27] MEDS: SUCRALFATE 1 G/10 ML UDC GT SCH ×3 (05:39→20:06)
[2018-11-27] MEDS: FAMOTIDINE (20 MG) 20 MG TABLET GT SCH (05:40)
[2018-11-27] MEDS: PROSOURCE / PROSTAT (PYXIS) 30 ML UDC GT SCH ×3 (05:41→20:08)
[2018-11-27] MEDS: CHLORHEXIDINE GLUCONATE 15 ML UDC MM SCH ×3 (05:41→20:16)
[2018-11-27] MEDS: INSULIN NPH, HUMAN ISOPHANE 100 UNIT/ML CARTRIDGE SQ SCH ×3 (05:42→20:14)
[2018-11-27 07:30] VITALS: BP 93/42
[2018-11-27] MEDS: MEROPENEM 500 MG in IV NS 0.9% 50 ML IV SCH ×2 (08:03→21:03)
[2018-11-27] MEDS: HYDROGEN PEROXIDE 480 ML BOTTLE TP SCH ×2 (08:50→21:00)
[2018-11-27] MEDS: CARVEDILOL 3.125 MG TABLET GT SCH ×2 (09:00→20:07)
[2018-11-27] MEDS: BRIMONIDINE TARTRATE OPHT SOLN 5 ML BOTTLE EACHEYE SCH (09:48)
[2018-11-27] MEDS: ACETAMINOPHEN 650 MG/20 ML UDC- SA PATIENTS-PAIN ONLY GT SCH ×2 (09:48→20:06)
[2018-11-27] MEDS: LEVETIRACETAM SOL (5 ML) 100 MG/ML UDC GT SCH ×2 (09:48→20:06)
[2018-11-27] MEDS: ASCORBIC ACID 500 MG TABLET GT SCH (09:51)
[2018-11-27] MEDS: LACTOBACILLUS RHAMNOSUS GG 1 EACH CAP.SPRINK PO SCH ×2 (09:51→20:09)
[2018-11-27] MEDS: NEUTRA PHOS 1 POWD.PACKET GT SCH ×2 (09:51→17:15)
[2018-11-27] MEDS: ZINC SULFATE 220 MG CAPSULE GT SCH (09:51)
[2018-11-27] MEDS: VIT B CMPLX 3/FA/VIT C/BIOTIN 1 TAB TABLET GT SCH (09:51)
[2018-11-27] MEDS: HYDROGEL DRESSING 90 GM TUBE TP SCH ×2 (10:00→20:14)
[2018-11-27] MEDS: BETADINE 5% TP SCH ×2 (10:00→20:15)
[2018-11-27] MEDS: BETADINE 5% CREAM TP SCH ×4 (10:00→20:14)
[2018-11-27] MEDS: NEOMY SULF/BACITRAC ZN/POLY 15 GM TUBE TP SCH ×2 (10:00→20:15)
--- NOTE | 2018-11-27 12:10 | NUR ---
Notified YOSELIN Aguirre of wound culture result. She will review sensitivities. No new order at this time.
[2018-11-27] MEDS: NEPRO 1,000 ML BOTTLE GT PRN (13:58)
--- NOTE | 2018-11-27 14:47 | NUR ---
Seen by Dr Eb Lockett. He ordered to check prealbumin.
[2018-11-27 20:54] VITALS: BP 160/71
[2018-11-27] MEDS: MONTELUKAST SODIUM (10MG) 10 MG TABLET GT SCH (21:38)
[2018-11-28] MEDS: BLOOD SUGAR DIAGNOSTIC 1 EACH STRIP IN SCH ×4 (00:41→18:00)
[2018-11-28] MEDS: *INSULIN REGULAR(HUMULIN R)HUM 100 UNIT/ML VIAL SQ PRN ×3 (00:43→13:00)
[2018-11-28] MEDS: ALBUTEROL FS 2.5 MG/0.5 ML VIAL.NEB NEB SCH ×3 (01:51→13:30)
[2018-11-28] MEDS: SUCRALFATE 1 G/10 ML UDC GT SCH ×3 (05:30→21:00)
[2018-11-28] MEDS: FAMOTIDINE (20 MG) 20 MG TABLET GT SCH (05:30)
[2018-11-28] MEDS: CHLORHEXIDINE GLUCONATE 15 ML UDC MM SCH ×3 (05:31→21:00)
[2018-11-28] MEDS: PROSOURCE / PROSTAT (PYXIS) 30 ML UDC GT SCH ×3 (05:31→21:00)
[2018-11-28] MEDS: INSULIN NPH, HUMAN ISOPHANE 100 UNIT/ML CARTRIDGE SQ SCH ×3 (05:33→21:00)
[2018-11-28 07:43] VITALS: BP 169/66
[2018-11-28] MEDS: ACETAMINOPHEN 650 MG/20 ML UDC- SA PATIENTS-PAIN ONLY GT SCH ×2 (08:00→20:00)
[2018-11-28] MEDS: HYDROGEN PEROXIDE 480 ML BOTTLE TP SCH ×2 (08:03→21:00)
[2018-11-28] MEDS: NEOMY SULF/BACITRAC ZN/POLY 15 GM TUBE TP SCH ×2 (09:00→21:00)
[2018-11-28] MEDS: BETADINE 5% CREAM TP SCH ×4 (09:00→21:00)
[2018-11-28] MEDS: BETADINE 5% TP SCH ×2 (09:00→21:00)
[2018-11-28] MEDS: MEROPENEM 500 MG in IV NS 0.9% 50 ML IV SCH ×2 (09:00→20:22)
[2018-11-28] MEDS: HYDROGEL DRESSING 90 GM TUBE TP SCH ×2 (09:00→21:00)
[2018-11-28] MEDS: BRIMONIDINE TARTRATE OPHT SOLN 5 ML BOTTLE EACHEYE SCH (09:26)
[2018-11-28 09:27] VITALS: BP 169/66
[2018-11-28] MEDS: LACTOBACILLUS RHAMNOSUS GG 1 EACH CAP.SPRINK PO SCH ×2 (09:27→21:00)
[2018-11-28] MEDS: ASCORBIC ACID 500 MG TABLET GT SCH (09:27)
[2018-11-28] MEDS: NEUTRA PHOS 1 POWD.PACKET GT SCH ×2 (09:27→17:00)
[2018-11-28] MEDS: ZINC SULFATE 220 MG CAPSULE GT SCH (09:27)
[2018-11-28] MEDS: LEVETIRACETAM SOL (5 ML) 100 MG/ML UDC GT SCH ×2 (09:27→21:00)
[2018-11-28] MEDS: CARVEDILOL 3.125 MG TABLET GT SCH ×2 (09:27→21:00)
[2018-11-28] MEDS: VIT B CMPLX 3/FA/VIT C/BIOTIN 1 TAB TABLET GT SCH (09:27)
--- NOTE | 2018-11-28 09:43 | NUR ---
ROSALIE called [facility] and spoke to Al to verify why roundtrip transportation services were not provided last Tuesday. See previous SS note for standing order. Per Al, it looked like someone thought it was a duplicate order and they cancelled the standing order. Per Al, he has reinstated the standing order for draft roller picker from [facility] every Tuesday at 4:45pm for chair time: 5:15pm-7:15pm at [facility] and draft roller picker for trip back to [facility] will be at 7:30 pm. Per Al, he will contact [facility] [phone]. REFERENCE #[id number] ROSALIE informed nurseJessi.
--- NOTE | 2018-11-28 14:36 | NUR ---
SW called and left a voicemail for family/sister, Rabia Brantley [phone] to invite them to IDT meeting taking place this Tuesday, December 01, 2018 from 12:30pm-1:30pm in the SA activities room or participate via phone conference.
--- NOTE | 2018-11-28 15:52 | NUR ---
[facility] ER called, JASMEET Haq informed charge nurse that pt is in the ER from [facility] due to bleeding from pt's fistula. Charge nurse called [facility], spoke with Tobias. He said when the dialysis site dressing was removed, the scab came off and produced a gaping wound that was bleeding uncontrollably. Notified Dr Kern and pt's sister Rabia.
[2018-11-28] MEDS ORDERED: ASCO500T9 GT (16:41)
[2018-11-28] MEDS ORDERED: ZINC220T4 PO (16:41)
[2018-11-28] MEDS ORDERED: NEUTRAPHOS GT (16:41)
[2018-11-28] MEDS ORDERED: VANC1PLA9 IV (16:43)
[2018-11-28] MEDS: MONTELUKAST SODIUM (10MG) 10 MG TABLET GT SCH (22:00)
[2018-11-29] MEDS: SUCRALFATE 1 G/10 ML UDC GT SCH (05:00)
[2018-11-29] MEDS: PROSOURCE / PROSTAT (PYXIS) 30 ML UDC GT SCH (05:00)
[2018-11-29] MEDS: CHLORHEXIDINE GLUCONATE 15 ML UDC MM SCH (05:00)
[2018-11-29] MEDS: INSULIN NPH, HUMAN ISOPHANE 100 UNIT/ML CARTRIDGE SQ SCH (05:00)
[2018-11-29] MEDS: FAMOTIDINE (20 MG) 20 MG TABLET GT SCH (06:00)
[2018-11-29] MEDS: BLOOD SUGAR DIAGNOSTIC 1 EACH STRIP IN SCH ×2 (06:00)
--- NOTE | 2018-12-01 15:10 | NUR ---
ROSALIE contacted [facility] [phone] and spoke to Lakhwinder to cancel transportation services to [facility] until further notice because patient has yet to be re-admitted to . Lakhwinder was agreeable to plan. ROSALIE contacted [facility] [phone] and spoke to Nicolle to inform her that patient won't require dialysis until further notice. Nicolle was agreeable to plan. ROSALIE informed bank officer nurse to contact [facility] on 12/02/18 if patient return by time of regularly scheduled dialysis apt.
[2018-12-04] MEDS ORDERED: MERO500P IV (12:55)
--- NOTE | 2018-12-05 08:36 | NUR ---
ROSALIE left voicemail reminder for pt.�s sister, Rabia [phone] regarding December family support group taking place 12/06/18 from 11am-12pm. Per Rabia will be in attendance.
== END 2018-11-28 16:00 | DRG 981 ==
LOC: SA 15:28
PROVIDERS: ADMIT Internal Medicine; ATTEND Internal Medicine
PROC: 5A1935Z Respiratory Ventilation, Less than 24 Consecutive Hours (ICD-10-PCS; principal; 2018-10-22)
PROC: 0QB30ZZ Excision of Left Pelvic Bone, Open Approach (ICD-10-PCS; 2018-10-27)
PROC: 0QB10ZZ Excision of Sacrum, Open Approach (ICD-10-PCS; 2018-10-27)
PROC: 0QB20ZZ Excision of Right Pelvic Bone, Open Approach (ICD-10-PCS; 2018-10-27)
PROC: 0QB30ZZ Excision of Left Pelvic Bone, Open Approach (ICD-10-PCS; 2018-10-30)
PROC: 0QB10ZZ Excision of Sacrum, Open Approach (ICD-10-PCS; 2018-10-30)
PROC: 0QB20ZZ Excision of Right Pelvic Bone, Open Approach (ICD-10-PCS; 2018-10-30)
PROC: 0QB30ZZ Excision of Left Pelvic Bone, Open Approach (ICD-10-PCS; 2018-11-13)
PROC: 0QB10ZZ Excision of Sacrum, Open Approach (ICD-10-PCS; 2018-11-13)
PROC: 0QB20ZZ Excision of Right Pelvic Bone, Open Approach (ICD-10-PCS; 2018-11-13)
PROC: 0QB30ZZ Excision of Left Pelvic Bone, Open Approach (ICD-10-PCS; 2018-11-27)
PROC: 0QB10ZZ Excision of Sacrum, Open Approach (ICD-10-PCS; 2018-11-27)
PROC: 0QB20ZZ Excision of Right Pelvic Bone, Open Approach (ICD-10-PCS; 2018-11-27)
PROC: 0KB10ZZ Excision of Facial Muscle, Open Approach (ICD-10-PCS; 2018-11-27)
DX: J96.11 Chronic respiratory failure with hypoxia (principal); L89.154 Pressure ulcer of sacral region, stage 4; L89.324 Pressure ulcer of left buttock, stage 4; L89.314 Pressure ulcer of right buttock, stage 4; N18.6 End stage renal disease; R53.2 Functional quadriplegia; E43 Unspecified severe protein-calorie malnutrition; I12.0 Hypertensive chronic kidney disease with stage 5 chronic kidney disease or end stage renal disease; G93.1 Anoxic brain damage, not elsewhere classified; M46.28 Osteomyelitis of vertebra, sacral and sacrococcygeal region; N39.0 Urinary tract infection, site not specified; L97.429 Non-pressure chronic ulcer of left heel and midfoot with unspecified severity; E87.1 Hypo-osmolality and hyponatremia; D63.8 Anemia in other chronic diseases classified elsewhere; K21.9 Gastro-esophageal reflux disease without esophagitis; R13.10 Dysphagia, unspecified; Z99.2 Dependence on renal dialysis; E11.69 Type 2 diabetes mellitus with other specified complication; E11.22 Type 2 diabetes mellitus with diabetic chronic kidney disease; F09 Unspecified mental disorder due to known physiological condition; E11.621 Type 2 diabetes mellitus with foot ulcer; E11.51 Type 2 diabetes mellitus with diabetic peripheral angiopathy without gangrene; G40.909 Epilepsy, unspecified, not intractable, without status epilepticus; I48.91 Unspecified atrial fibrillation; E66.9 Obesity, unspecified; Z68.36 Body mass index [BMI] 36.0-36.9, adult; Z74.01 Bed confinement status; Z93.0 Tracheostomy status; Z93.1 Gastrostomy status; Z86.718 Personal history of other venous thrombosis and embolism; Z87.440 Personal history of urinary (tract) infections; Z79.4 Long term (current) use of insulin; L97.519 Non-pressure chronic ulcer of other part of right foot with unspecified severity; Z79.899 Other long term (current) drug therapy; Z79.51 Long term (current) use of inhaled steroids; B96.20 Unspecified Escherichia coli [E. coli] as the cause of diseases classified elsewhere; S71.112A Laceration without foreign body, left thigh, initial encounter; X58.XXXA Exposure to other specified factors, initial encounter; Y92.89 Other specified places as the place of occurrence of the external cause; E83.39 Other disorders of phosphorus metabolism; L89.890 Pressure ulcer of other site, unstageable
CPT/HCPCS: 31720; 36415; 71045-TC; 80053-TC; 80150; 80202-TC; 82140-TC; 82272-TC; 82728-TC; 82962-TC; 83540-TC; 84134-TC; 85025-TC; 86580-TC; 87040-TC; 87070-TC; 87186-TC; 90935-TC; 94640-TC; 94760-TC; 94762-TC; 94799-TC; A4216; A4217; A4623; A6248; A6253; A7526; J0278; J1815; J1953; J2185; J2543; J3370; J3490; J7040; J7050; J7060

== ENCOUNTER 2018-11-04 14:50 | Inpatient (IN) | payer MEDICARE, OTHER ==
[~2018-11-04] VITALS: Ht 157.5 cm; Wt 80.7 kg
--- NOTE | 2018-11-04 15:04 | NUR ---
"BIBA From Dialysis Center "Transported from [facility] sub acute to dialysis while waiting noted to have tachypnea- O2 desat to 78" PT AAOX0, PT OBTUNDED, PT ON MONITOR, MD ANA AT FOR EVAL
[2018-11-04 15:53] LABS: BASOPHILS # (AUTO) 0.1 /CMM (0.0-0.2); BASOPHILS % (AUTO) 0.5 % (0.0-2.0); EOSINOPHILS % (AUTO) 1.1 % (0.0-6.0); LYMPHOCYTES # (AUTO) 1.1 /CMM (0.8-4.8); LYMPHOCYTES % (AUTO) 7.6 % (20.0-44.0); MEAN CORPUSCULAR HGB CONC 33 g/dl (31.0-36.0); MEAN CORPUSCULAR VOLUME 93 fL (82-100); MONOCYTES % (AUTO) 6.9 % (2.0-12.0); NEUTROPHILS # (AUTO) 11.9 /CMM (1.8-8.9); NEUTROPHILS % (AUTO) 83.9 % (43.0-81.0); PLATELET COUNT (AUTO) 248 /CMM (150-450); RED BLOOD CELL COUNT(AUTO) 2.07 MIL/uL (4.0-5.2); WHITE BLOOD COUNT (AUTO) 14.2 K/uL (4.3-11.0)
[2018-11-04 15:55] LABS: HEMATOCRIT 19 % (33-45); HEMOGLOBIN 6.3 g/dL (11.5-14.8)
[2018-11-04 16:03] LABS: CALCIUM, SERUM 9.8 mg/dL (8.5-10.1); CREATININE 4.5 mg/dL (0.6-1.3); POTASSIUM 3.5 mmol/L (3.5-5.1)
--- NOTE | 2018-11-04 16:27 | NUR ---
Paged [facility] -- contracts manager is Dr Dean.
[2018-11-04] MEDS ORDERED: LACT1CAP72 GT (16:48)
[2018-11-04] MEDS ORDERED: AMIK250V8 IV (16:48)
[2018-11-04] MEDS ORDERED: MAG30ORA GT (16:48)
[2018-11-04] MEDS ORDERED: HYDR-4384 GT (16:48)
[2018-11-04] MEDS ORDERED: HYDR1SOL TOP (16:48)
[2018-11-04] MEDS ORDERED: SODI480S2 TOP (16:48)
[2018-11-04] MEDS ORDERED: LACT10SO GT (16:48)
[2018-11-04 16:56] LABS: LYMPHOCYTES % (MANUAL) 7 % (16-48); MONOCYTES % (MANUAL) 5 % (0-11.0); NEUTROPHILS % (MANUAL) 88 (42-76)
[2018-11-04] MEDS ORDERED: POVI3780 TP (16:57)
[2018-11-04] MEDS ORDERED: ACETAMINOPHEN 325 MG TABLET PO PRN (18:00)
[2018-11-04] MEDS ORDERED: DEXTROSE 50%-WATER 50 ML DISP.SYRIN IV PRN ×2 (18:00)
[2018-11-04] MEDS ORDERED: MAG HYDROX/AL HYDROX/SIMETH 30 ML UDC GT PRN (18:00)
[2018-11-04] MEDS ORDERED: MAGNESIUM HYDROXIDE 30 ML UDC PO PRN (18:00)
[2018-11-04] MEDS ORDERED: HYDROCODONE/APAP 5/325MG 1 EACH TABLET PO PRN (18:00)
[2018-11-04] MEDS ORDERED: ALBUTEROL FS 2.5 MG/3 ML VIAL.NEB IH PRN (18:00)
[2018-11-04] MEDS ORDERED: HYDROCODONE/APAP 5/325MG 1 EACH TABLET GT PRN (18:00)
[2018-11-04] MEDS ORDERED: MAG HYDROX/AL HYDROX/SIMETH 30 ML UDC PO PRN (18:00)
[2018-11-04] MEDS ORDERED: DOSING PER PHARMACY-AMIKACI IV XX PRN (18:00)
[2018-11-04] MEDS ORDERED: AMIKACIN 250 MG/ML VIAL IV SCH (18:00)
[2018-11-04] MEDS ORDERED: ACETAMINOPHEN 160 MG/5 ML GT PRN (18:00)
[2018-11-04] MEDS ORDERED: ONDANSETRON HCL/PF 4 MG/2 ML VIAL IVP PRN (18:00)
[2018-11-04] MEDS ORDERED: Z GUARD REMEDY 2 OZ OINT TP PRN (18:00)
[2018-11-04] MEDS ORDERED: BLOOD SUGAR DIAGNOSTIC 1 EACH STRIP IN SCH (18:00)
[2018-11-04] MEDS ORDERED: ONDANSETRON HCL/PF 4 MG/2 ML VIAL IV PRN (18:00)
[2018-11-04] MEDS ORDERED: NEPRO VAN 237 ML CAN GT SCH (18:00)
[2018-11-04] MEDS ORDERED: POLYVINYL ALCOHOL/POVIDONE 0.4 ML DROPERETTE EACHEYE PRN (18:30)
[2018-11-04] MEDS ORDERED: LACTULOSE 10 G/15 ML UDC (PYXIS) GT PRN (18:30)
--- NOTE | 2018-11-04 18:35 | NUR ---
REPORT GIVEN TO JASMEET RUSSELL FOR BILL TELE 108
[2018-11-04 18:50] VITALS: BP 148/55
--- NOTE | 2018-11-04 18:53 | NUR ---
PT TRANSPORTED TO 1ST FLOOR.
--- NOTE | 2018-11-04 18:58 | NUR ---
TEL NURSE left message to re; hgb6.4 stated that will get transfusion with HD in AM will endorse to next nurse re; futr care
--- NOTE | 2018-11-04 19:30 | NUR ---
ARTIST BLACKSMITHSERVICE COORDINATOR NOTE: PATIENT ADMITTED FROM ER VIA [facility] WITH ADMITTING DIAGNOSIS OF FLUID OVERLOAD. NO APPARENT DISTRESS NOTED. PT BLIND ON BOTH EYES. ON 8LPM COOL AEROSOL FI02 35%, NO SOB NOTED. NO FACIAL GRIMACING OR ANY SIGNS OF PAIN NOTED. ON TELE MONITOR SINUS RHYTHM HR 85BPM. RIGHT FEMORAL CENTRAL LINE (TRIPLE LUMEN CATH) INTACT AND PATENT, FLUSHING WELL. GT INTACT, PATENT AND IN PLACED. PERTINENT ASSESSMENTS DONE. WOUND NOTED ON SACRUM, LEFT FOOT AND FOREHEAD NOTED, WOUND CONSULT ORDERED. KEPT CLEAN, DRY AND COMFORTABLE. SAFETY AND FALL PRECAUTIONS OBSERVED AND MAINTAINED. WILL CONTINUE TO MONITOR PT.
--- NOTE | 2018-11-04 19:34 | NUR ---
DISPOSITION CLERK NOTE: DR. REED AWARE WITH PT'S CRITICAL LOW HGB 6.3 AND HEMATOCRIT 19, PER TRANFUSION WILL BE GIVEN WITH HD. WILL CONTINUE TO MONITOR PT.
[2018-11-04 20:00] VITALS: BP 145/56
[2018-11-04] MEDS: ALBUTEROL FS 2.5 MG/3 ML VIAL.NEB IH SCH (20:37)
[2018-11-04] MEDS: CHLORHEXIDINE GLUCONATE 15 ML UDC MM SCH (21:27)
[2018-11-04] MEDS: CARVEDILOL 3.125 MG TABLET GT SCH (21:27)
[2018-11-04] MEDS: SUCRALFATE 1 G/10 ML UDC GT SCH (21:27)
[2018-11-04] MEDS: ACETAMINOPHEN 325 MG TABLET PO SCH (21:28)
[2018-11-04] MEDS: MONTELUKAST SODIUM (10MG) 10 MG TABLET GT SCH (21:28)
[2018-11-04] MEDS: LEVETIRACETAM SOL (5 ML) 100 MG/ML UDC GT SCH (21:28)
[2018-11-04] MEDS: LACTOBACILLUS RHAMNOSUS GG 1 EACH CAP.SPRINK GT SCH (21:28)
[2018-11-04] MEDS: PROSOURCE / PROSTAT (PYXIS) 30 ML UDC GT SCH (21:28)
[2018-11-04] MEDS: DAKINS HALF STRENGTH (0.25%) 480 ML BOTTLE TOP SCH (21:29)
[2018-11-04] MEDS: BLOOD SUGAR DIAGNOSTIC 1 EACH STRIP VI SCH (21:42)
[2018-11-04] MEDS: *INSULIN REGULAR(HUMULIN R)HUM 100 UNIT/ML VIAL SQ PRN (21:43)
[2018-11-04] MEDS: INSULIN NPH, HUMAN ISOPHANE 100 UNIT/ML VIAL SQ SCH (21:43)
[2018-11-05] VITALS (7 sets, daily range): BP systolic 108–148; BP diastolic 35–79
[2018-11-05] MEDS: NEPRO 1,000 ML BOTTLE GT PRN
[2018-11-05] MEDS: ALBUTEROL FS 2.5 MG/3 ML VIAL.NEB IH SCH ×4 (02:04→19:50)
--- NOTE | 2018-11-05 04:43 | NUR ---
RN NOTES ASHWIN FROM LABORATORY CALLED AROUND 2014 THAT BLOOD PRODUCT WAS ORDERED FROM [facility] DUE TO ANTIBODIES. PRIMARY RN MARTINEZ NOTIFIED
[2018-11-05] MEDS: SUCRALFATE 1 G/10 ML UDC GT SCH ×3 (05:07→20:43)
[2018-11-05] MEDS: CHLORHEXIDINE GLUCONATE 15 ML UDC MM SCH ×3 (05:07→20:42)
[2018-11-05] MEDS: PROSOURCE / PROSTAT (PYXIS) 30 ML UDC GT SCH ×3 (05:08→20:44)
[2018-11-05] MEDS: INSULIN NPH, HUMAN ISOPHANE 100 UNIT/ML VIAL SQ SCH ×3 (05:19→21:05)
[2018-11-05] MEDS: FAMOTIDINE (20 MG) 20 MG TABLET GT SCH (05:24)
[2018-11-05 06:19] LABS: BASOPHILS # (AUTO) 0.1 /CMM (0.0-0.2); BASOPHILS % (AUTO) 0.6 % (0.0-2.0); EOSINOPHILS % (AUTO) 1.3 % (0.0-6.0); HEMATOCRIT 21 % (33-45); LYMPHOCYTES # (AUTO) 1.1 /CMM (0.8-4.8); LYMPHOCYTES % (AUTO) 7.9 % (20.0-44.0); MEAN CORPUSCULAR HGB CONC 32 g/dl (31.0-36.0); MEAN CORPUSCULAR VOLUME 93 fL (82-100); MONOCYTES % (AUTO) 6.7 % (2.0-12.0); NEUTROPHILS # (AUTO) 12.1 /CMM (1.8-8.9); NEUTROPHILS % (AUTO) 83.5 % (43.0-81.0); PLATELET COUNT (AUTO) 252 /CMM (150-450); RED BLOOD CELL COUNT(AUTO) 2.28 MIL/uL (4.0-5.2); WHITE BLOOD COUNT (AUTO) 14.5 K/uL (4.3-11.0)
[2018-11-05 06:26] LABS: HEMOGLOBIN 6.8 g/dL (11.5-14.8)
--- NOTE | 2018-11-05 06:29 | NUR ---
CHANCERY CLERK NOTE: DAMARI FROM LAB CALLED REGARDING PATIENT'S HGB 6.8. HOWEVER, PER LAB STILL AWAITING FOR BLOOD PRODUCT FROM [facility]. WILL ENDORSE TO DAY SHIFT RN.
[2018-11-05 06:32] LABS: CALCIUM, SERUM 9.8 mg/dL (8.5-10.1); CREATININE 5.1 mg/dL (0.6-1.3); MAGNESIUM 2.8 mg/dL (1.8-2.4); PHOSPHORUS 1.1 mg/dL (2.5-4.9); POTASSIUM 3.7 mmol/L (3.5-5.1)
--- NOTE | 2018-11-05 06:34 | NUR ---
BENCH CARPENTER NOTE: NO CHANGES NOTED THROUGHOUT THE SHIFT. NO APPARENT DISTRESS NOTED. NO FACIAL GRIMACING OR ANY SIGNS OF PAIN NOTED. ON TELE MONITOR SINUS RHYTHM HR 81 BPM. GT INTACT AND PATENT, GTF NEPRO RUNNING AT 55ML/HR X 16HRS. NO RESIDUAL NOTED AT THIS TIME. KEPT CLEAN, DRY AND COMFORTABLE. SAFETY AND FALL PRECAUTIONS OBSERVED AND MAINTAINED. WILL ENDORSE TO DAY SHIFT RN FOR CONTINUITY OF CARE.
[2018-11-05 07:16] LABS: BAND % (MANUAL) 1 % (0.0-5.0); EOSINOPHILS % (MANUAL) 1 % (0-4); LYMPHOCYTES % (MANUAL) 6 % (16-48); METAMYELOCYTES % 2 % (0-0); MONOCYTES % (MANUAL) 8 % (0-11.0); MYELOCYTES % 2 % (0-0); NEUTROPHILS % (MANUAL) 80 (42-76)
--- NOTE | 2018-11-05 07:30 | NUR ---
FIELD SEISMOLOGIST AM NOTES: PATIENT IN BED, OBTUNDED, WITH SHILEY 7 TRACH TO COOL AEROSOL AT 8L O2. FIO2 35%, BREATHING EVEN AND UNLABORED, PT BLIND ON BOTH EYES. OSR HR 82 ON TELE MONITOR, NO FACIAL GRIMACING OR ANY SIGNS OF PAIN NOTED. RIGHT FEMORAL CENTRAL LINE (TRIPLE LUMEN CATH) INTACT AND PATENT, FLUSHING WELL. GT INTACT,ONGOING NEPRO AT 55 ML/HR 0 RESIDUAL, CHECKED FOR PLACEMENT. WOUND NOTED ON SACRUM, LEFT FOOT AND FOREHEAD NOTED, WOUND CONSULT ORDERED. KEPT CLEAN, DRY AND COMFORTABLE. SAFETY AND FALL PRECAUTIONS OBSERVED AND MAINTAINED. WILL CONTINUE TO MONITOR PT. PATIENT'S HEMOGLOBIN 6.8, DR REED AWARE. WILL TRANSFUSE 1 UNIT PRBC ONCE BLOOD IS AVAILABLE, BLOOD WILL COME FROM [facility] DUE TO PATIENT POSITIVE FOR ANTIBODIES.
[2018-11-05] MEDS: BLOOD SUGAR DIAGNOSTIC 1 EACH STRIP VI SCH ×4 (08:00→21:04)
[2018-11-05] MEDS: INSULIN REGULAR, HUMAN 100 UNIT/ML 3 ML VIAL SQ PRN ×3 (08:13→18:06)
[2018-11-05] MEDS ORDERED: ACETAMINOPHEN 650 MG/20.3 ML UDC GT PRN (08:30)
[2018-11-05] MEDS: CARVEDILOL 3.125 MG TABLET GT SCH ×2 (09:00→20:44)
[2018-11-05] MEDS: LACTOBACILLUS RHAMNOSUS GG 1 EACH CAP.SPRINK GT SCH ×2 (09:05→20:43)
[2018-11-05] MEDS: LACTULOSE 10 G/15 ML UDC (PYXIS) GT SCH ×2 (09:05→17:45)
[2018-11-05] MEDS: VIT B CMPLX 3/FA/VIT C/BIOTIN 1 TAB TABLET GT SCH (09:05)
[2018-11-05] MEDS: LEVETIRACETAM SOL (5 ML) 100 MG/ML UDC GT SCH ×2 (09:05→20:43)
[2018-11-05] MEDS: ACETAMINOPHEN 325 MG TABLET PO SCH ×2 (09:07→20:43)
[2018-11-05] MEDS: DAKINS HALF STRENGTH (0.25%) 480 ML BOTTLE TOP SCH ×2 (09:08→20:45)
[2018-11-05] MEDS: BRIMONIDINE TARTRATE OPHT SOLN 5 ML BOTTLE EACHEYE SCH (09:08)
--- NOTE | 2018-11-05 09:30 | NUR ---
BACKUP ADMINISTRATIVE COORDINATOR NOTES 0800 - ACCUCHECK BS 189 MG/DL. 2 UNITS HUM R GIVEN PER SS.
--- NOTE | 2018-11-05 11:54 | NUR ---
TRACTOR OPERATOR NOTES ACCUCHECK BS 214 MG/DL. 6 UNITS HUM R GIVEN PER SS.
[2018-11-05] MEDS ORDERED: Sodium Phosphate 15 MMOL in IV D5W 250 ML IV ONE (12:00)
[2018-11-05] MEDS ORDERED: FEE PK DOSING 1 MIN EA MC ONE (12:07)
--- NOTE | 2018-11-05 13:05 | NUR ---
AIR TRAFFIC CONTROL EQUIPMENT REPAIRER NOTES HD COMPLETED. 1 LITER OUT
[2018-11-05] MEDS ORDERED: EPOETIN ALFA (10,000 UNIT) 10,000 UNIT/ML VIAL SQ ONE (15:00)
[2018-11-05] MEDS ORDERED: AMIKACIN 500 MG in IV D5W 100 ML IV PRN (17:00)
--- NOTE | 2018-11-05 17:55 | NUR ---
MUSEUM PREPARATOR NOTES ACCUCHECK BS 234 MG/DL. 6 UNITS HUM R GIVEN PER SS.
--- NOTE | 2018-11-05 19:30 | NUR ---
IMPROVEMENT SPEC NOTE: RECIVED PT ON BED OBTUNDED. FAMILY MEMBER AT BEDSIDE. NO APPARENT DISTRESS NOTED. NO FACIAL GRIMACING OR ANY SIGNS OF PAIN NOTED. ON COOL AEROSOL, FIO2 OF 35%, SATURATING WELL. SUCTIONED NEEDED. SINUS RHYTHM ON TELE MONITOR HR 95BPM. RIGHT FEMORAL TRIPLE LUMEN CATH INTACT AND FLUSHING WELL. KEPT CLEAN, DRY AND COMFORTABLE. SAFETY AND FALL PRECAUTIONS OBSERVED AND MAINTAINED. WILL CONTINUE TO MONITOR PT.
--- NOTE | 2018-11-05 19:36 | NUR ---
CHEMICALS DISTILLER NOTES ALL NEEDS MET, PM CARE AND WOUND CARE TREATMENT DONE EARLIER, RESTING COMFORTABLY. PATIENT STILL FOR BLOOD TRANSFUSION, CHECKED WITH BLOOD BANK, BLOOD STILL NOT AVAILABLE. ENDORSED TO NEXT SHIFT FOR BILL.
[2018-11-05] MEDS: MONTELUKAST SODIUM (10MG) 10 MG TABLET GT SCH (21:04)
[2018-11-05] MEDS: *INSULIN REGULAR(HUMULIN R)HUM 100 UNIT/ML VIAL SQ PRN (21:05)
[2018-11-06] VITALS (12 sets, daily range): BP systolic 132–158; BP diastolic 46–78
--- NOTE | 2018-11-06 00:05 | NUR ---
DESIGN CELL ENGINEER NOTE: BLOOD TRANSFUSION STARTED WITH NO SIGNS/SYMPTOMS OF BT REACTION NOTED. VITAL SIGNS STABLE. NO FEVER NOTED. WILL CONTINUE TO MONITOR PT.
[2018-11-06] MEDS: ALBUTEROL FS 2.5 MG/3 ML VIAL.NEB IH SCH ×4 (01:22→19:50)
[2018-11-06] MEDS: SUCRALFATE 1 G/10 ML UDC GT SCH ×3 (05:12→22:12)
[2018-11-06] MEDS: PROSOURCE / PROSTAT (PYXIS) 30 ML UDC GT SCH ×3 (05:12→22:19)
[2018-11-06] MEDS: CHLORHEXIDINE GLUCONATE 15 ML UDC MM SCH ×3 (05:12→22:12)
[2018-11-06] MEDS: FAMOTIDINE (20 MG) 20 MG TABLET GT SCH (05:15)
[2018-11-06] MEDS: INSULIN NPH, HUMAN ISOPHANE 100 UNIT/ML VIAL SQ SCH ×3 (05:16→22:16)
[2018-11-06 06:50] LABS: IRON, SERUM 38 ug/dl (50-175); TOTAL IRON BINDING CAPACITY 114 ug/dl (250-450)
--- NOTE | 2018-11-06 07:10 | NUR ---
RN INITIAL NOTE PATIENT IN BED, OBTUNDED. SISTER AT BEDSIDE. HAS TPIECE, ON COOL AEROSOL. NO SIGNS OF ANY PAIN NOR SOB AT THIS TIME. ON TELE MONITOR, SR. LAST HD YESTERDAY 1L OUT. ON NEPRO AT 55 ML/HR FOR 16 HRS. TURN OFF AT 1600. HAS RIGHT FEMORAL TRIPLE LUMEN CATH, USED CENTRAL LINE. HAS VARUN AV SHUNT USED FOR DIALYSIS. HEP B RX STILL PENDING. BED LOCKED AND IN LOW POSITION. CALL LIGHT WITHIN REACH. WILL CONT TO MONITOR
--- NOTE | 2018-11-06 07:17 | NUR ---
FERMENTATION SCIENTIST NOTE: NO CHANGES NOTED THROUGHOUT THE SHIFT. NO APPARENT DISTRESS NOTED. 1PRBC GIVEN ORDERED, NO SIGNS OF BLOOD TRANSFUSION REACTION NOTED. NO FACIAL GRIMACING OR ANY SIGNS OF PAIN. ON TELE MONITOR SINUS RHYTHM HR 84 BPM. GT INTACT AND PATENT, GTF NEPRO RUNNING AT 55ML/HR X 16HRS. NO RESIDUAL NOTED AT THIS TIME. KEPT CLEAN, DRY AND COMFORTABLE. SAFETY AND FALL PRECAUTIONS OBSERVED AND MAINTAINED. WILL ENDORSE TO DAY SHIFT RN FOR CONTINUITY OF CARE.
[2018-11-06] MEDS: BLOOD SUGAR DIAGNOSTIC 1 EACH STRIP VI SCH ×4 (07:51→22:17)
[2018-11-06] MEDS: INSULIN REGULAR, HUMAN 100 UNIT/ML 3 ML VIAL SQ PRN ×3 (07:53→17:10)
[2018-11-06] MEDS: LACTULOSE 10 G/15 ML UDC (PYXIS) GT SCH ×2 (08:07→16:01)
[2018-11-06] MEDS: VIT B CMPLX 3/FA/VIT C/BIOTIN 1 TAB TABLET GT SCH (08:08)
[2018-11-06] MEDS: LACTOBACILLUS RHAMNOSUS GG 1 EACH CAP.SPRINK GT SCH ×2 (08:08→22:14)
[2018-11-06] MEDS: ACETAMINOPHEN 325 MG TABLET PO SCH ×2 (08:08→22:15)
[2018-11-06] MEDS: LEVETIRACETAM SOL (5 ML) 100 MG/ML UDC GT SCH ×2 (08:08→22:12)
[2018-11-06] MEDS: CARVEDILOL 3.125 MG TABLET GT SCH ×2 (08:08→22:14)
[2018-11-06] MEDS: BRIMONIDINE TARTRATE OPHT SOLN 5 ML BOTTLE EACHEYE SCH (08:13)
[2018-11-06] MEDS: DAKINS HALF STRENGTH (0.25%) 480 ML BOTTLE TOP SCH ×2 (08:13→22:17)
[2018-11-06] MEDS: NEPRO 1,000 ML BOTTLE GT PRN ×2 (15:08)
--- NOTE | 2018-11-06 19:11 | NUR ---
RN CLOSING NOTE PATIENT IN BED, NO CHANGES. ALL MEDS GIVEN. TUBE FEEDING STOPPED AT 1600, TO BE CONTINUED AT 0000 ORDERED. FAMILY AT BEDSIDE. NO SIGNS OF ANY PAIN NOR SOB. BED LOCKED AND IN LOWEST POSITION. CALL LIGHT WITHIN REACH. WILL ENDORSE TO NOC SHIFT
--- NOTE | 2018-11-06 20:00 | NUR ---
RN INITIAL NOTE RECEIVED PATIENT REPORT FROM AM RN. PATIENT IS IN BED, OBTUNDED. HAS T PIECE, ON COOL AEROSOL. NO SIGNS OF ANY PAIN NOR SOB NOTED AT THIS TIME. ON TELE MONITOR, SR. LAST HD 11/05/18 1L OUT. ON NEPRO AT 55 ML/HR FOR 16 HRS. TURN OFF AT 1600 AND WILL BE ON 0000. HAS RIGHT FEMORAL TRIPLE LUMEN CATH, USED CENTRAL LINE. HAS VARUN AV SHUNT USED FOR DIALYSIS. BED LOCKED AND IN LOW POSITION. CALL LIGHT WITHIN REACH. WILL CONT TO MONITOR PATIENT CLOSELY.
[2018-11-06] MEDS: MONTELUKAST SODIUM (10MG) 10 MG TABLET GT SCH (22:14)
[2018-11-07] VITALS (8 sets, daily range): BP systolic 117–150; BP diastolic 45–69
[2018-11-07] MEDS: ALBUTEROL FS 2.5 MG/3 ML VIAL.NEB IH SCH ×4 (00:43→20:21)
[2018-11-07] MEDS: PROSOURCE / PROSTAT (PYXIS) 30 ML UDC GT SCH ×3 (05:00→22:27)
[2018-11-07] MEDS: SUCRALFATE 1 G/10 ML UDC GT SCH ×3 (05:40→22:20)
[2018-11-07] MEDS: FAMOTIDINE (20 MG) 20 MG TABLET GT SCH (05:40)
[2018-11-07] MEDS: CHLORHEXIDINE GLUCONATE 15 ML UDC MM SCH ×3 (05:40→22:20)
[2018-11-07] MEDS: INSULIN NPH, HUMAN ISOPHANE 100 UNIT/ML VIAL SQ SCH ×3 (05:42→22:32)
[2018-11-07] MEDS: *INSULIN REGULAR(HUMULIN R)HUM 100 UNIT/ML VIAL SQ PRN ×2 (05:43→22:35)
[2018-11-07 06:21] LABS: BASOPHILS # (AUTO) 0.1 /CMM (0.0-0.2); BASOPHILS % (AUTO) 0.4 % (0.0-2.0); EOSINOPHILS % (AUTO) 1.2 % (0.0-6.0); HEMATOCRIT 22 % (33-45); LYMPHOCYTES # (AUTO) 1.1 /CMM (0.8-4.8); LYMPHOCYTES % (AUTO) 7.3 % (20.0-44.0); MEAN CORPUSCULAR HGB CONC 33 g/dl (31.0-36.0); MEAN CORPUSCULAR VOLUME 90 fL (82-100); MONOCYTES % (AUTO) 7.1 % (2.0-12.0); NEUTROPHILS # (AUTO) 12.3 /CMM (1.8-8.9); PLATELET COUNT (AUTO) 228 /CMM (150-450); RED BLOOD CELL COUNT(AUTO) 2.39 MIL/uL (4.0-5.2); WHITE BLOOD COUNT (AUTO) 14.6 K/uL (4.3-11.0)
--- NOTE | 2018-11-07 06:38 | NUR ---
RN CLOSING NOTE PATIENT IS IN BED, OBTUNDED. HAS T PIECE, ON COOL AEROSOL. NO SIGNS OF ANY PAIN NOR SOB NOTED AT THIS TIME. ON TELE MONITOR, SR. ON NEPRO AT 55 ML/HR FOR 16 HRS. TURN OFF AT 0000 AND WILL BE ON 1600. HAS RIGHT FEMORAL TRIPLE LUMEN CATH USED CENTRAL LINE. HAS VARUN AV SHUNT USED FOR DIALYSIS. BED LOCKED AND IN LOW POSITION. CALL LIGHT WITHIN REACH. WILL ENDORSE T BILLIE RN FOR LABORER POWERHOUSE.
[2018-11-07 06:49] LABS: CALCIUM, SERUM 8.8 mg/dL (8.5-10.1); POTASSIUM 3.3 mmol/L (3.5-5.1)
--- NOTE | 2018-11-07 07:01 | NUR ---
RN NOTES GOT A CALL FROM LAB PATIENT'S HGB IS 7.0. MD STRONG IS NOTIFIED. AND NEW ORDER OF RECHECK HGB AT [address] WILL ENDORSE TO AM RN FOR PRECISION MECHANICAL INSTRUMENT MAKER.
[2018-11-07] MEDS: BLOOD SUGAR DIAGNOSTIC 1 EACH STRIP VI SCH ×4 (07:30→22:26)
--- NOTE | 2018-11-07 08:09 | NUR ---
INTERACTIVE ART DIRECTOR NOTE PATIENT IS IN BED, OBTUNDED. HAS T PIECE, ON COOL AEROSOL 28%5L OF O2 . NO SIGNS OF ANY PAIN NOR SOB NOTED AT THIS TIME. RT AT BEDSIDE ON TELE MONITOR, SR. HR 83 ON NEPRO AT 55 ML/HR FOR 16 HRS. TURN OFF AT 0000 AND WILL BE ON 1600 NO RESIDUAL NOTED . HAS RIGHT FEMORAL TRIPLE LUMEN CATH RT FEMORAL . HAS VARUN AV SHUNT USED FOR DIALYSIS. BED LOCKED AND IN LOW POSITION. CALL LIGHT WITHIN REACH. FAMILY AT BEDSIDE
[2018-11-07] MEDS: LACTOBACILLUS RHAMNOSUS GG 1 EACH CAP.SPRINK GT SCH ×2 (08:25→22:20)
[2018-11-07] MEDS: CARVEDILOL 3.125 MG TABLET GT SCH ×2 (08:25→22:22)
[2018-11-07] MEDS: ACETAMINOPHEN 325 MG TABLET PO SCH ×2 (08:26→22:21)
[2018-11-07] MEDS: LEVETIRACETAM SOL (5 ML) 100 MG/ML UDC GT SCH ×2 (08:26→22:20)
[2018-11-07] MEDS: VIT B CMPLX 3/FA/VIT C/BIOTIN 1 TAB TABLET GT SCH (08:26)
[2018-11-07] MEDS: BRIMONIDINE TARTRATE OPHT SOLN 5 ML BOTTLE EACHEYE SCH (08:26)
[2018-11-07] MEDS: LACTULOSE 10 G/15 ML UDC (PYXIS) GT SCH ×2 (08:27→16:35)
[2018-11-07] MEDS: DAKINS HALF STRENGTH (0.25%) 480 ML BOTTLE TOP SCH ×2 (08:32→22:28)
--- NOTE | 2018-11-07 08:33 | NUR ---
CLOTHING MANAGER NOTE BLOOD SUGAR CHECKED BY HOSPITALITY COORDINATORDIRECTOR OF AGRONOMY
--- NOTE | 2018-11-07 10:53 | NUR ---
telecommunications analyst note turn reposition. keep dry ,l will cont to monitor closely ,trach care done
[2018-11-07] MEDS: INSULIN REGULAR, HUMAN 100 UNIT/ML 3 ML VIAL SQ PRN (12:14)
--- NOTE | 2018-11-07 12:31 | NUR ---
CITY MAIL CARRIER NOTE DR INMAN AWARE THAT HG 7.0 OK TO GIVE I UNIT PRBC WITH HD
--- NOTE | 2018-11-07 12:57 | NUR ---
RADIO STATION OPERATOR NOTE TELEPHONE CONSENT DONE FOR WOUND DEBRIDEMENT, SPOKE WITH SISTER JODIE ALSO AWARE THAT WILL BE BLOOD TRANSFUSION TODAY WITH HD
[2018-11-07] MEDS ORDERED: SILVER NITRATE APPLICATOR 1 EA BOX TP ONE (13:00)
[2018-11-07] MEDS ORDERED: LIDOCAINE 1%-EPI 1:100,000 20 ML VIAL TP ONE (13:00)
--- NOTE | 2018-11-07 14:23 | NUR ---
CAPACITY MANAGEMENT SPECIALIST NOTE PER TANNER HENSON SURGERY DEBRIDEMENT WILL BE DONE TOMORROW
--- NOTE | 2018-11-07 15:26 | NUR ---
AUTOMOTIVE MANUFACTURER NOTE HD NURSE AT BEDSIDE ,HD STARTED ORDERED , BLOOD TRANSFUSION 1 UNIT PRBC WILL BE TRANSFUSE
--- NOTE | 2018-11-07 16:06 | NUR ---
radiotelephone technical operator note blood transfusion completed by hd nurse ,no adverse reaction noted , cont on hd
--- NOTE | 2018-11-07 17:33 | NUR ---
BRANCH RETAIL EXECUTIVE NOTE LIDOCAINE AND SILVER NITRATE WILL BE IN USE TOMORROW BY TANNER HENSON SURGERY FOR SACRAL DEBRIDEMENT
--- NOTE | 2018-11-07 18:00 | NUR ---
emergency telecommunications dispatcher note amikacin 19.8 pharmacy notified ok to hold dose at this time
--- NOTE | 2018-11-07 18:09 | NUR ---
BALLER TENDER NOTE HD COMPLETED 1399 ML OF FLUIDS REMOVED BP 132/78 HR 78
--- NOTE | 2018-11-07 18:57 | NUR ---
QUARTER SECTION IRONER NOTES PT IN BED SLEEPING COMFORTABLY. NO SIGNS OF DISTRESS OR SOB AT THIS TIME. ALL NEEDS ATTENDED. BED LOCKED IN THE LOWEST POSITION, SIDE RAILS UP. CALL LIGHT IN REACH. WILL ENDORSE TO PM NURSE BILL.
[2018-11-07] MEDS: MONTELUKAST SODIUM (10MG) 10 MG TABLET GT SCH (22:25)
[2018-11-08] VITALS (7 sets, daily range): BP systolic 135–158; BP diastolic 50–74
[2018-11-08] MEDS: NEPRO 1,000 ML BOTTLE GT PRN ×2 (00:04→20:07)
[2018-11-08] MEDS: ALBUTEROL FS 2.5 MG/3 ML VIAL.NEB IH SCH ×4 (01:51→20:11)
[2018-11-08] MEDS: SUCRALFATE 1 G/10 ML UDC GT SCH ×3 (05:19→20:26)
[2018-11-08] MEDS: CHLORHEXIDINE GLUCONATE 15 ML UDC MM SCH ×3 (05:19→20:26)
[2018-11-08] MEDS: FAMOTIDINE (20 MG) 20 MG TABLET GT SCH (05:19)
[2018-11-08] MEDS: PROSOURCE / PROSTAT (PYXIS) 30 ML UDC GT SCH ×3 (05:21→20:26)
[2018-11-08] MEDS: INSULIN NPH, HUMAN ISOPHANE 100 UNIT/ML VIAL SQ SCH ×3 (05:27→21:39)
[2018-11-08] MEDS: *INSULIN REGULAR(HUMULIN R)HUM 100 UNIT/ML VIAL SQ PRN ×3 (05:29→21:40)
[2018-11-08 07:22] LABS: BASOPHILS % (AUTO) 0.2 % (0.0-2.0); HEMATOCRIT 26 % (33-45); HEMOGLOBIN 8.7 g/dL (11.5-14.8); LYMPHOCYTES # (AUTO) 0.8 /CMM (0.8-4.8); LYMPHOCYTES % (AUTO) 6.1 % (20.0-44.0); MEAN CORPUSCULAR HGB CONC 33 g/dl (31.0-36.0); MEAN CORPUSCULAR VOLUME 89 fL (82-100); MONOCYTES # (AUTO) 0.9 /CMM (0.1-1.30); MONOCYTES % (AUTO) 6.9 % (2.0-12.0); NEUTROPHILS # (AUTO) 11.1 /CMM (1.8-8.9); NEUTROPHILS % (AUTO) 85.8 % (43.0-81.0); PLATELET COUNT (AUTO) 243 /CMM (150-450); RED BLOOD CELL COUNT(AUTO) 2.95 MIL/uL (4.0-5.2); WHITE BLOOD COUNT (AUTO) 12.9 K/uL (4.3-11.0)
[2018-11-08 07:37] LABS: CALCIUM, SERUM 9.6 mg/dL (8.5-10.1); CREATININE 3.5 mg/dL (0.6-1.3); MAGNESIUM 2.4 mg/dL (1.8-2.4); PHOSPHORUS 1.7 mg/dL (2.5-4.9); POTASSIUM 3.8 mmol/L (3.5-5.1)
[2018-11-08] MEDS: BLOOD SUGAR DIAGNOSTIC 1 EACH STRIP VI SCH ×4 (07:55→21:35)
[2018-11-08] MEDS: LEVETIRACETAM SOL (5 ML) 100 MG/ML UDC GT SCH ×2 (08:40→20:26)
[2018-11-08] MEDS: LACTULOSE 10 G/15 ML UDC (PYXIS) GT SCH ×2 (08:41→16:37)
[2018-11-08] MEDS: LACTOBACILLUS RHAMNOSUS GG 1 EACH CAP.SPRINK GT SCH ×2 (08:42→20:26)
[2018-11-08] MEDS: ACETAMINOPHEN 325 MG TABLET PO SCH ×2 (08:42→20:26)
[2018-11-08] MEDS: VIT B CMPLX 3/FA/VIT C/BIOTIN 1 TAB TABLET GT SCH (08:42)
[2018-11-08] MEDS: CARVEDILOL 3.125 MG TABLET GT SCH ×2 (08:43→20:27)
[2018-11-08] MEDS ORDERED: K PHOS NEUTRAL 250 MG TABLET PO ONE (09:00)
[2018-11-08] MEDS: DAKINS HALF STRENGTH (0.25%) 480 ML BOTTLE TOP SCH ×2 (09:09→20:27)
--- NOTE | 2018-11-08 09:10 | NUR ---
obtunded, no sign of respiratory distress. sat 100%.
[2018-11-08] MEDS: BRIMONIDINE TARTRATE OPHT SOLN 5 ML BOTTLE EACHEYE SCH (12:15)
--- NOTE | 2018-11-08 12:52 | NUR ---
WOUND CARE CONSULT WOUND CARE RECEIVED CONSULT FOR SACRAL WOUND. WOUND CARE WILL DEFER CONSULT AND ALL TREATMENT PLANS TO PLASTIC SURGICAL TEAM WHO ARE CURRENTLY FOLLOWING THIS PATIENT. PATIENT WITH OZZIE AT 11, ALL PRESSURE ULCER PREVENTION MEASURES ARE NOTED TO BE IN PLACE AT THIS TIME. WILL SEE PRN.
--- NOTE | 2018-11-08 16:41 | NUR ---
large amount of loose stools, collected for OB, LACTULOSE HELD this evening. bs at 5pm, 250, got covered with 3 units regular insulin.
--- NOTE | 2018-11-08 17:33 | NUR ---
stool of OB , has been cancelled since 11/05, lab notified, to ditch the specimen
[2018-11-08 18:06] LABS: OCCULT BLOOD STOOL NEGATIVE (NEGATIVE)
--- NOTE | 2018-11-08 19:00 | NUR ---
PARKING CASHIER OPENING NOTES RECEIVED PATIENT IN BED, OBTUNDED. NO APPARENT DISTRESS NOTED. NO FACIAL GRIMACING OR ANY SIGNS OF PAIN NOTED. TRACH SHILEY XLT #7 NOTED, ON COOL AEROSOL, SATURATING 100%. ON TELE MONITOR SINUS RHYTHM WITH HR 89-90. IV SITE RIGHT FEMORAL TRIPLE LUMEN CATH FLUSHING AND PATENT, SITE C/D/I. RIGHT UPPER ARM AV SHUNT, SITE C/D/I, BRUIT AND THRILL NOTED. WILL KEEP PATIENT CLEAN, DRY AND COMFORTABLE. SAFETY, ASPIRATION, AND FALL PRECAUTIONS OBSERVED AND MAINTAINED, SIDE RAILS UP X2, BED LOCKED AND IN LOWEST POSITION, CALL LIGHT WITHIN REACH. WILL CONTINUE TO MONITOR PT.
[2018-11-08] MEDS: MONTELUKAST SODIUM (10MG) 10 MG TABLET GT SCH (21:45)
[2018-11-09] VITALS: BP 156/67
[2018-11-09] MEDS: ALBUTEROL FS 2.5 MG/3 ML VIAL.NEB IH SCH ×4 (01:27→19:24)
[2018-11-09 04:00] VITALS: BP 142/59
[2018-11-09] MEDS: INSULIN NPH, HUMAN ISOPHANE 100 UNIT/ML VIAL SQ SCH ×2 (05:16→12:28)
[2018-11-09] MEDS: SUCRALFATE 1 G/10 ML UDC GT SCH ×2 (05:17→12:18)
[2018-11-09] MEDS: FAMOTIDINE (20 MG) 20 MG TABLET GT SCH (05:17)
[2018-11-09] MEDS: CHLORHEXIDINE GLUCONATE 15 ML UDC MM SCH ×2 (05:17→12:18)
[2018-11-09] MEDS: PROSOURCE / PROSTAT (PYXIS) 30 ML UDC GT SCH ×2 (05:22→12:22)
[2018-11-09 06:27] LABS: BASOPHILS % (AUTO) 0.2 % (0.0-2.0); EOSINOPHILS % (AUTO) 1.5 % (0.0-6.0); HEMATOCRIT 29 % (33-45); HEMOGLOBIN 9.7 g/dL (11.5-14.8); LYMPHOCYTES # (AUTO) 0.8 /CMM (0.8-4.8); LYMPHOCYTES % (AUTO) 7.5 % (20.0-44.0); MEAN CORPUSCULAR HGB CONC 33 g/dl (31.0-36.0); MEAN CORPUSCULAR VOLUME 88 fL (82-100); MONOCYTES # (AUTO) 0.9 /CMM (0.1-1.30); MONOCYTES % (AUTO) 7.7 % (2.0-12.0); NEUTROPHILS # (AUTO) 9.2 /CMM (1.8-8.9); NEUTROPHILS % (AUTO) 83.1 % (43.0-81.0); PLATELET COUNT (AUTO) 263 /CMM (150-450); RED BLOOD CELL COUNT(AUTO) 3.29 MIL/uL (4.0-5.2); WHITE BLOOD COUNT (AUTO) 11.1 K/uL (4.3-11.0)
[2018-11-09 07:16] LABS: CALCIUM, SERUM 9.3 mg/dL (8.5-10.1); CREATININE 4.7 mg/dL (0.6-1.3); MAGNESIUM 2.7 mg/dL (1.8-2.4); PHOSPHORUS 2.2 mg/dL (2.5-4.9); POTASSIUM 4.1 mmol/L (3.5-5.1)
--- NOTE | 2018-11-09 07:21 | NUR ---
CORPORATE REAL ESTATE SPECIALIST CLOSING NOTES PATIENT SLEEPING IN BED, EASY TO AROUSE VIA TOUCH, PT OBTUNDED. NO APPARENT DISTRESS NOTED. NO FACIAL GRIMACING OR ANY SIGNS OF PAIN NOTED. TRACH SHILEY XLT #7 NOTED, FIO2 28, ON COOL AEROSOL, SATURATING 100%. ON TELE MONITOR SINUS RHYTHM WITH HR 80'S. IV SITE RIGHT FEMORAL TRIPLE LUMEN CATH FLUSHING AND PATENT, SITE C/D/I. RIGHT UPPER ARM AV SHUNT, SITE C/D/I, BRUIT AND THRILL NOTED. KEPT PATIENT CLEAN, DRY AND COMFORTABLE. GTF RUNNING ORDERED, TOLERATING WELL, NO RESIDUAL NOTED. REPOSITIONED Q2H. SAFETY, ASPIRATION, AND FALL PRECAUTIONS OBSERVED AND MAINTAINED, SIDE RAILS UP X2, BED LOCKED AND IN LOWEST POSITION, CALL LIGHT WITHIN REACH. ENDORSED TO AM RN FOR BILL.
--- NOTE | 2018-11-09 07:30 | NUR ---
MATERIALS AND PROCESSES MANAGER NOTES OPENING RECEIVED PT SLEEPING IN BED. PT NOT ALERT AND ORIENTED. PT ON 5 L O2 SATURATION 100%. NO SIGNS OF SOB AND DISCOMFORT NOTED. NO FACIAL GRIMACING. ALL SAFETY MEASURES OBSERVED. BED LOCKED IN LOWEST POSITION. CALL LIGHT IN REACH. WILL CONTINUE TO MONITOR. MIDLINE FLUSHED WELL. WILL CONTINUE TO MONITOR.
[2018-11-09] MEDS: BLOOD SUGAR DIAGNOSTIC 1 EACH STRIP VI SCH ×3 (07:52→17:42)
[2018-11-09] MEDS: INSULIN REGULAR, HUMAN 100 UNIT/ML 3 ML VIAL SQ PRN ×2 (07:58→12:07)
[2018-11-09 08:00] VITALS: BP 155/63
[2018-11-09] MEDS: BRIMONIDINE TARTRATE OPHT SOLN 5 ML BOTTLE EACHEYE SCH (08:43)
[2018-11-09] MEDS: LACTULOSE 10 G/15 ML UDC (PYXIS) GT SCH ×2 (08:44→16:21)
[2018-11-09] MEDS: CARVEDILOL 3.125 MG TABLET GT SCH (08:44)
[2018-11-09] MEDS: LEVETIRACETAM SOL (5 ML) 100 MG/ML UDC GT SCH (08:45)
[2018-11-09] MEDS: VIT B CMPLX 3/FA/VIT C/BIOTIN 1 TAB TABLET GT SCH (08:45)
[2018-11-09] MEDS: ACETAMINOPHEN 325 MG TABLET PO SCH (08:45)
[2018-11-09] MEDS: LACTOBACILLUS RHAMNOSUS GG 1 EACH CAP.SPRINK GT SCH (08:45)
[2018-11-09] MEDS: DAKINS HALF STRENGTH (0.25%) 480 ML BOTTLE TOP SCH (09:00)
--- NOTE | 2018-11-09 09:18 | NUR ---
telegraph messenger note dr bullard at bedside with possible discharge to snf also per dr coto patient will have hd today ok d\c after hd
--- NOTE | 2018-11-09 09:45 | NUR ---
MS RN NOTE DR MEDINA AWARE THAT MAG 2.7 AND PHOS 2.2 STATED PATIENT WILL HAVE HD TODAY
--- NOTE | 2018-11-09 11:36 | NUR ---
EMPLOYEE ADVISER NOTE DR BERMUDEZ AUTOMOBILE UPHOLSTERY TRIM INSTALLER SEEN PATIENT, AWARE THAT POSSIBLE DISCHARGE TO SUBACUTE ,STATED ITS OK FOR DISCHARGE
--- NOTE | 2018-11-09 11:38 | NUR ---
LEGAL MANAGER NOTE DR BERMUDEZ COMMERCIAL BAKER HELPER AT BEDSIDE SEEN PATIENT, AWARE THAT BREATHING IS SLIGHTLY LABORED STATED ITS , NO NEW ORDER GIVEN AT THIS TIME
[2018-11-09 12:00] VITALS: BP 101/43
[2018-11-09] MEDS ORDERED: FAMO20TA8 PO (13:29)
[2018-11-09] MEDS ORDERED: SUCR1ORA4 PO (13:29)
--- NOTE | 2018-11-09 13:53 | NUR ---
HARD ROCK MINER NOTE PER DR HENNY ZELAYA TO D\C TO D\C SUBACUTE , SPOKE WITH LAMP SHADE JOINER WILL BE DONE ABOUT 5-6 PM, PATIENT NEEDS HD FIRST
--- NOTE | 2018-11-09 15:17 | NUR ---
PLUMBING DESIGNER NOTES CALLED SISTER LILIANA REGARDING PT TRANSFER TO SUBACUTE UNIT. SISTER AWARE OF TRANSFERRING PROCESS.
--- NOTE | 2018-11-09 15:34 | NUR ---
MARKET ANALYST NOTE ON HD AT THIS TIME
[2018-11-09 16:00] VITALS: BP 115/56
--- NOTE | 2018-11-09 16:24 | NUR ---
teletype technician note amikacin will be hold, level 10.1 pharmacist aware
--- NOTE | 2018-11-09 18:21 | NUR ---
josephine parry note hd completed no fluid out bp 117/77 hr 77 Addendum: 11/09/18 at 1822 by DENIS PICKETT RN report given to carroll younger rn
--- NOTE | 2018-11-09 18:43 | NUR ---
COMMISSIONER OF INTERNAL REVENUE NNOTE TRANSFERRED TO SUB ACUTE WITH STABLE CONDITION WITH RT , REPORT GIVEN TO RHIANNA
== END 2018-11-09 18:30 | DRG 981 ==
LOC: ER 14:53 → TELE1 18:11
PROVIDERS: ADMIT Internal Medicine; ATTEND Student in an Organized Health Care Education/Training Program
PROC: 30233N1 Transfusion of Nonautologous Red Blood Cells into Peripheral Vein, Percutaneous Approach (ICD-10-PCS; principal; 2018-11-05)
PROC: 5A1D70Z Performance of Urinary Filtration, Intermittent, Less than 6 Hours Per Day (ICD-10-PCS; 2018-11-05)
PROC: 0QB10ZZ Excision of Sacrum, Open Approach (ICD-10-PCS; 2018-11-08)
DX: J96.01 Acute respiratory failure with hypoxia (principal); L89.154 Pressure ulcer of sacral region, stage 4; N18.6 End stage renal disease; E43 Unspecified severe protein-calorie malnutrition; G93.41 Metabolic encephalopathy; R53.2 Functional quadriplegia; L89.324 Pressure ulcer of left buttock, stage 4; L89.314 Pressure ulcer of right buttock, stage 4; M46.28 Osteomyelitis of vertebra, sacral and sacrococcygeal region; I12.0 Hypertensive chronic kidney disease with stage 5 chronic kidney disease or end stage renal disease; G93.1 Anoxic brain damage, not elsewhere classified; L97.429 Non-pressure chronic ulcer of left heel and midfoot with unspecified severity; E87.1 Hypo-osmolality and hyponatremia; E11.69 Type 2 diabetes mellitus with other specified complication; E11.22 Type 2 diabetes mellitus with diabetic chronic kidney disease; Z99.2 Dependence on renal dialysis; Z79.4 Long term (current) use of insulin; D63.1 Anemia in chronic kidney disease; E88.09 Other disorders of plasma-protein metabolism, not elsewhere classified; G40.909 Epilepsy, unspecified, not intractable, without status epilepticus; Z86.718 Personal history of other venous thrombosis and embolism; Z87.01 Personal history of pneumonia (recurrent); Z86.74 Personal history of sudden cardiac arrest; Z93.0 Tracheostomy status; E83.9 Disorder of mineral metabolism, unspecified; Z68.32 Body mass index [BMI] 32.0-32.9, adult; I48.91 Unspecified atrial fibrillation; K21.9 Gastro-esophageal reflux disease without esophagitis; E11.621 Type 2 diabetes mellitus with foot ulcer; Z93.1 Gastrostomy status; M24.542 Contracture, left hand; M24.541 Contracture, right hand; L89.890 Pressure ulcer of other site, unstageable; E11.51 Type 2 diabetes mellitus with diabetic peripheral angiopathy without gangrene; I70.245 Atherosclerosis of native arteries of left leg with ulceration of other part of foot; L97.529 Non-pressure chronic ulcer of other part of left foot with unspecified severity; D63.8 Anemia in other chronic diseases classified elsewhere; E83.39 Other disorders of phosphorus metabolism
CPT/HCPCS: 31720; 36415; 71045-TC; 80048-TC; 80150; 82272-TC; 82962-TC; 83540-TC; 83735-TC; 84100-TC; 85025-TC; 85027-TC; 86706; 86850-TC; 86880-TC; 86921-TC; 87081-TC; 87340; 90935-TC; 94003-TC; 94640-TC; 94760-TC; 94762-TC; 99082-TC; A4217; A6253; A6403; A9563; G0378; J0278; J0885; J1815; J1953; J3490; J7050; J7060; P9016-BL

== ENCOUNTER 2018-11-28 15:26 | Inpatient (IN) | payer MEDICARE, OTHER ==
[~2018-11-28] VITALS: Ht 157.5 cm; Wt 86.2 kg
[~2018-11-28 15:26] MED LIST changes: +AMIK250V8 IV; -ASCO250T5 GT; -CALC667C6 GT; +FAMO20TA8 PO; -FLUC100T8 PO; +HYDR-4384 GT; +HYDR1SOL TOP; +LACT1CAP72 GT; -LACT1CAP72 PO; +MAG30ORA GT; -METR500T PO; -POLY17PO4 GT; +POVI3780 TP; -RXVAN XX; -SODI473S8 TOP; +SODI480S2 TOP; +SUCR1ORA4 PO
--- NOTE | 2018-11-28 15:36 | NUR ---
[id number], FROM [facility] FOR BLEEDING SHUNT, CONTROLLED TRUCK DRIVER'S OFFSIDER. AV FISTULA ON VARUN. PT NON VERBAL, EYES OPEN. ON TRACH, RR EVEN & UNLABORED. SKIN INTACT. PLACED ON WEB DEVELOPMENT CONSULTANT. SR. WILL CONT TO MONITOR.
--- NOTE | 2018-11-28 16:13 | NUR ---
PT RECEIVED IN ER FROM DIALYSIS CENTER, PLACED ON C/A SETUP AT 28%, TRACH TUBE PATENT, CLEAN, DRY. PT SX'ED TO SMALL AMOUNTS OF THICK YELLOW SECRETIONS. Addendum: 11/28/18 at 1614 by FORREST GAGE RT Amended: Links added.
--- NOTE | 2018-11-28 16:22 | NUR ---
CALLED DR RODRIGUEZ FOR CONSULT
[2018-11-28] MEDS ORDERED: NEUTRAPHOS GT (16:41)
[2018-11-28] MEDS ORDERED: ASCO500T9 GT (16:41)
[2018-11-28] MEDS ORDERED: ZINC220T4 PO (16:41)
[2018-11-28] MEDS ORDERED: VANC1PLA9 IV (16:43)
[2018-11-28 16:46] LABS: BASOPHILS # (AUTO) 0.1 /CMM (0.0-0.2); EOSINOPHILS % (AUTO) 1.6 % (0.0-6.0); HEMATOCRIT 25 % (33-45); HEMOGLOBIN 7.9 g/dL (11.5-14.8); LYMPHOCYTES # (AUTO) 0.7 /CMM (0.8-4.8); LYMPHOCYTES % (AUTO) 5.6 % (20.0-44.0); MEAN CORPUSCULAR HGB CONC 32 g/dl (31.0-36.0); MEAN CORPUSCULAR VOLUME 85 fL (82-100); NEUTROPHILS # (AUTO) 10.4 /CMM (1.8-8.9); NEUTROPHILS % (AUTO) 83.8 % (43.0-81.0); PLATELET COUNT (AUTO) 336 /CMM (150-450); RED BLOOD CELL COUNT(AUTO) 2.95 MIL/uL (4.0-5.2); WHITE BLOOD COUNT (AUTO) 12.4 K/uL (4.3-11.0)
--- NOTE | 2018-11-28 16:56 | NUR ---
room formerly [facility]
[2018-11-28 17:02] LABS: ALBUMIN 2.2 g/dL (3.4-5.0); BILIRUBIN,DIRECT 0.1 mg/dL (0.0-0.2); BILIRUBIN,TOTAL 0.3 mg/dL (0.2-1.0); CALCIUM, SERUM 9.4 mg/dL (8.5-10.1); CREATININE 4.9 mg/dL (0.6-1.3); POTASSIUM 3.1 mmol/L (3.5-5.1); TOTAL PROTEIN, SERUM 7.9 g/dL (6.4-8.2)
--- NOTE | 2018-11-28 17:45 | NUR ---
PT STABLE, RR EVEN & UNLABORED, NO RESP DISTRESS NOTED @ THIS TIME. DR. AVILES REPAIRED RT UPPER ARM SHUNT WITH SUTURES, NO ACTIVE BLEEDING NOTED. PT AMY WELL. WILL CONT TO MONITOR.
--- NOTE | 2018-11-28 18:26 | NUR ---
DR TAE GUILLERMO
--- NOTE | 2018-11-28 19:29 | NUR ---
DR SUGEY GUILLERMO
[2018-11-28 20:00] VITALS: BP 142/47
[2018-11-28] MEDS ORDERED: ZOLPIDEM TARTRATE 5 MG TABLET PO PRN (20:00)
[2018-11-28] MEDS ORDERED: ONDANSETRON HCL/PF 4 MG/2 ML VIAL IVP PRN (20:00)
[2018-11-28] MEDS ORDERED: MAGNESIUM HYDROXIDE 30 ML UDC PO PRN (20:00)
[2018-11-28] MEDS ORDERED: MAG HYDROX/AL HYDROX/SIMETH 30 ML UDC PO PRN (20:00)
[2018-11-28] MEDS ORDERED: Z GUARD REMEDY 2 OZ OINT TP PRN (20:00)
--- NOTE | 2018-11-28 20:31 | NUR ---
REPORT GIVEN TO JASMEET FERRELL FOR BILL
[2018-11-28 21:00] VITALS: BP 142/47
--- NOTE | 2018-11-28 21:00 | NUR ---
EMPLOYEE BENEFITS INSURANCE AGENT OPENING NOTES, RECEIVED PATIENT FROM ER VIA GURNEY, NO REPARATORY DISTRESS NOTED, A/O X1. PATIENT IS NON-VERBAL, DX AV SHUNT MALFUNCTIONING. PICC LINE ON RIGHT FEMORAL NOTED, NO S/S OF INFECTION/INFILTRATION NOTED. PATENT TRACH/T-PIECE ON 5LITTER/MIN.BELONGING LIST IS DONE AND IN CHART. SKIN PICTURES DONE AND IN CHART, VITAL SIGH RECORDED. WILL CONTINUE TO MONITOR.
[2018-11-29] VITALS (8 sets, daily range): BP systolic 93–149; BP diastolic 46–66
--- NOTE | 2018-11-29 01:26 | NUR ---
MS RN NOTES REPORT GIVEN TO HEIDI ALAMO FOR BILL.
--- NOTE | 2018-11-29 04:22 | NUR ---
DIRECTOR VETERINARY NOTES CALLED RT FOR EKG ORDERS.
[2018-11-29 07:10] LABS: BASOPHILS # (AUTO) 0.1 /CMM (0.0-0.2); BASOPHILS % (AUTO) 0.5 % (0.0-2.0); EOSINOPHILS % (AUTO) 1.4 % (0.0-6.0); HEMATOCRIT 22 % (33-45); HEMOGLOBIN 7.3 g/dL (11.5-14.8); LYMPHOCYTES # (AUTO) 0.9 /CMM (0.8-4.8); LYMPHOCYTES % (AUTO) 9.5 % (20.0-44.0); MEAN CORPUSCULAR HGB CONC 33 g/dl (31.0-36.0); MEAN CORPUSCULAR VOLUME 84 fL (82-100); MONOCYTES # (AUTO) 0.9 /CMM (0.1-1.30); MONOCYTES % (AUTO) 9.1 % (2.0-12.0); NEUTROPHILS # (AUTO) 7.7 /CMM (1.8-8.9); NEUTROPHILS % (AUTO) 79.5 % (43.0-81.0); PLATELET COUNT (AUTO) 288 /CMM (150-450); RED BLOOD CELL COUNT(AUTO) 2.66 MIL/uL (4.0-5.2); WHITE BLOOD COUNT (AUTO) 9.6 K/uL (4.3-11.0)
--- NOTE | 2018-11-29 07:10 | NUR ---
TAKE OUT WAITRESS NOTES NO ACUTE CHANGES NOTED DURING THE SHIFT. NO ACTIVE BLEEDING NOTED. PROVIDED COMFORT AND SAFETY. WILL ENDORSE TO THE AM NURSE FOR CONTINUITY OF CARE.
--- NOTE | 2018-11-29 07:30 | NUR ---
RN NOTES RECEIVED PATIENT IN BED. RESPONSIVE TO TACTILE STIMULI. NONVERBAL. ON T PIECE, OXYGEN AT 5PM. TOLERATING WELL. SATING FINE. NOT ON ANY FORM OF DISTRESS. SINUS RHYTHM ON THE MONITOR WITH HR ON THE 70'S.GT IN PLACED, CLAMPED AT THIS TIME DUE TO PATIENT ON NPO STATUS FOR SCHEDULED SURGERY, GT PLACEMENT CONFIRMED THROUGH AUSCULTATION BUT NO RESIDUAL NOTED AT THIS TIME. PICC LINE ON RIGHT FEMORAL NOTED , IN PLACE, DRESSING DRY AND INTACT, SALINE LOCKED. HOB KEPT ELEVATED. SAFETY MEASURES OBSERVED AND MAINTAINED. CALL LIGHT PLACED WITHIN REACH. WILL CONTINUE TO MONITOR PATIENT AND ANTICIPATE NEEDS Addendum: 11/29/18 at 1017 by MIS GUEVARA RN WITH DRESSING ON THE VARUN, AV FISTULA SITE. DRESSING DRY AND INTACT. NO DISCHARGE OR BLEEDING NOTED
[2018-11-29 07:42] LABS: ALBUMIN 1.9 g/dL (3.4-5.0); BILIRUBIN,TOTAL 0.3 mg/dL (0.2-1.0); CALCIUM, SERUM 9.1 mg/dL (8.5-10.1); CREATININE 5.4 mg/dL (0.6-1.3); MAGNESIUM 2.8 mg/dL (1.8-2.4); PHOSPHORUS 5.5 mg/dL (2.5-4.9); POTASSIUM 3.2 mmol/L (3.5-5.1)
[2018-11-29] MEDS: ALBUTEROL HALF STRENGTH 1.25 MG/3 ML VIAL.NEB NEB SCH ×3 (09:30→15:30)
[2018-11-29] MEDS: IPRATROPIUM NEB FS 0.5 MG/2.5 ML AMPUL.NEB NEB SCH ×4 (09:30→19:23)
--- NOTE | 2018-11-29 12:00 | NUR ---
RN NOTES DR. RODRIGUEZ AT THE UNIT TO SEE THE PATIENT. PER MD, PATIENT JUST NEEDED REVISION OF THE FISTULA, WITH ORDER TO OBTAIN CONSENT FOR AV FISTULA REVISION. ORDER NOTED AND CARRIED OUT CONSENT OBTAINED FROM LILIANA HOLM (SISTER) THROUGH PHONE CALL, CONSENT VERIFIED WITH HODA PEREZ RN
[2018-11-29] MEDS ORDERED: EPOETIN ALFA (10,000 UNIT) 10,000 UNIT/ML VIAL IV ONE (14:00)
[2018-11-29] MEDS ORDERED: SILVER NITRATE APPLICATOR 1 EA BOX TP STA (14:43)
[2018-11-29] MEDS ORDERED: LIDOCAINE 1%-EPI 1:100,000 20 ML VIAL TP ONE (15:00)
--- NOTE | 2018-11-29 16:30 | NUR ---
RN NOTES PATIENT PICKED UP BY OR TEAM.
[2018-11-29] MEDS ORDERED: HYDROGEN PEROXIDE 480 ML BOTTLE ONE (17:06)
[2018-11-29 18:15] LABS: BASOPHILS # (AUTO) 0.1 /CMM (0.0-0.2); BASOPHILS % (AUTO) 0.6 % (0.0-2.0); EOSINOPHILS % (AUTO) 1.1 % (0.0-6.0); HEMATOCRIT 23 % (33-45); HEMOGLOBIN 7.4 g/dL (11.5-14.8); LYMPHOCYTES # (AUTO) 0.7 /CMM (0.8-4.8); LYMPHOCYTES % (AUTO) 5.8 % (20.0-44.0); MEAN CORPUSCULAR HGB CONC 32 g/dl (31.0-36.0); MEAN CORPUSCULAR VOLUME 84 fL (82-100); MONOCYTES # (AUTO) 0.8 /CMM (0.1-1.30); MONOCYTES % (AUTO) 6.1 % (2.0-12.0); NEUTROPHILS % (AUTO) 86.4 % (43.0-81.0); PLATELET COUNT (AUTO) 311 /CMM (150-450); RED BLOOD CELL COUNT(AUTO) 2.76 MIL/uL (4.0-5.2); WHITE BLOOD COUNT (AUTO) 12.7 K/uL (4.3-11.0)
[2018-11-29] MEDS ORDERED: ALBUTEROL FS 2.5 MG/3 ML VIAL.NEB IH PRN (18:30)
--- NOTE | 2018-11-29 18:30 | NUR ---
RN NOTES RECEIVED ENDORSEMENT FROM JULIUS (OR NURSE), WITH DR RODRIGUEZ'S ORDERS. PAGED DR. INMAN TO DO MED RECON IN LINE [facility] DR. RODRIGUEZ;S ORDER TO RESUME ALL PRE-OP ORDERS. BUT PATIENT HAS BEEN ON NPO STATUS SINCE MIDNIGHT
[2018-11-29 18:33] LABS: CALCIUM, SERUM 9.2 mg/dL (8.5-10.1); CREATININE 5.9 mg/dL (0.6-1.3); POTASSIUM 3.5 mmol/L (3.5-5.1)
[2018-11-29] MEDS ORDERED: LACTULOSE 10 G/15 ML UDC (PYXIS) GT PRN (19:00)
[2018-11-29] MEDS ORDERED: POLYVINYL ALCOHOL 15 ML BOTTLE EACHEYE PRN (19:00)
--- NOTE | 2018-11-29 19:00 | NUR ---
RN NOTES RECEIVED PATIENT FROM THE OR. VITAL SIGNS NOTED FOLLOWS 144/66 BP, 98 HR, TEMP 98, 18 RR. PATIENT MADE WARMTH AND COMFORTABLE. WILL CONTINUE TO MONITOR
--- NOTE | 2018-11-29 19:20 | NUR ---
RN NOTES ENDORSED FOR CONTINUITY OF CARE. NOT ON ANY FORM OF DISTRESS. ABOUT TO RECEIVE DIALYSIS TREATMENT. ALL NURSING NEEDS ATTENDED AND MET. SAFETY MEASURES IN PLACE. CALL LIGHT WITHIN REACH
[2018-11-29] MEDS: ALBUTEROL FS 2.5 MG/3 ML VIAL.NEB IH SCH (19:23)
[2018-11-29] MEDS: DAKINS HALF STRENGTH (0.25%) 480 ML BOTTLE TOP SCH (21:00)
[2018-11-29] MEDS: CARVEDILOL 3.125 MG TABLET GT SCH (21:00)
[2018-11-29] MEDS: NEPRO VAN 237 ML CAN GT SCH (22:00)
[2018-11-29] MEDS: NEUTRA PHOS 1 POWD.PACKET GT SCH (22:01)
[2018-11-29] MEDS: LACTOBACILLUS RHAMNOSUS GG 1 EACH CAP.SPRINK GT SCH (22:02)
[2018-11-29] MEDS: LEVETIRACETAM SOL (5 ML) 100 MG/ML UDC GT SCH (22:02)
[2018-11-29] MEDS: SUCRALFATE 1 G/10 ML UDC GT SCH (22:02)
[2018-11-29] MEDS: PROSOURCE / PROSTAT (PYXIS) 30 ML UDC PO SCH (22:02)
--- NOTE | 2018-11-29 22:56 | NUR ---
MS/RN ON INITIAL ROUNDS AT 1999, PATIENT WAS IN BED AWAKE, NON VERBAL, T PIECE TO WALL OXYGEN, APPEAR COMFORTABLE, NO SIGNS OF DISTRESS NOTED, HD IN PROGERESS. WILL MONITOR.
[2018-11-30] VITALS (10 sets, daily range): BP systolic 128–146; BP diastolic 54–86
[2018-11-30] MEDS: IPRATROPIUM NEB FS 0.5 MG/2.5 ML AMPUL.NEB NEB SCH ×6 (00:32→20:28)
[2018-11-30] MEDS: ALBUTEROL FS 2.5 MG/3 ML VIAL.NEB IH SCH ×4 (00:32→20:28)
--- NOTE | 2018-11-30 02:55 | NUR ---
MS/RN NURSING CARE DONE, BM NOTED, CLEANED AND MADE DRY, WOUND CARE DONE, REPOSITIONED TO COMFORT, WILL CONTINUE TO MONITOR.
[2018-11-30] MEDS: PROSOURCE / PROSTAT (PYXIS) 30 ML UDC PO SCH ×3 (03:11→19:50)
[2018-11-30] MEDS: FAMOTIDINE (20 MG) 20 MG TABLET GT SCH (05:46)
[2018-11-30] MEDS: SUCRALFATE 1 G/10 ML UDC GT SCH ×3 (05:46→20:00)
--- NOTE | 2018-11-30 06:29 | NUR ---
MS/RN PATIENT IS AWAKE, APPEAR COMFORTABLE, NO SIGNS OF DISTRESS NOTED, HOB ELEVATED, ALL NEEDS ATTENDED AT THIS TIME, WILL CONTINUE TO MONITOR.
--- NOTE | 2018-11-30 07:00 | NUR ---
RN AM SHIFT NOTE PATENT IN BED AWAKE BUT NON VERBAL, FAMILY AT BEDSIDE. GTUBE FEEDING REDUCED PER MD ORDER TO 1040 PQ 24 HOURS. ASSESS AV SHUNT RESECTION FOR ACTIVE BLEEDING AND OR S/S INFECTION DRAININAGE, NO ACTIVE BLEEDINGA THIS TIME, CLEAR OF SEROSANGUINEOUS FLUIDS. NIGHT NURSE ENDORSED SACRAL WOUND AND RT LEG WOUND , WOUND CONSULT ORDERED. IV PATENT AND INTACT. BED IN LOW POSITION, CALL LIGHT WITHIN REACH. ALARMS CHECKED AND OPERATING WELL.
[2018-11-30 07:29] LABS: BASOPHILS % (AUTO) 0.4 % (0.0-2.0); EOSINOPHILS % (AUTO) 0.2 % (0.0-6.0); HEMATOCRIT 22 % (33-45); LYMPHOCYTES # (AUTO) 0.9 /CMM (0.8-4.8); LYMPHOCYTES % (AUTO) 7.3 % (20.0-44.0); MEAN CORPUSCULAR HGB CONC 31 g/dl (31.0-36.0); MEAN CORPUSCULAR VOLUME 84 fL (82-100); MONOCYTES % (AUTO) 8.2 % (2.0-12.0); NEUTROPHILS # (AUTO) 9.7 /CMM (1.8-8.9); NEUTROPHILS % (AUTO) 83.9 % (43.0-81.0); PLATELET COUNT (AUTO) 299 /CMM (150-450); WHITE BLOOD COUNT (AUTO) 11.6 K/uL (4.3-11.0)
[2018-11-30 07:38] LABS: CALCIUM, SERUM 8.9 mg/dL (8.5-10.1); CREATININE 4.4 mg/dL (0.6-1.3); MAGNESIUM 2.5 mg/dL (1.8-2.4); PHOSPHORUS 4.8 mg/dL (2.5-4.9); POTASSIUM 3.5 mmol/L (3.5-5.1)
[2018-11-30 07:52] LABS: HEMOGLOBIN 6.9 g/dL (11.5-14.8)
[2018-11-30] MEDS: LEVETIRACETAM SOL (5 ML) 100 MG/ML UDC GT SCH ×2 (08:29→20:00)
[2018-11-30] MEDS: VIT B CMPLX 3/FA/VIT C/BIOTIN 1 TAB TABLET GT SCH (08:29)
[2018-11-30] MEDS: ZINC SULFATE 220 MG CAPSULE PO SCH (08:29)
[2018-11-30] MEDS: NEUTRA PHOS 1 POWD.PACKET GT SCH ×2 (08:29→17:40)
[2018-11-30] MEDS: LACTOBACILLUS RHAMNOSUS GG 1 EACH CAP.SPRINK GT SCH ×2 (08:29→20:00)
[2018-11-30] MEDS: ASCORBIC ACID 500 MG TABLET GT SCH (08:29)
[2018-11-30] MEDS: DAKINS HALF STRENGTH (0.25%) 480 ML BOTTLE TOP SCH ×2 (08:30→20:01)
[2018-11-30] MEDS: CARVEDILOL 3.125 MG TABLET GT SCH ×2 (08:30→20:00)
[2018-11-30] MEDS ORDERED: diphenhydrAMINE HCL 50 MG/ML VIAL IV ONE (09:00)
[2018-11-30] MEDS ORDERED: ACETAMINOPHEN 325 MG TABLET PO PRN (09:00)
[2018-11-30 09:25] LABS: LYMPHOCYTES % (MANUAL) 9 % (16-48); MYELOCYTES % 1 % (0-0); NEUTROPHILS % (MANUAL) 84 (42-76); REACTIVE LYMPHOCYTES 6 % (0-0)
[2018-11-30] MEDS ORDERED: diphenhydrAMINE HCL 50 MG CAPSULE PO ONE (11:40)
[2018-11-30] MEDS: ACETAMINOPHEN 325 MG TABLET PO PRN ×2 (11:49→12:01)
[2018-11-30] MEDS: BRIMONIDINE TARTRATE OPHT SOLN 5 ML BOTTLE EACHEYE SCH (12:16)
--- NOTE | 2018-11-30 14:13 | NUR ---
STUDENT CONSENT NOTE WOUND MD REQUEST CONSENT FROM FAMILY FOR RIGHT HEEL SERIAL WOUND DEBRIMENT, TO BE DONE 11/2718 AM. RN CALLED FAMILY AND CONSENT DONE ON PHONE BY TWO RN'S. AWARE OF RISKS AND BENEFITS.
--- NOTE | 2018-11-30 15:10 | NUR ---
RT PATIENT RECEIVED TRACH'D ON CA. SPARE TRACH AND AMBU BAG AT BEDSIDE. BREATHING TX GIVEN ORDERED, ADVERSE REACTIONS OBSERVED, NO SOB OR SIGNS OF DISTRESS NOTED. WILL CONTINUE TO MONITOR FOR ANY CHANGES. Addendum: 11/30/18 at 1758 by SHEBA MEJÍA RT Amended: Links added.
[2018-11-30] MEDS ORDERED: FEE PK DOSING 1 MIN EA MC ONE (16:59)
[2018-11-30] MEDS: DAKINS QUARTER STRENGTH (0.125%) 480 ML BOTTLE TOP SCH (17:40)
[2018-11-30] MEDS: HYDROGEL DRESSING 90 GM TUBE TP SCH (17:40)
[2018-11-30] MEDS: CLOTRIMAZOLE 1% 15 GM TUBE TP SCH (17:41)
[2018-11-30] MEDS ORDERED: VANCOMYCIN 1 GM in IV D5W 250 ML IV ONE (18:00)
[2018-11-30] MEDS ORDERED: DEXTROSE 50%-WATER 50 ML DISP.SYRIN IV PRN (18:00)
[2018-11-30] MEDS: BLOOD SUGAR DIAGNOSTIC 1 EACH STRIP IN SCH ×2 (18:33→23:35)
[2018-11-30] MEDS: INSULIN REGULAR, HUMAN 100 UNIT/ML 3 ML VIAL SQ PRN ×2 (18:42→23:36)
--- NOTE | 2018-11-30 19:00 | NUR ---
RN CLOSING NOTE PATIENT NON VERBAL FAMILY AT BEDSIDE. MD AWARE OF ELEVATED GLUCOSE NEW ORDERS CARRIED OUT, ENDORSED TO EMERGENCY COMMUNICATIONS OPERATOR TO MONITOR. PATIENT IV PATNET AND INTACT, CONSENT FOR DEBRIMENT TOMORROW 12/[address] AT BEDSIDE DONE AND IN CHART. BED IN LOW POSITION SIDE RAILS UP.
--- NOTE | 2018-11-30 19:25 | NUR ---
MS/RN NOTES PATIENT RECEIVED IN BED, AWAKE, NON-VERBAL. NO S/S OF ACUTE DISTRESS NOTED AT THIS TIME. RESPIRATION EVEN AND UNLABORED. NO SOB NOTED. NO S/S OF PAIN NOTED AT THIS TIME. BED AT THE LOWEST LOCKED POSITION. CALL LIGHT WITHIN REACH. KEPT CLEAN AND DRY. WILL CONTINUE TO MONITOR PATIENT PER PLAN OF CARE.
[2018-11-30] MEDS: MEROPENEM 500 MG in IV NS 0.9% 50 ML IV SCH (19:50)
[2018-11-30] MEDS: NEPRO VAN 237 ML CAN GT SCH (22:31)
[2018-12-01] VITALS: BP 138/56
[2018-12-01] MEDS: IPRATROPIUM NEB FS 0.5 MG/2.5 ML AMPUL.NEB NEB SCH ×7 (02:08→23:50)
[2018-12-01] MEDS: ALBUTEROL FS 2.5 MG/3 ML VIAL.NEB IH SCH ×4 (02:08→20:25)
[2018-12-01] MEDS: PROSOURCE / PROSTAT (PYXIS) 30 ML UDC PO SCH ×3 (03:47→20:13)
[2018-12-01] MEDS: SUCRALFATE 1 G/10 ML UDC GT SCH ×3 (04:02→20:13)
[2018-12-01] MEDS: HYDROCODONE/APAP 5/325MG 1 EACH TABLET PO PRN (04:03)
[2018-12-01] MEDS: FAMOTIDINE (20 MG) 20 MG TABLET GT SCH (05:05)
[2018-12-01] MEDS: BLOOD SUGAR DIAGNOSTIC 1 EACH STRIP IN SCH ×3 (05:05→18:05)
[2018-12-01] MEDS: INSULIN REGULAR, HUMAN 100 UNIT/ML 3 ML VIAL SQ PRN ×3 (05:09→18:08)
--- NOTE | 2018-12-01 06:24 | NUR ---
WOUND CARE CONSULT WOUND CARE RECEIVED CONSULT FOR SACRAL WOUND. WOUND CARE WILL DEFER CONSULT AND ALL TREATMENT PLANS TO PLASTIC SURGERY TEAM INCLUDING DPM WHO ARE ALL FOLLOWING THIS PATIENT. PATIENT WITH OZZIE AT 9, ALL PRESSURE ULCER PREVENTION MEASURES ARE NOTED TO BE IN PLACE. WILL SEE PRN.
--- NOTE | 2018-12-01 06:37 | NUR ---
MS/RN NOTES PATIENT REMAINED IN BED, RESTING COMFORTABLY AT THIS TIME. NO S/S OF ACUTE DISTRESS NOTED AT THIS TIME. RESPIRATION EVEN AND UNLABORED. NO SOB NOTED. TRACH INTACT, PATENT NO S/S OF PAIN NOTED AT THIS TIME. ALL DUE MEDS GIVEN ORDERED, PATIENT TOLERATED WELL. ALL WOUND TREATMENT RENDERED ORDERED. G-TUBE IN PLACE, PATENT, CONNECTED TO FEEDING ORDERED. HOB ELEVATED ALL ALL THE TIME. 0 RESIDUAL NOTED. RIGHT AV SHUNT SITE WITH NO ACTIVE BLEEDING, OR INFECTION. BED AT THE LOWEST LOCKED POSITION. CALL LIGHT WITHIN REACH. KEPT CLEAN AND DRY. WILL ENDORSE TO AM SHIFT NURSE FOR BILL.
[2018-12-01 07:10] LABS: BASOPHILS # (AUTO) 0.1 /CMM (0.0-0.2); BASOPHILS % (AUTO) 0.5 % (0.0-2.0); EOSINOPHILS % (AUTO) 1.2 % (0.0-6.0); HEMATOCRIT 24 % (33-45); HEMOGLOBIN 7.6 g/dL (11.5-14.8); LYMPHOCYTES # (AUTO) 1.3 /CMM (0.8-4.8); LYMPHOCYTES % (AUTO) 10.2 % (20.0-44.0); MEAN CORPUSCULAR HGB CONC 32 g/dl (31.0-36.0); MEAN CORPUSCULAR VOLUME 84 fL (82-100); NEUTROPHILS % (AUTO) 80.1 % (43.0-81.0); PLATELET COUNT (AUTO) 310 /CMM (150-450); RED BLOOD CELL COUNT(AUTO) 2.83 MIL/uL (4.0-5.2); WHITE BLOOD COUNT (AUTO) 12.5 K/uL (4.3-11.0)
[2018-12-01 07:30] LABS: CALCIUM, SERUM 8.9 mg/dL (8.5-10.1); CREATININE 5.1 mg/dL (0.6-1.3); MAGNESIUM 2.7 mg/dL (1.8-2.4); PHOSPHORUS 4.6 mg/dL (2.5-4.9); POTASSIUM 3.5 mmol/L (3.5-5.1)
[2018-12-01 08:00] VITALS: BP 154/72
[2018-12-01] MEDS: ZINC SULFATE 220 MG CAPSULE PO SCH (08:51)
[2018-12-01] MEDS: LEVETIRACETAM SOL (5 ML) 100 MG/ML UDC GT SCH ×2 (08:51→20:14)
[2018-12-01] MEDS: VIT B CMPLX 3/FA/VIT C/BIOTIN 1 TAB TABLET GT SCH (08:51)
[2018-12-01] MEDS: ASCORBIC ACID 500 MG TABLET GT SCH (08:51)
[2018-12-01] MEDS: LACTOBACILLUS RHAMNOSUS GG 1 EACH CAP.SPRINK GT SCH ×2 (08:51→20:14)
[2018-12-01] MEDS: CARVEDILOL 3.125 MG TABLET GT SCH ×2 (08:53→20:14)
[2018-12-01] MEDS: NEUTRA PHOS 1 POWD.PACKET GT SCH (08:53)
[2018-12-01] MEDS: BRIMONIDINE TARTRATE OPHT SOLN 5 ML BOTTLE EACHEYE SCH (08:53)
[2018-12-01] MEDS: DAKINS HALF STRENGTH (0.25%) 480 ML BOTTLE TOP SCH ×2 (08:54→20:15)
[2018-12-01] MEDS: DAKINS QUARTER STRENGTH (0.125%) 480 ML BOTTLE TOP SCH (08:54)
[2018-12-01] MEDS: HYDROGEL DRESSING 90 GM TUBE TP SCH (08:54)
[2018-12-01] MEDS: CLOTRIMAZOLE 1% 15 GM TUBE TP SCH ×2 (08:55→17:05)
[2018-12-01 16:00] VITALS: BP 125/55
[2018-12-01] MEDS: ALBUMIN 25% 25 GM in PREMIX 1 EA IV PRN (16:49)
--- NOTE | 2018-12-01 18:37 | NUR ---
CLOSING PATIENT REMAINED IN BED, RESTING COMFORTABLY AT THIS TIME. NO S/S OF ACUTE DISTRESS NOTED AT THIS TIME. RESPIRATION EVEN AND UNLABORED. NO SOB NOTED. TRACH INTACT, PATENT NO S/S OF PAIN NOTED AT THIS TIME. ALL DUE MEDS GIVEN ORDERED, PATIENT TOLERATED WELL. ALL WOUND TREATMENT RENDERED ORDERED. G-TUBE IN PLACE, PATENT, CONNECTED TO FEEDING ORDERED. FEEDING STOPPED AT 1400 TO RESTART AT 2200 HOB ELEVATED ALL ALL THE TIME. 0 RESIDUAL NOTED. RIGHT AV SHUNT SITE WITH NO ACTIVE BLEEDING, OR INFECTION.HD TODAY 1000ML OUT. BED AT THE LOWEST LOCKED POSITION. CALL LIGHT WITHIN REACH. KEPT CLEAN AND DRY. WILL ENDORSE TO PM SHIFT NURSE FOR CONTINUITY OF CARE.
--- NOTE | 2018-12-01 19:25 | NUR ---
MS/RN NOTES PATIENT IN BED, RESTING COMFORTABLY AT THIS TIME. NO S/S OF ACUTE DISTRESS NOTED AT THIS TIME. RESPIRATION EVEN AND UNLABORED. NO SOB NOTED. TRACH INTACT, PATENT, NO S/S OF PAIN NOTED AT THIS TIME. G-TUBE IN PLACE, PATENT, CONNECTED TO FEEDING ORDERED. FEEDING RESTART AT 2200. HOB ELEVATED. 0 RESIDUAL NOTED. RIGHT AV SHUNT SITE WITH NO ACTIVE BLEEDING, OR INFECTION. S/P HD TODAY 1000ML OUT. SAFETY MAINTAINED, BED AT THE LOWEST LOCKED POSITION. CALL LIGHT WITHIN REACH. KEPT CLEAN AND DRY. ISOLATION PRECAUTIONS MAINTAINED.WILL CONTINUE TO MONITOR PATIENT PER PLAN OF CARE.
[2018-12-01 20:00] VITALS: BP 156/55
[2018-12-01] MEDS: MEROPENEM 500 MG in IV NS 0.9% 50 ML IV SCH (20:15)
[2018-12-01] MEDS: NEPRO VAN 237 ML CAN GT SCH (22:19)
[2018-12-02] VITALS: BP 142/74
[2018-12-02] MEDS: BLOOD SUGAR DIAGNOSTIC 1 EACH STRIP IN SCH ×4 (00:19→17:21)
[2018-12-02] MEDS: INSULIN REGULAR, HUMAN 100 UNIT/ML 3 ML VIAL SQ PRN ×4 (00:21→17:28)
[2018-12-02] MEDS: ALBUTEROL FS 2.5 MG/3 ML VIAL.NEB IH SCH ×4 (01:29→20:05)
[2018-12-02] MEDS: PROSOURCE / PROSTAT (PYXIS) 30 ML UDC PO SCH ×3 (03:18→18:28)
[2018-12-02] MEDS: IPRATROPIUM NEB FS 0.5 MG/2.5 ML AMPUL.NEB NEB SCH ×6 (03:29→23:50)
[2018-12-02 04:00] VITALS: BP 155/56
[2018-12-02] MEDS: FAMOTIDINE (20 MG) 20 MG TABLET GT SCH (05:05)
[2018-12-02] MEDS: SUCRALFATE 1 G/10 ML UDC GT SCH ×3 (05:05→21:50)
--- NOTE | 2018-12-02 07:02 | NUR ---
MS/RN NOTES PATIENT IN BED, RESTING COMFORTABLY AT THIS TIME. NO S/S OF ACUTE DISTRESS NOTED AT THIS TIME. RESPIRATION EVEN AND UNLABORED. NO SOB NOTED. TRACH INTACT, PATENT, NO S/S OF PAIN NOTED AT THIS TIME. G-TUBE IN PLACE, PATENT, CONNECTED TO FEEDING ORDERED. HOB ELEVATED. 0 RESIDUAL NOTED. RIGHT AV SHUNT SITE WITH NO ACTIVE BLEEDING, OR INFECTION. ALL DUE MEDS GIVEN ORDERED, TOLERATED WELL. TREATMENT RENDERED ORDERED. SAFETY MAINTAINED, BED AT THE LOWEST LOCKED POSITION. CALL LIGHT WITHIN REACH. KEPT CLEAN AND DRY. ISOLATION PRECAUTIONS MAINTAINED. WILL ENDORSE TO AM SHIFT NURSE FOR BILL.
[2018-12-02 08:00] VITALS: BP 132/53
--- NOTE | 2018-12-02 08:00 | NUR ---
MS/RN NOTES PATIENT IN BED, RESTING COMFORTABLY AT THIS TIME. NO S/S OF ACUTE DISTRESS NOTED AT THIS TIME. RESPIRATION EVEN AND UNLABORED. NO SOB NOTED. TRACH INTACT, PATENT, NO S/S OF PAIN NOTED AT THIS TIME. G-TUBE IN PLACE, PATENT, CONNECTED TO FEEDING ORDERED. HOB ELEVATED. 0 RESIDUAL NOTED. RIGHT AV SHUNT SITE WITH NO ACTIVE BLEEDING, OR INFECTION. TREATMENT DONE ORDERED. SAFETY MAINTAINED, BED AT THE LOWEST LOCKED POSITION. CALL LIGHT WITHIN REACH. KEPT CLEAN AND DRY. ISOLATION PRECAUTIONS MAINTAINED.
[2018-12-02 08:34] LABS: CALCIUM, SERUM 8.8 mg/dL (8.5-10.1); CREATININE 3.9 mg/dL (0.6-1.3); POTASSIUM 3.3 mmol/L (3.5-5.1)
[2018-12-02] MEDS: ASCORBIC ACID 500 MG TABLET GT SCH (09:04)
[2018-12-02] MEDS: BRIMONIDINE TARTRATE OPHT SOLN 5 ML BOTTLE EACHEYE SCH (09:04)
[2018-12-02] MEDS: LACTOBACILLUS RHAMNOSUS GG 1 EACH CAP.SPRINK GT SCH ×2 (09:04→21:51)
[2018-12-02] MEDS: CARVEDILOL 3.125 MG TABLET GT SCH ×2 (09:04→21:51)
[2018-12-02] MEDS: LEVETIRACETAM SOL (5 ML) 100 MG/ML UDC GT SCH ×2 (09:04→21:50)
[2018-12-02] MEDS: VIT B CMPLX 3/FA/VIT C/BIOTIN 1 TAB TABLET GT SCH (09:04)
[2018-12-02] MEDS: ZINC SULFATE 220 MG CAPSULE PO SCH (09:04)
[2018-12-02] MEDS: CLOTRIMAZOLE 1% 15 GM TUBE TP SCH ×2 (09:05→17:32)
[2018-12-02] MEDS: DAKINS HALF STRENGTH (0.25%) 480 ML BOTTLE TOP SCH ×2 (09:06→21:52)
[2018-12-02] MEDS: HYDROGEL DRESSING 90 GM TUBE TP SCH (09:07)
[2018-12-02] MEDS: DAKINS QUARTER STRENGTH (0.125%) 480 ML BOTTLE TOP SCH (09:07)
[2018-12-02] MEDS: SILVER SULFADIAZINE 50 GM JAR TP PRN (12:27)
[2018-12-02 16:00] VITALS: BP 153/61
[2018-12-02] MEDS: HYDROCODONE/APAP 5/325MG 1 EACH TABLET PO PRN (17:21)
[2018-12-02 20:00] VITALS: BP 163/77
[2018-12-02] MEDS: MEROPENEM 500 MG in IV NS 0.9% 50 ML IV SCH (20:24)
[2018-12-02] MEDS: NEPRO VAN 237 ML CAN GT SCH (21:54)
[2018-12-03] MEDS: BLOOD SUGAR DIAGNOSTIC 1 EACH STRIP IN SCH ×4 (00:25→17:37)
[2018-12-03] MEDS: ALBUTEROL FS 2.5 MG/3 ML VIAL.NEB IH SCH ×4 (01:37→19:14)
[2018-12-03] MEDS: PROSOURCE / PROSTAT (PYXIS) 30 ML UDC PO SCH ×3 (03:12→20:00)
[2018-12-03 04:00] VITALS: BP 132/62
[2018-12-03] MEDS: IPRATROPIUM NEB FS 0.5 MG/2.5 ML AMPUL.NEB NEB SCH ×6 (04:10→23:21)
[2018-12-03] MEDS: SUCRALFATE 1 G/10 ML UDC GT SCH ×3 (05:18→20:04)
[2018-12-03] MEDS: FAMOTIDINE (20 MG) 20 MG TABLET GT SCH (05:18)
[2018-12-03] MEDS: INSULIN REGULAR, HUMAN 100 UNIT/ML 3 ML VIAL SQ PRN ×2 (05:49→13:35)
--- NOTE | 2018-12-03 06:00 | NUR ---
PT EYES CLOSED, NON VERBAL, WITH T-PIECE 28% TOLERATING WELL, DRY COUGHING, MINIMAL SECRETIONS WHEN SUCTIONED, NO ACUTE DISTRESS, TOLERATING GT FEEDING OVERNIGHT, CVC 3 LUMENS UNABLE TO DRAW BLOOD BUT FLUSHES WELL. KEPT CLEAN AND DRY, VSS,AFEBRILE. SINUS RHYTHM ON MONITOR. NO SIGNIFICANT EVENT OVERNIGHT .
[2018-12-03 07:30] LABS: BASOPHILS # (AUTO) 0.1 /CMM (0.0-0.2); BASOPHILS % (AUTO) 0.7 % (0.0-2.0); EOSINOPHILS % (AUTO) 0.9 % (0.0-6.0); HEMATOCRIT 25 % (33-45); HEMOGLOBIN 7.9 g/dL (11.5-14.8); LYMPHOCYTES % (AUTO) 6.5 % (20.0-44.0); MEAN CORPUSCULAR HGB CONC 32 g/dl (31.0-36.0); MEAN CORPUSCULAR VOLUME 87 fL (82-100); MONOCYTES # (AUTO) 0.8 /CMM (0.1-1.30); MONOCYTES % (AUTO) 5.1 % (2.0-12.0); NEUTROPHILS # (AUTO) 13.8 /CMM (1.8-8.9); NEUTROPHILS % (AUTO) 86.8 % (43.0-81.0); PLATELET COUNT (AUTO) 352 /CMM (150-450); RED BLOOD CELL COUNT(AUTO) 2.85 MIL/uL (4.0-5.2); WHITE BLOOD COUNT (AUTO) 15.9 K/uL (4.3-11.0)
[2018-12-03 07:43] LABS: CREATININE 4.9 mg/dL (0.6-1.3); MAGNESIUM 2.4 mg/dL (1.8-2.4)
[2018-12-03 08:00] VITALS: BP 145/60
--- NOTE | 2018-12-03 08:00 | NUR ---
MS RN NOTES RECEIVED PATIENT IN BED. A/O X1 ABUSABLE WITH TOUCH. PT ON GTUBE FLUSHED WELL PATENT NO RESIDUAL NOTED. MIDLINE FLUSHED AND PATENT. CALL LIGHT WITHIN REACH, BED AT LOWEST POSITION SIDE RAILS UP.
[2018-12-03] MEDS: ZINC SULFATE 220 MG CAPSULE PO SCH (10:05)
[2018-12-03] MEDS: CARVEDILOL 3.125 MG TABLET GT SCH ×2 (10:05→20:04)
[2018-12-03] MEDS: LEVETIRACETAM SOL (5 ML) 100 MG/ML UDC GT SCH ×2 (10:05→20:04)
[2018-12-03] MEDS: ASCORBIC ACID 500 MG TABLET GT SCH (10:05)
[2018-12-03] MEDS: VIT B CMPLX 3/FA/VIT C/BIOTIN 1 TAB TABLET GT SCH (10:05)
[2018-12-03] MEDS: LACTOBACILLUS RHAMNOSUS GG 1 EACH CAP.SPRINK GT SCH ×2 (10:05→20:04)
[2018-12-03] MEDS: BRIMONIDINE TARTRATE OPHT SOLN 5 ML BOTTLE EACHEYE SCH (10:11)
[2018-12-03] MEDS: DAKINS QUARTER STRENGTH (0.125%) 480 ML BOTTLE TOP SCH ×2 (10:24→17:30)
[2018-12-03] MEDS: CLOTRIMAZOLE 1% 15 GM TUBE TP SCH ×2 (10:25→17:30)
[2018-12-03] MEDS: HYDROGEL DRESSING 90 GM TUBE TP SCH (10:26)
[2018-12-03] MEDS: ALBUMIN 25% 25 GM in PREMIX 1 EA IV PRN (13:39)
--- NOTE | 2018-12-03 14:00 | NUR ---
MS RN NOTES STOPPED GT FEEDING AT 1400.
[2018-12-03 16:00] VITALS: BP 98/46
--- NOTE | 2018-12-03 19:30 | NUR ---
MS RN NOTES PT IN BED NO DISTRESS NOTED. ALL NEEDS ATTENDED. ALL SAFETY MEASURES IMPLEMENTED. CALL LIGHT WITHIN REACH BED AT THE LOWEST POSITION AND LOCKED. ENDORSED TO MARSHMALLOW RUNNER NURSE FOR BILL.
--- NOTE | 2018-12-03 19:52 | NUR ---
RN NOTE PATIENT IS OBTUNDED, NO RESPIRATORY DISTRESS NOTED, OFF FEEDING PER ORDER, WILL RESUME AT 2200, CVC 3 LUMENS NO S/S OF INFECTION NOTED, WILL CONTINUE TO MONITOR PATIENT
[2018-12-03 20:00] VITALS: BP 145/65
[2018-12-03] MEDS: MEROPENEM 500 MG in IV NS 0.9% 50 ML IV SCH (20:00)
[2018-12-03] MEDS: DAKINS HALF STRENGTH (0.25%) 480 ML BOTTLE TOP SCH ×2 (21:18→21:19)
[2018-12-03] MEDS: VANCOMYCIN 500 MG in IV D5W 100 ML IV PRN (21:25)
--- NOTE | 2018-12-03 21:25 | NUR ---
RN NOTE NOTED PRN M[facility] HD ORDER, CALLED PHARMACY TO VERIFY, SPOKE TO NORTH PHARMACIST, MOHAN TROUGH 16, PER NORTH PHARMACIST OK TO ADMINISTER
[2018-12-03] MEDS: NEPRO 1,000 ML BOTTLE GT PRN (22:32)
[2018-12-04] VITALS: BP 139/60
[2018-12-04] MEDS: BLOOD SUGAR DIAGNOSTIC 1 EACH STRIP IN SCH ×4 (00:18→18:04)
[2018-12-04] MEDS: ALBUTEROL FS 2.5 MG/3 ML VIAL.NEB IH SCH ×6 (01:38→23:09)
[2018-12-04] MEDS: IPRATROPIUM NEB FS 0.5 MG/2.5 ML AMPUL.NEB NEB SCH ×6 (03:35→23:09)
[2018-12-04 04:00] VITALS: BP 120/53
[2018-12-04] MEDS: PROSOURCE / PROSTAT (PYXIS) 30 ML UDC PO SCH ×3 (04:58→20:45)
[2018-12-04] MEDS: SUCRALFATE 1 G/10 ML UDC GT SCH ×3 (04:58→20:46)
[2018-12-04] MEDS: FAMOTIDINE (20 MG) 20 MG TABLET GT SCH (04:59)
[2018-12-04] MEDS: INSULIN REGULAR, HUMAN 100 UNIT/ML 3 ML VIAL SQ PRN ×3 (05:07→18:09)
[2018-12-04 06:52] LABS: BASOPHILS # (AUTO) 0.1 /CMM (0.0-0.2); BASOPHILS % (AUTO) 0.5 % (0.0-2.0); EOSINOPHILS % (AUTO) 1.5 % (0.0-6.0); HEMATOCRIT 23 % (33-45); HEMOGLOBIN 7.2 g/dL (11.5-14.8); LYMPHOCYTES % (AUTO) 8.8 % (20.0-44.0); MEAN CORPUSCULAR HGB CONC 32 g/dl (31.0-36.0); MEAN CORPUSCULAR VOLUME 87 fL (82-100); MONOCYTES # (AUTO) 0.8 /CMM (0.1-1.30); MONOCYTES % (AUTO) 6.6 % (2.0-12.0); NEUTROPHILS # (AUTO) 9.6 /CMM (1.8-8.9); NEUTROPHILS % (AUTO) 82.6 % (43.0-81.0); PLATELET COUNT (AUTO) 296 /CMM (150-450); RED BLOOD CELL COUNT(AUTO) 2.61 MIL/uL (4.0-5.2); WHITE BLOOD COUNT (AUTO) 11.6 K/uL (4.3-11.0)
--- NOTE | 2018-12-04 06:59 | NUR ---
RN NOTE NO DISTRESS NOTED, PATIENT IS STABLE, AFEBRILE, WOUND CARE PROVIDED, TURNED AND REPOSITIONED Q 2 HOURS, NOTIFY UPCOMING PATIENT SHOULD BE OFF FEEDING AT 1400, ALL SAFETY MEASURES TAKEN
[2018-12-04 07:18] LABS: CALCIUM, SERUM 8.9 mg/dL (8.5-10.1); CREATININE 3.8 mg/dL (0.6-1.3); MAGNESIUM 2.3 mg/dL (1.8-2.4); PHOSPHORUS 3.7 mg/dL (2.5-4.9); POTASSIUM 3.4 mmol/L (3.5-5.1)
[2018-12-04 08:00] VITALS: BP 128/62
[2018-12-04] MEDS: VIT B CMPLX 3/FA/VIT C/BIOTIN 1 TAB TABLET GT SCH (10:09)
[2018-12-04] MEDS: ZINC SULFATE 220 MG CAPSULE PO SCH (10:09)
[2018-12-04] MEDS: LEVETIRACETAM SOL (5 ML) 100 MG/ML UDC GT SCH ×2 (10:09→20:46)
[2018-12-04] MEDS: CARVEDILOL 3.125 MG TABLET GT SCH ×2 (10:17→20:47)
[2018-12-04] MEDS: CLOTRIMAZOLE 1% 15 GM TUBE TP SCH ×2 (10:17→20:51)
[2018-12-04] MEDS: HYDROGEL DRESSING 90 GM TUBE TP SCH (10:18)
[2018-12-04] MEDS: BRIMONIDINE TARTRATE OPHT SOLN 5 ML BOTTLE EACHEYE SCH (10:18)
[2018-12-04] MEDS: DAKINS QUARTER STRENGTH (0.125%) 480 ML BOTTLE TOP SCH (10:19)
[2018-12-04] MEDS: SILVER SULFADIAZINE 50 GM JAR TP PRN (10:19)
[2018-12-04] MEDS: LACTOBACILLUS RHAMNOSUS GG 1 EACH CAP.SPRINK GT SCH ×2 (10:20→20:46)
[2018-12-04] MEDS: ASCORBIC ACID 500 MG TABLET GT SCH (10:24)
[2018-12-04] MEDS ORDERED: MERO500P IV (12:55)
[2018-12-04 16:00] VITALS: BP 130/72
[2018-12-04 20:00] VITALS: BP 135/69
[2018-12-04] MEDS: MEROPENEM 500 MG in IV NS 0.9% 50 ML IV SCH (20:45)
[2018-12-04] MEDS: DAKINS HALF STRENGTH (0.25%) 480 ML BOTTLE TOP SCH ×2 (20:49→20:50)
[2018-12-04] MEDS: NEPRO 1,000 ML BOTTLE GT PRN (21:58)
--- NOTE | 2018-12-04 22:00 | NUR ---
[facility] RN NOTES RECEIVED PATIENT'S REPORT FROM JASMEET LYNN. PATIENT IS STABLE ON T PIECE WITH 5L/MIN O2 . NO RESPIRATORY DISTRESS NOTED. PATIENT IS NON VERBAL, OPEN EYES. ON GTF NEPRO @65ML/HR. RIGHT UPPER ARM AV JYOTI AND RIGHT FEMORAL 3 LUMEN LINE ARE NOTED. ALL SAFETY MEASURES ARE IN PLACE, BED IN LOW, LOCKED POSITION, CALL LIGHT IN REACH . WILL CONTINUE TO MONITOR PATIENT CLOSELY.
--- NOTE | 2018-12-04 22:34 | NUR ---
RN NOTE REPORT PROVIDED TO UPCOMING NURSE, PATIENT IS STABLE, NO DISTRESS NOTED
[2018-12-05] MEDS: BLOOD SUGAR DIAGNOSTIC 1 EACH STRIP IN SCH ×3 (01:30→12:35)
[2018-12-05] MEDS: INSULIN REGULAR, HUMAN 100 UNIT/ML 3 ML VIAL SQ PRN ×3 (01:36→12:53)
--- NOTE | 2018-12-05 01:57 | NUR ---
RT NOTE PT RECEIVED TRACHED ON COOL AEROSOL @ 28%. AMBU BAG/BACK UP TRACH @ BEDSIDE. TX GIVEN, NO ADVERSE REACTIONS NOTED. SX DONE, SMALL THICK YBARRA SECRETIONS NOTED. NO SOB NOTED. WILL CONTINUE TO MONITOR T/O SHIFT. Addendum: 12/05/18 at 0158 by LUZMA TURNER RT Amended: Links added.
[2018-12-05] MEDS: PROSOURCE / PROSTAT (PYXIS) 30 ML UDC PO SCH ×2 (03:39→11:14)
[2018-12-05] MEDS: ALBUTEROL FS 2.5 MG/3 ML VIAL.NEB IH SCH ×3 (03:49→11:22)
[2018-12-05] MEDS: IPRATROPIUM NEB FS 0.5 MG/2.5 ML AMPUL.NEB NEB SCH ×3 (03:49→11:21)
[2018-12-05 04:00] VITALS: BP_SYST 151; BP_SYST 163; BP_DIAS 83; BP_DIAS 89
[2018-12-05] MEDS: SUCRALFATE 1 G/10 ML UDC GT SCH ×2 (05:31→12:54)
[2018-12-05] MEDS: FAMOTIDINE (20 MG) 20 MG TABLET GT SCH (05:32)
[2018-12-05 07:07] LABS: CALCIUM, SERUM 9.9 mg/dL (8.5-10.1); CREATININE 4.4 mg/dL (0.6-1.3); POTASSIUM 3.8 mmol/L (3.5-5.1)
--- NOTE | 2018-12-05 07:20 | NUR ---
MS/RN OPENING NOTES RECEIVED PATIENT IN BED RESTING COMFORTABLY. PATIENT ABLE TO RESPOND TO VERBAL AND TACTILE STIMULI. NO FACIAL GRIMACING OR ACUTE DISTRESS AT THIS TIME. RESPIRATION EVEN AND UNLABORED. SKIN IS DRY WARM TO TOUCH. PATIENT ON T PIECE WITH 5L/MIN O2. NOTED WITH GTF NEPRO @65ML/HR. RIGHT UPPER ARM AV SHUNT AND RIGHT FEMORAL 3 LUMEN LINE ARE NOTED. INTACT AND PATENT. NO S/S OF INFECTION OR INFILTRATION. ALL NEEDS ANTICIPATED. CALL LIGHT WITHIN REACHED. SAFETY MAINTAINED. BED LOCKED AND IN LOWEST POSITION. WILL CONTINUE TO MONITOR CLOSELY.
[2018-12-05 08:00] VITALS: BP_SYST 155; BP_SYST 171; BP_DIAS 78; BP_DIAS 81
[2018-12-05] MEDS: ZINC SULFATE 220 MG CAPSULE PO SCH (08:24)
[2018-12-05] MEDS: VIT B CMPLX 3/FA/VIT C/BIOTIN 1 TAB TABLET GT SCH (08:24)
[2018-12-05] MEDS: LACTOBACILLUS RHAMNOSUS GG 1 EACH CAP.SPRINK GT SCH (08:24)
[2018-12-05] MEDS: LEVETIRACETAM SOL (5 ML) 100 MG/ML UDC GT SCH (08:25)
[2018-12-05] MEDS: ASCORBIC ACID 500 MG TABLET GT SCH (08:25)
[2018-12-05] MEDS: CARVEDILOL 3.125 MG TABLET GT SCH (08:25)
[2018-12-05] MEDS: BRIMONIDINE TARTRATE OPHT SOLN 5 ML BOTTLE EACHEYE SCH (08:26)
[2018-12-05] MEDS: HYDROGEL DRESSING 90 GM TUBE TP SCH (08:27)
[2018-12-05] MEDS: CLOTRIMAZOLE 1% 15 GM TUBE TP SCH (08:28)
[2018-12-05] MEDS: DAKINS HALF STRENGTH (0.25%) 480 ML BOTTLE TOP SCH (09:34)
[2018-12-05] MEDS: VANCOMYCIN 500 MG in IV D5W 100 ML IV PRN (15:33)
[2018-12-05 16:00] VITALS: BP 170/76
== END 2018-12-05 15:30 | DRG 264 ==
LOC: ER 15:32 → TELE1 18:17 → MEDSG1 19:38 → TELE1 21:52 → MEDSG1 11-29 09:52
PROVIDERS: ADMIT Internal Medicine; ATTEND Student in an Organized Health Care Education/Training Program
PROC: 0X383ZZ Control Bleeding in Right Upper Arm, Percutaneous Approach (ICD-10-PCS; 2018-11-28)
PROC: 0JBD3ZZ Excision of Right Upper Arm Subcutaneous Tissue and Fascia, Percutaneous Approach (ICD-10-PCS; principal; 2018-11-29)
PROC: 5A1D70Z Performance of Urinary Filtration, Intermittent, Less than 6 Hours Per Day (ICD-10-PCS; 2018-11-29)
PROC: 30233N1 Transfusion of Nonautologous Red Blood Cells into Peripheral Vein, Percutaneous Approach (ICD-10-PCS; 2018-11-30)
PROC: 0QB10ZZ Excision of Sacrum, Open Approach (ICD-10-PCS; 2018-12-01)
PROC: 0KB10ZZ Excision of Facial Muscle, Open Approach (ICD-10-PCS; 2018-12-01)
DX: T82.838A Hemorrhage due to vascular prosthetic devices, implants and grafts, initial encounter (principal); L89.154 Pressure ulcer of sacral region, stage 4; L89.324 Pressure ulcer of left buttock, stage 4; L89.314 Pressure ulcer of right buttock, stage 4; L89.814 Pressure ulcer of head, stage 4; R53.2 Functional quadriplegia; N18.6 End stage renal disease; E43 Unspecified severe protein-calorie malnutrition; G93.41 Metabolic encephalopathy; G93.1 Anoxic brain damage, not elsewhere classified; J96.11 Chronic respiratory failure with hypoxia; Z99.11 Dependence on respirator [ventilator] status; E87.1 Hypo-osmolality and hyponatremia; R40.3 Persistent vegetative state; I12.0 Hypertensive chronic kidney disease with stage 5 chronic kidney disease or end stage renal disease; M46.28 Osteomyelitis of vertebra, sacral and sacrococcygeal region; Z99.2 Dependence on renal dialysis; E66.01 Morbid (severe) obesity due to excess calories; E83.39 Other disorders of phosphorus metabolism; K21.9 Gastro-esophageal reflux disease without esophagitis; Z74.01 Bed confinement status; Z86.74 Personal history of sudden cardiac arrest; Z93.0 Tracheostomy status; Z93.1 Gastrostomy status; R13.10 Dysphagia, unspecified; Z79.4 Long term (current) use of insulin; Z86.718 Personal history of other venous thrombosis and embolism; D63.8 Anemia in other chronic diseases classified elsewhere; E88.09 Other disorders of plasma-protein metabolism, not elsewhere classified; G40.909 Epilepsy, unspecified, not intractable, without status epilepticus; I48.91 Unspecified atrial fibrillation; L30.4 Erythema intertrigo; J44.9 Chronic obstructive pulmonary disease, unspecified; Y83.8 Other surgical procedures as the cause of abnormal reaction of the patient, or of later complication, without mention of misadventure at the time of the procedure; Y92.129 Unspecified place in nursing home as the place of occurrence of the external cause; Z68.34 Body mass index [BMI] 34.0-34.9, adult; M24.542 Contracture, left hand; M24.541 Contracture, right hand; I70.245 Atherosclerosis of native arteries of left leg with ulceration of other part of foot; L97.529 Non-pressure chronic ulcer of other part of left foot with unspecified severity; I70.235 Atherosclerosis of native arteries of right leg with ulceration of other part of foot; L97.519 Non-pressure chronic ulcer of other part of right foot with unspecified severity; E11.22 Type 2 diabetes mellitus with diabetic chronic kidney disease; E11.51 Type 2 diabetes mellitus with diabetic peripheral angiopathy without gangrene; F09 Unspecified mental disorder due to known physiological condition
CPT/HCPCS: 31720; 36415; 71045-TC; 80048-TC; 80053-TC; 80061-TC; 80076-TC; 80202-TC; 82962-TC; 83735-TC; 84100-TC; 84484-TC; 84702-TC; 85025-TC; 85730-TC; 86706; 86850-TC; 86921-TC; 87081-TC; 87340; 90935-TC; 94640-TC; 94760-TC; 94762-TC; A4216; A4217; A4623; A6248; A6253; A6403; C1769; G0378; J0690; J0885; J1815; J1953; J2185; J3370; J3490; J7040; J7060; P9016-BL; P9047; Q0163

== ENCOUNTER 2018-12-05 12:14 | Inpatient (IN) | payer MEDICARE, OTHER ==
[~2018-12-05] VITALS: Ht 157.5 cm; Wt 77.6 kg
[~2018-12-05 12:14] MED LIST changes: -AMIK250V8 IV; +ASCO500T9 GT; -FAMO20TA8 PO; +MERO500P IV; -MONT10TA22 GT; +NEUTRAPHOS GT; -RXAMI XX; -SUCR1ORA4 PO; +VANC1PLA9 IV; +ZINC220T4 PO
--- NOTE | 2018-12-05 16:00 | NUR ---
Admitted 48-year-old female pt from [facility] with diagnoses of Chronic Hypoxemic Respiratory Failure, Tracheostomy, GT, Anoxic Encephalopathy with PVS, ESRD on HD, Seizure Disorder, Sacral Osteomyelitis, DM, HTN, A Fib, Anemia of Chronic Disease, PVD, GERD. Pt on FiO2 28% via T-piece. Started GT feeding Nepro at 65 mL/hr. HOB elevated to prevent aspiration. Made pt clean and comfortable in bed. No signs of pain or discomfort noted. Verified orders with Dr Kern. Notified pt's sister Esther that pt is in Subacute. Pt placed on contact isolation for ESBL sacral wound. Educated staff and pt's sister on isolation precautions and proper handwashing.
[2018-12-05] MEDS ORDERED: ALBUTEROL FS 2.5 MG/0.5 ML VIAL.NEB NEB PRN (17:30)
[2018-12-05] MEDS: NEPRO 1,000 ML BOTTLE GT PRN (17:33)
[2018-12-05] MEDS: NEUTRA PHOS 1 POWD.PACKET GT SCH (17:51)
[2018-12-05] MEDS ORDERED: MAG HYDROX/AL HYDROX/SIMETH 30 ML UDC PO PRN (18:00)
[2018-12-05] MEDS ORDERED: LACTULOSE 10 G/15 ML UDC (PYXIS) GT PRN (18:00)
[2018-12-05] MEDS ORDERED: BLOOD SUGAR DIAGNOSTIC 1 EACH STRIP IN SCH (18:00)
[2018-12-05] MEDS ORDERED: INSULIN REGULAR, HUMAN 100 UNIT/ML 3 ML VIAL SQ PRN (18:00)
[2018-12-05] MEDS ORDERED: DEXTROSE 50%-WATER 50 ML DISP.SYRIN IV PRN (18:00)
[2018-12-05] MEDS ORDERED: POLYVINYL ALCOHOL 15 ML BOTTLE EACHEYE PRN (18:00)
[2018-12-05] MEDS ORDERED: HYDROCODONE/APAP 5/325MG 1 EACH TABLET GT PRN (18:00)
[2018-12-05] MEDS ORDERED: ONDANSETRON HCL/PF 4 MG/2 ML VIAL IVP PRN (18:00)
[2018-12-05] MEDS: BLOOD SUGAR DIAGNOSTIC 1 EACH STRIP IN SCH (18:46)
[2018-12-05] MEDS: ALBUTEROL FS 2.5 MG/0.5 ML VIAL.NEB NEB SCH (19:50)
[2018-12-05] MEDS: MEROPENEM 500 MG in IV NS 0.9% 50 ML IV SCH (20:00)
--- NOTE | 2018-12-05 20:00 | NUR ---
RN NOTES Pt in bed with eyes closed with no resp distress noted. On vent with prescribed settings. Pt stable and appears to be comfortable in bed. Right upper arm AV shunt site clean and dry with no s/s of bleeding, bruit n thrill (+). Sister at bedside at this time. Will continue to monitor.
[2018-12-05] MEDS: CARVEDILOL 3.125 MG TABLET GT SCH (20:03)
[2018-12-05] MEDS: LACTOBACILLUS RHAMNOSUS GG 1 EACH CAP.SPRINK GT SCH (20:04)
[2018-12-05] MEDS: LEVETIRACETAM SOL (5 ML) 100 MG/ML UDC GT SCH (20:04)
[2018-12-05] MEDS: PROSOURCE / PROSTAT (PYXIS) 30 ML UDC GT SCH (20:05)
[2018-12-05] MEDS: CHLORHEXIDINE GLUCONATE 15 ML UDC MM SCH (20:06)
[2018-12-05] MEDS: ACETAMINOPHEN 650 MG/20 ML UDC- SA PATIENTS-PAIN ONLY GT SCH (20:06)
[2018-12-05] MEDS: POVIDONE-IODINE OINT 28.4 GM TUBE TP SCH ×4 (20:08→20:09)
[2018-12-05] MEDS: HYDROGEL DRESSING 90 GM TUBE TP SCH (20:09)
[2018-12-05] MEDS: SILVER SULFADIAZINE CREAM 25 GM TUBE TP SCH (20:09)
[2018-12-05] MEDS: NEOMY SULF/BACITRAC ZN/POLY 15 GM TUBE TP SCH (20:09)
[2018-12-05] MEDS: INSULIN NPH, HUMAN ISOPHANE 100 UNIT/ML CARTRIDGE SQ SCH (20:19)
[2018-12-05] MEDS ORDERED: VANCOMYCIN 500 MG in IV D5W 100 ML IV PRN (20:30)
--- NOTE | 2018-12-05 20:30 | NUR ---
RN NOTES Received new order, from [facility], for Vancomycin 500mg IV after HD and Merrem 500mg IV q 1999 for a total of 10 days, noted and carried out.
[2018-12-05] MEDS: HYDROGEN PEROXIDE 480 ML BOTTLE TP SCH (21:00)
[2018-12-05] MEDS ORDERED: DAKINS QUARTER STRENGTH (0.125%) 480 ML BOTTLE TOP SCH (21:00)
--- NOTE | 2018-12-05 22:46 | NUR ---
RT NOTE PT RECEIVED TRACHED ON COOL AEROSOL @ 28%. AMBU BAG/BACK UP TRACH @ BEDSIDE. TX GIVEN, NO ADVERSE REACTIONS NOTED. SX DONE, TRACH SECURED AND PATENT. WATER LEVEL GOOD. CONT. POX CONNECTED. NO SOB NOTED. WILL MONITOR T/O SHIFT. Addendum: 12/05/18 at 2247 by LUZMA TURNER RT Amended: Links added.
[2018-12-06] MEDS: BLOOD SUGAR DIAGNOSTIC 1 EACH STRIP IN SCH ×5 (00:36→23:34)
[2018-12-06] MEDS: *INSULIN REGULAR(HUMULIN R)HUM 100 UNIT/ML VIAL SQ PRN ×5 (00:37→23:36)
[2018-12-06] MEDS: ALBUTEROL FS 2.5 MG/0.5 ML VIAL.NEB NEB SCH ×4 (01:57→19:23)
[2018-12-06] MEDS: PROSOURCE / PROSTAT (PYXIS) 30 ML UDC GT SCH ×3 (04:55→20:42)
[2018-12-06] MEDS: CHLORHEXIDINE GLUCONATE 15 ML UDC MM SCH ×3 (04:56→20:42)
[2018-12-06] MEDS: INSULIN NPH, HUMAN ISOPHANE 100 UNIT/ML CARTRIDGE SQ SCH ×3 (04:58→21:36)
[2018-12-06 07:59] VITALS: BP 144/70
[2018-12-06] MEDS: CARVEDILOL 3.125 MG TABLET GT SCH ×2 (08:09→20:42)
[2018-12-06] MEDS: LACTOBACILLUS RHAMNOSUS GG 1 EACH CAP.SPRINK GT SCH ×2 (08:09→20:42)
[2018-12-06] MEDS: BRIMONIDINE TARTRATE OPHT SOLN 5 ML BOTTLE EACHEYE SCH (08:09)
[2018-12-06] MEDS: NEUTRA PHOS 1 POWD.PACKET GT SCH ×2 (08:09→17:23)
[2018-12-06] MEDS: VIT B CMPLX 3/FA/VIT C/BIOTIN 1 TAB TABLET GT SCH (08:09)
[2018-12-06] MEDS: LEVETIRACETAM SOL (5 ML) 100 MG/ML UDC GT SCH ×2 (08:09→20:42)
[2018-12-06] MEDS: ZINC SULFATE 220 MG CAPSULE PO SCH (08:10)
[2018-12-06] MEDS: ASCORBIC ACID 500 MG TABLET GT SCH (08:10)
--- NOTE | 2018-12-06 08:54 | NUR ---
SW contacted resident's responsible constitution party/sister, Rabia Brantley [phone] to set up apt. to fill out admitting paperwork. Per Rabia, she plans to be in attendance for the November Family Support Group from 11 am -12 pm at [facility], and [facility] stay after to fill out the admitting paperwork. Please see previous account for patient details.
[2018-12-06] MEDS: HYDROGEN PEROXIDE 480 ML BOTTLE TP SCH ×2 (09:00→19:23)
[2018-12-06] MEDS: ACETAMINOPHEN 650 MG/20 ML UDC- SA PATIENTS-PAIN ONLY GT SCH ×2 (09:00→20:42)
[2018-12-06] MEDS ORDERED: DAKINS QUARTER STRENGTH (0.125%) 480 ML BOTTLE TOP SCH (09:00)
[2018-12-06] MEDS: SILVER SULFADIAZINE CREAM 25 GM TUBE TP SCH ×3 (09:00→21:00)
--- NOTE | 2018-12-06 09:00 | NUR ---
Silvadene not given, not available from [facility] pharmacy, pls f/up.
[2018-12-06] MEDS: HYDROGEL DRESSING 90 GM TUBE TP SCH ×3 (09:30→21:29)
[2018-12-06] MEDS: NEOMY SULF/BACITRAC ZN/POLY 15 GM TUBE TP SCH (09:30)
[2018-12-06] MEDS: POVIDONE-IODINE OINT 28.4 GM TUBE TP SCH ×8 (09:30→21:29)
--- NOTE | 2018-12-06 12:30 | NUR ---
Intake Paperwork: Patient Admitted to [facility] on Wednesday, December 05, 2018 at 4 pm. Velocity Shooter met with the resident's sister, Rabia Brantley [phone] 12/06/18 to complete initial admission paperwork (Patient Right's Acknowledgement, Documentation of Preferred Intensity of Care, Conditions of Admission, [facility] Agreement, Important Message from Medicare about your Rights, and Voluntary Prior Express Consent form). SW provided patient with a copy of the Bill of Rights and patient information guide. Esther wishes the resident be Full Code (CPR with maximum treatment). SW also completed the initial psychosocial assessment with Esther as patient is not alert to complete. Admission paperwork was placed into the resident's chart. Velocity Shooter educated Rabia on advanced health care directive and conservatorship. Resident's sister, Esther Cruz noted that she had been the primary decision maker for medical but has no legal paperwork. Per Esther, the patients boyfriend, Yogi Mccann [phone] currently handles the [employer] finances. Per Rabia, the patient and Yogi have a son, Eliseo. Esther is currently in the process of filing for conservatorship. SW provided Rabia with information for [facility] Legal Services [[facility]. [address] [facility], [address] TEL: [phone]; OR [phone]] in the past. Resident is not alert to complete advanced directive. Intake paperwork was placed in patients chart.
[2018-12-06] MEDS ORDERED: FEE PK DOSING 1 MIN EA MC ONE (14:16)
--- NOTE | 2018-12-06 15:36 | NUR ---
Obtain consent for flu vaccine administration from resident's sister Rabia Order for flu vaccine received from Dr. Dennis but vaccine to be administered after completion of ATB.
--- NOTE | 2018-12-06 16:24 | NUR ---
December Family Support Group Note Goal: Residents family will attend family support group held Thursday, December 06, 2018 from 11 am-12 pm. Intervention: SW facilitated family support group and started off with icebreaker consisting of acknowledgements and listing an adjective that described how the family felt at the moment. SW explored how family de-stresses and educated family on a range of additional de-stressors. SW explored the familys support systems and how they are shown support. SW provided validation, used reflective listening. SW acknowledged Rabia for her participation and for showing support for other families. Response: The patients sister, Rabia was in attendance and is bilingual. She demonstrated support for other family members. Rabia expressed that she felt stressed at the moment. Rabia expressed that her support group consists of children. Per Rabia, she vents to her someone in her support system when feeling stressed. Rabia stated, Im happy that I attended. Plan: Family was invited to attend next family support Group held January 10, 2019, 11 am-12 pm.
[2018-12-06] MEDS ORDERED: BLOOD SUGAR DIAGNOSTIC 1 EACH STRIP IN SCH (18:21)
--- NOTE | 2018-12-06 19:33 | NUR ---
RT NOTE: RECEIVED TRACH PT ON COOL AEROSOL. AMBU BAG @ BEDSIDE. Q6 BREATHING TX GIVEN PER MD ORDERS WITH NO ADVERSE REACTION NOTED. SX DONE PRN. TRACH PATENT AND SECURED. TRACH CARE DONE. NO RESP DISTRESS NOTED AT THIS TIME. WILL CONTINUE TO MONITOR PT. Addendum: 12/07/18 at 0231 by REENA DICKSON RT Amended: Links added.
[2018-12-06 20:21] VITALS: BP 145/65
[2018-12-06] MEDS: MEROPENEM 500 MG in IV NS 0.9% 50 ML IV SCH (20:50)
[2018-12-07] MEDS: ALBUTEROL FS 2.5 MG/0.5 ML VIAL.NEB NEB SCH ×4 (01:12→20:09)
[2018-12-07] MEDS: CHLORHEXIDINE GLUCONATE 15 ML UDC MM SCH ×3 (05:57→21:28)
[2018-12-07] MEDS: PROSOURCE / PROSTAT (PYXIS) 30 ML UDC GT SCH ×3 (05:57→21:28)
[2018-12-07] MEDS: INSULIN NPH, HUMAN ISOPHANE 100 UNIT/ML CARTRIDGE SQ SCH ×3 (05:59→21:30)
[2018-12-07] MEDS: BLOOD SUGAR DIAGNOSTIC 1 EACH STRIP IN SCH ×2 (06:03→12:54)
[2018-12-07] MEDS: *INSULIN REGULAR(HUMULIN R)HUM 100 UNIT/ML VIAL SQ PRN ×2 (06:04→12:56)
[2018-12-07 08:07] VITALS: BP 142/66
[2018-12-07] MEDS: SILVER SULFADIAZINE CREAM 25 GM TUBE TP SCH ×2 (09:00→21:31)
[2018-12-07] MEDS: ACETAMINOPHEN 650 MG/20 ML UDC- SA PATIENTS-PAIN ONLY GT SCH ×2 (09:00→21:28)
--- NOTE | 2018-12-07 09:06 | NUR ---
RT NOTE: REC'D TRACH PT ON COOL AEROSOL. AMBU BAG @ BEDSIDE. Q6 BREATHING TX GIVEN PER MD ORDERS W NO ADVERSE REACTION NOTED. SX DONE PRN. TRACH PATENT AND SECURED. TRACH CARE DONE. NO RESP DISTRESS NOTED AT THIS TIME. WILL CONTINUE TO MONITOR. Addendum: 12/07/18 at 0907 by AB MÉNDEZ RT Amended: Links added.
[2018-12-07] MEDS: HYDROGEN PEROXIDE 480 ML BOTTLE TP SCH ×2 (09:14→20:09)
[2018-12-07] MEDS: HYDROGEL DRESSING 90 GM TUBE TP SCH ×4 (09:30→21:31)
[2018-12-07] MEDS: POVIDONE-IODINE OINT 28.4 GM TUBE TP SCH ×8 (09:30→21:30)
[2018-12-07] MEDS: CARVEDILOL 3.125 MG TABLET GT SCH ×2 (09:37→21:28)
[2018-12-07] MEDS: LEVETIRACETAM SOL (5 ML) 100 MG/ML UDC GT SCH ×2 (09:37→21:28)
[2018-12-07] MEDS: BRIMONIDINE TARTRATE OPHT SOLN 5 ML BOTTLE EACHEYE SCH (09:37)
[2018-12-07] MEDS: NEUTRA PHOS 1 POWD.PACKET GT SCH (09:37)
[2018-12-07] MEDS: VIT B CMPLX 3/FA/VIT C/BIOTIN 1 TAB TABLET GT SCH (09:37)
[2018-12-07] MEDS: LACTOBACILLUS RHAMNOSUS GG 1 EACH CAP.SPRINK GT SCH ×2 (09:37→21:28)
[2018-12-07] MEDS: ASCORBIC ACID 500 MG TABLET GT SCH (09:38)
[2018-12-07] MEDS: ZINC SULFATE 220 MG CAPSULE PO SCH (09:38)
--- NOTE | 2018-12-07 11:04 | NUR ---
Result of Vancomycin trough level (20ug/ml) relayed to [facility] pharmacist Tee.
--- NOTE | 2018-12-07 11:14 | NUR ---
WOUND CARE CONSULT WOUND CARE RECEIVED CONSULT FOR NEW ADMISSION. WOUND CARE WILL DEFER CONSULT AND ALL TREATMENT PLANS TO PLASTIC SURGICAL TEAM INCLUDING JESUS MANUEL ZARATE WHO ARE ALL FOLLOWING THIS PATIENT. WILL SEE PRN.
--- NOTE | 2018-12-07 11:24 | NUR ---
Per directors request ROSALIE contacted [facility] [phone] and spoke to Summer to reinstate regularly scheduled transportation to [facility] [[facility] [address], [place] [address]; [phone]] for dialysis on /Tue and Tuesday. Summer was agreeable to plan.Per Summer she has set up transportation with [facility] starting 12/07/18. Trip # [id number]. ROSALIE informed charge nurse.
[2018-12-07] MEDS: NEPRO 1,000 ML BOTTLE GT PRN (12:56)
--- NOTE | 2018-12-07 14:30 | NUR ---
Resident left for dialysis per [facility] ambulance per [facility]. On stable condition. Trach secured and midline fastened with trach cloth tie. No s/s of resp distress. Right upper arm dialysis site intact, with dry dressing. GT intact and patent. All emergency equipment taken.
--- NOTE | 2018-12-07 19:50 | NUR ---
Patient came came back from dialysis,BP 152/71 temp 98.9 HR 89 RR 20,stable condition.
[2018-12-07 19:58] VITALS: BP 152/71
--- NOTE | 2018-12-07 20:19 | NUR ---
RT NOTE: RECEIVED TRACH PT ON COOL AEROSOL. AMBU BAG @ BEDSIDE. Q6 BREATHING TX GIVEN PER MD ORDERS WITH NO ADVERSE REACTION NOTED. SX DONE PRN. TRACH PATENT AND SECURED. TRACH CARE DONE. NO RESP DISTRESS NOTED AT THIS TIME. WILL CONTINUE TO MONITOR PT Addendum: 12/08/18 at 0209 by REENA DICKSON RT Amended: Links added.
[2018-12-07] MEDS: MEROPENEM 500 MG in IV NS 0.9% 50 ML IV SCH (20:22)
[2018-12-07] MEDS: VANCOMYCIN 500 MG in IV D5W 100 ML IV PRN (20:23)
[2018-12-08] MEDS: *INSULIN REGULAR(HUMULIN R)HUM 100 UNIT/ML VIAL SQ PRN ×4 (00:37→17:11)
[2018-12-08] MEDS: BLOOD SUGAR DIAGNOSTIC 1 EACH STRIP IN SCH ×5 (00:38→17:10)
[2018-12-08] MEDS: ALBUTEROL FS 2.5 MG/0.5 ML VIAL.NEB NEB SCH ×4 (01:52→19:30)
[2018-12-08] MEDS: PROSOURCE / PROSTAT (PYXIS) 30 ML UDC GT SCH ×3 (05:10→20:52)
[2018-12-08] MEDS: CHLORHEXIDINE GLUCONATE 15 ML UDC MM SCH ×3 (05:10→20:53)
[2018-12-08] MEDS: INSULIN NPH, HUMAN ISOPHANE 100 UNIT/ML CARTRIDGE SQ SCH ×3 (05:12→21:04)
[2018-12-08 07:53] VITALS: BP 141/70
[2018-12-08] MEDS: NEUTRA PHOS 1 POWD.PACKET GT SCH ×2 (08:32→17:10)
[2018-12-08] MEDS: BRIMONIDINE TARTRATE OPHT SOLN 5 ML BOTTLE EACHEYE SCH (08:32)
[2018-12-08] MEDS: LEVETIRACETAM SOL (5 ML) 100 MG/ML UDC GT SCH ×2 (08:33→20:52)
[2018-12-08] MEDS: LACTOBACILLUS RHAMNOSUS GG 1 EACH CAP.SPRINK GT SCH ×2 (08:33→20:52)
[2018-12-08] MEDS: CARVEDILOL 3.125 MG TABLET GT SCH ×2 (08:33→20:51)
[2018-12-08] MEDS: ZINC SULFATE 220 MG CAPSULE PO SCH (08:34)
[2018-12-08] MEDS: ASCORBIC ACID 500 MG TABLET GT SCH (08:34)
[2018-12-08] MEDS: ACETAMINOPHEN 650 MG/20 ML UDC- SA PATIENTS-PAIN ONLY GT SCH ×2 (08:34→20:53)
[2018-12-08] MEDS: VIT B CMPLX 3/FA/VIT C/BIOTIN 1 TAB TABLET GT SCH (08:35)
--- NOTE | 2018-12-08 08:41 | NUR ---
ROSALIE called [facility] and spoke to Estella to verify roundtrip transportation for pt. today from [facility] to [facility]. Per Estella, there is an active transportation order for patient for [facility] at 4:45 pm and verified that all details are correct. ROSALIE communicated to charge nurse.
[2018-12-08] MEDS: HYDROGEL DRESSING 90 GM TUBE TP SCH ×4 (09:05→20:54)
[2018-12-08] MEDS: SILVER SULFADIAZINE CREAM 25 GM TUBE TP SCH ×2 (09:05→20:55)
[2018-12-08] MEDS: POVIDONE-IODINE OINT 28.4 GM TUBE TP SCH ×8 (09:05→20:54)
[2018-12-08] MEDS: HYDROGEN PEROXIDE 480 ML BOTTLE TP SCH ×2 (09:07→20:59)
[2018-12-08] MEDS: NEPRO 1,000 ML BOTTLE GT PRN (11:32)
--- NOTE | 2018-12-08 11:50 | NUR ---
Dr. Terry icebox man assessed patient's L foot, expressed concern by family that L 2nd toe eschar is increasing in size. She said that she will order vascular consult with Dr. Dumont. Notified Dr. Dumont and will be in to see patient on Tuesday.
--- NOTE | 2018-12-08 12:43 | NUR ---
ROSALIE contacted and spoke to patients Rabia Quintana [phone] to invite family to attend the [facility] Plan of Care Conference meeting on 12/15/18 from 12:30pm-12:30pm in the activities room. Per Rabia, family is able to participate via phone conference. Noted.
--- NOTE | 2018-12-08 17:15 | NUR ---
Patient picked up by Ambulance via gurney for hemodialysis treatment. Accompanied by 2 EMT's and 1 RT. RT upper arm HD catheter intact, no bleeding noted. Pt afebrile. Positive for thrill and bruit. Patient left the building in stable condition. No s/s of respiratory distress noted.
--- NOTE | 2018-12-08 17:19 | NUR ---
Informed resident's sister Rabia that recoating machine operator Dr. Terry seen and assessed patient's L foot. According to MD she is holding off debridement of the L dorsal foot due to poor blood flow and for the L 2nd toe eschar she would like to continue with [facility] and consult with Dr. Dumont to evaluate circulation status. Rabia appreciated the call.
--- NOTE | 2018-12-08 17:33 | NUR ---
RT PATIENT WAS RECEIVED ON 28% COOL AEROSOL . AIRWAY PATENT AND SECURED. PATIENT STABLE THROUGHOUT THE SHIFT.[id number] PATIENT WAS TRANSPORTED FOR HER DIALYSIS. WILL CONTINUE TO MONITOR. Addendum: 12/08/18 at 1736 by DALTON SINGLETARY RT Amended: Links added.
[2018-12-08] MEDS: MEROPENEM 500 MG in IV NS 0.9% 50 ML IV SCH (20:30)
[2018-12-08 20:47] VITALS: BP 134/67
--- NOTE | 2018-12-08 21:57 | NUR ---
Seen and examined by Dr. Dumont.He just said continue local wound care and monitor closely.He will call the podiatry MD to discuss with him.
[2018-12-09] MEDS: BLOOD SUGAR DIAGNOSTIC 1 EACH STRIP IN SCH ×5 (00:03→23:36)
[2018-12-09] MEDS: *INSULIN REGULAR(HUMULIN R)HUM 100 UNIT/ML VIAL SQ PRN ×4 (00:04→23:37)
[2018-12-09] MEDS: ALBUTEROL FS 2.5 MG/0.5 ML VIAL.NEB NEB SCH ×4 (02:03→20:12)
[2018-12-09] MEDS: PROSOURCE / PROSTAT (PYXIS) 30 ML UDC GT SCH ×3 (04:45→20:34)
[2018-12-09] MEDS: CHLORHEXIDINE GLUCONATE 15 ML UDC MM SCH ×3 (04:45→20:34)
[2018-12-09] MEDS: INSULIN NPH, HUMAN ISOPHANE 100 UNIT/ML CARTRIDGE SQ SCH ×3 (04:50→20:47)
[2018-12-09] MEDS: HYDROGEN PEROXIDE 480 ML BOTTLE TP SCH ×2 (08:28→21:51)
[2018-12-09] MEDS: CARVEDILOL 3.125 MG TABLET GT SCH ×2 (09:00→20:33)
[2018-12-09] MEDS: ASCORBIC ACID 500 MG TABLET GT SCH (09:21)
[2018-12-09] MEDS: LEVETIRACETAM SOL (5 ML) 100 MG/ML UDC GT SCH ×2 (09:21→20:33)
[2018-12-09] MEDS: VIT B CMPLX 3/FA/VIT C/BIOTIN 1 TAB TABLET GT SCH (09:21)
[2018-12-09] MEDS: LACTOBACILLUS RHAMNOSUS GG 1 EACH CAP.SPRINK GT SCH ×2 (09:21→20:33)
[2018-12-09] MEDS: NEUTRA PHOS 1 POWD.PACKET GT SCH ×2 (09:21→17:00)
[2018-12-09] MEDS: BRIMONIDINE TARTRATE OPHT SOLN 5 ML BOTTLE EACHEYE SCH (09:22)
[2018-12-09] MEDS: ZINC SULFATE 220 MG CAPSULE PO SCH (09:22)
[2018-12-09] MEDS: ACETAMINOPHEN 650 MG/20 ML UDC- SA PATIENTS-PAIN ONLY GT SCH ×2 (09:22→20:34)
[2018-12-09] MEDS: HYDROGEL DRESSING 90 GM TUBE TP SCH ×4 (10:00→21:29)
[2018-12-09] MEDS: POVIDONE-IODINE OINT 28.4 GM TUBE TP SCH ×8 (10:00→21:28)
[2018-12-09] MEDS: SILVER SULFADIAZINE CREAM 25 GM TUBE TP SCH ×2 (10:00→21:29)
[2018-12-09 11:10] VITALS: BP 96/45
[2018-12-09] MEDS: NEPRO 1,000 ML BOTTLE GT PRN (13:10)
--- NOTE | 2018-12-09 15:15 | NUR ---
Patient picked up [facility] via [facility] for hemodialysis treatment, accompanied by 2 EMT's and 1 RT. RT upper arm AV fistula intact, no bleeding noted. Positive for thrill and bruitt. Patient left the building in stable condition. No s/s of respiratory distress noted.
--- NOTE | 2018-12-09 19:43 | NUR ---
Patient came back from dialysis, t 100.4, b/p 148/83, p 101, R 18, 02 SAT 98%. dialysis site clean and dry. pt calm. no s/s of distress. pt care and cooling measures rendered. will monitor closely.
[2018-12-09] MEDS: MEROPENEM 500 MG in IV NS 0.9% 50 ML IV SCH (20:00)
[2018-12-09] MEDS: VANCOMYCIN 500 MG in IV D5W 100 ML IV PRN (21:00)
[2018-12-09 21:28] VITALS: BP 148/83
--- NOTE | 2018-12-09 22:30 | NUR ---
pt awake. calm. no discomfort noted. t 98.7. all needs attended. will continue to monitor.
[2018-12-10 00:06] VITALS: BP 121/58
[2018-12-10] MEDS: ALBUTEROL FS 2.5 MG/0.5 ML VIAL.NEB NEB SCH ×4 (01:18→19:21)
[2018-12-10] MEDS: PROSOURCE / PROSTAT (PYXIS) 30 ML UDC GT SCH ×3 (05:43→20:03)
[2018-12-10] MEDS: CHLORHEXIDINE GLUCONATE 15 ML UDC MM SCH ×3 (05:43→20:04)
[2018-12-10] MEDS: INSULIN NPH, HUMAN ISOPHANE 100 UNIT/ML CARTRIDGE SQ SCH ×3 (05:44→20:13)
[2018-12-10] MEDS: BLOOD SUGAR DIAGNOSTIC 1 EACH STRIP IN SCH ×3 (05:44→17:25)
[2018-12-10] MEDS: *INSULIN REGULAR(HUMULIN R)HUM 100 UNIT/ML VIAL SQ PRN ×3 (05:47→17:27)
[2018-12-10 08:00] VITALS: BP 133/60
[2018-12-10] MEDS: NEUTRA PHOS 1 POWD.PACKET GT SCH ×2 (08:23→17:25)
[2018-12-10] MEDS: BRIMONIDINE TARTRATE OPHT SOLN 5 ML BOTTLE EACHEYE SCH (08:23)
[2018-12-10] MEDS: ASCORBIC ACID 500 MG TABLET GT SCH (08:23)
[2018-12-10] MEDS: LEVETIRACETAM SOL (5 ML) 100 MG/ML UDC GT SCH ×2 (08:23→20:03)
[2018-12-10] MEDS: VIT B CMPLX 3/FA/VIT C/BIOTIN 1 TAB TABLET GT SCH (08:23)
[2018-12-10] MEDS: ACETAMINOPHEN 650 MG/20 ML UDC- SA PATIENTS-PAIN ONLY GT SCH ×2 (08:23→20:04)
[2018-12-10] MEDS: LACTOBACILLUS RHAMNOSUS GG 1 EACH CAP.SPRINK GT SCH ×2 (08:23→20:13)
[2018-12-10] MEDS: CARVEDILOL 3.125 MG TABLET GT SCH ×2 (08:24→20:12)
[2018-12-10] MEDS: ZINC SULFATE 220 MG CAPSULE PO SCH (08:24)
[2018-12-10] MEDS: HYDROGEN PEROXIDE 480 ML BOTTLE TP SCH ×2 (09:45→21:06)
[2018-12-10] MEDS: HYDROGEL DRESSING 90 GM TUBE TP SCH ×4 (09:50→20:15)
[2018-12-10] MEDS: POVIDONE-IODINE OINT 28.4 GM TUBE TP SCH ×8 (09:50→20:14)
[2018-12-10] MEDS: SILVER SULFADIAZINE CREAM 25 GM TUBE TP SCH ×2 (09:50→20:15)
[2018-12-10] MEDS: NEPRO 1,000 ML BOTTLE GT PRN (12:42)
[2018-12-10] MEDS: MEROPENEM 500 MG in IV NS 0.9% 50 ML IV SCH (20:00)
[2018-12-10 20:52] VITALS: BP 98/69
[2018-12-11] MEDS: *INSULIN REGULAR(HUMULIN R)HUM 100 UNIT/ML VIAL SQ PRN ×5 (00:01→23:54)
[2018-12-11] MEDS: ALBUTEROL FS 2.5 MG/0.5 ML VIAL.NEB NEB SCH ×4 (01:27→19:11)
[2018-12-11] MEDS: PROSOURCE / PROSTAT (PYXIS) 30 ML UDC GT SCH ×3 (05:00→20:17)
[2018-12-11] MEDS: INSULIN NPH, HUMAN ISOPHANE 100 UNIT/ML CARTRIDGE SQ SCH ×2 (05:00→12:15)
[2018-12-11] MEDS: CHLORHEXIDINE GLUCONATE 15 ML UDC MM SCH ×3 (05:00→20:17)
--- NOTE | 2018-12-11 05:50 | NUR ---
RT PATIENT WAS RECEIVED ON 28% COOL AEROSOL . AIRWAY PATENT AND SECURED. PATIENT STABLE THROUGHOUT THE SHIFT. WILL CONTINUE TO MONITOR. Addendum: 12/11/18 at 0550 by DALTON SINGLETARY RT Amended: Links added.
--- NOTE | 2018-12-11 06:30 | NUR ---
RN NOTES BS 57, D50% inj 50ml IVP given, as ordered. Will recheck BS. Addendum: 12/11/18 at 0712 by JOSEPH SINGLETARY RN correction: BS 55
[2018-12-11] MEDS: DEXTROSE 50%-WATER 50 ML DISP.SYRIN IV PRN (06:35)
[2018-12-11] MEDS: BLOOD SUGAR DIAGNOSTIC 1 EACH STRIP IN SCH ×5 (06:37→23:53)
--- NOTE | 2018-12-11 06:56 | NUR ---
PT BS WAS CK AROUND 0500, GOT A RESULT OF 65, PT WAS GIVEN APPLE JUICE AND GT FEEDING RESUMES, RE CK IN 30 MIN, GOT A RESULT OF 59, PT WAS GIVEN ANOTHER APPLE JUICE AND HOWARD BS AFTER 30 MIN RESULT IS 55, CHARGES NURSE INFORM AND PT WAS GIVEN D50 INJ AND BS WAS HOWARD AFTER 30MIN @ AROUND 0700, PTS BS RESULT IS 162, CONTINUE TO MONITOR PT BS AND INDORSED TO MORNING SHIFT NURSE.
[2018-12-11 07:34] VITALS: BP 114/52
--- NOTE | 2018-12-11 08:42 | NUR ---
RT NOTE: REC'D TRACH PT ON COOL AEROSOL. AMBU BAG @ BEDSIDE. Q6 BREATHING TX GIVEN PER MD ORDERS W NO ADVERSE REACTION NOTED. SX DONE PRN. TRACH PATENT AND SECURED. TRACH CARE DONE. NO RESP DISTRESS NOTED AT THIS TIME. WILL CONTINUE TO MONITOR. Addendum: 12/11/18 at 0842 by AB MÉNDEZ RT Amended: Links added.
[2018-12-11] MEDS: BRIMONIDINE TARTRATE OPHT SOLN 5 ML BOTTLE EACHEYE SCH (08:48)
[2018-12-11] MEDS: LEVETIRACETAM SOL (5 ML) 100 MG/ML UDC GT SCH ×2 (08:49→20:17)
[2018-12-11] MEDS: LACTOBACILLUS RHAMNOSUS GG 1 EACH CAP.SPRINK GT SCH ×2 (08:49→20:17)
[2018-12-11] MEDS: NEUTRA PHOS 1 POWD.PACKET GT SCH ×2 (08:49→17:26)
[2018-12-11] MEDS: ACETAMINOPHEN 650 MG/20 ML UDC- SA PATIENTS-PAIN ONLY GT SCH ×2 (08:49→20:17)
[2018-12-11] MEDS: ASCORBIC ACID 500 MG TABLET GT SCH (08:49)
[2018-12-11] MEDS: ZINC SULFATE 220 MG CAPSULE PO SCH (08:49)
[2018-12-11] MEDS: VIT B CMPLX 3/FA/VIT C/BIOTIN 1 TAB TABLET GT SCH (08:49)
[2018-12-11] MEDS: CARVEDILOL 3.125 MG TABLET GT SCH ×2 (08:49→20:17)
[2018-12-11] MEDS: HYDROGEN PEROXIDE 480 ML BOTTLE TP SCH ×2 (09:00→21:00)
[2018-12-11] MEDS: HYDROGEL DRESSING 90 GM TUBE TP SCH ×4 (09:43→20:19)
[2018-12-11] MEDS: POVIDONE-IODINE OINT 28.4 GM TUBE TP SCH ×8 (09:43→20:19)
[2018-12-11] MEDS: SILVER SULFADIAZINE CREAM 25 GM TUBE TP SCH ×2 (09:43→20:19)
[2018-12-11] MEDS: NEPRO 1,000 ML BOTTLE GT PRN (11:56)
--- NOTE | 2018-12-11 12:04 | NUR ---
Seen and examined by Dr Kern. Notified him that pt's blood sugar was 55 this morning, apple juice and D50 were given, blood sugar went up to 162.
--- NOTE | 2018-12-11 16:35 | NUR ---
Dr Kern ordered to DC Humulin N 13 units SC q 8 hours. He ordered to give Humulin N 13 units SC q 0500 and 1300, Humulin N 10 units q 2100. Notified pt's sister.
--- NOTE | 2018-12-11 17:19 | NUR ---
Notified pt's sister Esther that Dr Dumont saw the pt already and he said to continue local wound treatments on left foot. Dr Dumont also said he will speak with plant electrical engineer.
[2018-12-11] MEDS: MEROPENEM 500 MG in IV NS 0.9% 50 ML IV SCH (20:00)
[2018-12-11 20:01] VITALS: BP 132/64
[2018-12-11] MEDS ORDERED: INSULIN NPH, HUMAN ISOPHANE 100 UNIT/ML CARTRIDGE SQ SCH (21:00)
[2018-12-12] MEDS: ALBUTEROL FS 2.5 MG/0.5 ML VIAL.NEB NEB SCH ×4 (01:12→19:30)
[2018-12-12] MEDS ORDERED: INSULIN NPH, HUMAN ISOPHANE 100 UNIT/ML CARTRIDGE SQ SCH (05:00)
[2018-12-12] MEDS: CHLORHEXIDINE GLUCONATE 15 ML UDC MM SCH ×3 (05:12→20:07)
[2018-12-12] MEDS: PROSOURCE / PROSTAT (PYXIS) 30 ML UDC GT SCH ×3 (05:12→20:06)
--- NOTE | 2018-12-12 06:00 | NUR ---
RN NOTES BS 49, D50% INJ IVP GIVEN ORDERED. WILL REASSESS BS.
[2018-12-12] MEDS: BLOOD SUGAR DIAGNOSTIC 1 EACH STRIP IN SCH ×3 (06:30→18:00)
[2018-12-12] MEDS: DEXTROSE 50%-WATER 50 ML DISP.SYRIN IV PRN (06:30)
--- NOTE | 2018-12-12 06:30 | NUR ---
RN NOTES BS INCREASED TO 129, MEDICATION EFFECTIVE.
[2018-12-12] MEDS: *INSULIN REGULAR(HUMULIN R)HUM 100 UNIT/ML VIAL SQ PRN ×2 (06:31→11:52)
--- NOTE | 2018-12-12 06:33 | NUR ---
PTS BS WAS CK @ AROUND 0500=43, GIVEN ORANGE JUICE WITH 6 PACK OF SUGAR AND GTF WAS STARTED , HOWARD AFTER AN HOUR RESULT IS 49, CHARGE NURSE INFORM AND PT WAS GIVEN D50 PUSH, HOWARD AFTER HALF AN HOUR' PTS BS WENT UP TO 129...MORNING NPH AND REGULAR INSULIN WAS HELD, CONTINUE TO MONITOR PTS BS
[2018-12-12 07:31] VITALS: BP 138/57
[2018-12-12] MEDS: HYDROGEN PEROXIDE 480 ML BOTTLE TP SCH ×2 (08:31→19:30)
[2018-12-12] MEDS: NEPRO 1,000 ML BOTTLE GT PRN (08:48)
[2018-12-12] MEDS: LACTOBACILLUS RHAMNOSUS GG 1 EACH CAP.SPRINK GT SCH ×2 (08:49→20:03)
[2018-12-12] MEDS: NEUTRA PHOS 1 POWD.PACKET GT SCH ×2 (08:49→17:00)
[2018-12-12] MEDS: BRIMONIDINE TARTRATE OPHT SOLN 5 ML BOTTLE EACHEYE SCH (08:49)
[2018-12-12] MEDS: CARVEDILOL 3.125 MG TABLET GT SCH ×2 (08:49→20:00)
[2018-12-12] MEDS: VIT B CMPLX 3/FA/VIT C/BIOTIN 1 TAB TABLET GT SCH (08:49)
[2018-12-12] MEDS: LEVETIRACETAM SOL (5 ML) 100 MG/ML UDC GT SCH ×2 (08:49→20:03)
[2018-12-12] MEDS: ACETAMINOPHEN 650 MG/20 ML UDC- SA PATIENTS-PAIN ONLY GT SCH ×2 (08:50→20:07)
[2018-12-12] MEDS: ZINC SULFATE 220 MG CAPSULE PO SCH (08:50)
[2018-12-12] MEDS: ASCORBIC ACID 500 MG TABLET GT SCH (08:50)
[2018-12-12] MEDS: SILVER SULFADIAZINE CREAM 25 GM TUBE TP SCH ×2 (09:00→20:08)
[2018-12-12] MEDS: HYDROGEL DRESSING 90 GM TUBE TP SCH ×4 (09:00→20:07)
[2018-12-12] MEDS: POVIDONE-IODINE OINT 28.4 GM TUBE TP SCH ×8 (09:00→20:07)
--- NOTE | 2018-12-12 09:45 | NUR ---
Notified Dr Kern that pt's blood sugar was 43 at 0500, orange juice and 6 packets of sugar were given, blood sugar was rechecked after an hour and it was 49. D50 IV was given and blood sugar increased to 129. Dr Kern ordered to CT Santana.
--- NOTE | 2018-12-12 15:00 | NUR ---
Patient was suctioned with minimal secretions, oral and tracheostomy, was taken to dialysis center via gurney, no facial grimacing, no signs of respiratory distress noted.
--- NOTE | 2018-12-12 19:41 | NUR ---
RT NOTE: RECEIVED TRACH PT ON COOL AEROSOL. AMBU BAG @ BEDSIDE. Q6 BREATHING TX GIVEN PER MD ORDERS WITH NO ADVERSE REACTION NOTED. SX DONE PRN. TRACH PATENT AND SECURED. TRACH CARE DONE. NO RESP DISTRESS NOTED AT THIS TIME. WILL CONTINUE TO MONITOR PT Addendum: 12/12/18 at 2007 by REENA DICKSON RT Amended: Links added.
[2018-12-12 20:00] VITALS: BP 106/71
[2018-12-12] MEDS: MEROPENEM 500 MG in IV NS 0.9% 50 ML IV SCH (20:00)
[2018-12-13] MEDS: BLOOD SUGAR DIAGNOSTIC 1 EACH STRIP IN SCH ×4 (00:36→17:15)
[2018-12-13] MEDS: *INSULIN REGULAR(HUMULIN R)HUM 100 UNIT/ML VIAL SQ PRN ×4 (00:37→17:18)
[2018-12-13] MEDS: ALBUTEROL FS 2.5 MG/0.5 ML VIAL.NEB NEB SCH ×4 (01:31→19:20)
[2018-12-13] MEDS: CHLORHEXIDINE GLUCONATE 15 ML UDC MM SCH ×3 (05:10→20:51)
[2018-12-13] MEDS: PROSOURCE / PROSTAT (PYXIS) 30 ML UDC GT SCH ×3 (05:10→20:50)
[2018-12-13 08:00] VITALS: BP 98/54
[2018-12-13 08:01] VITALS: BP 91/48
[2018-12-13] MEDS: HYDROGEN PEROXIDE 480 ML BOTTLE TP SCH ×2 (08:15→21:00)
[2018-12-13 09:00] VITALS: BP 106/49
[2018-12-13] MEDS: CARVEDILOL 3.125 MG TABLET GT SCH ×2 (09:00→20:50)
[2018-12-13] MEDS: LACTOBACILLUS RHAMNOSUS GG 1 EACH CAP.SPRINK GT SCH ×2 (09:44→20:50)
[2018-12-13] MEDS: LEVETIRACETAM SOL (5 ML) 100 MG/ML UDC GT SCH ×2 (09:44→20:50)
[2018-12-13] MEDS: VIT B CMPLX 3/FA/VIT C/BIOTIN 1 TAB TABLET GT SCH (09:45)
[2018-12-13] MEDS: ASCORBIC ACID 500 MG TABLET GT SCH (09:45)
[2018-12-13] MEDS: ACETAMINOPHEN 650 MG/20 ML UDC- SA PATIENTS-PAIN ONLY GT SCH ×2 (09:45→20:51)
[2018-12-13] MEDS: NEUTRA PHOS 1 POWD.PACKET GT SCH ×2 (09:45→17:15)
[2018-12-13] MEDS: ZINC SULFATE 220 MG CAPSULE PO SCH (09:45)
[2018-12-13] MEDS: POVIDONE-IODINE OINT 28.4 GM TUBE TP SCH ×8 (10:45→20:52)
[2018-12-13] MEDS: SILVER SULFADIAZINE CREAM 25 GM TUBE TP SCH ×2 (10:45→20:52)
[2018-12-13] MEDS: HYDROGEL DRESSING 90 GM TUBE TP SCH ×4 (10:45→20:52)
[2018-12-13] MEDS: BRIMONIDINE TARTRATE OPHT SOLN 5 ML BOTTLE EACHEYE SCH (10:45)
[2018-12-13] MEDS: VANCOMYCIN 500 MG in IV D5W 100 ML IV PRN (11:04)
--- NOTE | 2018-12-13 11:04 | NUR ---
Per [facility] pharmacistRamone, Vancomycin was not given last night and therefore to give the dose at this time. Vancomycin dose given.
[2018-12-13] MEDS: NEPRO 1,000 ML BOTTLE GT PRN (11:56)
[2018-12-13 18:00] VITALS: BP 126/67
--- NOTE | 2018-12-13 19:00 | NUR ---
YOSELIN Aguirre, reviewed labs with order to repeat CBC in AM and IV ATB to be given for duration of 6 weeks. Order carried out.
[2018-12-13 20:22] VITALS: BP 115/60
[2018-12-13] MEDS: MEROPENEM 500 MG in IV NS 0.9% 50 ML IV SCH (20:39)
[2018-12-14] VITALS (7 sets, daily range): BP systolic 107–156; BP diastolic 49–75
[2018-12-14] MEDS: BLOOD SUGAR DIAGNOSTIC 1 EACH STRIP IN SCH ×4 (00:12→17:08)
[2018-12-14] MEDS: *INSULIN REGULAR(HUMULIN R)HUM 100 UNIT/ML VIAL SQ PRN ×4 (00:13→17:07)
[2018-12-14] MEDS: ALBUTEROL FS 2.5 MG/0.5 ML VIAL.NEB NEB SCH ×4 (00:17→19:48)
[2018-12-14] MEDS: CHLORHEXIDINE GLUCONATE 15 ML UDC MM SCH ×3 (05:29→21:53)
[2018-12-14] MEDS: PROSOURCE / PROSTAT (PYXIS) 30 ML UDC GT SCH ×3 (05:29→21:53)
[2018-12-14] MEDS: HYDROGEN PEROXIDE 480 ML BOTTLE TP SCH ×2 (08:05→21:41)
[2018-12-14 08:25] LABS: BASOPHILS # (AUTO) 0.1 /CMM (0.0-0.2); BASOPHILS % (AUTO) 0.9 % (0.0-2.0); EOSINOPHILS % (AUTO) 2.9 % (0.0-6.0); LYMPHOCYTES # (AUTO) 0.8 /CMM (0.8-4.8); LYMPHOCYTES % (AUTO) 11.3 % (20.0-44.0); MEAN CORPUSCULAR HGB CONC 32 g/dl (31.0-36.0); MEAN CORPUSCULAR VOLUME 87 fL (82-100); MONOCYTES # (AUTO) 0.6 /CMM (0.1-1.30); NEUTROPHILS # (AUTO) 5.2 /CMM (1.8-8.9); NEUTROPHILS % (AUTO) 75.9 % (43.0-81.0); PLATELET COUNT (AUTO) 290 /CMM (150-450); RED BLOOD CELL COUNT(AUTO) 2.23 MIL/uL (4.0-5.2); WHITE BLOOD COUNT (AUTO) 6.9 K/uL (4.3-11.0)
[2018-12-14 08:35] LABS: HEMOGLOBIN 6.3 g/dL (11.5-14.8)
[2018-12-14 08:36] LABS: HEMATOCRIT 19 % (33-45)
--- NOTE | 2018-12-14 08:36 | NUR ---
Informed Dr Kern that pt's Hgb 6.3 Hct 19. Pt does not have any obvious signs of active bleeding.
[2018-12-14] MEDS: CARVEDILOL 3.125 MG TABLET GT SCH ×2 (09:00→21:50)
[2018-12-14] MEDS: SILVER SULFADIAZINE CREAM 25 GM TUBE TP SCH ×2 (09:00→21:54)
[2018-12-14 09:04] LABS: EOSINOPHILS % (MANUAL) 1 % (0-4); LYMPHOCYTES % (MANUAL) 12 % (16-48); MONOCYTES % (MANUAL) 9 % (0-11.0); NEUTROPHILS % (MANUAL) 78 (42-76)
--- NOTE | 2018-12-14 09:18 | NUR ---
Dr Kern ordered to tranfuse 1 unit of PRBC. Pt's sister aware. Informed [facility] of low Hgb and blood transfusion order. Asked Nicole of [facility] if pt can be scheduled for a later chair time. She said the 3pm chair time is the latest chair time. She said pt might have to be rescheduled for dialysis tomorrow, but reminded her that pt is already scheduled for an extra treatment q Tuesday. Notified Dr Kern.
[2018-12-14] MEDS: BRIMONIDINE TARTRATE OPHT SOLN 5 ML BOTTLE EACHEYE SCH (09:42)
[2018-12-14] MEDS: NEUTRA PHOS 1 POWD.PACKET GT SCH ×2 (09:42→17:08)
[2018-12-14] MEDS: LEVETIRACETAM SOL (5 ML) 100 MG/ML UDC GT SCH ×2 (09:42→21:52)
[2018-12-14] MEDS: VIT B CMPLX 3/FA/VIT C/BIOTIN 1 TAB TABLET GT SCH (09:42)
[2018-12-14] MEDS: LACTOBACILLUS RHAMNOSUS GG 1 EACH CAP.SPRINK GT SCH ×2 (09:42→21:51)
[2018-12-14] MEDS: ZINC SULFATE 220 MG CAPSULE PO SCH (09:43)
[2018-12-14] MEDS: ASCORBIC ACID 500 MG TABLET GT SCH (09:43)
[2018-12-14] MEDS: ACETAMINOPHEN 650 MG/20 ML UDC- SA PATIENTS-PAIN ONLY GT SCH ×2 (09:43→21:53)
[2018-12-14] MEDS: POVIDONE-IODINE OINT 28.4 GM TUBE TP SCH ×8 (10:15→21:54)
[2018-12-14] MEDS: HYDROGEL DRESSING 90 GM TUBE TP SCH ×4 (10:15→21:54)
[2018-12-14] MEDS: NEPRO 1,000 ML BOTTLE GT PRN (11:58)
--- NOTE | 2018-12-14 13:15 | NUR ---
Notified pt's sister that pt will miss dialysis today due to blood transfusion, but will have dialysis tomorrow. She said it is fine.
--- NOTE | 2018-12-14 13:16 | NUR ---
Per Charge Nurse Owens's request, ROSALIE contacted [facility] Addendum: 12/14/18 at 1321 by SWAPNIL WIGGINS Per Charge Nurse Owens's request, ROSALIE contacted [facility] [phone] and spoke to Barak to cancel only today's 12/14/18 transportation to [facility] as patient is receiving a blood transfusion at [facility] during that time. Barak was agreeably to plan and stated she would cancel only today's transportation. Per Barak, regularly scheduled transportation will resume on 12/15/18. Charge nurse notified.
--- NOTE | 2018-12-14 15:00 | NUR ---
Seen by Dr Kern. He ordered stool OB. Notified him that pt missed dialysis today but will have dialysis tomorrow. Also notified him that blood is still not available.
--- NOTE | 2018-12-14 16:40 | NUR ---
Started transfusing 1 unit of PRBC via right femoral line. T 98.2 F BP 124/49 HR 94 R 20 O2 sat 99%.
[2018-12-14 19:11] LABS: OCCULT BLOOD STOOL NEGATIVE (NEGATIVE)
--- NOTE | 2018-12-14 19:59 | NUR ---
RECEIVED [place]TE PT ON COOL AEROSOL. AMBU BAG @ BEDSIDE. BREATHING TX GIVEN PER MD ORDERS WITH NO ADVERSE REACTION NOTED. SX DONE PRN. TRACH PATENT AND SECURED. NO RESP DISTRESS NOTED AT THIS TIME. WILL CONTINUE TO MONITOR PT
[2018-12-14] MEDS: MEROPENEM 500 MG in IV NS 0.9% 50 ML IV SCH (20:00)
--- NOTE | 2018-12-14 20:00 | NUR ---
Blood transfused 1 unit,no adverse reaction noted. BP 98.8,HR 98,RR 17, BP 145/68.Will continue to monitor.
[2018-12-15] MEDS: BLOOD SUGAR DIAGNOSTIC 1 EACH STRIP IN SCH ×5 (00:30→23:16)
[2018-12-15] MEDS: *INSULIN REGULAR(HUMULIN R)HUM 100 UNIT/ML VIAL SQ PRN ×5 (00:31→23:17)
[2018-12-15] MEDS: ALBUTEROL FS 2.5 MG/0.5 ML VIAL.NEB NEB SCH ×4 (01:03→21:20)
[2018-12-15] MEDS: PROSOURCE / PROSTAT (PYXIS) 30 ML UDC GT SCH ×3 (05:42→21:43)
[2018-12-15] MEDS: CHLORHEXIDINE GLUCONATE 15 ML UDC MM SCH ×3 (05:42→21:43)
[2018-12-15 07:22] VITALS: BP 148/69
[2018-12-15] MEDS: HYDROGEN PEROXIDE 480 ML BOTTLE TP SCH ×2 (09:02→21:15)
[2018-12-15] MEDS: CARVEDILOL 3.125 MG TABLET GT SCH ×2 (09:44→21:00)
[2018-12-15] MEDS: LEVETIRACETAM SOL (5 ML) 100 MG/ML UDC GT SCH ×2 (09:44→21:42)
[2018-12-15] MEDS: LACTOBACILLUS RHAMNOSUS GG 1 EACH CAP.SPRINK GT SCH ×2 (09:44→21:42)
[2018-12-15] MEDS: NEUTRA PHOS 1 POWD.PACKET GT SCH ×2 (09:44→16:20)
[2018-12-15] MEDS: VIT B CMPLX 3/FA/VIT C/BIOTIN 1 TAB TABLET GT SCH (09:44)
[2018-12-15] MEDS: BRIMONIDINE TARTRATE OPHT SOLN 5 ML BOTTLE EACHEYE SCH (09:44)
[2018-12-15] MEDS: ACETAMINOPHEN 650 MG/20 ML UDC- SA PATIENTS-PAIN ONLY GT SCH ×2 (09:45→21:43)
[2018-12-15] MEDS: ZINC SULFATE 220 MG CAPSULE PO SCH (09:45)
[2018-12-15] MEDS: ASCORBIC ACID 500 MG TABLET GT SCH (09:45)
--- NOTE | 2018-12-15 10:09 | NUR ---
Per Charge Nurse's request, ROSALIE contacted [facility] [phone] to change today previously scheduled transportation time to accommodate extra Dialysis at Ren[facility] TEL:[phone] for a chair time of 12:30pm-4 pm since pt. was unable to go to dialysis yesterday 12/14/18. ROSALIE spoke to Rohan from [facility], per Rohan, he is unable to accommodate the changed chair time due to lack of available RT. Per Rohan, he communicated the information to [facility] and the pt. will be picked up and serviced at previously scheduled chair time of 5:15pm- 7:15pm . Noted and ROSALIE informed charge nurse.
[2018-12-15] MEDS: SILVER SULFADIAZINE CREAM 25 GM TUBE TP SCH ×2 (10:15→22:25)
[2018-12-15] MEDS: POVIDONE-IODINE OINT 28.4 GM TUBE TP SCH ×8 (10:15→22:25)
[2018-12-15] MEDS: HYDROGEL DRESSING 90 GM TUBE TP SCH ×4 (10:15→22:25)
--- NOTE | 2018-12-15 13:44 | NUR ---
Notified Dr. Dennis that patient had blood transfusion yesterday with order to repeat CBC on Tuesday. During IDT, pharmacist asked Dr. Dennis if he wants patient to continue with Carafate and Singulair since patient was on these medication in the previous admission. He said he will review if patient still need Carafate but gave an order to resume Singulair. Order carried out.
--- NOTE | 2018-12-15 14:14 | NUR ---
INTERDISCIPLINARY TEAM CONFERENCE (IDT) was held today. Resident's sister Rabia was not able to attend today's IDT meeting. Dr. Dennis and the interdisciplinary team reviewed the current plan of care in detail. Orders as well as treatment and medications were reviewed. Wound treatment in the sacral wound with hydrogel, L arterial foot treatment with Silvadene and Betadine in the L 2nd toe. Director [employer], Dr. Terry and Dr. Parson is following patient's wound treatment. Dr. Dumont vascular surgeon also seen patient last week as requested by bombsight specialist, NNO given. Dr. Dennis resumed Singulair for asthma/allergy. Orders carried out.
--- NOTE | 2018-12-15 16:25 | NUR ---
INTERDISCIPLINARY PLAN OF CARE CONFERENCE was held today. The patients responsible libertarian/ sister, Rabia Brantley was called for phone conference. However, the call went to voicemail and SW informed Rabia that she may call nursing station to get update regarding plan of care. Charge nurse discussed patient was readmitted from [facility] on 12/05/18; the pt. is in isolation due to ESBL sacral wound. Dr. Dennis and Interdisciplinary team discussed the plan of care in detail. Current orders as well as treatments and medications were reviewed. Please see other disciplines IDT notes for further details.
--- NOTE | 2018-12-15 18:02 | NUR ---
RT PATIENT WAS RECEIVED ON 28% COOL AEROSOL .HHN TREATMENT WAS GIVEN,NO ADVERSE REACTION NOTED. AIRWAY PATENT AND SECURED. PATIENT STABLE THROUGHOUT THE SHIFT.[id number] PATIENT WAS TRANSPORTED FOR HER DIALYSIS. WILL CONTINUE TO MONITOR. Addendum: 12/15/18 at 1803 by DALTON SINGLEATRY RT Amended: Links added.
--- NOTE | 2018-12-15 21:20 | NUR ---
Patient came back from dialysis BP 115/58 HR 89 RR 18 Temp 98.4.No bleeding noted on AV fistula,pressure dressing applied. Will continue to monitor.
[2018-12-15] MEDS: MEROPENEM 500 MG in IV NS 0.9% 50 ML IV SCH (21:30)
[2018-12-15] MEDS: VANCOMYCIN 500 MG in IV D5W 100 ML IV PRN (21:31)
[2018-12-15] MEDS: MONTELUKAST SODIUM (10MG) 10 MG TABLET PO SCH (21:43)
[2018-12-15] MEDS: NEPRO 1,000 ML BOTTLE GT PRN (21:44)
[2018-12-16] MEDS: ALBUTEROL FS 2.5 MG/0.5 ML VIAL.NEB NEB SCH ×4 (00:40→19:53)
[2018-12-16] MEDS: CHLORHEXIDINE GLUCONATE 15 ML UDC MM SCH ×3 (04:54→21:00)
[2018-12-16] MEDS: PROSOURCE / PROSTAT (PYXIS) 30 ML UDC GT SCH ×3 (04:54→21:00)
[2018-12-16] MEDS: BLOOD SUGAR DIAGNOSTIC 1 EACH STRIP IN SCH ×4 (05:42→23:37)
[2018-12-16] MEDS: *INSULIN REGULAR(HUMULIN R)HUM 100 UNIT/ML VIAL SQ PRN ×3 (05:43→23:38)
[2018-12-16 08:35] VITALS: BP 108/46
[2018-12-16] MEDS: NEUTRA PHOS 1 POWD.PACKET GT SCH ×2 (08:40→17:00)
[2018-12-16] MEDS: CARVEDILOL 3.125 MG TABLET GT SCH ×2 (08:40→21:00)
[2018-12-16] MEDS: LEVETIRACETAM SOL (5 ML) 100 MG/ML UDC GT SCH ×2 (08:40→21:00)
[2018-12-16] MEDS: BRIMONIDINE TARTRATE OPHT SOLN 5 ML BOTTLE EACHEYE SCH (08:40)
[2018-12-16] MEDS: VIT B CMPLX 3/FA/VIT C/BIOTIN 1 TAB TABLET GT SCH (08:40)
[2018-12-16] MEDS: LACTOBACILLUS RHAMNOSUS GG 1 EACH CAP.SPRINK GT SCH ×2 (08:40→21:00)
[2018-12-16] MEDS: ASCORBIC ACID 500 MG TABLET GT SCH (08:41)
[2018-12-16] MEDS: ZINC SULFATE 220 MG CAPSULE PO SCH (08:41)
[2018-12-16] MEDS: ACETAMINOPHEN 650 MG/20 ML UDC- SA PATIENTS-PAIN ONLY GT SCH ×2 (08:41→21:00)
[2018-12-16] MEDS: HYDROGEN PEROXIDE 480 ML BOTTLE TP SCH ×2 (09:34→21:00)
[2018-12-16] MEDS: POVIDONE-IODINE OINT 28.4 GM TUBE TP SCH ×8 (09:41→21:00)
[2018-12-16] MEDS: SILVER SULFADIAZINE CREAM 25 GM TUBE TP SCH ×2 (09:41→21:00)
[2018-12-16] MEDS: HYDROGEL DRESSING 90 GM TUBE TP SCH ×4 (09:41→21:00)
--- NOTE | 2018-12-16 12:00 | NUR ---
Received a call from [facility], pharmacist and said it is OK to give Vancomycin today after dialysis. Will endorse to incoming shift.
--- NOTE | 2018-12-16 14:50 | NUR ---
Eyes open. Trach with cool aerosol as ordered. GT in place patent o residual tolerated GT formula well. Right upper arm AV shunt. Positive for bruith and thrill. No complications noted. Total care provided. Patient went for hemodialysis as ordered with Two EMT's and one RT transportation: ambulance with cheyfaustina. Report given as ordered. BP: 103/54 P; 81 R: 16 T: 98.9 PA 0/10.
--- NOTE | 2018-12-16 19:05 | NUR ---
Addendum: V/S BP: 119/59 P: 88 R:16 T: 98.5 PA 0/10.
--- NOTE | 2018-12-16 19:05 | NUR ---
Awake. Moist oral mucosa. Trach with cool aerosol as ordered. Returned from Hemodialysis as ordered with two underwriting support specialist and one RT via ambulance with martha. Right upper arm AV shunt with pressure dressing. Positive for bruith and thrill. GT in place patent no residual. No acute distress noted. Kept clean and comfortable. All needs met and attended.
[2018-12-16] MEDS: VANCOMYCIN 500 MG in IV D5W 100 ML IV PRN (20:00)
[2018-12-16] MEDS: MEROPENEM 500 MG in IV NS 0.9% 50 ML IV SCH (20:00)
[2018-12-16 20:29] VITALS: BP 124/53
[2018-12-16] MEDS: MONTELUKAST SODIUM (10MG) 10 MG TABLET PO SCH (22:07)
[2018-12-17] MEDS: NEPRO 1,000 ML BOTTLE GT PRN ×2 (00:30→18:02)
[2018-12-17] MEDS: ALBUTEROL FS 2.5 MG/0.5 ML VIAL.NEB NEB SCH ×4 (01:27→19:15)
[2018-12-17] MEDS: PROSOURCE / PROSTAT (PYXIS) 30 ML UDC GT SCH ×3 (05:26→21:04)
[2018-12-17] MEDS: CHLORHEXIDINE GLUCONATE 15 ML UDC MM SCH ×3 (05:26→21:05)
[2018-12-17] MEDS: BLOOD SUGAR DIAGNOSTIC 1 EACH STRIP IN SCH ×4 (05:39→23:16)
[2018-12-17] MEDS: *INSULIN REGULAR(HUMULIN R)HUM 100 UNIT/ML VIAL SQ PRN ×4 (05:39→23:17)
[2018-12-17 07:57] VITALS: BP 129/71
[2018-12-17] MEDS: HYDROGEN PEROXIDE 480 ML BOTTLE TP SCH ×2 (09:00→21:03)
[2018-12-17] MEDS: LACTOBACILLUS RHAMNOSUS GG 1 EACH CAP.SPRINK GT SCH ×2 (09:00→21:04)
[2018-12-17] MEDS: LEVETIRACETAM SOL (5 ML) 100 MG/ML UDC GT SCH ×2 (09:00→21:04)
[2018-12-17] MEDS: ACETAMINOPHEN 650 MG/20 ML UDC- SA PATIENTS-PAIN ONLY GT SCH ×2 (09:00→21:05)
[2018-12-17] MEDS: ZINC SULFATE 220 MG CAPSULE PO SCH (09:00)
[2018-12-17] MEDS: HYDROGEL DRESSING 90 GM TUBE TP SCH ×4 (09:00→21:48)
[2018-12-17] MEDS: BRIMONIDINE TARTRATE OPHT SOLN 5 ML BOTTLE EACHEYE SCH (09:00)
[2018-12-17] MEDS: SILVER SULFADIAZINE CREAM 25 GM TUBE TP SCH ×2 (09:00→21:48)
[2018-12-17] MEDS: CARVEDILOL 3.125 MG TABLET GT SCH ×2 (09:00→21:04)
[2018-12-17] MEDS: NEUTRA PHOS 1 POWD.PACKET GT SCH ×2 (09:00→16:52)
[2018-12-17] MEDS: POVIDONE-IODINE OINT 28.4 GM TUBE TP SCH ×8 (09:00→21:48)
[2018-12-17] MEDS: VIT B CMPLX 3/FA/VIT C/BIOTIN 1 TAB TABLET GT SCH (09:00)
[2018-12-17] MEDS: ASCORBIC ACID 500 MG TABLET GT SCH (09:00)
[2018-12-17 19:37] VITALS: BP 121/61
[2018-12-17] MEDS: MEROPENEM 500 MG in IV NS 0.9% 50 ML IV SCH (20:00)
[2018-12-17] MEDS: MONTELUKAST SODIUM (10MG) 10 MG TABLET PO SCH (21:05)
[2018-12-18] MEDS: ALBUTEROL FS 2.5 MG/0.5 ML VIAL.NEB NEB SCH ×4 (01:29→20:16)
[2018-12-18] MEDS: CHLORHEXIDINE GLUCONATE 15 ML UDC MM SCH ×3 (05:11→20:11)
[2018-12-18] MEDS: PROSOURCE / PROSTAT (PYXIS) 30 ML UDC GT SCH ×3 (05:11→20:10)
--- NOTE | 2018-12-18 05:22 | NUR ---
RT PATIENT WAS RECEIVED ON 28% COOL AEROSOL . AIRWAY PATENT AND SECURED. PATIENT STABLE THROUGHOUT THE SHIFT. WILL CONTINUE TO MONITOR. Addendum: 12/18/18 at 0523 by DALTON SINGLETARY RT Amended: Links added.
[2018-12-18] MEDS: BLOOD SUGAR DIAGNOSTIC 1 EACH STRIP IN SCH ×4 (05:41→23:47)
[2018-12-18] MEDS: *INSULIN REGULAR(HUMULIN R)HUM 100 UNIT/ML VIAL SQ PRN ×4 (05:42→23:48)
[2018-12-18 08:03] LABS: BASOPHILS # (AUTO) 0.1 /CMM (0.0-0.2); BASOPHILS % (AUTO) 0.8 % (0.0-2.0); EOSINOPHILS % (AUTO) 1.5 % (0.0-6.0); HEMATOCRIT 24 % (33-45); HEMOGLOBIN 7.8 g/dL (11.5-14.8); LYMPHOCYTES % (AUTO) 11.2 % (20.0-44.0); MEAN CORPUSCULAR HGB CONC 33 g/dl (31.0-36.0); MEAN CORPUSCULAR VOLUME 88 fL (82-100); MONOCYTES # (AUTO) 0.8 /CMM (0.1-1.30); MONOCYTES % (AUTO) 9.5 % (2.0-12.0); NEUTROPHILS # (AUTO) 6.7 /CMM (1.8-8.9); PLATELET COUNT (AUTO) 323 /CMM (150-450); RED BLOOD CELL COUNT(AUTO) 2.67 MIL/uL (4.0-5.2); WHITE BLOOD COUNT (AUTO) 8.7 K/uL (4.3-11.0)
[2018-12-18] MEDS: HYDROGEN PEROXIDE 480 ML BOTTLE TP SCH ×2 (08:30→20:16)
[2018-12-18] MEDS: LACTOBACILLUS RHAMNOSUS GG 1 EACH CAP.SPRINK GT SCH ×2 (09:00→20:09)
[2018-12-18] MEDS: HYDROGEL DRESSING 90 GM TUBE TP SCH ×4 (09:00→20:11)
[2018-12-18] MEDS: POVIDONE-IODINE OINT 28.4 GM TUBE TP SCH ×2 (09:00→20:11)
[2018-12-18] MEDS: SILVER SULFADIAZINE CREAM 25 GM TUBE TP SCH ×3 (09:00→20:11)
[2018-12-18] MEDS: VIT B CMPLX 3/FA/VIT C/BIOTIN 1 TAB TABLET GT SCH (09:11)
[2018-12-18] MEDS: LEVETIRACETAM SOL (5 ML) 100 MG/ML UDC GT SCH ×2 (09:11→20:10)
[2018-12-18] MEDS: CARVEDILOL 3.125 MG TABLET GT SCH ×2 (09:11→20:09)
[2018-12-18] MEDS: NEUTRA PHOS 1 POWD.PACKET GT SCH ×2 (09:11→17:36)
[2018-12-18] MEDS: BRIMONIDINE TARTRATE OPHT SOLN 5 ML BOTTLE EACHEYE SCH (09:11)
[2018-12-18] MEDS: ZINC SULFATE 220 MG CAPSULE PO SCH (09:12)
[2018-12-18] MEDS: ASCORBIC ACID 500 MG TABLET GT SCH (09:12)
[2018-12-18] MEDS: ACETAMINOPHEN 650 MG/20 ML UDC- SA PATIENTS-PAIN ONLY GT SCH ×2 (09:12→20:11)
[2018-12-18 10:34] VITALS: BP 148/60
--- NOTE | 2018-12-18 12:00 | NUR ---
Seen by Dr Richards. She did wound treatments on pt's feet. She ordered to apply Silvadene cream with Mepilex to pt's left 2nd toe arterial wound and Iodosorb with Mepilex on right ankle. She said the brownish discoloration on the left lateral foot is not a DTI and that it is just a discoloration of the skin. However, she said it would be good to just keep an eye on it. She also DC'd treatment on left calf wound since it is already healed. Notified pt's sister.
[2018-12-18] MEDS: CADEXOMER IODINE 40 GM TUBE TP SCH (12:46)
--- NOTE | 2018-12-18 15:00 | NUR ---
Relayed lab results to Dr Kern. No new order.
[2018-12-18] MEDS: NEPRO 1,000 ML BOTTLE GT PRN (15:57)
[2018-12-18] MEDS: MEROPENEM 500 MG in IV NS 0.9% 50 ML IV SCH (20:00)
[2018-12-18 20:17] VITALS: BP 116/69
[2018-12-18] MEDS: MONTELUKAST SODIUM (10MG) 10 MG TABLET PO SCH (21:25)
[2018-12-19] MEDS: ALBUTEROL FS 2.5 MG/0.5 ML VIAL.NEB NEB SCH ×4 (01:19→19:42)
--- NOTE | 2018-12-19 04:20 | NUR ---
PATIENT RECEIVED ON 28% AEROSOL T-TUBE, TOLERATING WITH NO DISTRESS/SOB NOTED. SUCTIONED WITH LAVAGE FOR MINIMAL, THICK, YELLOW SECRETIONS. GIVEN IN-LINE TREATMENTS WITH NO ADVERSE REACTIONS. AMBU BAG AT BEDSIDE. PULSE OXIMETER ALARM AUDIBLE AND VISIBLE. Addendum: 12/19/18 at 0421 by LATRICIA MARCH RT Amended: Links added.
[2018-12-19] MEDS: PROSOURCE / PROSTAT (PYXIS) 30 ML UDC GT SCH ×3 (05:48→20:34)
[2018-12-19] MEDS: CHLORHEXIDINE GLUCONATE 15 ML UDC MM SCH ×3 (05:48→20:34)
[2018-12-19] MEDS: BLOOD SUGAR DIAGNOSTIC 1 EACH STRIP IN SCH ×3 (05:48→18:00)
[2018-12-19] MEDS: *INSULIN REGULAR(HUMULIN R)HUM 100 UNIT/ML VIAL SQ PRN ×2 (05:49→12:09)
[2018-12-19] MEDS: HYDROGEN PEROXIDE 480 ML BOTTLE TP SCH ×2 (07:39→19:43)
[2018-12-19 07:52] VITALS: BP 149/64
[2018-12-19] MEDS: LEVETIRACETAM SOL (5 ML) 100 MG/ML UDC GT SCH ×2 (08:34→20:32)
[2018-12-19] MEDS: VIT B CMPLX 3/FA/VIT C/BIOTIN 1 TAB TABLET GT SCH (08:34)
[2018-12-19] MEDS: LACTOBACILLUS RHAMNOSUS GG 1 EACH CAP.SPRINK GT SCH ×2 (08:34→20:33)
[2018-12-19] MEDS: BRIMONIDINE TARTRATE OPHT SOLN 5 ML BOTTLE EACHEYE SCH (08:34)
[2018-12-19] MEDS: NEUTRA PHOS 1 POWD.PACKET GT SCH ×2 (08:35→17:00)
[2018-12-19] MEDS: ZINC SULFATE 220 MG CAPSULE PO SCH (08:36)
[2018-12-19] MEDS: ACETAMINOPHEN 650 MG/20 ML UDC- SA PATIENTS-PAIN ONLY GT SCH ×2 (08:36→20:34)
[2018-12-19] MEDS: ASCORBIC ACID 500 MG TABLET GT SCH (08:36)
[2018-12-19] MEDS: SILVER SULFADIAZINE CREAM 25 GM TUBE TP SCH ×2 (09:00→20:35)
[2018-12-19] MEDS: HYDROGEL DRESSING 90 GM TUBE TP SCH ×4 (09:00→20:35)
[2018-12-19] MEDS: CARVEDILOL 3.125 MG TABLET GT SCH ×2 (09:00→20:33)
[2018-12-19] MEDS: POVIDONE-IODINE OINT 28.4 GM TUBE TP SCH ×2 (09:00→20:35)
[2018-12-19] MEDS: CADEXOMER IODINE 40 GM TUBE TP SCH (09:00)
--- NOTE | 2018-12-19 12:10 | NUR ---
Received order to start pt's GT feeding q 2000 daily. Pt gets dialyzed 3-4 times a week during the day.
--- NOTE | 2018-12-19 13:25 | NUR ---
[facility] recommended to avoid Vitamin D and Calcium supplements. Dr Kern aware.
--- NOTE | 2018-12-19 19:53 | NUR ---
RT NOTE: RECEIVED TRACH PT ON COOL AEROSOL. AMBU BAG @ BEDSIDE. Q6 BREATHING TX GIVEN PER MD ORDERS WITH NO ADVERSE REACTION NOTED. SX DONE PRN. TRACH PATENT AND SECURED. TRACH CARE DONE. NO RESP DISTRESS NOTED AT THIS TIME. WILL CONTINUE TO MONITOR PT Addendum: 12/20/18 at 0247 by REENA DICKSON RT Amended: Links added.
[2018-12-19 20:26] VITALS: BP 133/70
[2018-12-19] MEDS: MEROPENEM 500 MG in IV NS 0.9% 50 ML IV SCH (20:59)
[2018-12-19] MEDS: MONTELUKAST SODIUM (10MG) 10 MG TABLET PO SCH (21:45)
--- NOTE | 2018-12-19 22:00 | NUR ---
RN NOTES Vancomycin 500mg IV held per level protocol, trough level 23.
[2018-12-19] MEDS: VANCOMYCIN 500 MG in IV D5W 100 ML IV PRN (22:08)
[2018-12-20] MEDS: NEPRO 1,000 ML BOTTLE GT PRN ×2 (00:03→14:18)
[2018-12-20] MEDS: BLOOD SUGAR DIAGNOSTIC 1 EACH STRIP IN SCH ×5 (00:10→23:20)
[2018-12-20] MEDS: *INSULIN REGULAR(HUMULIN R)HUM 100 UNIT/ML VIAL SQ PRN ×5 (00:14→23:22)
[2018-12-20] MEDS: ALBUTEROL FS 2.5 MG/0.5 ML VIAL.NEB NEB SCH ×4 (01:27→19:39)
[2018-12-20] MEDS: PROSOURCE / PROSTAT (PYXIS) 30 ML UDC GT SCH ×3 (05:08→21:07)
[2018-12-20] MEDS: CHLORHEXIDINE GLUCONATE 15 ML UDC MM SCH ×3 (05:08→21:09)
[2018-12-20 07:54] VITALS: BP 121/54
[2018-12-20] MEDS: HYDROGEN PEROXIDE 480 ML BOTTLE TP SCH ×2 (08:20→21:00)
[2018-12-20] MEDS: NEUTRA PHOS 1 POWD.PACKET GT SCH ×2 (09:12→17:06)
[2018-12-20] MEDS: LEVETIRACETAM SOL (5 ML) 100 MG/ML UDC GT SCH ×2 (09:12→21:07)
[2018-12-20] MEDS: BRIMONIDINE TARTRATE OPHT SOLN 5 ML BOTTLE EACHEYE SCH (09:12)
[2018-12-20] MEDS: LACTOBACILLUS RHAMNOSUS GG 1 EACH CAP.SPRINK GT SCH ×2 (09:12→21:07)
[2018-12-20] MEDS: CARVEDILOL 3.125 MG TABLET GT SCH ×2 (09:12→21:07)
[2018-12-20] MEDS: VIT B CMPLX 3/FA/VIT C/BIOTIN 1 TAB TABLET GT SCH (09:12)
[2018-12-20] MEDS: ASCORBIC ACID 500 MG TABLET GT SCH (09:13)
[2018-12-20] MEDS: ZINC SULFATE 220 MG CAPSULE PO SCH (09:13)
[2018-12-20] MEDS: ACETAMINOPHEN 650 MG/20 ML UDC- SA PATIENTS-PAIN ONLY GT SCH ×2 (09:13→21:08)
[2018-12-20] MEDS: POVIDONE-IODINE OINT 28.4 GM TUBE TP SCH ×2 (10:13→21:09)
[2018-12-20] MEDS: HYDROGEL DRESSING 90 GM TUBE TP SCH ×4 (10:13→21:22)
[2018-12-20] MEDS: CADEXOMER IODINE 40 GM TUBE TP SCH (10:13)
[2018-12-20] MEDS: SILVER SULFADIAZINE CREAM 25 GM TUBE TP SCH ×2 (10:13→21:10)
--- NOTE | 2018-12-20 15:18 | NUR ---
ROSALIE received voicemail from patient sister, Rabia [phone] who wanted an update regarding any new orders discussed on 12/15/18 during plan of care conference. ROSALIE called Rabia but call went to voicemail. ROSALIE left call back number and informed Rabia to reach out for plan of care details.
[2018-12-20] MEDS: MEROPENEM 500 MG in IV NS 0.9% 50 ML IV SCH (20:00)
[2018-12-20 20:04] VITALS: BP 166/66
[2018-12-20] MEDS: MONTELUKAST SODIUM (10MG) 10 MG TABLET PO SCH (21:09)
[2018-12-21] MEDS: ALBUTEROL FS 2.5 MG/0.5 ML VIAL.NEB NEB SCH ×4 (00:44→19:44)
[2018-12-21] MEDS: CHLORHEXIDINE GLUCONATE 15 ML UDC MM SCH ×3 (05:22→20:45)
[2018-12-21] MEDS: PROSOURCE / PROSTAT (PYXIS) 30 ML UDC GT SCH ×3 (05:22→20:44)
[2018-12-21] MEDS: BLOOD SUGAR DIAGNOSTIC 1 EACH STRIP IN SCH ×3 (05:22→18:00)
[2018-12-21] MEDS: *INSULIN REGULAR(HUMULIN R)HUM 100 UNIT/ML VIAL SQ PRN ×2 (05:24→12:40)
[2018-12-21] MEDS: HYDROGEN PEROXIDE 480 ML BOTTLE TP SCH ×2 (07:34→20:20)
[2018-12-21 07:58] VITALS: BP 157/74
[2018-12-21] MEDS: BRIMONIDINE TARTRATE OPHT SOLN 5 ML BOTTLE EACHEYE SCH (09:56)
[2018-12-21] MEDS: ACETAMINOPHEN 650 MG/20 ML UDC- SA PATIENTS-PAIN ONLY GT SCH ×2 (09:57→20:45)
[2018-12-21] MEDS: VIT B CMPLX 3/FA/VIT C/BIOTIN 1 TAB TABLET GT SCH (09:57)
[2018-12-21] MEDS: ASCORBIC ACID 500 MG TABLET GT SCH (09:57)
[2018-12-21] MEDS: LACTOBACILLUS RHAMNOSUS GG 1 EACH CAP.SPRINK GT SCH ×2 (09:57→20:44)
[2018-12-21] MEDS: ZINC SULFATE 220 MG CAPSULE PO SCH (09:57)
[2018-12-21] MEDS: LEVETIRACETAM SOL (5 ML) 100 MG/ML UDC GT SCH ×2 (09:57→20:44)
[2018-12-21] MEDS: NEUTRA PHOS 1 POWD.PACKET GT SCH ×2 (09:57→17:00)
[2018-12-21] MEDS: CARVEDILOL 3.125 MG TABLET GT SCH ×2 (09:57→20:44)
[2018-12-21] MEDS: HYDROGEL DRESSING 90 GM TUBE TP SCH ×4 (10:30→20:45)
[2018-12-21] MEDS: CADEXOMER IODINE 40 GM TUBE TP SCH (10:30)
[2018-12-21] MEDS: SILVER SULFADIAZINE CREAM 25 GM TUBE TP SCH ×2 (10:30→20:45)
[2018-12-21] MEDS: POVIDONE-IODINE OINT 28.4 GM TUBE TP SCH ×2 (10:30→20:45)
--- NOTE | 2018-12-21 17:09 | NUR ---
RT NOTE TRACH CHANGE WAS PERFORMED. PT. TOLERATED THE PROCEDURE WELL. MINIMAL BLEEDING WAS NOTED. NO SOB NOTED. Addendum: 12/21/18 at 1710 by RICKI MONSIVAIS RT Amended: Links added.
[2018-12-21] MEDS: NEPRO 1,000 ML BOTTLE GT PRN (19:15)
[2018-12-21] MEDS: VANCOMYCIN 500 MG in IV D5W 100 ML IV PRN (20:19)
[2018-12-21] MEDS: MEROPENEM 500 MG in IV NS 0.9% 50 ML IV SCH (20:19)
--- NOTE | 2018-12-21 20:20 | NUR ---
Seen and examined by YOSELIN Obregon no new order.
[2018-12-21 20:41] VITALS: BP 130/64
[2018-12-21] MEDS: MONTELUKAST SODIUM (10MG) 10 MG TABLET PO SCH (22:27)
[2018-12-22] MEDS: ALBUTEROL FS 2.5 MG/0.5 ML VIAL.NEB NEB SCH ×6 (00:30→20:28)
[2018-12-22] MEDS: *INSULIN REGULAR(HUMULIN R)HUM 100 UNIT/ML VIAL SQ PRN ×5 (01:21→23:47)
--- NOTE | 2018-12-22 01:45 | NUR ---
PT RCVD TRACH'D ON COOL AEROSOL WITH CHARTED SETTINGS. SX DONE. PT AMY TX WELL. AMBU BAG AT BEDSIDE. Addendum: 12/22/18 at 0147 by ERICK PIKE RT Amended: Links added.
[2018-12-22] MEDS: BLOOD SUGAR DIAGNOSTIC 1 EACH STRIP IN SCH ×5 (05:16→23:45)
[2018-12-22] MEDS: CHLORHEXIDINE GLUCONATE 15 ML UDC MM SCH ×3 (05:16→20:59)
[2018-12-22] MEDS: PROSOURCE / PROSTAT (PYXIS) 30 ML UDC GT SCH ×3 (05:16→20:58)
[2018-12-22 07:26] VITALS: BP 105/49
[2018-12-22] MEDS: LEVETIRACETAM SOL (5 ML) 100 MG/ML UDC GT SCH ×2 (09:00→20:58)
[2018-12-22] MEDS: BRIMONIDINE TARTRATE OPHT SOLN 5 ML BOTTLE EACHEYE SCH (09:00)
[2018-12-22] MEDS: ZINC SULFATE 220 MG CAPSULE PO SCH (09:00)
[2018-12-22] MEDS: NEUTRA PHOS 1 POWD.PACKET GT SCH (09:00)
[2018-12-22] MEDS: CARVEDILOL 3.125 MG TABLET GT SCH ×2 (09:00→20:57)
[2018-12-22] MEDS: ACETAMINOPHEN 650 MG/20 ML UDC- SA PATIENTS-PAIN ONLY GT SCH ×2 (09:00→20:58)
[2018-12-22] MEDS: LACTOBACILLUS RHAMNOSUS GG 1 EACH CAP.SPRINK GT SCH ×2 (09:00→20:58)
[2018-12-22] MEDS: VIT B CMPLX 3/FA/VIT C/BIOTIN 1 TAB TABLET GT SCH (09:00)
[2018-12-22] MEDS: ASCORBIC ACID 500 MG TABLET GT SCH (09:00)
[2018-12-22] MEDS: HYDROGEN PEROXIDE 480 ML BOTTLE TP SCH ×2 (09:02→20:29)
[2018-12-22] MEDS: HYDROGEL DRESSING 90 GM TUBE TP SCH ×4 (09:30→21:57)
[2018-12-22] MEDS: SILVER SULFADIAZINE CREAM 25 GM TUBE TP SCH ×2 (09:30→20:59)
[2018-12-22] MEDS: CADEXOMER IODINE 40 GM TUBE TP SCH (09:30)
[2018-12-22] MEDS: POVIDONE-IODINE OINT 28.4 GM TUBE TP SCH ×2 (09:30→20:59)
--- NOTE | 2018-12-22 10:05 | NUR ---
ROSALIE contacted [facility] [phone] and spoke to Chirag to confirm transportation services for today 12/22/18 to [facility] [facility] [address], [place] [address]. Per Chirag the pt. is scheduled to be picked up at 1645 for transport to [facility]. ROSALIE informed charge nurse.
--- NOTE | 2018-12-22 12:55 | NUR ---
Dr. Kern notified of [facility] woodworking machine feeder's recommendation to discontinue Neutra Phos due to elevated Phosphorus level 8.1. Order noted and carried out.
--- NOTE | 2018-12-22 14:48 | NUR ---
ROSALIE called patient sister, Rabia [phone] to update Rabia regarding details discussed during plan of care conference on 12/15/18. ROSALIE dictated Charge nurse's IDT EMR note. Rabia was grateful for the information and had no questions or concerns.
--- NOTE | 2018-12-22 16:38 | NUR ---
RT Patient was received on 28% cool aerosol .Breathing treatment was given. Airway patent and secured. Patient stable throughout the shift.Will continue to monitor Addendum: 12/22/18 at 1641 by DALTON SINGLETARY RT Amended: Links added.
[2018-12-22] MEDS: MEROPENEM 500 MG in IV NS 0.9% 50 ML IV SCH (20:30)
[2018-12-22 20:44] VITALS: BP 103/59
--- NOTE | 2018-12-22 20:45 | NUR ---
RT NOTE RECEIVED TRACH PT ON C/A ON NOTED SETTINGS. PT AMY. HHN TX WELL. NO RESP. DISTRESS NOTED. WILL CONTINUE TO MONITOR. Addendum: 12/23/18 at 0510 by GUY BORREGO RT Amended: Links added.
[2018-12-22] MEDS: MONTELUKAST SODIUM (10MG) 10 MG TABLET PO SCH (21:00)
[2018-12-22] MEDS: NEPRO 1,000 ML BOTTLE GT PRN (21:30)
[2018-12-23] MEDS: ALBUTEROL FS 2.5 MG/0.5 ML VIAL.NEB NEB SCH ×4 (00:47→19:23)
[2018-12-23] MEDS: CHLORHEXIDINE GLUCONATE 15 ML UDC MM SCH ×3 (05:32→20:56)
[2018-12-23] MEDS: BLOOD SUGAR DIAGNOSTIC 1 EACH STRIP IN SCH ×4 (05:32→23:10)
[2018-12-23] MEDS: PROSOURCE / PROSTAT (PYXIS) 30 ML UDC GT SCH ×3 (05:32→20:56)
[2018-12-23] MEDS: *INSULIN REGULAR(HUMULIN R)HUM 100 UNIT/ML VIAL SQ PRN ×3 (05:34→23:10)
--- NOTE | 2018-12-23 08:55 | NUR ---
RT NOTE PT RECEIVED TRACHED ON COOL AEROSOL @ 28%. AMBU BAG/BACK UP TRACH @ BEDSIDE. TX GIVEN, NO ADVERSE REACTIONS NOTED. SX DONE, TRACH SECURED AND PATENT. WATER LEVEL GOOD. NO SOB NOTED. Addendum: 12/23/18 at 0857 by LUZMA TURNER RT Amended: Links added.
[2018-12-23] MEDS: CARVEDILOL 3.125 MG TABLET GT SCH ×2 (09:00→20:56)
[2018-12-23] MEDS: LACTOBACILLUS RHAMNOSUS GG 1 EACH CAP.SPRINK GT SCH ×2 (09:06→20:56)
[2018-12-23] MEDS: VIT B CMPLX 3/FA/VIT C/BIOTIN 1 TAB TABLET GT SCH (09:06)
[2018-12-23] MEDS: LEVETIRACETAM SOL (5 ML) 100 MG/ML UDC GT SCH ×2 (09:06→20:56)
[2018-12-23] MEDS: BRIMONIDINE TARTRATE OPHT SOLN 5 ML BOTTLE EACHEYE SCH (09:06)
[2018-12-23] MEDS: ACETAMINOPHEN 650 MG/20 ML UDC- SA PATIENTS-PAIN ONLY GT SCH ×2 (09:07→20:56)
[2018-12-23] MEDS: ZINC SULFATE 220 MG CAPSULE PO SCH (09:07)
[2018-12-23] MEDS: ASCORBIC ACID 500 MG TABLET GT SCH (09:07)
[2018-12-23] MEDS: HYDROGEN PEROXIDE 480 ML BOTTLE TP SCH ×2 (09:13→21:02)
[2018-12-23] MEDS: CADEXOMER IODINE 40 GM TUBE TP SCH (10:07)
[2018-12-23] MEDS: POVIDONE-IODINE OINT 28.4 GM TUBE TP SCH ×2 (10:07→20:57)
[2018-12-23] MEDS: HYDROGEL DRESSING 90 GM TUBE TP SCH ×4 (10:07→22:00)
[2018-12-23] MEDS: SILVER SULFADIAZINE CREAM 25 GM TUBE TP SCH ×2 (10:07→20:57)
[2018-12-23 10:58] VITALS: BP 109/56
--- NOTE | 2018-12-23 11:00 | NUR ---
Received a call from [facility] pharmacist Mayo and said to give Vancomycin dose today after dialysis. Endorsed.
--- NOTE | 2018-12-23 14:10 | NUR ---
Eyes open. Trach with cool aerosol as ordered. GT in place patent no residual. Tolerated GT formula well. Right upper arm AV shunt positive for bruith and thrill. No complications noted. All needs met and attended. Went for hemodialysis as ordered with two polymerization helper and one RT. Report given. Transportation with ambulance and gurney.
--- NOTE | 2018-12-23 14:10 | NUR ---
Addendum: V/S 111/50 P: 96 T: 98.9 R: 16 PA 0/10.
[2018-12-23] MEDS: NEPRO 1,000 ML BOTTLE GT PRN (19:01)
--- NOTE | 2018-12-23 19:01 | NUR ---
Eyes open. Trach with cool aerosol. GT in place patent no residual. Patient returned from hemodialysis as ordered with two testboard operator and one RT via ambulance and gurney. Right upper arm with pressure dressing clean and dry. Positive for bruith and thrill. Skin is warm and dry. Kept clean and comfortable. V/S BP: 129/63 P: 91 R: 14 T: 99.8 PA 0/10.
[2018-12-23 19:44] VITALS: BP 129/63
[2018-12-23] MEDS: MEROPENEM 500 MG in IV NS 0.9% 50 ML IV SCH (20:00)
[2018-12-23] MEDS: VANCOMYCIN 500 MG in IV D5W 100 ML IV PRN (21:00)
[2018-12-23] MEDS: MONTELUKAST SODIUM (10MG) 10 MG TABLET PO SCH (21:03)
[2018-12-24] MEDS: ALBUTEROL FS 2.5 MG/0.5 ML VIAL.NEB NEB SCH ×4 (01:29→18:58)
--- NOTE | 2018-12-24 03:39 | NUR ---
RT Patient was received on 28% cool aerosol .Breathing treatment was given. Airway patent and secured. Patient stable throughout the shift.Will continue to monitor Addendum: 12/24/18 at 0339 by DALTON SINGLETARY RT Amended: Links added.
[2018-12-24] MEDS: PROSOURCE / PROSTAT (PYXIS) 30 ML UDC GT SCH ×3 (05:23→21:05)
[2018-12-24] MEDS: CHLORHEXIDINE GLUCONATE 15 ML UDC MM SCH ×3 (05:23→21:05)
[2018-12-24] MEDS: BLOOD SUGAR DIAGNOSTIC 1 EACH STRIP IN SCH ×3 (05:23→17:48)
[2018-12-24] MEDS: *INSULIN REGULAR(HUMULIN R)HUM 100 UNIT/ML VIAL SQ PRN ×3 (05:26→17:50)
[2018-12-24 07:44] VITALS: BP 125/57
[2018-12-24] MEDS: HYDROGEL DRESSING 90 GM TUBE TP SCH ×4 (09:00→21:05)
[2018-12-24] MEDS: POVIDONE-IODINE OINT 28.4 GM TUBE TP SCH ×2 (09:00→21:05)
[2018-12-24] MEDS: CADEXOMER IODINE 40 GM TUBE TP SCH (09:00)
[2018-12-24] MEDS: SILVER SULFADIAZINE CREAM 25 GM TUBE TP SCH ×2 (09:00→21:05)
[2018-12-24] MEDS: HYDROGEN PEROXIDE 480 ML BOTTLE TP SCH ×2 (09:37→18:59)
--- NOTE | 2018-12-24 09:45 | NUR ---
Seen and examined by Dr. Kern no new order given. Continue current treatment.
[2018-12-24] MEDS: BRIMONIDINE TARTRATE OPHT SOLN 5 ML BOTTLE EACHEYE SCH (09:55)
[2018-12-24] MEDS: VIT B CMPLX 3/FA/VIT C/BIOTIN 1 TAB TABLET GT SCH (09:56)
[2018-12-24] MEDS: LEVETIRACETAM SOL (5 ML) 100 MG/ML UDC GT SCH ×2 (09:56→21:05)
[2018-12-24] MEDS: CARVEDILOL 3.125 MG TABLET GT SCH ×2 (09:56→21:04)
[2018-12-24] MEDS: LACTOBACILLUS RHAMNOSUS GG 1 EACH CAP.SPRINK GT SCH ×2 (09:56→21:04)
[2018-12-24] MEDS: ZINC SULFATE 220 MG CAPSULE PO SCH (09:57)
[2018-12-24] MEDS: ACETAMINOPHEN 650 MG/20 ML UDC- SA PATIENTS-PAIN ONLY GT SCH ×2 (09:57→21:05)
[2018-12-24] MEDS: ASCORBIC ACID 500 MG TABLET GT SCH (09:57)
[2018-12-24] MEDS: NEPRO 1,000 ML BOTTLE GT PRN (16:25)
--- NOTE | 2018-12-24 19:00 | NUR ---
RT NOTE RECEIVED PT ON 28% C/A IN CM706-6. PT AMY. TX WELL. NO RESP. DISTRESS NOTED. WILL CONTINUE WITH THE CURRENT PLAN OF CARE. Addendum: 12/25/18 at 0213 by GUY BORREGO RT Amended: Links added.
[2018-12-24 19:33] VITALS: BP 134/61
[2018-12-24] MEDS: MEROPENEM 500 MG in IV NS 0.9% 50 ML IV SCH (20:00)
[2018-12-24] MEDS: MONTELUKAST SODIUM (10MG) 10 MG TABLET PO SCH (21:06)
[2018-12-25] MEDS: ALBUTEROL FS 2.5 MG/0.5 ML VIAL.NEB NEB SCH ×4 (00:30→19:24)
[2018-12-25] MEDS: BLOOD SUGAR DIAGNOSTIC 1 EACH STRIP IN SCH ×5 (00:52→23:57)
[2018-12-25] MEDS: *INSULIN REGULAR(HUMULIN R)HUM 100 UNIT/ML VIAL SQ PRN ×5 (00:53→23:58)
[2018-12-25] MEDS: CHLORHEXIDINE GLUCONATE 15 ML UDC MM SCH ×3 (05:25→20:38)
[2018-12-25] MEDS: PROSOURCE / PROSTAT (PYXIS) 30 ML UDC GT SCH ×3 (05:25→20:30)
[2018-12-25 07:34] VITALS: BP 126/66
[2018-12-25] MEDS: SILVER SULFADIAZINE CREAM 25 GM TUBE TP SCH ×2 (09:00→20:39)
[2018-12-25] MEDS: HYDROGEL DRESSING 90 GM TUBE TP SCH ×4 (09:00→20:40)
[2018-12-25] MEDS: POVIDONE-IODINE OINT 28.4 GM TUBE TP SCH ×2 (09:00→20:40)
[2018-12-25] MEDS: CADEXOMER IODINE 40 GM TUBE TP SCH (09:00)
[2018-12-25] MEDS: HYDROGEN PEROXIDE 480 ML BOTTLE TP SCH ×2 (09:00→20:39)
[2018-12-25] MEDS: LEVETIRACETAM SOL (5 ML) 100 MG/ML UDC GT SCH ×2 (09:23→20:37)
[2018-12-25] MEDS: CARVEDILOL 3.125 MG TABLET GT SCH ×2 (09:23→20:37)
[2018-12-25] MEDS: BRIMONIDINE TARTRATE OPHT SOLN 5 ML BOTTLE EACHEYE SCH (09:23)
[2018-12-25] MEDS: VIT B CMPLX 3/FA/VIT C/BIOTIN 1 TAB TABLET GT SCH (09:23)
[2018-12-25] MEDS: LACTOBACILLUS RHAMNOSUS GG 1 EACH CAP.SPRINK GT SCH ×2 (09:23→20:37)
[2018-12-25] MEDS: ZINC SULFATE 220 MG CAPSULE PO SCH (09:24)
[2018-12-25] MEDS: ACETAMINOPHEN 650 MG/20 ML UDC- SA PATIENTS-PAIN ONLY GT SCH ×2 (09:24→20:40)
[2018-12-25] MEDS: ASCORBIC ACID 500 MG TABLET GT SCH (09:24)
[2018-12-25] MEDS: NEPRO 1,000 ML BOTTLE GT PRN (12:07)
--- NOTE | 2018-12-25 16:20 | NUR ---
ROSALIE communicated to family that the Interdisciplinary Plan of Care Conference will be taking place this 12/29/18 from 12:30-1:30PM in the activities room. Patients sister, Rabia [phone] stated she would not be in attendance as she has to work but would appreciate an update. SW or charge nurse will provide family with an update.
[2018-12-25] MEDS: MEROPENEM 500 MG in IV NS 0.9% 50 ML IV SCH (20:21)
[2018-12-25 20:39] VITALS: BP 128/69
[2018-12-25] MEDS: MONTELUKAST SODIUM (10MG) 10 MG TABLET PO SCH (22:20)
[2018-12-26] MEDS: ALBUTEROL FS 2.5 MG/0.5 ML VIAL.NEB NEB SCH ×4 (01:10→19:30)
[2018-12-26] MEDS: PROSOURCE / PROSTAT (PYXIS) 30 ML UDC GT SCH ×3 (05:28→21:03)
[2018-12-26] MEDS: CHLORHEXIDINE GLUCONATE 15 ML UDC MM SCH ×3 (05:29→21:03)
[2018-12-26] MEDS: BLOOD SUGAR DIAGNOSTIC 1 EACH STRIP IN SCH ×4 (05:34→23:10)
[2018-12-26] MEDS: *INSULIN REGULAR(HUMULIN R)HUM 100 UNIT/ML VIAL SQ PRN ×3 (05:35→23:11)
[2018-12-26 07:30] VITALS: BP 122/52
[2018-12-26] MEDS: HYDROGEN PEROXIDE 480 ML BOTTLE TP SCH ×2 (08:14→21:00)
[2018-12-26] MEDS: SILVER SULFADIAZINE CREAM 25 GM TUBE TP SCH ×2 (09:00→21:04)
[2018-12-26] MEDS: CADEXOMER IODINE 40 GM TUBE TP SCH (09:00)
[2018-12-26] MEDS: POVIDONE-IODINE OINT 28.4 GM TUBE TP SCH ×2 (09:00→21:03)
[2018-12-26] MEDS: HYDROGEL DRESSING 90 GM TUBE TP SCH ×4 (09:00→21:04)
[2018-12-26] MEDS: VIT B CMPLX 3/FA/VIT C/BIOTIN 1 TAB TABLET GT SCH (09:11)
[2018-12-26] MEDS: LEVETIRACETAM SOL (5 ML) 100 MG/ML UDC GT SCH ×2 (09:11→21:03)
[2018-12-26] MEDS: LACTOBACILLUS RHAMNOSUS GG 1 EACH CAP.SPRINK GT SCH ×2 (09:11→21:03)
[2018-12-26] MEDS: BRIMONIDINE TARTRATE OPHT SOLN 5 ML BOTTLE EACHEYE SCH (09:11)
[2018-12-26] MEDS: CARVEDILOL 3.125 MG TABLET GT SCH ×2 (09:11→21:00)
[2018-12-26] MEDS: ACETAMINOPHEN 650 MG/20 ML UDC- SA PATIENTS-PAIN ONLY GT SCH ×2 (09:12→21:03)
[2018-12-26] MEDS: ZINC SULFATE 220 MG CAPSULE PO SCH (09:12)
[2018-12-26] MEDS: ASCORBIC ACID 500 MG TABLET GT SCH (09:12)
--- NOTE | 2018-12-26 13:03 | NUR ---
Called Dr Dumont's office and left message with Sekou. Pt still has sutures on her right upper arm AV fistula site.
--- NOTE | 2018-12-26 13:30 | NUR ---
Pt seen by Dr Dumont. He examined pt's right upper arm AV fistula site and said he will leave the sutures indefinitely since the pt has a history of bleeding from the site. He will re-evaluate in a few months.
--- NOTE | 2018-12-26 14:32 | NUR ---
SW received a voicemail from patients sister, Rabia [phone] stating that she will be able to attend the interdisciplinary plan of care conference this Tuesday, December 29, 2018 at after 12:45 pm. Noted.
[2018-12-26] MEDS: MEROPENEM 500 MG in IV NS 0.9% 50 ML IV SCH (20:24)
[2018-12-26] MEDS: VANCOMYCIN 500 MG in IV D5W 100 ML IV PRN (20:25)
[2018-12-26 20:30] VITALS: BP 103/44
[2018-12-26] MEDS: MONTELUKAST SODIUM (10MG) 10 MG TABLET PO SCH (21:04)
[2018-12-27] MEDS: ALBUTEROL FS 2.5 MG/0.5 ML VIAL.NEB NEB SCH ×5 (01:30→19:49)
[2018-12-27] MEDS: BLOOD SUGAR DIAGNOSTIC 1 EACH STRIP IN SCH ×4 (05:38→23:50)
[2018-12-27] MEDS: PROSOURCE / PROSTAT (PYXIS) 30 ML UDC GT SCH ×3 (05:38→20:11)
[2018-12-27] MEDS: CHLORHEXIDINE GLUCONATE 15 ML UDC MM SCH ×3 (05:38→20:12)
[2018-12-27] MEDS: *INSULIN REGULAR(HUMULIN R)HUM 100 UNIT/ML VIAL SQ PRN ×3 (05:39→17:23)
[2018-12-27 07:48] VITALS: BP 101/45
--- NOTE | 2018-12-27 08:49 | NUR ---
RT NOTE: REC'D TRACH PT ON COOL AEROSOL. SANDI BAG @ BEDSIDE. SX DONE PRN. TRACH PATENT AND SECURED. TRACH CARE DONE. NO RESP DISTRESS NOTED AT THIS TIME. WILL CONTINUE TO MONITOR. Addendum: 12/27/18 at 0859 by AB MÉNDEZ RT Amended: Links added.
[2018-12-27 09:00] VITALS: BP 100/45
[2018-12-27] MEDS: BRIMONIDINE TARTRATE OPHT SOLN 5 ML BOTTLE EACHEYE SCH (09:00)
[2018-12-27] MEDS: CARVEDILOL 3.125 MG TABLET GT SCH ×2 (09:00→20:11)
[2018-12-27] MEDS: HYDROGEN PEROXIDE 480 ML BOTTLE TP SCH ×2 (09:08→21:11)
[2018-12-27] MEDS: VIT B CMPLX 3/FA/VIT C/BIOTIN 1 TAB TABLET GT SCH (09:18)
[2018-12-27] MEDS: LACTOBACILLUS RHAMNOSUS GG 1 EACH CAP.SPRINK GT SCH ×2 (09:18→20:11)
[2018-12-27] MEDS: LEVETIRACETAM SOL (5 ML) 100 MG/ML UDC GT SCH ×2 (09:18→20:11)
[2018-12-27] MEDS: ACETAMINOPHEN 650 MG/20 ML UDC- SA PATIENTS-PAIN ONLY GT SCH ×2 (09:18→20:11)
[2018-12-27] MEDS: ZINC SULFATE 220 MG CAPSULE PO SCH (09:20)
[2018-12-27] MEDS: ASCORBIC ACID 500 MG TABLET GT SCH (09:20)
--- NOTE | 2018-12-27 09:50 | NUR ---
Notified Dr. Dennis, resident with thick secretions, new order given to start Mucomyst 400 mg, Q 8 hours. Resident's sister informed.
[2018-12-27] MEDS: CADEXOMER IODINE 40 GM TUBE TP SCH (10:18)
[2018-12-27] MEDS: SILVER SULFADIAZINE CREAM 25 GM TUBE TP SCH ×2 (10:18→20:12)
[2018-12-27] MEDS: HYDROGEL DRESSING 90 GM TUBE TP SCH ×4 (10:18→20:12)
[2018-12-27] MEDS: POVIDONE-IODINE OINT 28.4 GM TUBE TP SCH ×2 (10:18→20:12)
[2018-12-27 12:00] VITALS: BP 98/46
[2018-12-27] MEDS: ACETYLCYSTEINE 10% SOLN 400 MG/4 ML VIAL IH SCH (15:43)
[2018-12-27 18:00] VITALS: BP 108/52
[2018-12-27 20:00] VITALS: BP 113/60
--- NOTE | 2018-12-27 20:04 | NUR ---
RECEIVED TRACH PT ON COOL AEROSOL. AMBU BAG @ BEDSIDE. Q6 BREATHING TX GIVEN PER MD ORDERS WITH NO ADVERSE REACTION NOTED. SX DONE PRN. TRACH PATENT AND SECURED. TRACH CARE DONE. NO RESP DISTRESS NOTED AT THIS TIME. WILL CONTINUE TO MONITOR PT
[2018-12-27] MEDS: NEPRO 1,000 ML BOTTLE GT PRN (20:28)
[2018-12-27] MEDS: MEROPENEM 500 MG in IV NS 0.9% 50 ML IV SCH (20:30)
[2018-12-27 20:40] VITALS: BP 113/60
[2018-12-27] MEDS ORDERED: HYDROGEN PEROXIDE 480 ML BOTTLE TP SCH (21:00)
[2018-12-27] MEDS: MONTELUKAST SODIUM (10MG) 10 MG TABLET PO SCH (21:14)
[2018-12-28] MEDS: ACETYLCYSTEINE 10% SOLN 400 MG/4 ML VIAL IH SCH ×2 (00:27→08:05)
[2018-12-28] MEDS: ALBUTEROL FS 2.5 MG/0.5 ML VIAL.NEB NEB SCH ×2 (00:31→08:05)
[2018-12-28] MEDS: *INSULIN REGULAR(HUMULIN R)HUM 100 UNIT/ML VIAL SQ PRN ×2 (00:46→05:58)
[2018-12-28] MEDS: PROSOURCE / PROSTAT (PYXIS) 30 ML UDC GT SCH (04:32)
[2018-12-28] MEDS: CHLORHEXIDINE GLUCONATE 15 ML UDC MM SCH (04:32)
[2018-12-28] MEDS: BLOOD SUGAR DIAGNOSTIC 1 EACH STRIP IN SCH (05:13)
[2018-12-28 08:12] VITALS: BP 86/45
[2018-12-28] MEDS: VIT B CMPLX 3/FA/VIT C/BIOTIN 1 TAB TABLET GT SCH (08:12)
[2018-12-28] MEDS: LACTOBACILLUS RHAMNOSUS GG 1 EACH CAP.SPRINK GT SCH (08:12)
[2018-12-28] MEDS: LEVETIRACETAM SOL (5 ML) 100 MG/ML UDC GT SCH (08:12)
[2018-12-28 08:13] VITALS: BP 86/45
[2018-12-28] MEDS: CARVEDILOL 3.125 MG TABLET GT SCH (08:13)
[2018-12-28] MEDS: ZINC SULFATE 220 MG CAPSULE PO SCH (08:13)
[2018-12-28] MEDS: ACETAMINOPHEN 650 MG/20 ML UDC- SA PATIENTS-PAIN ONLY GT SCH (08:13)
[2018-12-28] MEDS: ASCORBIC ACID 500 MG TABLET GT SCH (08:13)
[2018-12-28] MEDS: BRIMONIDINE TARTRATE OPHT SOLN 5 ML BOTTLE EACHEYE SCH (08:13)
--- NOTE | 2018-12-28 08:30 | NUR ---
RT NOTE: REC'D TRACH PT ON COOL AEROSOL. MONIQUECarroll BAG @ BEDSIDE. SX DONE PRN. TRACH PATENT AND SECURED. TRACH CARE DONE. NO RESP DISTRESS NOTED AT THIS TIME. WILL CONTINUE TO MONITOR. Addendum: 12/28/18 at 1135 by AB MÉNDEZ RT Amended: Links added.
--- NOTE | 2018-12-28 08:37 | NUR ---
ROSALIE has made multiple attempts to reach Yogi Mccann [phone] in order to discuss share of cost due to SOH, inform him about the option to set up a Resident Trust Fund to facilitate SOC payments, and provide him with the business office phone number so he may begin to set up a payment plan. ROSALIE called Yogi today and left voicemail with call back number.
[2018-12-28] MEDS: CADEXOMER IODINE 40 GM TUBE TP SCH (09:00)
[2018-12-28] MEDS: POVIDONE-IODINE OINT 28.4 GM TUBE TP SCH (09:00)
[2018-12-28] MEDS: SILVER SULFADIAZINE CREAM 25 GM TUBE TP SCH (09:00)
[2018-12-28] MEDS: HYDROGEL DRESSING 90 GM TUBE TP SCH ×2 (09:00)
--- NOTE | 2018-12-28 09:07 | NUR ---
Notified Dr Kern that pt has a fever of 101.2 F and hypotension BP 86/45. Dr Kern ordered to send pt to ER. Notified pt's sister Rabia. Gave report to ER nurse Maylin.
[2018-12-28] MEDS ORDERED: MONT10TA22 GT (10:12)
[2018-12-28] MEDS ORDERED: SILV20CR13 TP (10:25)
[2018-12-28] MEDS ORDERED: CADE40GE2 TP (10:30)
[2018-12-28] MEDS ORDERED: ACET1OOV6 HHN (10:30)
[2018-12-28] MEDS ORDERED: VANC500V IV (10:30)
[2018-12-28] MEDS ORDERED: FEE PK DOSING 1 MIN EA MC ONE (12:25)
--- NOTE | 2018-12-28 14:30 | NUR ---
ROSALIE contacted [facility] [phone] and spoke to Nicolle to inform her that the resident will not be requiring dialysis until further notice as she is out of the unit. Nicolle expressed understanding and was agreeable to plan. ROSALIE contacted [facility] [[address] [place] [address]; [phone]] and spoke to Chirag to inform him that the resident will not be requiring dialysis until further notice as she is out of the unit. Chirag expressed understanding and was agreeable to plan. Per Chirag, he will call the day before the next regularly scheduled dialysis apt. to get update.
--- NOTE | 2019-01-12 09:33 | NUR ---
ROSALIE contacted [facility] [phone] and spoke to Estella to cancel ongoing transport to [place]. Estella was agreeable to plan.
[2019-10-27] MEDS ORDERED: TUBERCULIN,PURIF.PROT.DERIV. 5 TU/0.1 ML VIAL ID SCH (09:00)
== END 2018-12-28 15:00 | DRG 981 ==
LOC: SA 12:14
PROVIDERS: ADMIT Internal Medicine; ATTEND Internal Medicine
PROC: 5A1955Z Respiratory Ventilation, Greater than 96 Consecutive Hours (ICD-10-PCS; principal; 2018-12-05)
PROC: 02HV33Z Insertion of Infusion Device into Superior Vena Cava, Percutaneous Approach (ICD-10-PCS; 2018-12-05)
PROC: B548ZZA Ultrasonography of Superior Vena Cava, Guidance (ICD-10-PCS; 2018-12-05)
PROC: 0QB30ZZ Excision of Left Pelvic Bone, Open Approach (ICD-10-PCS; 2018-12-07)
PROC: 0QB10ZZ Excision of Sacrum, Open Approach (ICD-10-PCS; 2018-12-07)
PROC: 0QB20ZZ Excision of Right Pelvic Bone, Open Approach (ICD-10-PCS; 2018-12-07)
PROC: 0KB10ZZ Excision of Facial Muscle, Open Approach (ICD-10-PCS; 2018-12-07)
PROC: 0QB30ZZ Excision of Left Pelvic Bone, Open Approach (ICD-10-PCS; 2018-12-11)
PROC: 0QB10ZZ Excision of Sacrum, Open Approach (ICD-10-PCS; 2018-12-11)
PROC: 0QB20ZZ Excision of Right Pelvic Bone, Open Approach (ICD-10-PCS; 2018-12-11)
PROC: 0KB10ZZ Excision of Facial Muscle, Open Approach (ICD-10-PCS; 2018-12-11)
PROC: 06HM33Z Insertion of Infusion Device into Right Femoral Vein, Percutaneous Approach (ICD-10-PCS; 2018-12-11)
PROC: B54BZZA Ultrasonography of Right Lower Extremity Veins, Guidance (ICD-10-PCS; 2018-12-11)
PROC: 30233N1 Transfusion of Nonautologous Red Blood Cells into Peripheral Vein, Percutaneous Approach (ICD-10-PCS; 2018-12-14)
PROC: 0QB10ZZ Excision of Sacrum, Open Approach (ICD-10-PCS; 2018-12-18)
PROC: 0KBP0ZZ Excision of Left Hip Muscle, Open Approach (ICD-10-PCS; 2018-12-25)
PROC: 0KBN0ZZ Excision of Right Hip Muscle, Open Approach (ICD-10-PCS; 2018-12-25)
DX: J96.11 Chronic respiratory failure with hypoxia (principal); L89.154 Pressure ulcer of sacral region, stage 4; N18.6 End stage renal disease; R53.2 Functional quadriplegia; L89.324 Pressure ulcer of left buttock, stage 4; L89.314 Pressure ulcer of right buttock, stage 4; L89.814 Pressure ulcer of head, stage 4; G93.1 Anoxic brain damage, not elsewhere classified; I12.0 Hypertensive chronic kidney disease with stage 5 chronic kidney disease or end stage renal disease; Z99.11 Dependence on respirator [ventilator] status; E46 Unspecified protein-calorie malnutrition; M46.28 Osteomyelitis of vertebra, sacral and sacrococcygeal region; L97.919 Non-pressure chronic ulcer of unspecified part of right lower leg with unspecified severity; K21.9 Gastro-esophageal reflux disease without esophagitis; Z99.2 Dependence on renal dialysis; D64.9 Anemia, unspecified; E11.22 Type 2 diabetes mellitus with diabetic chronic kidney disease; Z79.4 Long term (current) use of insulin; E11.51 Type 2 diabetes mellitus with diabetic peripheral angiopathy without gangrene; I70.235 Atherosclerosis of native arteries of right leg with ulceration of other part of foot; L97.519 Non-pressure chronic ulcer of other part of right foot with unspecified severity; E66.01 Morbid (severe) obesity due to excess calories; I48.91 Unspecified atrial fibrillation; I70.245 Atherosclerosis of native arteries of left leg with ulceration of other part of foot; L97.529 Non-pressure chronic ulcer of other part of left foot with unspecified severity; R13.10 Dysphagia, unspecified; Z74.01 Bed confinement status; Z93.0 Tracheostomy status; Z93.1 Gastrostomy status; F09 Unspecified mental disorder due to known physiological condition; Z86.718 Personal history of other venous thrombosis and embolism; E66.9 Obesity, unspecified; Z68.31 Body mass index [BMI] 31.0-31.9, adult; Z79.51 Long term (current) use of inhaled steroids; Z79.899 Other long term (current) drug therapy; E11.69 Type 2 diabetes mellitus with other specified complication; Z74.09 Other reduced mobility
CPT/HCPCS: 31720; 36415; 80202-TC; 82272-TC; 82962-TC; 85025-TC; 86850-TC; 86921-TC; 87081-TC; 94640-TC; 94760-TC; 94762-TC; 94799-TC; 97112-TC; 97530-TC; A4216; A4623; A6248; A6253; A7526; J1815; J1953; J2185; J3370; J7060; P9016-BL

== ENCOUNTER 2018-12-28 09:18 | Inpatient (IN) | payer MEDICARE, OTHER ==
[~2018-12-28] VITALS: Ht 154.4 cm; Wt 93.9 kg
[~2018-12-28 09:18] MED LIST changes: -FAMO20TA8 GT; -SUCR1ORA GT; -VANC1PLA9 IV
--- NOTE | 2018-12-28 09:18 | NUR ---
PT BROUGHT IN TO THE ED FROM [facility] C/O OF LOW BP AND FEVER. PT IS UNABLE TO VERBALIZE BUT IS RESPONSIVE TO PAIN. PT IS ON 5 L OF O2. PT CONNECTED TO THE MONITOR. BLOOD DRAWN AND SENT TO LAB.
[2018-12-28] MEDS ORDERED: ACETAMINOPHEN 325 MG TABLET MC ONE (09:30)
--- NOTE | 2018-12-28 09:30 | NUR ---
REQUESTED BED FROM RN [employer]SEMBLY LINE WORKER.
[2018-12-28] MEDS ORDERED: ACETAMINOPHEN 325 MG TABLET ONE (09:41)
[2018-12-28 09:52] LABS: BASOPHILS # (AUTO) 0.1 /CMM (0.0-0.2); EOSINOPHILS % (AUTO) 0.9 % (0.0-6.0); MEAN CORPUSCULAR VOLUME 91 fL (82-100); MONOCYTES # (AUTO) 1.1 /CMM (0.1-1.30); NEUTROPHILS # (AUTO) 16.2 /CMM (1.8-8.9)
[2018-12-28 09:56] LABS: BASOPHILS % (AUTO) 0.3 % (0.0-2.0); HEMATOCRIT 22 % (33-45); LYMPHOCYTES # (AUTO) 0.9 /CMM (0.8-4.8); LYMPHOCYTES % (AUTO) 4.8 % (20.0-44.0); MEAN CORPUSCULAR HGB CONC 31 g/dl (31.0-36.0); MONOCYTES % (AUTO) 5.9 % (2.0-12.0); NEUTROPHILS % (AUTO) 88.1 % (43.0-81.0); PLATELET COUNT (AUTO) 263 /CMM (150-450); RED BLOOD CELL COUNT(AUTO) 2.39 MIL/uL (4.0-5.2); WHITE BLOOD COUNT (AUTO) 18.4 K/uL (4.3-11.0)
[2018-12-28 09:57] LABS: HEMOGLOBIN 6.8 g/dL (11.5-14.8)
[2018-12-28 10:05] LABS: CARBON DIOXIDE 23 mmol/L (21-32); CHLORIDE 96 mmol/L (98-107); GLUCOSE 304 mg/dL (74-106); POTASSIUM 3.9 mmol/L (3.5-5.1); SODIUM SERUM 131 mmol/L (136-145)
[2018-12-28 10:06] LABS: CALCIUM, SERUM 9.3 mg/dL (8.5-10.1)
[2018-12-28 10:07] LABS: ALBUMIN 2.2 g/dL (3.4-5.0); ALKALINE PHOSPHATASE 228 U/L (46-116); ASPARTATE AMINOTRANSFERASE 33 U/L (15-37); BILIRUBIN,DIRECT 0.1 mg/dL (0.0-0.2); BILIRUBIN,TOTAL 0.5 mg/dL (0.2-1.0); TOTAL PROTEIN, SERUM 7.7 g/dL (6.4-8.2)
[2018-12-28 10:09] LABS: UREA NITROGEN, BLOOD 106 mg/dL (7-18)
[2018-12-28] MEDS ORDERED: MONT10TA22 GT (10:12)
[2018-12-28 10:16] LABS: ALANINE AMINOTRANSFERASE 37 U/L (12-78); EOSINOPHILS % (MANUAL) 1 % (0-4); LYMPHOCYTES % (MANUAL) 5 % (16-48); MONOCYTES % (MANUAL) 3 % (0-11.0); NEUTROPHILS % (MANUAL) 91 (42-76)
[2018-12-28] MEDS ORDERED: SILV20CR13 TP (10:25)
[2018-12-28] MEDS ORDERED: ACET1OOV6 HHN (10:30)
[2018-12-28] MEDS ORDERED: CADE40GE2 TP (10:30)
[2018-12-28] MEDS ORDERED: VANC500V IV (10:30)
[2018-12-28] MEDS ORDERED: ACETAMINOPHEN 325 MG TABLET PO PRN (11:30)
[2018-12-28] MEDS ORDERED: ACETAMINOPHEN 160 MG/5 ML GT PRN (11:30)
[2018-12-28] MEDS ORDERED: MAGNESIUM HYDROXIDE 30 ML UDC PO PRN (11:30)
[2018-12-28] MEDS ORDERED: ZOLPIDEM TARTRATE 5 MG TABLET PO PRN (11:30)
[2018-12-28] MEDS ORDERED: ALBUTEROL FS 2.5 MG/3 ML VIAL.NEB IH PRN (11:30)
[2018-12-28] MEDS ORDERED: DEXTROSE 50%-WATER 50 ML DISP.SYRIN IV PRN ×2 (11:30→14:30)
[2018-12-28] MEDS ORDERED: ONDANSETRON HCL/PF 4 MG/2 ML VIAL IVP PRN (11:30)
[2018-12-28] MEDS ORDERED: ONDANSETRON HCL/PF 4 MG/2 ML VIAL IV PRN (11:30)
[2018-12-28] MEDS ORDERED: HYDROCODONE/APAP 5/325MG 1 EACH TABLET PO PRN (11:30)
[2018-12-28] MEDS ORDERED: MAG HYDROX/AL HYDROX/SIMETH 30 ML UDC PO PRN (11:30)
[2018-12-28] MEDS ORDERED: MAG HYDROX/AL HYDROX/SIMETH 30 ML UDC GT PRN (11:30)
[2018-12-28] MEDS ORDERED: VANCOMYCIN 500 MG VIAL IV SCH (11:30)
[2018-12-28] MEDS ORDERED: HYDROCODONE/APAP 5/325MG 1 EACH TABLET GT PRN (11:30)
--- NOTE | 2018-12-28 11:58 | NUR ---
CALLED [facility] FOR TELE BED
[2018-12-28 12:00] VITALS: BP 104/51
[2018-12-28] MEDS: BLOOD SUGAR DIAGNOSTIC 1 EACH STRIP IN SCH ×2 (12:00→17:44)
--- NOTE | 2018-12-28 12:36 | NUR ---
LACTIC 2.[address] [facility] ASHLEY NOTIFIED.
[2018-12-28] MEDS ORDERED: ACETAMINOPHEN 650 MG/20.3 ML UDC GT PRN (12:39)
--- NOTE | 2018-12-28 12:40 | NUR ---
Mikayla benjamin in [facility] - 12/28/18 at 1243 by AILYN REPORT GIVEN TO JENNY
--- NOTE | 2018-12-28 12:43 | NUR ---
REPORT GIVEN TO JASMEET ALVARADO
--- NOTE | 2018-12-28 12:45 | NUR ---
RN [facility] ADMIT FROM ER PATIENT ADMIT FROM ER FROM SUBACUTE DUE TO HYPOTENSION AND ANEMIA. PATIENT HAS ESRD AND GETS DIALYSIS Tue. AMID CONFIRMED PATIENT RECEIVES TREATMENT TODAY AND RN TO GIVE VANCO AFTER DIALYSIS IS DONE. TYPE AND SCREEN DONE, AWAITNG BLOOD FROM BLOOD BANK. VITALS SIGNS STABLE WNL.
[2018-12-28] MEDS ORDERED: LACTULOSE 10 G/15 ML UDC (PYXIS) GT SCH (13:00)
[2018-12-28] MEDS ORDERED: LACTULOSE 10 G/15 ML UDC (PYXIS) GT PRN (13:00)
[2018-12-28] MEDS ORDERED: POLYVINYL ALCOHOL 15 ML BOTTLE OP PRN (13:00)
[2018-12-28] MEDS: ALBUTEROL FS 2.5 MG/3 ML VIAL.NEB IH SCH ×2 (13:30→19:25)
[2018-12-28] MEDS: IV NS 0.9% 1,000 ML IV SCH (13:55)
[2018-12-28] MEDS: Z GUARD REMEDY 2 OZ OINT TP PRN (14:20)
[2018-12-28] MEDS: BRIMONIDINE TARTRATE OPHT SOLN 5 ML BOTTLE OP SCH (14:21)
[2018-12-28] MEDS ORDERED: FEE PK DOSING 1 MIN EA MC ONE (14:24)
[2018-12-28] MEDS ORDERED: INSULIN REGULAR, HUMAN 100 UNIT/ML 3 ML VIAL SQ PRN (14:30)
[2018-12-28] MEDS ORDERED: BLOOD SUGAR DIAGNOSTIC 1 EACH STRIP IN SCH (14:30)
[2018-12-28] MEDS: INSULIN REGULAR, HUMAN 100 UNIT/ML 3 ML VIAL SQ PRN ×2 (14:34→17:44)
[2018-12-28] MEDS: MEROPENEM 500 MG in IV NS 0.9% 50 ML IV SCH (14:39)
[2018-12-28] MEDS: PROSOURCE / PROSTAT (PYXIS) 30 ML UDC GT SCH ×2 (14:40→20:37)
--- NOTE | 2018-12-28 15:00 | NUR ---
RN NOTE BLOOD BANK LAB CALLED TO INFORM RN ANTIBODIES WERE FOUND FOR TYPE AND SCREEN , AND NEEDS TO BE SENT TO [facility] TO GET BLOOD. LAB INFORMED RN THIS WILL TAKE HOURS AND RN NOTIFED MD . NO NEW ORDERS VITALS WNL NO DISTRESS AT THIS TIME, NO ACTIVE BLEEDING.
[2018-12-28 16:00] VITALS: BP 115/44
--- NOTE | 2018-12-28 16:00 | NUR ---
CLINICAL INFORMATICS DIRECTOR NOTE WOUND PICTURES TAKEN AND PLACED IN CHART. WOUND CONSULT ORDER PLACED. CONTINUE TO OFFLOAD, MONITOR FOR S/S INFECTION AND [id number].
[2018-12-28 17:00] VITALS: BP 114/65
[2018-12-28] MEDS ORDERED: VANCOMYCIN POST DIALYSIS 500MG IV PRN ×2 (17:00)
[2018-12-28] MEDS ORDERED: FLUCONAZOLE (100 MG) 100 MG TABLET GT SCH (17:30)
[2018-12-28] MEDS: CHLORHEXIDINE GLUCONATE 15 ML UDC MM SCH ×2 (17:34→20:18)
--- NOTE | 2018-12-28 18:00 | NUR ---
RN [facility] CLOSING NOTE PATIENT ADMIT FROM ER FROM SUBACUTE DUE TO HYPOTENSION AND ANEMIA. PATIENT HAS ESRD AND GETS DIALYSIS TUES TH SAT. RN CALLED DIALYSIS TEAM TO CONFIRM IF THEY ARE COMING AT 1800. AMID CONFIRMED PATIENT RECEIVES TREATMENT TODAY AND RN TO GIVE VANCO AFTER DIALYSIS IS DONE, WILL ENDORSE TO PUMP INSTALLATION AND SERVICER. INFECTIOUS DISEASE SAW PATIENT, RT FEMORAL PICC LINE ORDER TO START PERIPHERAL IV AND D/C FEMORAL LINE SEND TIP TO LAB FOR CYTOLOGY REPORT, RN ATTEMPTED IV ACCESS MULTIPLE TIMES NO SUCCESS PATIENT IS SEVERELY OVERWEIGHT AND EDEMA, WILL ENDORSE TO PUMP INSTALLATION AND SERVICER. PLAN CONT ATB, ESTABLISH PERIPHERAL LINE SEND TIP FOR ANALYSIS, AWAITING BLOOD TRANSFUSION TYPE AND SCREEN FROM [facility] DUE TO ANTIBODIES FOUND. MD AWARE NO NEW ORDERS.NO ACTIVE BLEEDING.
[2018-12-28] MEDS: FLUCONAZOLE (100 MG) 100 MG TABLET GT SCH (18:03)
[2018-12-28 20:00] VITALS: BP_SYST 102; BP_SYST 92; BP_DIAS 39; BP_DIAS 56
[2018-12-28] MEDS: CARVEDILOL 3.125 MG TABLET GT SCH (20:17)
[2018-12-28] MEDS: LEVETIRACETAM SOL (5 ML) 100 MG/ML UDC GT SCH (20:18)
[2018-12-28] MEDS: LACTOBACILLUS RHAMNOSUS GG 1 EACH CAP.SPRINK GT SCH (20:18)
--- NOTE | 2018-12-28 20:18 | NUR ---
coreg held at this time due to Low BP 90/43
[2018-12-28] MEDS: ACETAMINOPHEN 325 MG TABLET PO SCH (20:19)
[2018-12-28] MEDS: SILVER SULFADIAZINE CREAM 25 GM TUBE TP SCH (20:19)
[2018-12-28] MEDS: NEPRO VAN 237 ML CAN GT SCH (20:26)
--- NOTE | 2018-12-28 20:31 | NUR ---
RT NOTE PT RECEIVED TRACHED ON COOL AEROSOL @ 28%. WATER LEVEL GOOD. CONT. PULSE OX CONNECTED. AMBU BAG/BACK UP TRACH @ BEDSIDE. TX GIVEN, NO ADVERSE REACTIONS NOTED. SX DONE, TRACH SECURED AND PATENT. NO SOB NOTED AT THIS TIME. WILL MONITOR T/O SHIFT. Addendum: 12/28/18 at 2031 by LUZMA TURNER RT Amended: Links added.
--- NOTE | 2018-12-28 20:42 | NUR ---
Albumin given during dialysis
[2018-12-28 21:00] VITALS: BP 102/56
[2018-12-28] MEDS ORDERED: ALBUMIN 25% 25 GM in PREMIX 1 EA IV ONE (21:00)
[2018-12-28] MEDS: MONTELUKAST SODIUM (10MG) 10 MG TABLET GT SCH (21:23)
[2018-12-29] MEDS: BLOOD SUGAR DIAGNOSTIC 1 EACH STRIP IN SCH ×5 (00:46→23:30)
[2018-12-29] MEDS: ALBUTEROL FS 2.5 MG/3 ML VIAL.NEB IH SCH ×4 (00:48→19:39)
[2018-12-29 01:00] VITALS: BP 126/55
--- NOTE | 2018-12-29 01:52 | NUR ---
PATIENT ABDOMEN AROUND G-TUBE SITE NOTED, RED, AND WARM TO TOUCH, HELD TUBE FEEDING, CALLED DR MALAVE AT THIS TIME, LEFT MESSAGE
--- NOTE | 2018-12-29 01:58 | NUR ---
dR. MALAVE CALLED BACK AT THIS TIME, RELAYED PATIENT CONDITION, VITAL SIGNS TO DRGiorgio WITH NO NEW ORDER AT THIS TIME, SAID PATIENT IS ALREADY ON ANTIBIOTICS. NO NEED TO GIVE MORE ANTIBIOTICS AT THIS TIME. WILL CONTINUE TO MONITOR
[2018-12-29] MEDS: IV NS 0.9% 1,000 ML IV SCH (02:43)
--- NOTE | 2018-12-29 03:05 | NUR ---
RECEIVED CALL FROM THE LABS THAT PATIENT BLOOD IS READY TO BE PICKED UP FOR BLOOD TRANSFUSION. PATIENT UNABLE TO SIGN THE CONSENT FOR BLOOD TRANSFUSION HER SELF, CALLED LILIANA HOLM SISTER AT THIS TIME, LEFT MESSAGE. WAITING FOR CALL BACK
--- NOTE | 2018-12-29 03:15 | NUR ---
LILIANA HOLM CALLED BACK AT THIS TIME, GIVEN CONSENT FOR BLOOD TRANSFUSION.
--- NOTE | 2018-12-29 04:12 | NUR ---
brought blood from the blood bank, checked patient vital signs, patient noted with temperature of 100.1 at this time, Called Dr. Reed at this time via [facility], waiting for call back. Addendum: 12/29/18 at 0600 by CYNTHIA CENTENO RN cooling measures initiated.
--- NOTE | 2018-12-29 04:20 | NUR ---
No call back from Dr. Reed. Retuned blood back to the blood bank
[2018-12-29 05:00] VITALS: BP 126/55
[2018-12-29] MEDS: PROSOURCE / PROSTAT (PYXIS) 30 ML UDC GT SCH ×3 (05:41→21:22)
[2018-12-29] MEDS: CHLORHEXIDINE GLUCONATE 15 ML UDC MM SCH ×3 (05:42→21:22)
[2018-12-29] MEDS ORDERED: DEXTROSE 50%-WATER 50 ML DISP.SYRIN IV PRN (06:30)
--- NOTE | 2018-12-29 06:31 | NUR ---
patient blood sugar 291
[2018-12-29] MEDS: INSULIN REGULAR, HUMAN 100 UNIT/ML 3 ML VIAL SQ PRN ×4 (06:34→23:35)
[2018-12-29 07:18] LABS: BASOPHILS % (AUTO) 0.3 % (0.0-2.0); EOSINOPHILS % (AUTO) 0.4 % (0.0-6.0); HEMATOCRIT 22 % (33-45); LYMPHOCYTES # (AUTO) 0.8 /CMM (0.8-4.8); MEAN CORPUSCULAR HGB CONC 32 g/dl (31.0-36.0); MEAN CORPUSCULAR VOLUME 90 fL (82-100); MONOCYTES # (AUTO) 1.1 /CMM (0.1-1.30); MONOCYTES % (AUTO) 7.2 % (2.0-12.0); NEUTROPHILS # (AUTO) 13.7 /CMM (1.8-8.9); NEUTROPHILS % (AUTO) 87.1 % (43.0-81.0); PLATELET COUNT (AUTO) 287 /CMM (150-450); RED BLOOD CELL COUNT(AUTO) 2.45 MIL/uL (4.0-5.2); WHITE BLOOD COUNT (AUTO) 15.7 K/uL (4.3-11.0)
--- NOTE | 2018-12-29 07:25 | NUR ---
RN INITIAL NOTE PATIENT IN BED, OBTUNDED. ON TP, SATING WELL AT 100%. ON TELE MONITOR, SR. HAS A PICC LINE ON RIGHT FEMORAL, PER MD DC AND SEND TIP TO LAB. NOC CN WAS ABLE TO INSERT A LEFT FA #22 SALINE LOCKED. PATIENT HAS A RIGHT ARM AV FISTULA. BLOOD TRANSFUSION WAS NOT DONE LAST NIGHT DUE TO PATIENT'S TEMPERATURE OF 100F. SECOND BLOOD IS READY TO BE PICKED UP, CONSENT ALREADY SIGNED. WILL RECHECK PATIENT'S VS BEFOREHAND. LAB CALLED, PATIENT'S HGB IS 7.0, HCT IS 22. PER NOC SHIFT RN, PATIENT'S ABDOMEN SEEMS TO LOOK RED. HE STOPPED GTF. WILL CONTINUE TO MONITOR PATIENT. BED LOCKED AND IN LOWEST POSITION.
[2018-12-29 07:29] LABS: CALCIUM, SERUM 9.1 mg/dL (8.5-10.1); CREATININE 3.7 mg/dL (0.6-1.3); MAGNESIUM 2.3 mg/dL (1.8-2.4); PHOSPHORUS 2.3 mg/dL (2.5-4.9); POTASSIUM 3.5 mmol/L (3.5-5.1)
[2018-12-29] MEDS: LACTOBACILLUS RHAMNOSUS GG 1 EACH CAP.SPRINK GT SCH ×2 (08:24→21:22)
[2018-12-29] MEDS: ACETAMINOPHEN 325 MG TABLET PO SCH ×2 (08:25→21:22)
[2018-12-29] MEDS: ASCORBIC ACID 500 MG TABLET GT SCH (08:25)
[2018-12-29] MEDS: LEVETIRACETAM SOL (5 ML) 100 MG/ML UDC GT SCH ×2 (08:26→21:22)
[2018-12-29] MEDS: VIT B CMPLX 3/FA/VIT C/BIOTIN 1 TAB TABLET GT SCH (08:26)
[2018-12-29] MEDS: ZINC SULFATE 220 MG CAPSULE PO SCH (08:26)
[2018-12-29] MEDS: CARVEDILOL 3.125 MG TABLET GT SCH ×2 (08:31→21:00)
[2018-12-29] MEDS: SILVER SULFADIAZINE CREAM 25 GM TUBE TP SCH ×2 (08:34→21:23)
[2018-12-29 09:00] VITALS: BP 121/45
[2018-12-29] MEDS: CADEXOMER IODINE 40 GM TUBE TP SCH (09:03)
[2018-12-29] MEDS: BRIMONIDINE TARTRATE OPHT SOLN 5 ML BOTTLE OP SCH (09:25)
--- NOTE | 2018-12-29 10:21 | NUR ---
RN NOTE PER DR STRONG, HOLD BLOOD TRANSFUSION FOR NOW DUE TO FEVER OF 102F. HGB WENT UP FROM 6.8 TO 7.0. MD AWARE PATIENT HAD 1X EPISODE OF VOMITING. SISTER AT BEDSIDE REFUSED ZOFRAN PRN. OK TO GIVE IF ANOTHER EPISODE OF VOMITING. ALSO MD AWARE ABOUT THE PATIENT'S ABDOMINAL AREA REDNESS.
[2018-12-29 11:17] LABS: ABG BASE EXCESS -0.8 mmol/L; ABG OXYGEN SATURATION 95.3 % (92.0-98.5); ABG PCO2 34.7 mmHg (35.0-45.0); ABG PH 7.441 (7.350-7.450); ABG PO2 80.8 mmHg (75.0-100.0); AaDO2 77.9 mmHg; COHb 0.9 % (0.5-1.5); MetHb 0.8 % (0.0-1.5); O2Hb 93.7 % (94.0-97.0); SITE, ABG Right Radial; VENT MODE, BG CA 28%
--- NOTE | 2018-12-29 11:44 | NUR ---
RN NOTE RELAYED ABG RESULTS TO DR YOUSIF
[2018-12-29 12:00] VITALS: BP 92/42
--- NOTE | 2018-12-29 13:09 | NUR ---
RN NOTE REMOVED PATIENT'S RIGHT FEMORAL PICC LINE PER MD ORDER. WILL SEND CATHETER TIP TO LAB. PATIENT HAS A RIGHT FA #20
[2018-12-29] MEDS: MEROPENEM 500 MG in IV NS 0.9% 50 ML IV SCH (13:40)
[2018-12-29] MEDS: ACETYLCYSTEINE 10% SOLN 400 MG/4 ML VIAL NEB SCH ×2 (13:50→23:28)
[2018-12-29] MEDS: IPRATROPIUM NEB FS 0.5 MG/2.5 ML AMPUL.NEB NEB SCH ×2 (13:50→19:39)
[2018-12-29] MEDS: DAKINS QUARTER STRENGTH (0.125%) 480 ML BOTTLE TOP SCH (14:30)
[2018-12-29] MEDS: HYDROGEL DRESSING 90 GM TUBE TP SCH (14:30)
[2018-12-29 16:00] VITALS: BP_SYST 92; BP_DIAS 40; BP_DIAS 42
[2018-12-29] MEDS: IV NS 0.9% 1,000 ML IV PRN (17:15)
[2018-12-29] MEDS: FLUCONAZOLE (100 MG) 100 MG TABLET GT SCH (17:17)
--- NOTE | 2018-12-29 18:58 | NUR ---
RN CLOSING NOTES AM SHIFT ENDORSE TO PM SHIFT, PATIENT A/O X1 OBTUNDED, RESPONDS TO PAIN PATIENT HAS NORMAL SINUS RHYTHM AND IS MONITORED, VOMITING X1 ABOUT 10 ML , BILATERAL EDEMA UPPER EXTREMITIES PATIENTS, LEFT IV WITH CONTINUOS NS @ 75ML/ HOUR LAST BM 1500/1600 - SOFT STOOL, WOUNDS CLEAN DRY AND INTACT AND CHANGED DURING AM SHIFT. REPOSITION [id number] , DR. OLIVA SAW PATIENT AND WAS NOTIFIED ABOUT LLQ ABDOMEN REDNESS. PICC LINE REMOVED AND SENT TO LAB. BED LOCK AND LOWEST POSITION, ENDORSED TO NIGHTSHIFT NURSE FOR CONTINUITY OF CARE
--- NOTE | 2018-12-29 19:26 | NUR ---
ASSISTANT PRODUCER OPENING NOTES RECEIVED PATIENT IN BED, OBTUNDED. ON TELE MONITOR SR WITH HR 90'S. ON T-PIECE FIO2 28 TOLERATING WELL, SATURATING 100%. NO RESPIRATORY OR CARDIAC DISTRESS NOTED. IV SITE LEFT FA #22 FLUSHING AND PATENT, SITE C/D/I, IVF RUNNING ORDERED, TOLERATING WELL, NO INFILTRATION NOTED. GENERALIZED EDEMA NOTED. RIGHT ARM AV FISTULA NOTED WITH POSITIVE BRUIT AND THRILL. PT'S ABDOMEN WARM TO TOUCH WITH MILD REDNESS NOTED, PER AM RN AWARE AND OKAY TO CONT GTUBE FEEDING. RECEIVED PT ON GTUBE FEEDING AT 20ML/HR, TOLERATING WELL, MINIMAL RESIDUAL NOTED. SAFETY MEASURES MAINTAINED; BED LOCKED AND IN LOWEST POSITION, SIDE RAILS UP X2, CALL LIGHT WITHIN REACH, HOB ELEVATED AT ALL TIMES. WILL CONT TO MONITOR PT CLOSELY.
[2018-12-29 20:00] VITALS: BP 97/49
[2018-12-29] MEDS: MONTELUKAST SODIUM (10MG) 10 MG TABLET GT SCH (21:22)
[2018-12-29] MEDS: Z GUARD REMEDY 2 OZ OINT TP PRN (23:31)
[2018-12-30] VITALS: BP 92/45
[2018-12-30] MEDS: ALBUTEROL FS 2.5 MG/3 ML VIAL.NEB IH SCH ×4 (01:25→20:01)
[2018-12-30] MEDS: IPRATROPIUM NEB FS 0.5 MG/2.5 ML AMPUL.NEB NEB SCH ×4 (01:25→20:01)
[2018-12-30 04:00] VITALS: BP 116/63
[2018-12-30] MEDS: PROSOURCE / PROSTAT (PYXIS) 30 ML UDC GT SCH ×3 (05:35→21:25)
[2018-12-30] MEDS: CHLORHEXIDINE GLUCONATE 15 ML UDC MM SCH ×3 (05:35→21:24)
[2018-12-30] MEDS: BLOOD SUGAR DIAGNOSTIC 1 EACH STRIP IN SCH ×3 (05:43→17:55)
[2018-12-30] MEDS: INSULIN REGULAR, HUMAN 100 UNIT/ML 3 ML VIAL SQ PRN ×3 (05:46→17:57)
[2018-12-30 07:20] LABS: BASOPHILS % (AUTO) 0.1 % (0.0-2.0); EOSINOPHILS % (AUTO) 0.6 % (0.0-6.0); HEMATOCRIT 24 % (33-45); HEMOGLOBIN 7.2 g/dL (11.5-14.8); LYMPHOCYTES # (AUTO) 0.6 /CMM (0.8-4.8); LYMPHOCYTES % (AUTO) 2.5 % (20.0-44.0); MEAN CORPUSCULAR HGB CONC 31 g/dl (31.0-36.0); MEAN CORPUSCULAR VOLUME 90 fL (82-100); MONOCYTES # (AUTO) 1.1 /CMM (0.1-1.30); MONOCYTES % (AUTO) 4.9 % (2.0-12.0); NEUTROPHILS # (AUTO) 20.8 /CMM (1.8-8.9); NEUTROPHILS % (AUTO) 91.9 % (43.0-81.0); PLATELET COUNT (AUTO) 379 /CMM (150-450); RED BLOOD CELL COUNT(AUTO) 2.63 MIL/uL (4.0-5.2); WHITE BLOOD COUNT (AUTO) 22.6 K/uL (4.3-11.0)
--- NOTE | 2018-12-30 07:22 | NUR ---
MACHINE SETTER SUPERVISOR CLOSING NOTES PATIENT IN BED, NONVERBAL. ALL MD ORDERS ATTENDED, ALL NEEDS ANTICIPATED AND MET. REPOSITIONED Q2H. SUCTIONED PT NEEDED. PT KEPT CLEAN, DRY, AND COMFORTABLE. WOUND TX RENDERED ORDERED. SAFETY MEASURES MAINTAINED; CALL LIGHT WITHIN REACH, SIDE RAILS UP X2, BED LOCKED AND IN LOWEST POSITION, HOB ELEVATED AT ALL TIMES. ENDORSED TO AM RN FOR BILL.
[2018-12-30 07:33] LABS: CALCIUM, SERUM 9.6 mg/dL (8.5-10.1); CREATININE 4.8 mg/dL (0.6-1.3); POTASSIUM 4.3 mmol/L (3.5-5.1)
--- NOTE | 2018-12-30 07:35 | NUR ---
TELE/RN OPENING NOTES RECEIVED PATIENT IN BED SLEEPING COMFORTABLY. NO FACIAL GRIMACING OR ACUTE DISTRESS AT THIS TIME. RESPIRATION EVEN AND UNLABORED. SKIN IS DRY WARM TO TOUCH. PATIENT CONTINUES ON TELE MONITORING, SR WITH HR 80'S. NOTED WITH IV ACCESS ON LEFT FA #22 FLUSHING AND PATENT. IVF RUNNING ORDERED, TOLERATING WELL, NO INFILTRATION NOTED. RIGHT ARM AV FISTULA NOTED WITH POSITIVE BRUIT AND THRILL. ALL NEEDS ANTICIPATED. CALL LIGHT WITHIN REACHED. BED LOCKED AND IN LOWEST POSITION. SAFETY MAINTAINED. REPOSITIONED Q2HRS. WILL CONTINUE TO MONITOR CLOSELY.
[2018-12-30] MEDS: ACETYLCYSTEINE 10% SOLN 400 MG/4 ML VIAL NEB SCH ×3 (07:56→23:36)
[2018-12-30 08:00] VITALS: BP_SYST 105; BP_SYST 97; BP_DIAS 63
[2018-12-30] MEDS: CARVEDILOL 3.125 MG TABLET GT SCH ×2 (09:00→21:00)
[2018-12-30] MEDS: ZINC SULFATE 220 MG CAPSULE PO SCH (09:59)
[2018-12-30] MEDS: ASCORBIC ACID 500 MG TABLET GT SCH (09:59)
[2018-12-30] MEDS: ACETAMINOPHEN 325 MG TABLET PO SCH ×2 (09:59→21:24)
[2018-12-30] MEDS: LACTOBACILLUS RHAMNOSUS GG 1 EACH CAP.SPRINK GT SCH ×2 (09:59→21:24)
[2018-12-30] MEDS: LEVETIRACETAM SOL (5 ML) 100 MG/ML UDC GT SCH ×2 (10:00→21:24)
[2018-12-30] MEDS: VIT B CMPLX 3/FA/VIT C/BIOTIN 1 TAB TABLET GT SCH (10:00)
[2018-12-30] MEDS: FLUCONAZOLE (100 MG) 100 MG TABLET GT SCH (10:00)
[2018-12-30] MEDS: IV NS 0.9% 1,000 ML IV PRN (10:07)
[2018-12-30] MEDS: HYDROGEL DRESSING 90 GM TUBE TP SCH (10:08)
[2018-12-30] MEDS: DAKINS QUARTER STRENGTH (0.125%) 480 ML BOTTLE TOP SCH (10:08)
[2018-12-30] MEDS: CADEXOMER IODINE 40 GM TUBE TP SCH (10:16)
[2018-12-30] MEDS: BRIMONIDINE TARTRATE OPHT SOLN 5 ML BOTTLE OP SCH (10:16)
[2018-12-30] MEDS: SILVER SULFADIAZINE CREAM 25 GM TUBE TP SCH ×2 (10:17→21:24)
[2018-12-30] MEDS: SILVER SULFADIAZINE 50 GM JAR TP SCH (10:20)
--- NOTE | 2018-12-30 10:47 | NUR ---
MS/RN NOTES RECEIVED VERBAL ORDERS FROM DR. STRONG FOR A KUB. ALL ORDERS NOTED AND CARRIED OUT. PATIENT CONTINUES TO REMAIN IN STABLE CONDITION. WILL CONTINUE TO MONITOR CLOSELY.
[2018-12-30] MEDS ORDERED: POLYVINYL ALCOHOL 15 ML BOTTLE OP PRN (11:00)
--- NOTE | 2018-12-30 11:06 | NUR ---
MS/RN NOTES PER DIALYSIS NURSE TO ORDER STAT ALBUMIN. ORDERS NOTED AND CARRIED OUT.
[2018-12-30] MEDS ORDERED: ALBUMIN 25% 25 GM in PREMIX 1 EA IV PRN (11:30)
[2018-12-30] MEDS: MEROPENEM 500 MG in IV NS 0.9% 50 ML IV SCH (14:28)
[2018-12-30 16:00] VITALS: BP_SYST 129; BP_DIAS 55; BP_DIAS 68
[2018-12-30] MEDS ORDERED: VANCOMYCIN 1 GM in IV D5W 250 ML IV ONE (16:00)
--- NOTE | 2018-12-30 19:12 | NUR ---
MS/RN CLOSING NOTES PATIENT CONTINUES TO REMAIN IN STABLE CONDITION THROUGHOUT THE SHIFT. PROVIDED COMFORT AND SAFETY. PATIENT NOTED WITH IV ACCESS ON LEFT FA #22 FLUSHING AND PATENT. IVF RUNNING ORDERED, TOLERATING WELL, NO INFILTRATION NOTED. RIGHT ARM AV FISTULA NOTED WITH POSITIVE BRUIT AND THRILL. ALL NEEDS ANTICIPATED. CALL LIGHT WITHIN REACHED. BED LOCKED AND IN LOWEST POSITION. SAFETY MAINTAINED. REPOSITIONED Q2HRS. WILL CONTINUE TO MONITOR CLOSELY. ENDORSED TO PM NURSE FOR BILL.
[2018-12-30 20:00] VITALS: BP 90/59
[2018-12-30] MEDS: MONTELUKAST SODIUM (10MG) 10 MG TABLET GT SCH (21:24)
[2018-12-30] MEDS: NEPRO VAN 237 ML CAN GT SCH (22:03)
[2018-12-31] VITALS (12 sets, daily range): BP systolic 101–136; BP diastolic 34–68
[2018-12-31] MEDS: BLOOD SUGAR DIAGNOSTIC 1 EACH STRIP IN SCH ×5 (00:08→23:39)
[2018-12-31] MEDS: INSULIN REGULAR, HUMAN 100 UNIT/ML 3 ML VIAL SQ PRN ×4 (00:13→23:40)
[2018-12-31] MEDS: IV NS 0.9% 1,000 ML IV PRN (01:47)
[2018-12-31] MEDS: IPRATROPIUM NEB FS 0.5 MG/2.5 ML AMPUL.NEB NEB SCH ×4 (01:58→19:38)
[2018-12-31] MEDS: ALBUTEROL FS 2.5 MG/3 ML VIAL.NEB IH SCH ×4 (01:58→19:38)
[2018-12-31] MEDS: PROSOURCE / PROSTAT (PYXIS) 30 ML UDC GT SCH ×3 (05:10→21:00)
[2018-12-31] MEDS: CHLORHEXIDINE GLUCONATE 15 ML UDC MM SCH ×3 (05:11→21:47)
--- NOTE | 2018-12-31 05:42 | NUR ---
PATIENT RECEIVED ON 28% AEROSOL T-TUBE, TOLERATING WITH NO DISTRESS/SOB NOTED. SUCTIONED FOR MINIMAL, THIN, YELLOW SECRETIONS. GIVEN IN-LINE TREATMENTS WITH NO ADVERSE REACTIONS. AMBU BAG AT BEDSIDE. TRACH CARE DONE. Addendum: 12/31/18 at 0542 by LATRICIA MARCH RT Amended: Links added.
[2018-12-31 07:16] LABS: BASOPHILS # (AUTO) 0.1 /CMM (0.0-0.2); BASOPHILS % (AUTO) 0.5 % (0.0-2.0); EOSINOPHILS % (AUTO) 1.1 % (0.0-6.0); LYMPHOCYTES # (AUTO) 0.8 /CMM (0.8-4.8); LYMPHOCYTES % (AUTO) 6.4 % (20.0-44.0); MEAN CORPUSCULAR HGB CONC 31 g/dl (31.0-36.0); MEAN CORPUSCULAR VOLUME 90 fL (82-100); MONOCYTES # (AUTO) 0.9 /CMM (0.1-1.30); MONOCYTES % (AUTO) 7.4 % (2.0-12.0); NEUTROPHILS # (AUTO) 10.2 /CMM (1.8-8.9); NEUTROPHILS % (AUTO) 84.6 % (43.0-81.0); PLATELET COUNT (AUTO) 289 /CMM (150-450); RED BLOOD CELL COUNT(AUTO) 2.05 MIL/uL (4.0-5.2)
--- NOTE | 2018-12-31 07:33 | NUR ---
MS RN NOTES RECEIVED PATIENT IN BED SLEEPING COMFORTABLY. NO FACIAL GRIMACING OR ACUTE DISTRESS AT THIS TIME. RESPIRATION EVEN AND UNLABORED. SKIN IS DRY WARM TO TOUCH. PATIENT CONTINUES ON TELE MONITORING, SR WITH . NOTED WITH IV ACCESS ON LEFT FA #22 FLUSHING AND PATENT. IVF RUNNING ORDERED, TOLERATING WELL, NO INFILTRATION NOTED. RIGHT ARM AV FISTULA NOTED WITH POSITIVE BRUIT AND THRILL. ALL NEEDS ANTICIPATED. CALL LIGHT WITHIN REACHED. BED LOCKED AND IN LOWEST POSITION. SAFETY MAINTAINED. REPOSITIONED Q2HRS. WILL CONTINUE TO MONITOR CLOSELY.LT FA HL INTACT , WITH TRACH TO VENT SETTING ORDERED , WITH G TUBE FEDING ORDERED
[2018-12-31 07:37] LABS: CALCIUM, SERUM 8.9 mg/dL (8.5-10.1); CREATININE 4.5 mg/dL (0.6-1.3); POTASSIUM 3.6 mmol/L (3.5-5.1)
[2018-12-31] MEDS: ACETYLCYSTEINE 10% SOLN 400 MG/4 ML VIAL NEB SCH ×2 (07:49→14:05)
[2018-12-31 07:52] LABS: HEMATOCRIT 18 % (33-45); HEMOGLOBIN 5.8 g/dL (11.5-14.8)
--- NOTE | 2018-12-31 08:00 | NUR ---
TUBING MILL SETTER NOTE PATIENT IN BED OBTUNDED ON TELE MONITOR HR 94, ON G TUGE FEEDINGS ORDERED , TOLERATED ,WELL KEEP HOB ELEVATED, LT FA HL INTACT ,ON IVF ORDERED , RT FA AV SHUNT WITH THRILL AND BRUIT SOUND BED IN LOWEST AND LOCKED POSITION WILL CONT TO MONITOR WITH TRACH TO COOLER AEROSOL 28% ,SAT 100%
--- NOTE | 2018-12-31 08:20 | NUR ---
MS NURSE , left message to re; hgb 5.8 hct 18
[2018-12-31] MEDS: LACTOBACILLUS RHAMNOSUS GG 1 EACH CAP.SPRINK GT SCH (08:31)
[2018-12-31] MEDS: LEVETIRACETAM SOL (5 ML) 100 MG/ML UDC GT SCH (08:31)
[2018-12-31] MEDS: ASCORBIC ACID 500 MG TABLET GT SCH (08:31)
[2018-12-31] MEDS: VIT B CMPLX 3/FA/VIT C/BIOTIN 1 TAB TABLET GT SCH (08:31)
[2018-12-31] MEDS: ZINC SULFATE 220 MG CAPSULE PO SCH (08:31)
[2018-12-31] MEDS: CARVEDILOL 3.125 MG TABLET GT SCH (08:32)
[2018-12-31] MEDS: ACETAMINOPHEN 325 MG TABLET PO SCH (08:32)
[2018-12-31] MEDS: CADEXOMER IODINE 40 GM TUBE TP SCH (08:33)
[2018-12-31] MEDS: BRIMONIDINE TARTRATE OPHT SOLN 5 ML BOTTLE OP SCH (08:33)
[2018-12-31] MEDS: HYDROGEL DRESSING 90 GM TUBE TP SCH (08:33)
[2018-12-31] MEDS: SILVER SULFADIAZINE CREAM 25 GM TUBE TP SCH ×2 (08:34→21:47)
[2018-12-31] MEDS: SILVER SULFADIAZINE 50 GM JAR TP SCH (08:34)
[2018-12-31] MEDS: DAKINS QUARTER STRENGTH (0.125%) 480 ML BOTTLE TOP SCH (08:39)
[2018-12-31 08:45] LABS: BAND % (MANUAL) 7 % (0.0-5.0); EOSINOPHILS % (MANUAL) 1 % (0-4); LYMPHOCYTES % (MANUAL) 8 % (16-48); MONOCYTES % (MANUAL) 7 % (0-11.0); NEUTROPHILS % (MANUAL) 77 (42-76)
--- NOTE | 2018-12-31 09:49 | NUR ---
COMMISSIONED DEFENCE FORCE OFFICER NOTE OH HD AT THIS TIME DR STRONG AWARE THAT HG 5.8 WITH ORDER REDO CBC AT 1000 ,ORDER CARRIED OUT
--- NOTE | 2018-12-31 10:31 | NUR ---
AIRCRAFT ENGINE TECHNICIAN NOTE DR ROPER AT BEDSIDE GI AWARE THAT T 108. [address] ABDOMEN. AWARE THAT WBC 12.0 Addendum: 12/31/18 at 1125 by ALIDA AVILA RN wrong entry t is 101.8
--- NOTE | 2018-12-31 10:31 | NUR ---
TICKET TAKER FERRYBOAT NOTE DR STRONG AT BEDSIDE AWARE OF CT ABDOMEN RESULT OK TO HOLD G TUBE FEEDING AT THIS TIME ALSO AWARE THAT T NOW 101.8 WAS BEFORE 102.9
--- NOTE | 2018-12-31 10:40 | NUR ---
DIESEL PLANT OPERATOR NOTE UNABLE TO TRANSFUSE I UNIT PRBC IN AM ,T 102.9 DR TAE SPEARS
[2018-12-31 11:02] LABS: HEMOGLOBIN 5.6 g/dL (11.5-14.8)
--- NOTE | 2018-12-31 11:24 | NUR ---
left message to re; hgb 5.6 and hct 18 waiting for returned call back
--- NOTE | 2018-12-31 11:25 | NUR ---
outbound telemarketer note t 100.8 hd completed no fluids out bp 121/60
--- NOTE | 2018-12-31 11:36 | NUR ---
ms rn note called to dr owen left a massage about hg 5.6 will await for return call
--- NOTE | 2018-12-31 12:26 | NUR ---
ms rn note taken to ct scan as ordered with rt
--- NOTE | 2018-12-31 12:54 | NUR ---
DOT COMPLIANCE MANAGER NOTE PER DR STRONG TRANSFUSE 3 UNIT PRBC , AWARE THAT T NOW 100.8 OK TO TRANSFUSE AND MONITOR CLOSELY
--- NOTE | 2018-12-31 13:00 | NUR ---
BOX CUTTER NOTE WENT TO BLOOD BANK TO INDUSTRIAL RELATIONS REPRESENTATIVE BLOOD BUT BLOOD IS AT THIS TIME, PER VIDEO TAPE EDITOR WILL DO OTHER TYPE ANS SCREEN WILL F\U TO TRANSFUSE BLOOD
[2018-12-31] MEDS: MEROPENEM 500 MG in IV NS 0.9% 50 ML IV SCH (13:36)
[2018-12-31] MEDS: VANCOMYCIN 500 MG in IV D5W 100 ML IV PRN (13:37)
--- NOTE | 2018-12-31 13:37 | NUR ---
RASHID ALAMO NOTE MOHAN LEVEL 28 OK TO HOLD VANCOMYCIN PHARMACIST NOTIFIED Addendum: 12/31/18 at 1420 by ALIDA AVILA RN ON BREATHING TX ORDERED BY RT KEEP CLEAN DRY , SISTER AT BEDSIDE
--- NOTE | 2018-12-31 15:02 | NUR ---
MS RN NOTE LISA HUYNH, NOT AVAILABLE AT THIS TIME , SPOKE WITH CENTRAL SUUPLY PERSONAL STATED THAT NEED TO ORDER WILL F\U
--- NOTE | 2018-12-31 15:22 | NUR ---
PLASTICS TOOLING ENGINEER NOTE SPOKE WITH CÉSAR ALCALA AWARE THAT DR VINSON SURGERY WILL COME TO SEE PATIENT,PER DR LINDSEY NO NEW ORDER AT THIS TIME , SPOKE WITH DR VINSON SURGERY STATED THAT WILL SEE PATIENT SOON
--- NOTE | 2018-12-31 15:30 | NUR ---
DIE TRY OUT WORKER NOTE CALLED BLOOD V\BANK NO BLOOD AVAILABLE YET, WILL F\U
--- NOTE | 2018-12-31 16:50 | NUR ---
telecommunications engineer note blood transfusion 1 unit prbc started as ordered, infusion at 50 ml per now at this time , no adverse reaction noted at this time ,will monitor closely
--- NOTE | 2018-12-31 16:59 | NUR ---
director television news note per dr conley ok to do blood transfusion aware that t 100.8 beforealso ok to cont ivf with ns aware that patient is dm and on npo , no d5ns at this time
--- NOTE | 2018-12-31 17:17 | NUR ---
RT NOTE PATIENT RECEIVED ON TRACH WITH COOL AEROSOL. TRACH IS PATENT AND SECURED. BVM IS AT BEDSIDE. PT. HAS EQUAL CHEST RISE WITH CLEAR TO DIMINISHED BILATERAL BREATH SOUNDS. SX. MINIMAL THICK GREEN SECRETIONS T/O THE DAY. NO SOB NOTED. Addendum: 12/31/18 at 1720 by RICKI MONSIVAIS RT Amended: Links added.
[2018-12-31] MEDS: FLUCONAZOLE (100 MG) 100 MG TABLET GT SCH (17:28)
--- NOTE | 2018-12-31 18:29 | NUR ---
FLAKE MILLER WHEAT AND OATS NOTE CONT ON 1 INUT PRBC TRANSFUSION ORDERED , NO ADVERSE REACTION NOTED AT THIS TIME , WILL CONT TO MONITOR CLOSELY
--- NOTE | 2018-12-31 20:00 | NUR ---
RN NOTE PER DR VINSON AFTER 2 UNITS OF PRBC CHECK HEMOGLOBIN AND HEMATOCRIT IF ABOVE 7 DO NOT ADMINISTER 3RD UNIT OF PRBC
--- NOTE | 2018-12-31 20:00 | NUR ---
RN NOTE DR KAREL MAYO IS BY BEDSIDE
--- NOTE | 2018-12-31 20:05 | NUR ---
RN NOTE STATUS PAT 1 UNIT OF PRBC, ENDED AT 2000, VITAL SIGNS TEMPRATURE 100.1F, BP 124/48, HR 83 BEATS PER MINUTE, RESPIRATIONS 18, SPO2 100%
[2018-12-31] MEDS: MONTELUKAST SODIUM (10MG) 10 MG TABLET GT SCH (21:37)
--- NOTE | 2018-12-31 21:41 | NUR ---
RN NOTE NOTIFIED DR SOPHIE CUADRA REGARDING NPO STATUS, DR BARRIOS CHANGED ORDERS TO IV ADINISTRATION, DC CULTURELLE AND HELD REST OF THE MEDICATION, SEE EMAR
[2018-12-31] MEDS: NEPRO VAN 237 ML CAN GT SCH (21:48)
--- NOTE | 2018-12-31 21:53 | NUR ---
RT NOTE PT RECEIVED TRACH ON COOL AEROSOL T-PIECE @ 28%. AMBU BAG/BACK UP TRACH @ BEDSIDE. TX GIVEN, NO ADVERSE REACTIONS NOTED. SX DONE, TRACH SECURED AND PATENT. WATER LEVEL GOOD. CONT. POX CONNECTED. WILL MONITOR T/O SHIFT. Addendum: 12/31/18 at 2154 by LUZMA TURNER RT Amended: Links added.
[2018-12-31] MEDS: ACETAMINOPHEN 650 MG/SUPP.RECT RC PRN (21:54)
[2018-12-31] MEDS ORDERED: ENALAPRILAT DIHYD. (2.5MG/ML) 1.25 MG/ML VIAL IV PRN (22:00)
[2018-12-31] MEDS ORDERED: LEVETIRACETAM (500MG) 500 MG in IV NS 0.9% 100 ML IV SCH (22:00)
[2018-12-31] MEDS ORDERED: LEVETIRACETAM (500MG) 500 MG/5 ML VIAL IV ONE (22:04)
[2019-01-01] VITALS (7 sets, daily range): BP systolic 126–149; BP diastolic 42–66
[2019-01-01] MEDS: ALBUTEROL FS 2.5 MG/3 ML VIAL.NEB IH SCH ×4 (00:40→20:24)
[2019-01-01] MEDS: ACETYLCYSTEINE 10% SOLN 400 MG/4 ML VIAL NEB SCH ×3 (00:40→14:33)
[2019-01-01] MEDS: IPRATROPIUM NEB FS 0.5 MG/2.5 ML AMPUL.NEB NEB SCH ×4 (00:41→20:24)
[2019-01-01] MEDS: PROSOURCE / PROSTAT (PYXIS) 30 ML UDC GT SCH ×3 (03:53→21:00)
[2019-01-01] MEDS: IV NS 0.9% 1,000 ML IV PRN (03:53)
[2019-01-01 04:27] LABS: BASOPHILS # (AUTO) 0.1 /CMM (0.0-0.2); BASOPHILS % (AUTO) 0.7 % (0.0-2.0); HEMATOCRIT 28 % (33-45); LYMPHOCYTES # (AUTO) 0.9 /CMM (0.8-4.8); LYMPHOCYTES % (AUTO) 7.8 % (20.0-44.0); MEAN CORPUSCULAR HGB CONC 32 g/dl (31.0-36.0); MEAN CORPUSCULAR VOLUME 89 fL (82-100); MONOCYTES # (AUTO) 0.8 /CMM (0.1-1.30); MONOCYTES % (AUTO) 7.1 % (2.0-12.0); NEUTROPHILS # (AUTO) 9.5 /CMM (1.8-8.9); NEUTROPHILS % (AUTO) 83.4 % (43.0-81.0); PLATELET COUNT (AUTO) 275 /CMM (150-450); RED BLOOD CELL COUNT(AUTO) 3.16 MIL/uL (4.0-5.2); WHITE BLOOD COUNT (AUTO) 11.4 K/uL (4.3-11.0)
[2019-01-01 04:38] LABS: CREATININE 3.7 mg/dL (0.6-1.3); POTASSIUM 3.9 mmol/L (3.5-5.1)
[2019-01-01] MEDS: CHLORHEXIDINE GLUCONATE 15 ML UDC MM SCH ×3 (06:00→21:44)
[2019-01-01] MEDS: BLOOD SUGAR DIAGNOSTIC 1 EACH STRIP IN SCH ×3 (06:55→18:50)
--- NOTE | 2019-01-01 07:45 | NUR ---
RN NOTE: RECEIVED PATIENT IN BED, OBTUNDED, ON MECHANICAL VENTILATOR AND BREATHING EVENLY AND UNLABORED SATURATING 99% WITH CURRENT VENT SETTING. ON CONTACT ISOLATION FOR HX OF ESBL URINE. (R) FOREARM AV SHUNT + BRUIT/THRILL. (L) UA IV SITE NOTED PATENT AND INTACT INFUSING THE CURRENT IVF. KEPT NPO FOR THE PENDING PROCEDURE WITH DR. VINSON. LILIANA, SISTER WAS AT THE BEDSIDE AND ACCORDING TO HER SHE DOES NOT CONSENT FOR THE PROCEDURE AND DR. VINSON WAS AWARE OF IT. AFEBRILE. SKIN WARM TO TOUCH. CALL LIGHT WITHIN REACH. NEEDS ANTICIPATED.
--- NOTE | 2019-01-01 08:18 | NUR ---
RN NOTE: SISTER LILIANA ALTA PRESENT AT THE BEDSIDE AND ASKED HER ABOUT THE INCISION AND DRAINAGE AND POSSIBLE FASCIOTOMY PERIGASTROSTOMY TISSUES PROCEDURE ORDERED BY DR. Nicky VINSON AND PER LILIANA (SISTER) SHE SPOKE WITH DR. VINSON LAST NIGHT AND SHE IS NOT CONSENTING FOR THE PROCEDURE. WILL INFORM THE ROUNDING DOCTOR FOR TODAY ABOUT THIS.
[2019-01-01] MEDS ORDERED: LIDOCAINE 1%-EPI 1:100,000 20 ML VIAL TP ONE (08:30)
--- NOTE | 2019-01-01 08:32 | NUR ---
WOUND CARE CONSULT: DEFER TO PLASTIC SURGERY TEAM CURRENTLY ON CASE FOR WOUND TREATMENT PLAN. WILL SEE PRN. FIRST STEP LOW AIRLOSS MATTRESS ON ORDER. DISCUSSED SKIN PROTECTION WITH NURSING STAFF.
[2019-01-01] MEDS: LEVETIRACETAM (500MG) 500 MG in IV NS 0.9% 100 ML IV SCH ×2 (08:49→21:46)
[2019-01-01] MEDS: ASCORBIC ACID 500 MG TABLET GT SCH (09:00)
[2019-01-01] MEDS: VIT B CMPLX 3/FA/VIT C/BIOTIN 1 TAB TABLET GT SCH (09:00)
[2019-01-01] MEDS: SILVER SULFADIAZINE CREAM 25 GM TUBE TP SCH ×2 (09:00→21:44)
[2019-01-01] MEDS: ZINC SULFATE 220 MG CAPSULE PO SCH (09:00)
[2019-01-01] MEDS: HYDROGEL DRESSING 90 GM TUBE TP SCH (10:04)
[2019-01-01] MEDS: DAKINS QUARTER STRENGTH (0.125%) 480 ML BOTTLE TOP SCH (10:04)
[2019-01-01] MEDS: BRIMONIDINE TARTRATE OPHT SOLN 5 ML BOTTLE OP SCH (10:05)
[2019-01-01] MEDS: CADEXOMER IODINE 40 GM TUBE TP SCH (10:05)
[2019-01-01] MEDS: SILVER SULFADIAZINE 50 GM JAR TP SCH (10:05)
[2019-01-01] MEDS: Z GUARD REMEDY 2 OZ OINT TP PRN (10:07)
--- NOTE | 2019-01-01 13:10 | NUR ---
RN NOTE: LILIANA, SISTER SAID THAT SHE WILL SPEAK WITH THE REST OF THE FAMILY AND WILL DECIDE IF THEY WILL PUT THE PATIENT ON COMFORT CARE. DR. STRONG MADE AWARE.
[2019-01-01] MEDS: MEROPENEM 500 MG in IV NS 0.9% 50 ML IV SCH (13:45)
[2019-01-01] MEDS: ACETAMINOPHEN 650 MG/SUPP.RECT RC PRN (16:12)
--- NOTE | 2019-01-01 16:30 | NUR ---
RN NOTE: RECTAL TEMP 100.1F AND A TYLENOL SUPPOSITORY PER MD ORDER WAS GIVEN WITH COOLING MEASURES IMPLEMENTED.
--- NOTE | 2019-01-01 17:30 | NUR ---
RN NOTE: RECTAL TEMP WAS RECHECKED AND IT WAS 99.0F. CONTINUE WITH COOLING MEASURES.
[2019-01-01] MEDS: FLUCONAZOLE (100 MG) 100 MG TABLET GT SCH (18:00)
--- NOTE | 2019-01-01 19:42 | NUR ---
RN NOTE: BEDSIDE REPORT WAS GIVEN TO PM SHIFT NURSE FOR CONTINUITY OF CARE.
--- NOTE | 2019-01-01 20:55 | NUR ---
RT NOTE PT RECEIVED TRACHED ON COOL AEROSOL T-PIECE @ 28%. AMBU BAG/BACK UP TRACH @ BEDSIDE. SX DONE, TRACH SECURED AND PATENT. WATER LEVEL GOOD. WILL MONITOR T/O SHIFT. Addendum: 01/01/19 at 2054 by AB MÉNDEZ RT Amended: Links added.
[2019-01-01] MEDS: MONTELUKAST SODIUM (10MG) 10 MG TABLET GT SCH (21:03)
[2019-01-02] VITALS: BP 153/54
[2019-01-02] MEDS: ACETYLCYSTEINE 10% SOLN 400 MG/4 ML VIAL NEB SCH ×4 (00:02→23:51)
[2019-01-02] MEDS: BLOOD SUGAR DIAGNOSTIC 1 EACH STRIP IN SCH ×5 (00:27→23:44)
[2019-01-02] MEDS: IPRATROPIUM NEB FS 0.5 MG/2.5 ML AMPUL.NEB NEB SCH ×5 (02:22→23:51)
[2019-01-02] MEDS: ALBUTEROL FS 2.5 MG/3 ML VIAL.NEB IH SCH ×4 (02:22→19:24)
[2019-01-02 04:00] VITALS: BP 142/44
[2019-01-02] MEDS: PROSOURCE / PROSTAT (PYXIS) 30 ML UDC GT SCH ×3 (05:00→21:00)
[2019-01-02] MEDS: CHLORHEXIDINE GLUCONATE 15 ML UDC MM SCH ×3 (05:00→22:04)
--- NOTE | 2019-01-02 07:05 | NUR ---
RN OPENING NOTES PT ON COOL AEROSOL IS NONVERBAL AND OBTUNDED. REPORT RECEIVED FROM INSTALLER HELPER RN. PT IS ON ISOLATION FOR ESBL OF URINE. PT HAS A LFA IV 20 GAUGE SL. PT IS CURRENTLY ON STRICT NPO. HOB ELEVATED. BED IS LOCKED AND IN LOWEST POSITION. PT HAS BEEN SR ON TELE MONITOR. WILL CONTINUE TO MONITOR.
[2019-01-02 08:00] VITALS: BP 98/55
[2019-01-02] MEDS: ASCORBIC ACID 500 MG TABLET GT SCH (09:00)
[2019-01-02] MEDS: BRIMONIDINE TARTRATE OPHT SOLN 5 ML BOTTLE OP SCH (09:00)
[2019-01-02] MEDS: VIT B CMPLX 3/FA/VIT C/BIOTIN 1 TAB TABLET GT SCH (09:00)
[2019-01-02] MEDS: ZINC SULFATE 220 MG CAPSULE PO SCH (09:00)
[2019-01-02] MEDS: CADEXOMER IODINE 40 GM TUBE TP SCH (09:00)
[2019-01-02] MEDS: LEVETIRACETAM (500MG) 500 MG in IV NS 0.9% 100 ML IV SCH ×2 (09:18→22:03)
[2019-01-02] MEDS: SILVER SULFADIAZINE CREAM 25 GM TUBE TP SCH ×2 (09:40→22:06)
[2019-01-02] MEDS: DAKINS QUARTER STRENGTH (0.125%) 480 ML BOTTLE TOP SCH (09:40)
[2019-01-02] MEDS: HYDROGEL DRESSING 90 GM TUBE TP SCH (09:40)
[2019-01-02] MEDS: SILVER SULFADIAZINE 50 GM JAR TP SCH (09:41)
--- NOTE | 2019-01-02 10:03 | NUR ---
ROSALIE was informed by disease case manager, Eliecer that the patient, who is currently in Telemetry, will possibly be placed in comfort care. Per Eliecer, the patients sister, Rabia has requested mortuary information. ROSALIE called and spoke with Rabia to check in. Per Rabia, she expressed interest in [place] services. Rabia stated the resident identifies as Yarsani and would like a state trooper to come pray for resident. ROSALIE contacted Telephone Lineman Derek [phone] who has worked with [facility] in the past. Per Telephone Lineman Derek, he is available to provide spiritual services for pt. and family after 5 pm. ROSALIE notified family and they were agreeable to plan. ROSALIE provided Rabia with a list of mortuaries in the [facility]. Rabia expressed gratitude.
[2019-01-02 12:00] VITALS: BP 154/43
--- NOTE | 2019-01-02 14:23 | NUR ---
Family support and Resources: ROSALIE met with patient's responsible green party, Rabia [phone] outside of patient's room Rabia to provide support and provide family with resources. Rabia was receptive to speaking with ROSALIE. ROSALIE provided family with a list of homes and mortuaries in the [place] area as family resides there. SW also provided family a list of grief support centers and grief support resources for the patients teen son, Eliseo. ROSALIE educated to Rabia the importance of being open and honest with Eliseo about the pt.s prognosis. ROSALIE educated Rabia on loss and grief and stressed the importance of Eliseo having the option of visiting the pt. as she is in comfort care. Rabia expressed understanding and stated she would discuss this matter with Yogi Ramy, Eliseo's father. ROSALIE provided Rabia with an informational packet on childhood grief. Per Rabia, her siblings and other family will arrive around 3 pm to visit the pt. Noted. ROSALIE informed Rabia that SW will be available as needed to provide support. Rabia expressed gratitude. ROSALIE met with in service coordinator, Yao to have them provide a coffee cart with snacks for pt.'s family at 3 pm. Yao was agreeable to plan.
[2019-01-02 14:38] LABS: CALCIUM, SERUM 9.1 mg/dL (8.5-10.1); CREATININE 3.1 mg/dL (0.6-1.3); MAGNESIUM 2.1 mg/dL (1.8-2.4); PHOSPHORUS 1.9 mg/dL (2.5-4.9); POTASSIUM 3.9 mmol/L (3.5-5.1)
[2019-01-02] MEDS: MEROPENEM 500 MG in IV NS 0.9% 50 ML IV SCH (15:28)
[2019-01-02 15:40] LABS: HEMATOCRIT 28 % (33-45); HEMOGLOBIN 9.2 g/dL (11.5-14.8); MEAN CORPUSCULAR HGB CONC 32 g/dl (31.0-36.0); MEAN CORPUSCULAR VOLUME 88 fL (82-100); PLATELET COUNT (AUTO) 329 /CMM (150-450); RED BLOOD CELL COUNT(AUTO) 3.24 MIL/uL (4.0-5.2); WHITE BLOOD COUNT (AUTO) 17.6 K/uL (4.3-11.0)
[2019-01-02 16:00] VITALS: BP 128/51
[2019-01-02 16:15] LABS: EOSINOPHILS % (MANUAL) 1 % (0-4); LYMPHOCYTES % (MANUAL) 7 % (16-48); MONOCYTES % (MANUAL) 3 % (0-11.0); NEUTROPHILS % (MANUAL) 89 (42-76)
[2019-01-02] MEDS: VANCOMYCIN 500 MG in IV D5W 100 ML IV PRN (16:35)
[2019-01-02] MEDS: FLUCONAZOLE (100 MG) 100 MG TABLET GT SCH (17:42)
[2019-01-02] MEDS: MORPHINE SULFATE INJ 2 MG/ML DISP.SYRIN IV PRN ×2 (17:49→22:10)
--- NOTE | 2019-01-02 19:22 | NUR ---
RN CLOSING NOTES PT FAMILY AT BEDSIDE AWAITING DECISION FOR COMFORT CARE. HOB ELEVATED. PT IS NPO. BED IS LOCKED AND IN LOWEST POSITION. WILL ENDORSE BILL TO OIL DRILLER RN.
[2019-01-02 20:00] VITALS: BP 105/54
--- NOTE | 2019-01-02 20:00 | NUR ---
COMPARATIVE SOCIOLOGY PROFESSOR NOTE PT IN BED OBTUNDED. ON T PIECE SHIELY #7 XLT ON COOL AEROSOL 28%. NO DISTRESS OR DISCOMFORT NOTED. NO S/S OF PAIN NOTED. ON TELE MONITOR SR WITH ELEVATED T WAVE HR 87. PT REMAIN NPO. FAMILY AT BED SIDE. SIDE RAILS UP X 3 AND CALL LIGHT WITHIN REACH. VSS. CONTINUE TO MONITOR HER. REPOSITION HER FOR COMFORT AND SKIN MANAGEMENT.
--- NOTE | 2019-01-02 21:10 | NUR ---
APPLICATIONS PROCESSOR NOTE UNABLE TO DO WOUNDS ASSESSMENT PER FAMILY'S REQUEST DON'T OPEN THE DRESSINGS, KEEP HER COMFORTABLE.
[2019-01-02] MEDS: MONTELUKAST SODIUM (10MG) 10 MG TABLET GT SCH (22:00)
--- NOTE | 2019-01-02 22:00 | NUR ---
COOKER MECHANIC NOTE PT NOTED WITH LOW GRADE FEVER 99.9 AXILLARY, TYLENOL 650 MG SUPPOSITORY GIVEN. ALSO GIVEN MORPHINE 2 MG IVP FOR DISCOMFORT NOTED ON PT'S FACE. CONTINUE TO MONITOR HER.
--- NOTE | 2019-01-02 22:30 | NUR ---
CUT OFF MACHINE UNLOADER NOTE NO DISCOMFORT NOTED. NO FEVER NOTED. REPOSITION PT FOR SKIN MANAGEMENT.
--- NOTE | 2019-01-02 23:00 | NUR ---
PATIENT SCHEDULING COORDINATOR NOTE FAMILY LEFT THE ROOM.
[2019-01-03] VITALS (7 sets, daily range): BP systolic 95–150; BP diastolic 45–62
[2019-01-03] MEDS: ALBUTEROL FS 2.5 MG/3 ML VIAL.NEB IH SCH ×4 (01:39→20:12)
--- NOTE | 2019-01-03 04:45 | NUR ---
SPANISH TUTOR NOTE FAMILY CAME TO VISIT THE PT.
[2019-01-03] MEDS: PROSOURCE / PROSTAT (PYXIS) 30 ML UDC GT SCH ×3 (05:00→20:02)
[2019-01-03] MEDS: CHLORHEXIDINE GLUCONATE 15 ML UDC MM SCH ×3 (05:28→20:02)
[2019-01-03] MEDS: BLOOD SUGAR DIAGNOSTIC 1 EACH STRIP IN SCH ×4 (05:29→23:49)
--- NOTE | 2019-01-03 05:30 | NUR ---
RELIEF PHARMACIST NOTE FAMILY REFUSED THE BLOOD SUGAR CHECK AND ALSO REFUSED LABS DRAWN. MORPHINE 2MG IVP GIVEN FOR COMFORT MEASURSES. PT BECOME LITTLE RESTLESS. REPOSITION HER Q2H, KEPT HER DRY AND CLEAN.
[2019-01-03] MEDS: MORPHINE SULFATE INJ 2 MG/ML DISP.SYRIN IV PRN ×2 (05:31→11:45)
--- NOTE | 2019-01-03 06:22 | NUR ---
BROADCAST CHECKER NOTE PT IN BED OBTUNDED. NO DISTRESS OR DISCOMFORT NOTED. ON TEL SR WITH ELEVATED T WAVE. SL IN LFA INTACT AND PATENT. FAMILY AT BED SIDE. KEPT HER DRY AND CLEAN. REPOSITION HER Q2H FOR SKIN MANAGEMENT. WILL ENDORSE TO DAY SHIFT NURSE FOR CONTINUE TO CARE.
--- NOTE | 2019-01-03 07:15 | NUR ---
ASSISTANT ADMINISTRATOR NOTES RECEIVED PATIENT IN BED NO VERBAL A/OX1 ABLE TO OPEN EYES WHEN NAME CALLED. FAMILY AT BED SIDE. LEFT SIDE IV PATENT AND FLUSHED WITH NS WELL. PATIENT IS ON CONTACT ISOLATION AND NPO. NO GT OR ORAL MEDICATION GIVEN. FAMILY REQUESTED TO IMPLEMENT COMFORT MEASURES. FAMILY REQUESTED DR ESPARZA TO INCREASE THE MORPHINE DOSE. FAMILY DOES NOT WANT ANY WOUND CARE, ACCUCHECK, INSULIN ADMINISTRATION, TURNING AND CHANGING POSITION FOR THE PATIENT. COMFORT MEASURE WILL BE PROVIDED FOR THE PT.
[2019-01-03] MEDS: IPRATROPIUM NEB FS 0.5 MG/2.5 ML AMPUL.NEB NEB SCH ×3 (07:29→20:12)
[2019-01-03] MEDS: ACETYLCYSTEINE 10% SOLN 400 MG/4 ML VIAL NEB SCH ×3 (07:29→23:30)
[2019-01-03] MEDS: VIT B CMPLX 3/FA/VIT C/BIOTIN 1 TAB TABLET GT SCH (09:00)
[2019-01-03] MEDS: ZINC SULFATE 220 MG CAPSULE PO SCH (09:00)
[2019-01-03] MEDS: ASCORBIC ACID 500 MG TABLET GT SCH (09:00)
[2019-01-03] MEDS: CADEXOMER IODINE 40 GM TUBE TP SCH (09:00)
[2019-01-03] MEDS: DAKINS QUARTER STRENGTH (0.125%) 480 ML BOTTLE TOP SCH (09:00)
[2019-01-03] MEDS: SILVER SULFADIAZINE CREAM 25 GM TUBE TP SCH ×2 (09:00→20:02)
[2019-01-03] MEDS: SILVER SULFADIAZINE 50 GM JAR TP SCH (09:00)
[2019-01-03] MEDS: HYDROGEL DRESSING 90 GM TUBE TP SCH (09:00)
--- NOTE | 2019-01-03 09:45 | NUR ---
ELECTRIC ARC WELDER NOTES KEPPRA NOT AVAILABLE IN [place]. CALLED PHARMACY FOR KEPPRA AND THEY INFORMED THEY WILL SEND THE MED.
[2019-01-03] MEDS: BRIMONIDINE TARTRATE OPHT SOLN 5 ML BOTTLE OP SCH (10:09)
--- NOTE | 2019-01-03 10:25 | NUR ---
GRADER MEAT NOTES CALLED PHARMACY FOR ANNE AND THEY INFORMED THAT THE MED IS NOT READY YET.WILL SEND.
[2019-01-03] MEDS: LEVETIRACETAM (500MG) 500 MG in IV NS 0.9% 100 ML IV SCH ×2 (11:55→21:46)
--- NOTE | 2019-01-03 12:39 | NUR ---
late Entry for 01/02/19: ROSALIE received call at 5 pm from Pastor Reed [phone] stating, can we reschedule todays visit?. Pastor Reed was scheduled to see pt. at 5 pm. ROSALIE informed Pastor Reed that in the future he should let the SW know at least 2 hours before so that SW can find another bleacher lard to provide spiritual support for family and last rites for pt. Pastor Reed was agreeable to plan. ROSALIE was already out of the office and called [facility] and asked NurseCarolyn to inform family that Pastor Reed cancelled last minute.
[2019-01-03] MEDS ORDERED: MORPHINE SULFATE INJ 2 MG/ML DISP.SYRIN IV PRN (13:00)
[2019-01-03] MEDS: MEROPENEM 500 MG in IV NS 0.9% 50 ML IV SCH (16:12)
[2019-01-03] MEDS: MORPHINE SULFATE INJ 4 MG/ML DISP.SYRIN IV PRN ×2 (17:30→22:07)
[2019-01-03] MEDS: FLUCONAZOLE (100 MG) 100 MG TABLET GT SCH (18:00)
--- NOTE | 2019-01-03 19:15 | NUR ---
RAG INSPECTOR NOTES CLOSING PATIENT IS SLEEPING IN BED BUT IRRITATED. FAMILY AT BED SIDE AND REQUESTED INCREASE THE MORPHINE AND COMFORT MEASURE. REPORTED TO SOFTWARE SYSTEMS ANALYST NURSE [place] FOR BILL.
[2019-01-03] MEDS: LORAZEPAM INJ 2 MG/ML VIAL IV PRN (20:17)
[2019-01-03] MEDS: MONTELUKAST SODIUM (10MG) 10 MG TABLET GT SCH (22:00)
--- NOTE | 2019-01-03 23:56 | NUR ---
RT PER family. HHN tx refused and Suction at this time.
[2019-01-04] MEDS: LORAZEPAM INJ 2 MG/ML VIAL IV PRN (00:25)
[2019-01-04] MEDS: ALBUTEROL FS 2.5 MG/3 ML VIAL.NEB IH SCH ×4 (01:09→19:46)
[2019-01-04] MEDS: IPRATROPIUM NEB FS 0.5 MG/2.5 ML AMPUL.NEB NEB SCH ×4 (01:09→19:46)
[2019-01-04] MEDS: CHLORHEXIDINE GLUCONATE 15 ML UDC MM SCH ×3 (04:47→22:52)
[2019-01-04] MEDS: PROSOURCE / PROSTAT (PYXIS) 30 ML UDC GT SCH ×3 (04:47→21:00)
[2019-01-04] MEDS: BLOOD SUGAR DIAGNOSTIC 1 EACH STRIP IN SCH ×3 (05:01→18:13)
[2019-01-04] MEDS: ACETYLCYSTEINE 10% SOLN 400 MG/4 ML VIAL NEB SCH ×3 (07:35→23:08)
[2019-01-04 08:00] VITALS: BP 97/34
--- NOTE | 2019-01-04 08:00 | NUR ---
RN NOTES RECEIVED PATIENT IN THE BED ON TRACHEA,NONVERBAL, NO ACUTE RESPIRATORY DISTRESS. NPO PER MD ORDER HOLD TUBE FEEDING BECAUSE OF LEAKAGE, HELD ADMINISTERED SCHEDULED MEDICATION, BS-174 MG/DL, PATIENT TOTAL CARE. INCONTINENT, DRESSING CHANGED ON SACRAL AREA, ASSIST TURN AND REPOSTION Q 2 HR. IV ACCESS ON LEFT FA INTACT. SISTER NEXT TO THE BED, PATIENT ESBL OF URINE ISOLATION. CONTINUED MONITORING.
[2019-01-04] MEDS: MORPHINE SULFATE INJ 4 MG/ML DISP.SYRIN IV PRN (08:31)
--- NOTE | 2019-01-04 08:31 | NUR ---
rn notes administered morphine 4mg/ml iv push for generalized pain per sisters request. v/s taken bp 97/34, p-78, r-18, bs-174 mg/dl. patient trachea /vent dependent. Per sister refused scheduled medication to be given, call light within to reach. patient sister next to the bed. continued monitoring.
[2019-01-04] MEDS: VIT B CMPLX 3/FA/VIT C/BIOTIN 1 TAB TABLET GT SCH (08:44)
[2019-01-04] MEDS: ASCORBIC ACID 500 MG TABLET GT SCH (08:44)
[2019-01-04] MEDS: LEVETIRACETAM (500MG) 500 MG in IV NS 0.9% 100 ML IV SCH ×3 (08:44→22:46)
[2019-01-04] MEDS: ZINC SULFATE 220 MG CAPSULE PO SCH (08:45)
[2019-01-04] MEDS: DAKINS QUARTER STRENGTH (0.125%) 480 ML BOTTLE TOP SCH (08:49)
[2019-01-04] MEDS: HYDROGEL DRESSING 90 GM TUBE TP SCH (08:50)
[2019-01-04] MEDS: CADEXOMER IODINE 40 GM TUBE TP SCH (08:50)
[2019-01-04] MEDS: SILVER SULFADIAZINE 50 GM JAR TP SCH (08:51)
[2019-01-04] MEDS: SILVER SULFADIAZINE CREAM 25 GM TUBE TP SCH ×2 (08:51→22:52)
[2019-01-04] MEDS: BRIMONIDINE TARTRATE OPHT SOLN 5 ML BOTTLE OP SCH (08:52)
[2019-01-04 12:00] VITALS: BP 121/37
[2019-01-04 12:56] LABS: BASOPHILS # (AUTO) 0.1 /CMM (0.0-0.2); BASOPHILS % (AUTO) 0.3 % (0.0-2.0); EOSINOPHILS % (AUTO) 0.9 % (0.0-6.0); HEMATOCRIT 25 % (33-45); LYMPHOCYTES # (AUTO) 0.9 /CMM (0.8-4.8); LYMPHOCYTES % (AUTO) 4.7 % (20.0-44.0); MEAN CORPUSCULAR HGB CONC 32 g/dl (31.0-36.0); MEAN CORPUSCULAR VOLUME 91 fL (82-100); MONOCYTES # (AUTO) 0.9 /CMM (0.1-1.30); MONOCYTES % (AUTO) 4.7 % (2.0-12.0); NEUTROPHILS # (AUTO) 17.9 /CMM (1.8-8.9); NEUTROPHILS % (AUTO) 89.4 % (43.0-81.0); PLATELET COUNT (AUTO) 270 /CMM (150-450); RED BLOOD CELL COUNT(AUTO) 2.79 MIL/uL (4.0-5.2)
--- NOTE | 2019-01-04 13:00 | NUR ---
RN NOTES BS-168 MG/DL NO COVERAGE GIVEN, INFUSING ANTIBIOTIC AT THIS TIME 100 ML/HR. ASIST TURN AND REPOSTION Q 2 HR.
[2019-01-04 13:36] LABS: CALCIUM, SERUM 9.2 mg/dL (8.5-10.1); CREATININE 4.9 mg/dL (0.6-1.3); MAGNESIUM 2.3 mg/dL (1.8-2.4); PHOSPHORUS 4.2 mg/dL (2.5-4.9); POTASSIUM 4.3 mmol/L (3.5-5.1)
[2019-01-04] MEDS: MEROPENEM 500 MG in IV NS 0.9% 50 ML IV SCH (13:40)
[2019-01-04 16:00] VITALS: BP 103/36
--- NOTE | 2019-01-04 17:52 | NUR ---
rn notes PER DIALYSIS NURSE STARTED HD AT THIS TIME, V/S STABLE, BS-161 MG/DL, ASSIST TURN AND REPOSTION Q2 HR, CALL LIGHT WITHIN TO REACH, CONTINUED MONITORING.
[2019-01-04] MEDS: FLUCONAZOLE (100 MG) 100 MG TABLET GT SCH (18:00)
--- NOTE | 2019-01-04 18:30 | NUR ---
RN NOTES BS-161 MG/DL, NO ACUTE RESPIRATORY DISTRESS, NONVERBAL, V/S STABLE. PATIENT NPO, GETTING HD AT THIS TIME. FAMILY NEXT TO THE BED, NEEDS ATTENDED AND ANTICIPATED. PATIENT DNR. ENDORSED ONCOMING NURSE FOLLOW PLAN OF CARE.
--- NOTE | 2019-01-04 20:30 | NUR ---
CUFFER INITIAL NOTES RECEIVED PATIENT IN THE BED ON TRACHEA,NONVERBAL, NO ACUTE RESPIRATORY DISTRESS. NPO PER MD ORDER HOLD TUBE FEEDING BECAUSE OF LEAKAGE, HELD SCHEDULED MEDICATIONS, S/P DIALYSIS 1.4 L O/P, PATIENT TOTAL CARE. INCONTINENT, DRESSING CHANGED ON SACRAL AREA, ASSIST TURN AND REPOSTION Q 2 HR. IV ACCESS ON LEFT FA INTACT. SISTER NEXT TO THE BED, PATIENT ESBL OF URINE ISOLATION. WILL CONT' TO MONITOR.
[2019-01-04] MEDS: VANCOMYCIN 500 MG in IV D5W 100 ML IV PRN (20:48)
[2019-01-04] MEDS: MONTELUKAST SODIUM (10MG) 10 MG TABLET GT SCH (22:00)
[2019-01-04 22:25] VITALS: BP 123/50
--- NOTE | 2019-01-04 23:12 | NUR ---
family member requested not to give breathing sohan hudson notified.
[2019-01-05] VITALS (7 sets, daily range): BP systolic 59–111; BP diastolic 30–49
[2019-01-05] MEDS: BLOOD SUGAR DIAGNOSTIC 1 EACH STRIP IN SCH ×5 (01:07→23:51)
[2019-01-05] MEDS: IPRATROPIUM NEB FS 0.5 MG/2.5 ML AMPUL.NEB NEB SCH ×4 (01:20→19:30)
[2019-01-05] MEDS: ALBUTEROL FS 2.5 MG/3 ML VIAL.NEB IH SCH ×4 (01:20→19:30)
[2019-01-05] MEDS: PROSOURCE / PROSTAT (PYXIS) 30 ML UDC GT SCH ×3 (05:00→21:00)
[2019-01-05] MEDS: CHLORHEXIDINE GLUCONATE 15 ML UDC MM SCH ×3 (06:11→21:00)
--- NOTE | 2019-01-05 06:12 | NUR ---
TRANSMITTER TESTER CLOSING NOTES PATIENT IN THE BED ON TRACHEA,NONVERBAL, NO ACUTE RESPIRATORY DISTRESS. NPO PER MD ORDER HOLD TUBE FEEDING BECAUSE OF LEAKAGE, HELD SCHEDULED MEDICATIONS, S/P DIALYSIS 1.4 L O/P, NO SIGN OF FACIAL GRIMANCING NOTED QS PATIENT TOTAL CARE, DRESSING CHANGED ON SACRAL AREA, ASSIST TURN AND REPOSITION Q 2 HR. IV ACCESS ON LEFT FA INTACT, PATIENT ESBL OF URINE ISOLATION. WILL CONT' COMFORT CARE REQUESTED BY FAMILY, BILL.
[2019-01-05 07:06] LABS: CALCIUM, SERUM 9.5 mg/dL (8.5-10.1); CREATININE 4.2 mg/dL (0.6-1.3); MAGNESIUM 2.3 mg/dL (1.8-2.4); PHOSPHORUS 3.5 mg/dL (2.5-4.9); POTASSIUM 4.6 mmol/L (3.5-5.1)
[2019-01-05 07:19] LABS: BASOPHILS % (AUTO) 0.2 % (0.0-2.0); EOSINOPHILS % (AUTO) 0.4 % (0.0-6.0); HEMATOCRIT 23 % (33-45); HEMOGLOBIN 7.1 g/dL (11.5-14.8); LYMPHOCYTES # (AUTO) 1.2 /CMM (0.8-4.8); LYMPHOCYTES % (AUTO) 5.7 % (20.0-44.0); MEAN CORPUSCULAR HGB CONC 31 g/dl (31.0-36.0); MEAN CORPUSCULAR VOLUME 93 fL (82-100); MONOCYTES # (AUTO) 1.3 /CMM (0.1-1.30); MONOCYTES % (AUTO) 6.3 % (2.0-12.0); NEUTROPHILS # (AUTO) 18.3 /CMM (1.8-8.9); NEUTROPHILS % (AUTO) 87.4 % (43.0-81.0); PLATELET COUNT (AUTO) 261 /CMM (150-450); RED BLOOD CELL COUNT(AUTO) 2.47 MIL/uL (4.0-5.2); WHITE BLOOD COUNT (AUTO) 20.9 K/uL (4.3-11.0)
[2019-01-05] MEDS: ACETYLCYSTEINE 10% SOLN 400 MG/4 ML VIAL NEB SCH ×3 (08:58→23:11)
[2019-01-05] MEDS: VIT B CMPLX 3/FA/VIT C/BIOTIN 1 TAB TABLET GT SCH (09:00)
[2019-01-05] MEDS: BRIMONIDINE TARTRATE OPHT SOLN 5 ML BOTTLE OP SCH (09:00)
[2019-01-05] MEDS: ASCORBIC ACID 500 MG TABLET GT SCH (09:00)
[2019-01-05] MEDS: ZINC SULFATE 220 MG CAPSULE PO SCH (09:00)
[2019-01-05] MEDS: LEVETIRACETAM (500MG) 500 MG in IV NS 0.9% 100 ML IV SCH ×2 (09:15→21:13)
[2019-01-05] MEDS: LORAZEPAM INJ 2 MG/ML VIAL IV PRN (09:25)
[2019-01-05] MEDS: HYDROGEL DRESSING 90 GM TUBE TP SCH (09:32)
[2019-01-05] MEDS: CADEXOMER IODINE 40 GM TUBE TP SCH (09:32)
[2019-01-05] MEDS: SILVER SULFADIAZINE CREAM 25 GM TUBE TP SCH ×2 (09:32→21:02)
[2019-01-05] MEDS: DAKINS QUARTER STRENGTH (0.125%) 480 ML BOTTLE TOP SCH (09:32)
[2019-01-05] MEDS: SILVER SULFADIAZINE 50 GM JAR TP SCH (09:32)
--- NOTE | 2019-01-05 10:15 | NUR ---
transfer report given to Galen ALAMO
--- NOTE | 2019-01-05 10:30 | NUR ---
SEMICONDUCTOR PROCESSING TECHNICIAN NOTES PT REPORT GIVEN BY JASMEET PHELAN IN [facility].RECEIVED PT LYING ON BED WITH COOL AEROSOL 28% WITH SHILEY XLT 7.ON TELE HR IS 99 WITH NSR.NO SOB AND ACUTE DISTRESS NOTED.NO SOB AND ACUTE DISTRESS NOTED.PT IS ANURIC.IV LINE IS ON LEFT FA G20 WITH TKO IS RUNNING.RIGHT UPPER ARM AV SHUNT PRESENT.SITE IS CLEAN,DRY AND INTACT.NO INFILTRATION NOTED.FAMILY IS AT BEDSIDE.NO FACIAL GRIMACING NOTED IN THE SHIFT.SAFETY IS MAINTAINED AT ALL TIMES.BED ALARM IS ON.CALL LIGHT IS WITHIN REACH.WILL CONTINUE TO MONITOR THE PT CLOSELY.
[2019-01-05] MEDS: INSULIN REGULAR, HUMAN 100 UNIT/ML 3 ML VIAL SQ PRN ×2 (11:42→23:50)
[2019-01-05] MEDS: ACETAMINOPHEN 650 MG/SUPP.RECT RC PRN (13:07)
[2019-01-05] MEDS: MEROPENEM 500 MG in IV NS 0.9% 50 ML IV SCH (13:36)
[2019-01-05] MEDS: MORPHINE SULFATE INJ 4 MG/ML DISP.SYRIN IV PRN ×2 (13:37→19:45)
[2019-01-05] MEDS: FLUCONAZOLE (100 MG) 100 MG TABLET GT SCH (18:00)
--- NOTE | 2019-01-05 18:49 | NUR ---
BARREL HEADER CLOSING NOTES PT IS LYING ON BED WITH COOL AEROSOL,COMFORT CARE MET.FAMILY IS AT BEDSIDE.NO SIGNIFICANT CHANGES NOTED IN THE SHIFT.WILL ENDORSE TO PRINTED CIRCUIT BOARD PREASSEMBLER RN FOR BILL.
[2019-01-05] MEDS: MONTELUKAST SODIUM (10MG) 10 MG TABLET GT SCH (21:02)
[2019-01-06] VITALS: BP_SYST 100; BP_SYST 113; BP_DIAS 46; BP_DIAS 47
[2019-01-06] MEDS: LORAZEPAM INJ 2 MG/ML VIAL IV PRN (00:11)
[2019-01-06] MEDS: IPRATROPIUM NEB FS 0.5 MG/2.5 ML AMPUL.NEB NEB SCH ×4 (01:15→19:30)
[2019-01-06] MEDS: ALBUTEROL FS 2.5 MG/3 ML VIAL.NEB IH SCH ×4 (01:15→19:30)
[2019-01-06] MEDS: PROSOURCE / PROSTAT (PYXIS) 30 ML UDC GT SCH ×3 (05:00→20:41)
[2019-01-06] MEDS: CHLORHEXIDINE GLUCONATE 15 ML UDC MM SCH ×3 (05:00→20:46)
[2019-01-06] MEDS: BLOOD SUGAR DIAGNOSTIC 1 EACH STRIP IN SCH ×3 (06:46→18:31)
--- NOTE | 2019-01-06 07:34 | NUR ---
RN OPENING NOTES RECEIVED PATIENT RESTING IN BED COMFORTABLY AT THIS TIME, SHOWS NO S/SX OF RESP DISTRESS OR SOB. SHE IS OBTUNDED, NON-VERBAL, AND BED BOUND. PT HAS SHILEY XLT 7 TRACH AND IS ON COOL AEROSOL 28%. TELE MONITOR SHOWING SINUS RHYTHM. IV SITE ON LEFT FA 20 G IS PATENT AND IS RUNNING TKO. PT HAS R UPPER AV SHUNT. SAFETY MEASURES HAVE BEEN IMPLEMENTED, CALL LIGHT IS WITHIN REACH, BED IS IN LOWEST AND LOCKED POSITION, SIDE RAILS UP X2, BED IS IN LOWEST AND LOCKED POSITION, WILL CONTINUE TO MONITOR FOR ANY CHANGES.
[2019-01-06 08:00] VITALS: BP 108/55
[2019-01-06] MEDS: ACETYLCYSTEINE 10% SOLN 400 MG/4 ML VIAL NEB SCH ×3 (08:09→23:23)
[2019-01-06] MEDS: VIT B CMPLX 3/FA/VIT C/BIOTIN 1 TAB TABLET GT SCH (09:00)
[2019-01-06] MEDS: ZINC SULFATE 220 MG CAPSULE PO SCH (09:00)
[2019-01-06] MEDS: ASCORBIC ACID 500 MG TABLET GT SCH (09:00)
[2019-01-06] MEDS: CADEXOMER IODINE 40 GM TUBE TP SCH (09:00)
[2019-01-06] MEDS: SILVER SULFADIAZINE 50 GM JAR TP SCH (09:21)
[2019-01-06] MEDS: DAKINS QUARTER STRENGTH (0.125%) 480 ML BOTTLE TOP SCH (09:21)
[2019-01-06] MEDS: SILVER SULFADIAZINE CREAM 25 GM TUBE TP SCH ×2 (09:21→20:46)
[2019-01-06] MEDS: HYDROGEL DRESSING 90 GM TUBE TP SCH (09:21)
--- NOTE | 2019-01-06 09:21 | NUR ---
UNABLE TO ADMIN MORNING MEDICATIONS THAT REQUIRE GTUBE ROUTE DUE TO GTUBE MALFUNCTION AND PER FAMILY REQUEST
[2019-01-06] MEDS: BRIMONIDINE TARTRATE OPHT SOLN 5 ML BOTTLE OP SCH (09:42)
[2019-01-06] MEDS: LEVETIRACETAM (500MG) 500 MG in IV NS 0.9% 100 ML IV SCH ×2 (09:43→20:46)
[2019-01-06] MEDS: MORPHINE SULFATE INJ 4 MG/ML DISP.SYRIN IV PRN (10:33)
[2019-01-06 12:00] VITALS: BP 117/44
[2019-01-06] MEDS: INSULIN REGULAR, HUMAN 100 UNIT/ML 3 ML VIAL SQ PRN (12:10)
[2019-01-06] MEDS: MEROPENEM 500 MG in IV NS 0.9% 50 ML IV SCH (14:40)
[2019-01-06 16:00] VITALS: BP 104/54
[2019-01-06] MEDS: FLUCONAZOLE (100 MG) 100 MG TABLET GT SCH (18:00)
[2019-01-06 20:00] VITALS: BP 111/53
--- NOTE | 2019-01-06 20:00 | NUR ---
TELE/RN OPENING NOTES RECEIVED PATIENT IN BED, OBTUNDED, NON VERBAL, ON ISOLATION PRECAUTION FOLLOWED PROTOCOL, FOR SEPSIS. PATIENT ON DNR STATUS WITH COMFORT MEASURES , ON COOLING AEROSOSL WITH PRESCRIBED SETTING, ANURIC, WITH SACRAL PRESSURE ULSERM ON NPO STATUS, GTUBE CLOGGED, ON IV ANTIBIOTIC MANAGEMENTMONITOIRNG FOR ANY PAIN. FAMILY INVOLVE.
[2019-01-06] MEDS: MONTELUKAST SODIUM (10MG) 10 MG TABLET GT SCH (21:39)
[2019-01-07] VITALS: BP 93/43
[2019-01-07] MEDS: IPRATROPIUM NEB FS 0.5 MG/2.5 ML AMPUL.NEB NEB SCH ×4 (01:30→20:18)
[2019-01-07] MEDS: ALBUTEROL FS 2.5 MG/3 ML VIAL.NEB IH SCH ×4 (01:30→20:18)
[2019-01-07 04:00] VITALS: BP 99/56
[2019-01-07] MEDS: PROSOURCE / PROSTAT (PYXIS) 30 ML UDC GT SCH ×3 (05:00→20:53)
[2019-01-07] MEDS: BLOOD SUGAR DIAGNOSTIC 1 EACH STRIP IN SCH ×4 (05:07→18:52)
[2019-01-07] MEDS: CHLORHEXIDINE GLUCONATE 15 ML UDC MM SCH ×3 (05:11→21:03)
--- NOTE | 2019-01-07 07:24 | NUR ---
tele/rn notes report given to am rn for leela.
[2019-01-07] MEDS: ACETYLCYSTEINE 10% SOLN 400 MG/4 ML VIAL NEB SCH ×3 (07:35→23:09)
[2019-01-07 08:00] VITALS: BP 106/55
[2019-01-07] MEDS: VIT B CMPLX 3/FA/VIT C/BIOTIN 1 TAB TABLET GT SCH ×2 (09:00→09:39)
[2019-01-07] MEDS: ASCORBIC ACID 500 MG TABLET GT SCH ×2 (09:00→09:39)
[2019-01-07] MEDS: ZINC SULFATE 220 MG CAPSULE PO SCH ×2 (09:00→09:39)
[2019-01-07] MEDS: LEVETIRACETAM (500MG) 500 MG in IV NS 0.9% 100 ML IV SCH ×2 (09:39→20:52)
[2019-01-07] MEDS: DAKINS QUARTER STRENGTH (0.125%) 480 ML BOTTLE TOP SCH (09:40)
[2019-01-07] MEDS: CADEXOMER IODINE 40 GM TUBE TP SCH (09:41)
[2019-01-07] MEDS: HYDROGEL DRESSING 90 GM TUBE TP SCH (09:41)
[2019-01-07] MEDS: SILVER SULFADIAZINE CREAM 25 GM TUBE TP SCH ×2 (09:41→21:04)
[2019-01-07] MEDS: SILVER SULFADIAZINE 50 GM JAR TP SCH (09:42)
[2019-01-07] MEDS: BRIMONIDINE TARTRATE OPHT SOLN 5 ML BOTTLE OP SCH (09:42)
[2019-01-07 12:00] VITALS: BP_SYST 102; BP_SYST 143; BP_DIAS 54; BP_DIAS 78
[2019-01-07] MEDS: INSULIN REGULAR, HUMAN 100 UNIT/ML 3 ML VIAL SQ PRN ×2 (12:39→23:44)
[2019-01-07] MEDS: MORPHINE SULFATE INJ 4 MG/ML DISP.SYRIN IV PRN ×2 (12:42→16:28)
[2019-01-07] MEDS: MEROPENEM 500 MG in IV NS 0.9% 50 ML IV SCH (13:32)
[2019-01-07 16:00] VITALS: BP 96/44
[2019-01-07] MEDS: FLUCONAZOLE (100 MG) 100 MG TABLET GT SCH (18:00)
--- NOTE | 2019-01-07 19:30 | NUR ---
APPOINTMENT SCHEDULER OPENING NOTES RECEIVED PATIENT IN BED OBTUNDED EYES OPEN. T PIECE IN PLACE, [address], NO SOB PRESENT, RESPIRATIONS EVEN AND UNLABORED WITH EQUAL RISE AND FALL OF CHEST, CONTINUOUS SP02 IN PLACE 94-98%. IV AITE TO LEFT FA #20 G INTACT AND PATENT, NO REDNESS, NO INFILTRATION PRESENT, RIGHT UPPER ARM SV SHUNT WITH BRUIT PRESENT, ON BEAD TRIMMER 93, GTUBE WITH DRESSING NOT USED AT THIS TIME, REMAINS NPO AT THIS TIME, SAFETY PRECAUTIONS IN PLACE, HEAD OF BED ELEVATED FOR ASPIRATION PRECAUTIONS, ALL NEEDS ATTENDED AT THIS TIME, WILL CONTINUE TO MONITOR AND ATTEND TO NEEDS, REMAINS COMFORTABLE AT THIS TIME.
[2019-01-07 20:00] VITALS: BP 109/54
[2019-01-07] MEDS: MONTELUKAST SODIUM (10MG) 10 MG TABLET GT SCH (22:00)
[2019-01-08] VITALS: BP 112/53
[2019-01-08] MEDS: BLOOD SUGAR DIAGNOSTIC 1 EACH STRIP IN SCH ×5 (00:09→23:39)
--- NOTE | 2019-01-08 01:38 | NUR ---
PT RECEIVE STABLE ON 28% FIO2, TRACH PATENT AND SECURED, NO SOB OR RESPIRATORY DISTRESS OBSERVE, WILL CONTINUE TO MONITOR. Addendum: 01/08/19 at 0140 by ROSANNE BRYAN RT Amended: Links added.
[2019-01-08] MEDS: IPRATROPIUM NEB FS 0.5 MG/2.5 ML AMPUL.NEB NEB SCH ×4 (01:51→19:40)
[2019-01-08] MEDS: ALBUTEROL FS 2.5 MG/3 ML VIAL.NEB IH SCH ×4 (01:51→19:40)
[2019-01-08 04:05] VITALS: BP 99/42
[2019-01-08] MEDS: PROSOURCE / PROSTAT (PYXIS) 30 ML UDC GT SCH (04:16)
[2019-01-08] MEDS: CHLORHEXIDINE GLUCONATE 15 ML UDC MM SCH ×3 (05:09→21:00)
[2019-01-08] MEDS: INSULIN REGULAR, HUMAN 100 UNIT/ML 3 ML VIAL SQ PRN ×4 (05:17→23:46)
--- NOTE | 2019-01-08 06:43 | NUR ---
EQUIPMENT COORDINATOR CLOSING NOTES PATIENT IN BED OBTUNDED EYES OPEN. T PIECE IN PLACE, [address], NO SOB PRESENT, RESPIRATIONS EVEN AND UNLABORED WITH EQUAL RISE AND FALL OF CHEST, CONTINUOUS SP02 IN PLACE 94-98%. IV SITE TO LEFT FA #20 G INTACT AND PATENT, NO REDNESS, NO INFILTRATION PRESENT, RIGHT UPPER ARM SV SHUNT WITH BRUIT PRESENT, ON ENDOSCOPY REGISTERED NURSE 91, WOUND DRESSINGS DONE ORDERED, WOUND PHOTOS DONE, DRESSINGS REMAIN CLEAN,DRY AND INTACT, REMAINS NPO AT THIS TIME, SAFETY PRECAUTIONS IN PLACE, HEAD OF BED ELEVATED FOR ASPIRATION PRECAUTIONS, ALL NEEDS ATTENDED AT THIS TIME, WILL CONTINUE TO MONITOR AND ATTEND TO NEEDS, REMAINS COMFORTABLE AT THIS TIME AND ENDORSE TO NEXT SHIFT, PATIENT SLEPT WELL THROUGHOUT SHIFT, ORAL CARE PROVIDED, REPOSITIONED Q2 HRS FOR WOUND AND SKIN MANAGEMENT.NO CHANGES NOTED
[2019-01-08] MEDS: ACETYLCYSTEINE 10% SOLN 400 MG/4 ML VIAL NEB SCH ×2 (07:21→15:30)
[2019-01-08 08:00] VITALS: BP 115/57
[2019-01-08] MEDS: MORPHINE SULFATE INJ 4 MG/ML DISP.SYRIN IV PRN (08:14)
[2019-01-08] MEDS: ASCORBIC ACID 500 MG TABLET GT SCH (09:00)
[2019-01-08] MEDS: ZINC SULFATE 220 MG CAPSULE PO SCH (09:00)
[2019-01-08] MEDS: VIT B CMPLX 3/FA/VIT C/BIOTIN 1 TAB TABLET GT SCH (09:00)
[2019-01-08] MEDS: LEVETIRACETAM (500MG) 500 MG in IV NS 0.9% 100 ML IV SCH ×2 (09:00→21:35)
[2019-01-08] MEDS: SILVER SULFADIAZINE 50 GM JAR TP SCH (10:38)
[2019-01-08] MEDS: SILVER SULFADIAZINE CREAM 25 GM TUBE TP SCH ×2 (10:38→21:00)
[2019-01-08] MEDS: HYDROGEL DRESSING 90 GM TUBE TP SCH (10:49)
[2019-01-08] MEDS: CADEXOMER IODINE 40 GM TUBE TP SCH (10:49)
[2019-01-08] MEDS: DAKINS QUARTER STRENGTH (0.125%) 480 ML BOTTLE TOP SCH (10:50)
[2019-01-08] MEDS: BRIMONIDINE TARTRATE OPHT SOLN 5 ML BOTTLE OP SCH (10:51)
[2019-01-08 12:00] VITALS: BP 107/49
[2019-01-08] MEDS ORDERED: KEY,NONCONTROL,TO KEEP IN PYXI 1 EA MC ONE (12:02)
[2019-01-08 16:00] VITALS: BP 105/35
[2019-01-08 20:00] VITALS: BP 75/21
[2019-01-08] MEDS: MONTELUKAST SODIUM (10MG) 10 MG TABLET GT SCH (21:09)
[2019-01-09] MEDS: IPRATROPIUM NEB FS 0.5 MG/2.5 ML AMPUL.NEB NEB SCH ×3 (00:31→12:45)
[2019-01-09] MEDS: ALBUTEROL FS 2.5 MG/3 ML VIAL.NEB IH SCH ×3 (00:31→12:45)
[2019-01-09] MEDS: ACETYLCYSTEINE 10% SOLN 400 MG/4 ML VIAL NEB SCH ×3 (00:32→12:45)
[2019-01-09 04:00] VITALS: BP 155/61
[2019-01-09] MEDS: CHLORHEXIDINE GLUCONATE 15 ML UDC MM SCH ×2 (04:54→13:00)
[2019-01-09] MEDS: BLOOD SUGAR DIAGNOSTIC 1 EACH STRIP IN SCH ×2 (05:36→12:00)
[2019-01-09 08:00] VITALS: BP 81/39
[2019-01-09] MEDS: CADEXOMER IODINE 40 GM TUBE TP SCH (09:00)
[2019-01-09] MEDS: HYDROGEL DRESSING 90 GM TUBE TP SCH (09:00)
[2019-01-09] MEDS: SILVER SULFADIAZINE 50 GM JAR TP SCH (09:00)
[2019-01-09] MEDS: ASCORBIC ACID 500 MG TABLET GT SCH (09:00)
[2019-01-09] MEDS: LEVETIRACETAM (500MG) 500 MG in IV NS 0.9% 100 ML IV SCH (09:00)
[2019-01-09] MEDS: SILVER SULFADIAZINE CREAM 25 GM TUBE TP SCH (09:00)
[2019-01-09] MEDS: BRIMONIDINE TARTRATE OPHT SOLN 5 ML BOTTLE OP SCH (09:00)
[2019-01-09] MEDS: DAKINS QUARTER STRENGTH (0.125%) 480 ML BOTTLE TOP SCH (09:00)
[2019-01-09] MEDS: ZINC SULFATE 220 MG CAPSULE PO SCH (09:00)
--- NOTE | 2019-01-09 15:47 | NUR ---
at 1459 - returned to patients room in order to round and exchange morphine iv bag - found patient eyes closed= chest nit rising or falling- color of pallor - attempted to palpate for pulse - not found- family bedside in room with patient ( cousin and girlfriend) called the cyber reverse engineer in order to confirm - will continue to monitor report and record
--- NOTE | 2019-01-09 17:50 | NUR ---
PATIENTS FAMILY ARRIVED AND HAVE BEEN IN THE ROOM - PATIENT PIV REMOVED - WOUNDS COVERED- PATIENT WAS PLACED IN A BODY BAG- TOE TAG PLACED- HAND TAG PLACED- ESCORTED OFF UNIT BY MORTUARY SERVICES
[2019-01-09] MEDS ORDERED: KEY,NONCONTROL,TO KEEP IN PYXI 1 EA MC ONE (18:35)
--- NOTE | 2019-01-09 19:18 | NUR ---
wasted morphine with Wilfredo Rn wasted 142.7ml 78.3 @4mg per hour- returned 2 unused bags of morphine to pharmacy d/t patient expiration
--- NOTE | 2019-01-10 15:47 | NUR ---
ROSALIE called the pt.'s responsible green party, Rabia to checked in with her following the news of the pt.'s . Rabia was receptive to speaking with ROSALIE and she stated that she felt "relieved" and that she is doing "good" knowing that the pt. is no longer suffering. Rabia stated that she was thankful for the [facility] staff because the pt. received safe and proper care. ROSALIE informed Rabia that she can call SW if she needs additional resources. Rabia was agreeable to plan.
== END 2019-01-09 18:00 | disposition expired | DRG 853 ==
LOC: ER 09:22 → TELE1 12:12 → MEDSG1 12-30 10:23 → TELE1 01-01 02:10 → MEDSG1 01-08 11:15
PROVIDERS: ADMIT Family Medicine; ATTEND Family Medicine
PROC: 30233N1 Transfusion of Nonautologous Red Blood Cells into Peripheral Vein, Percutaneous Approach (ICD-10-PCS; 2018-12-29)
PROC: 5A1D70Z Performance of Urinary Filtration, Intermittent, Less than 6 Hours Per Day (ICD-10-PCS; 2019-01-02)
PROC: 0KBP0ZZ Excision of Left Hip Muscle, Open Approach (ICD-10-PCS; principal; 2019-01-04)
PROC: 0KBN0ZZ Excision of Right Hip Muscle, Open Approach (ICD-10-PCS; 2019-01-04)
DX: A41.9 Sepsis, unspecified organism (principal); L89.324 Pressure ulcer of left buttock, stage 4; L89.314 Pressure ulcer of right buttock, stage 4; L89.814 Pressure ulcer of head, stage 4; L89.154 Pressure ulcer of sacral region, stage 4; J15.9 Unspecified bacterial pneumonia; Z51.5 Encounter for palliative care; N18.6 End stage renal disease; R53.2 Functional quadriplegia; M72.6 Necrotizing fasciitis; J96.10 Chronic respiratory failure, unspecified whether with hypoxia or hypercapnia; I12.0 Hypertensive chronic kidney disease with stage 5 chronic kidney disease or end stage renal disease; G93.1 Anoxic brain damage, not elsewhere classified; Z99.11 Dependence on respirator [ventilator] status; L03.311 Cellulitis of abdominal wall; K94.22 Gastrostomy infection; R40.3 Persistent vegetative state; M46.28 Osteomyelitis of vertebra, sacral and sacrococcygeal region; L97.319 Non-pressure chronic ulcer of right ankle with unspecified severity; D63.8 Anemia in other chronic diseases classified elsewhere; Z93.0 Tracheostomy status; Z99.2 Dependence on renal dialysis; Z86.718 Personal history of other venous thrombosis and embolism; E11.22 Type 2 diabetes mellitus with diabetic chronic kidney disease; E11.51 Type 2 diabetes mellitus with diabetic peripheral angiopathy without gangrene; Z86.73 Personal history of transient ischemic attack (TIA), and cerebral infarction without residual deficits; J98.2 Interstitial emphysema; Z66 Do not resuscitate; Z79.4 Long term (current) use of insulin; Z90.49 Acquired absence of other specified parts of digestive tract; Z74.01 Bed confinement status; I48.91 Unspecified atrial fibrillation; E11.69 Type 2 diabetes mellitus with other specified complication; M24.542 Contracture, left hand; M24.541 Contracture, right hand; R56.9 Unspecified convulsions; Z82.71 Family history of polycystic kidney; I95.9 Hypotension, unspecified; L97.529 Non-pressure chronic ulcer of other part of left foot with unspecified severity; L97.519 Non-pressure chronic ulcer of other part of right foot with unspecified severity; I70.245 Atherosclerosis of native arteries of left leg with ulceration of other part of foot; I70.235 Atherosclerosis of native arteries of right leg with ulceration of other part of foot; I70.233 Atherosclerosis of native arteries of right leg with ulceration of ankle
CPT/HCPCS: 31720; 36415; 36600; 71045-TC; 74018; 80048-TC; 80061-TC; 80076-TC; 80202-TC; 82803-TC; 82962-TC; 83605-TC; 83735-TC; 84100-TC; 84484-TC; 85025-TC; 85027-TC; 85730-TC; 86850-TC; 86921-TC; 87040-TC; 87070-TC; 87186-TC; 87340; 90935-TC; 94640-TC; 94760-TC; 94762-TC; A4216; A4217; A4623; A6248; A6253; A6403; A7526; G0378; J1815; J1953; J2060; J2185; J2270; J2274; J3370; J3490; J7030; J7040; J7050; J7060; P9016-BL; P9047